=== PATIENT | female | born 1965 | race Caucasian/White ===

== ENCOUNTER 2017-12-10 12:02 | Outpatient (REF) | payer OTHER, SELFPAY ==
[2017-12-10 21:33] LABS: Absolute Basophil Count 0.02 k/cumm (0.0-0.2); Absolute Eosinophil Count 0.15 k/cumm (0.0-0.7); Absolute Neutrophil Count 1.78 k/cumm (1.2-6.7); Basophils % 0.6; Eosinophils % 4.3; HGB 12.7 g/dL (12.0-15.5); Mean Corp. HGB Concentration 33.4 g/dL (32.0-36.0); Mean Corpuscular Hemoglobin 31.4 pg (27.0-33.0); Mean Corpuscular Volume 94.1 fL (80-95); Mean Platelet Volume 12.5 fL (8.0-11.0); Monocytes % 14.5; Neutrophils % 51.6; Platelet Count 197 x1000/uL (130-400); RBC 4.04 m/cumm (4.00-5.20); RBC Distribution Width 13.1 % (11.7-14.6); White Blood Cell Count 3.45 k/cumm (4.4-10.8)
[2017-12-10 21:57] LABS: Anion Gap 8.4 mmol/L (3-11); BUN 16 mg/dL (7-18); CO2 26.6 mmol/L (21.0-32.0); CREATININE 0.75 mg/dL (0.55-1.02); Calcium 8.9 mg/dL (8.5-10.1); Chloride 105 mmol/L (98-107); Glucose 116 mg/dL (70-100); Sodium 140 mmol/L (136-145)
== END 2017-12-10 12:22 ==
LOC: NCHCN 12:02
PROVIDERS: PCP Nurse Practitioner Family; Visit Provider Registered Nurse
DX: R19.7 Diarrhea, unspecified (principal)
CPT/HCPCS: 80048; 85025

== ENCOUNTER 2018-01-02 12:24 | Outpatient (REF) | payer OTHER, SELFPAY ==
[2018-01-02 22:16] LABS: Hemoglobin A1C 5.3 % (4.5-6.2)
[2018-01-02 22:33] LABS: Cholesterol 181 mg/dL (50-200); HDL Cholesterol 87 mg/dL (40-60); LDL CHOLESTEROL 80 mg/dL (<100); Triglyceride 55 mg/dL (30-150); Vitamin B12 431 pg/mL (193-986)
== END 2018-01-02 12:44 ==
LOC: NCHCN 12:24
PROVIDERS: PCP Nurse Practitioner Family; Visit Provider Nurse Practitioner Family
DX: Z00.00 Encounter for general adult medical examination without abnormal findings (principal); G89.4 Chronic pain syndrome; F32.9 Major depressive disorder, single episode, unspecified; K90.9 Intestinal malabsorption, unspecified; Z13.220 Encounter for screening for lipoid disorders; Z13.1 Encounter for screening for diabetes mellitus; Z82.49 Family history of ischemic heart disease and other diseases of the circulatory system
CPT/HCPCS: 80061; 83721; 82607; 83036

== ENCOUNTER 2018-01-05 15:45 | Outpatient (REF) | payer OTHER, SELFPAY | END 2018-01-05 16:05 | LOC: NCHCN 15:45 | PROVIDERS: PCP Nurse Practitioner Family; Visit Provider Nurse Practitioner Family | DX: R50.9 Fever, unspecified (principal); Z87.448 Personal history of other diseases of urinary system | CPT/HCPCS: 87077; 82043; 82570; 87086; 87186 ==

== ENCOUNTER 2018-03-05 12:19 | Outpatient (REF) | payer OTHER, SELFPAY | END 2018-03-05 12:39 | LOC: NCHCN 12:19 | PROVIDERS: PCP Nurse Practitioner Family; Visit Provider Nurse Practitioner Family | DX: R50.9 Fever, unspecified (principal); Z87.448 Personal history of other diseases of urinary system | CPT/HCPCS: 87086 ==

== ENCOUNTER 2018-04-15 13:23 | Emergency (ER) | payer SELFPAY ==
[2018-04-15 13:37] VITALS: BP 125/80; PULSE 61; RESP 12; TEMP 36.4; O2SAT 100
--- NOTE | 2018-04-15 14:08 | NUR.NOTE ---
bleeding controlled without pressure Nursing Note:
--- NOTE | 2018-04-15 16:51 | ED.GENADUL_ITS ---
Discharge Plan Disposition Patient Disposition: HOME Condition: Good Discharge Details Chief Complaint: Laceration Clinical Impression: Abrasion Primary Care Provider: Sienna Pathak ED Provider: Pavan Ferrera Home Meds and New Rx's Prescriptions: No Action citalopram 20 MG tablet 20 mg PO DAILY RF: 0 ibuprofen 800 MG tablet 800 mg PO TID PRNRF: 0 Tylenol Pm 1 tab PO .QHS RF: 0 naproxen 500 MG tablet 500 mg PO BID PRN PRNQty: 30 RF: 0 gabapentin 600 mg Tablet 600 mg PO BID RF: 0 trazodone 50 mg Tablet 50 mg PO DAILY RF: 0 buspirone 10 mg Tablet 10 mg PO BID RF: 0 bupropion HCl [Wellbutrin XL] 150 mg Tablet Extended Release 24 Hr 150 mg PO QAM RF: 0 tramadol 50 mg Tablet 50 mg PO Q6H PRNRF: 0 Discharge Instructions Instructions: Abrasion (ED) Additional Instructions: Please apply triple antibiotic ointment to the abrasion twice daily. Please keep a bandage. If you notice any redness or drainage, please return immediately for reevaluation. if you notice any worsening of your symptoms, or any new symptoms such as vomiting, diarrhea, fever, chills, shortness of breath, chest pain, numbness, weakness, or fainting , please return immediately to the emergency department for reevaluation. Please follow up with your primary care provider as soon as possible for reassessment and reevaluation. As always, it was a pleasure participating in your medical care today. Referrals: Sienna Pathak [Primary Care Provider] - Medical Decision Making This is a pleasant 52-year-old female who presents for evaluation of an abrasion over her left forehead. No signs of laceration, nothing to be sutured. Tetanus is up-to-date the patient. She does not want any prophylactic medication for HIV or hepatitis. She has no other signs of trauma, and no historical concerning red flags of concussion, or other abnormality. Small amount of triple antibiotic ointment were placed on the abrasion after it had been cleaned and washed with copious amounts of soap and water. A Band-Aid was placed. Patient will be discharged home. I have extensively reviewed the treatment plan and discharge instructions with the patient. I have addressed all patient concerns at this time. The patient was made aware of what symptoms to monitor for that would warrant a return to the emergency department. Discussed the plan with the patient, they demonstrate verbal understanding and agreement with our assessment and plan at this time. HPI General Date/Time Provider Initiated Documentation: 04/15/18 14:19 . HPI Narrative: This is a 52-year-old female who presents for evaluation of abrasion. Patient states that she is bending over and scraped her left forehead on a metal bur that was clean on a chair at her work. The patient went and got blood work for otitis and HIV screening. She then came to the ER for further evaluation. Patient's tetanus was updated within the past 10 years per the patient. She denies any complaints of headache, vision changes, loss of consciousness, numbness tingling weakness or bleeding. She denies any other complaints or modifying factors. She does not want prophylaxis medications for HIV or hepatitis. Related Data Home Medications Medication Instructions Recorded Confirmed citalopram 20 mg PO DAILY 08/30/12 04/15/18 ibuprofen 800 mg PO TID PRN 12/03/12 04/15/18 Tylenol Pm 1 tab PO .QHS 04/18/13 04/15/18 naproxen 500 mg PO BID PRN PRN #30 tab 04/18/13 04/15/18 bupropion HCl [Wellbutrin XL] 150 mg PO QAM 04/15/18 04/15/18 buspirone 10 mg PO BID 04/15/18 04/15/18 gabapentin 600 mg PO BID 04/15/18 04/15/18 tramadol 50 mg PO Q6H PRN 04/15/18 04/15/18 trazodone 50 mg PO DAILY 04/15/18 04/15/18 Previous Rx's Medication Instructions Recorded naproxen 500 mg PO BID PRN PRN #30 tab 04/18/13 Allergies Allergy/AdvReac Type Severity Reaction Status Date / Time No Known Allergies Allergy Unverified 04/15/18 13:40 General Stated Complaint: Laceration SUE: 5 Review of Systems Review of Systems All systems reviewed & are unremarkable except as noted in HPI and below PFSH Social History Smoking and Tabacco status: Never Exam Narrative Exam Narrative: 1.Const: Well-nourished, Well-developed, appearing stated age 2.Eyes: PERRL, no conjunctival injection, and symmetrical lids. 3.ENT: Atraumatic external nose and ears. Moist MM. Neck: Symmetric, trachea midline, No thyromegaly. There is no evidence of raccoon eyes, bowie sign, CSF rhinorrhea, mastoid tenderness, cranial crepitus, hemotympanum, exophthalmos, or hyphema. Patient demonstrates intact dentition with no signs of tooth avulsion or fracture, no signs of jaw deformity, no evidence of a LeFort's fracture, with an intact palate, nose and orbital region. There is no evidence of a nasal septal hematoma. No proptosis. Jaw closes symmetrically. Airway is clear. 4.CVS: +S1/S2, No murmurs or gallops. Peripheral pulses 2+ and equal in all extremities. Brisk capillary refill in all extremities. 5.RESP: Unlabored respiratory effort. Clear to auscultation bilaterally. No wheezes rales or rhonchi 6.GI: Soft, Nontender/Nondistended, No hepatosplenomegaly. No guarding or rebound. 7.MSK: Normocephalic/Atraumatic, Extremities w/o deformity or ttp No cyanosis or clubbing, Normal movement of all extremities 8.Skin: Warm, Dry. No rashes. She demonstrates a very small superficial abrasion over the left brow, it is linear and roughly 3 cm. It goes from medial to lateral.. Nothing to be sutured. No signs of through and through cutaneous laceration. 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 Sensation grossly intact, no focal neurologic deficits. 10.Psych: (AAO) x3. Appropriate mood and affect Course Vital Signs Temperature 36.4 C L 04/15/18 13:37 Pulse 61 04/15/18 13:37 Respiratory Rate 12 04/15/18 13:37 Blood Pressure 125/80 04/15/18 13:37 Pulse Oximetry 100 04/15/18 13:37 Temperature 36.4 C L 04/15/18 13:37 Temperature Source Temporal Artery Scan 04/15/18 13:37 Pulse 61 04/15/18 13:37 Respiratory Rate 12 04/15/18 13:37 Respiratory Effort Non-Labored 04/15/18 13:39 Blood Pressure 125/80 04/15/18 13:37 Blood Pressure Position Sitting 04/15/18 13:37 Pulse Oximetry 100 04/15/18 13:37 Oxygen Delivery Method Room Air 04/15/18 13:37 Oxygen Flow Rate 0 04/15/18 13:37 Pain Level 4 04/15/18 13:37
== END 2018-04-15 14:25 | disposition home or self-care (01) ==
LOC: ER 14:23
PROVIDERS: Emergency Provider Student in an Organized Health Care Education/Training Program; PCP Nurse Practitioner Family
DX: S00.81XA Abrasion of other part of head, initial encounter (principal); W22.8XXA Striking against or struck by other objects, initial encounter; Y99.0 Civilian activity done for income or pay
CPT/HCPCS: 99282

== ENCOUNTER 2018-12-14 12:20 | Outpatient (REF) | payer OTHER, SELFPAY ==
[2018-12-14 21:50] LABS: HCT 41.9 % (36.0-46.0); HGB 13.8 g/dL (12.0-15.5); Mean Corp. HGB Concentration 32.9 g/dL (32.0-36.0); Mean Corpuscular Hemoglobin 30.3 pg (27.0-33.0); Mean Corpuscular Volume 92.1 fL (80-95); Mean Platelet Volume 11.5 fL (8.0-11.0); Platelet Count 256 x1000/uL (130-400); RBC 4.55 m/cumm (4.00-5.20); RBC Distribution Width 13.6 % (11.7-14.6); White Blood Cell Count 3.04 k/cumm (4.4-10.8)
[2018-12-14 22:31] LABS: Iron 89 ug/dL (50-175)
[2018-12-14 22:56] LABS: ALT 21 U/L (14-59); AST 19 U/L (15-37); Albumin 3.9 g/dL (3.4-5.0); Alkaline Phosphatase 80 U/L (46-116); Anion Gap 10.7 mmol/L (3-11); BUN 13 mg/dL (7-18); Bilirubin, Total 0.4 mg/dL (0.2-1.0); CO2 28.3 mmol/L (21.0-32.0); CREATININE 0.85 mg/dL (0.55-1.02); Calcium 9.4 mg/dL (8.5-10.1); Chloride 105 mmol/L (98-107); Glucose 93 mg/dL (70-100); Sodium 144 mmol/L (136-145); TSH 2.16 uIU/mL (0.36-3.74); Total Protein 7.3 g/dL (6.4-8.2); Vitamin B12 269 pg/mL (193-986)
[2018-12-16 12:09] LABS: FSH 72.3 mIU/ml
== END 2018-12-14 12:40 ==
LOC: NCHCN 12:20
PROVIDERS: PCP Nurse Practitioner Family; Visit Provider Nurse Practitioner Family
DX: Z00.00 Encounter for general adult medical examination without abnormal findings (principal); N95.1 Menopausal and female climacteric states; K90.9 Intestinal malabsorption, unspecified
CPT/HCPCS: 80053; 82306; 85027; 82607; 83001; 83540; 84443

== ENCOUNTER 2019-02-22 22:32 | Outpatient (REF) | payer OTHER, SELFPAY | END 2019-02-22 22:52 | LOC: NCHCN 22:32 | PROVIDERS: PCP Nurse Practitioner Family; Visit Provider Internal Medicine | DX: R30.0 Dysuria (principal) | CPT/HCPCS: 87077; 87086; 87186 ==

== ENCOUNTER 2019-12-06 16:01 | Outpatient (REF) | payer OTHER, SELFPAY ==
--- NOTE | 2019-12-06 15:00 | PAPFT_PTH ---
PATIENT: Twila Graves LOC: [facility] U#:[id number] AGE/SX: 54/F ROOM: RE12/06/[address]: Hayley Wagner : 1965 BED: DIS: 12/06/2019 SPEC #: [id number] RECD: 12/07/19 12:54 STATUS: SISSY REQ #: [id number] LINETTE: 12/06/19 15:[address]: Hayley Young DEPT: [facility] Cytology RECD BY: Rubina Flannery ENTERED: 12/07/19 12:54 SP TYPE: PAPFT OTHR DR: Sienna Pathak Tissues: 1 - CX/ENDOCX FOR PAP SMEARS Procedures: PAP THIN PREP/UVM Screening HPV DNA PROBE Comments: [id number]
[2019-12-06 22:08] LABS: HCT 39.3 % (36.0-46.0); HGB 13.3 g/dL (11.2-15.7); MCH 31.1 pg (27.0-33.0); MCHC 33.8 % (32.0-36.0); MCV 91.8 fL (80-95); MPV 12.1 fL (8.0-11.0); Platelet Count 231 10^3/uL (130-400); RBC 4.28 10^6/uL (3.93-5.22); RDW 13.1 % (11.7-14.6); WBC 5.02 10^3/uL (4.4-10.8)
[2019-12-06 22:21] LABS: Iron 85 ug/dL (50-170)
[2019-12-06 22:41] LABS: Hemoglobin A1C 5.6 % (<5.7)
[2019-12-06 22:57] LABS: Vitamin D 25 Total 34.9 ng/ml (30-100)
[2019-12-06 22:59] LABS: Anion Gap 11.3 mmol/L (3-11); BUN 17 mg/dL (7-18); CO2 26.7 mmol/L (21.0-32.0); Calcium 9.4 mg/dL (8.5-10.1); Chloride 105 mmol/L (98-107); Glucose 99 mg/dL (74-106); Potassium 4.2 mmol/L (3.5-5.1); Sodium 143 mmol/L (136-145); TSH 3.25 uIU/mL (0.36-3.74); Vitamin B12 294 pg/mL (193-986)
== END 2019-12-06 16:21 ==
LOC: NCHCN 16:01
PROVIDERS: PCP Nurse Practitioner Family; Visit Provider Nurse Practitioner Family
DX: K90.9 Intestinal malabsorption, unspecified (principal); Z13.1 Encounter for screening for diabetes mellitus; Z12.4 Encounter for screening for malignant neoplasm of cervix; R87.810 Cervical high risk human papillomavirus (HPV) DNA test positive
CPT/HCPCS: 80048; 82306; 85027; 88142; 82607; 83036; 83540; 84443; 87624

== ENCOUNTER → 2020-03-23 20:05 | Outpatient (REF) | payer OTHER, SELFPAY | LOC: NCHCN 20:05 | PROVIDERS: PCP Nurse Practitioner Family; Visit Provider Family Medicine | DX: Z87.448 Personal history of other diseases of urinary system (principal); R82.998 Other abnormal findings in urine | CPT/HCPCS: 87077; 87086; 87186 ==

== ENCOUNTER 2020-11-23 10:26 | Outpatient (REF) | payer OTHER, SELFPAY ==
--- NOTE | 2020-11-23 09:30 | PAPFT_PTH ---
PATIENT: Twila Graves LOC: [facility]#:[id number] AGE/SX: 55/F ROOM: RE11/23/[address]: Hayley Wagner : 1965 BED: DIS: 11/23/2020 SPEC #: [id number] RECD: 11/23/20 13:11 STATUS: SISSY REMichelle #: [id number] LINETTE: 11/23/20 09:[address]: Hayley Young DEPT: [facility] Cytology RECD BY: Rubina Flannery ENTERED: 11/23/20 13:11 SP TYPE: PAPFT OTHR DR: Sienna Pathak Tissues: 1 - CX/ENDOCX FOR PAP SMEARS Procedures: PAP THIN PREP/UVM Screening HPV DNA PROBE Comments: [id number] (HPV 16 & 18/45)
[2020-11-23 16:02] LABS: HGB 12.2 g/dL (11.2-15.7); MCH 29.9 pg (27.0-33.0); MCHC 32.1 % (32.0-36.0); MCV 93.1 fL (80-95); MPV 12.2 fL (8.0-11.0); Platelet Count 235 10^3/uL (130-400); RBC 4.08 10^6/uL (3.93-5.22); RDW 13.4 % (11.7-14.6); RDW-SD 45.7 fL; WBC 3.26 10^3/uL (4.4-10.8)
[2020-11-23 16:42] LABS: Hemoglobin A1C 5.8 % (<5.7)
[2020-11-23 16:44] LABS: Iron 76 ug/dL (50-170); Total Iron Binding Capacity 452 ug/dL (250-450); Transferrin Sat 17 % (15-50)
[2020-11-23 16:49] LABS: Vitamin D 25 Total 31.8 ng/mL (30-100)
[2020-11-23 16:50] LABS: ALT 29 U/L (14-59); AST 22 U/L (15-37); Albumin 3.7 g/dL (3.4-5.0); Alkaline Phosphatase 81 U/L (46-116); Anion Gap 6.9 mmol/L (3-11); BUN 15 mg/dL (7-18); Bilirubin, Total 0.3 mg/dL (0.2-1.0); CO2 28.1 mmol/L (21.0-32.0); CREATININE 0.8 mg/dL (0.55-1.02); Calcium 8.8 mg/dL (8.5-10.1); Chloride 105 mmol/L (98-107); Glucose 96 mg/dL (74-106); Potassium 4.6 mmol/L (3.5-5.1); Sodium 140 mmol/L (136-145); TSH 1.13 uIU/mL (0.36-3.74); Total Protein 6.7 g/dL (6.4-8.2); Vitamin B12 243 pg/mL (193-986)
== END 2020-11-23 10:27 | disposition home or self-care (01) ==
LOC: NCHCN 10:26
PROVIDERS: PCP Nurse Practitioner Family; Visit Provider Nurse Practitioner Family
DX: Z00.00 Encounter for general adult medical examination without abnormal findings (principal); E53.8 Deficiency of other specified B group vitamins; D50.9 Iron deficiency anemia, unspecified; E55.9 Vitamin D deficiency, unspecified; Z98.84 Bariatric surgery status; Z12.4 Encounter for screening for malignant neoplasm of cervix; Z13.1 Encounter for screening for diabetes mellitus; Z11.51 Encounter for screening for human papillomavirus (HPV); B97.7 Papillomavirus as the cause of diseases classified elsewhere
CPT/HCPCS: 80053; 82306; 85027; 88142; 82607; 83036; 83540; 83550; 84443; 87624

== ENCOUNTER 2021-03-26 20:28 | Outpatient (REF) | payer OTHER, SELFPAY ==
[2021-03-26 20:53] LABS: Abs Immature Grans 0.01 10^3/uL (0.0-0.06); Absolute Basophil Count 0.05 10^3/uL (0.0-0.2); Absolute Lymphocyte Count 1.59 10^3/uL (1.2-3.4); Absolute Monocyte Count 0.41 10^3/uL (0.1-0.8); Absolute Neutrophil Count 2.93 10^3/uL (1.2-6.7); HCT 44.9 % (36.0-46.0); HGB 14.2 g/dL (11.2-15.7); Immature Grans % 0.2; Lymphocytes % 31.2; MCHC 31.6 % (32.0-36.0); MCV 91.6 fL (80-95); MPV 11.9 fL (8.0-11.0); Monocytes % 8.1; Neutrophils % 57.5; Nucleated RBC 0 %; Platelet Count 273 10^3/uL (130-400); RDW 13.4 % (11.7-14.6); RDW-SD 45.4 fL; WBC 5.09 10^3/uL (4.4-10.8)
[2021-03-26 20:59] LABS: ALT 24 U/L (14-59); AST 19 U/L (15-37); Alkaline Phosphatase 102 U/L (46-116); Anion Gap 8.7 mmol/L (3-11); BUN 13 mg/dL (7-18); Bilirubin, Total 0.5 mg/dL (0.2-1.0); CO2 28.3 mmol/L (21.0-32.0); CREATININE 0.8 mg/dL (0.55-1.02); Calcium 9.2 mg/dL (8.5-10.1); Chloride 101 mmol/L (98-107); Glucose 106 mg/dL (74-106); Lipase 122 U/L (73-393); Potassium 3.7 mmol/L (3.5-5.1); Sodium 138 mmol/L (136-145); Total Protein 7.3 g/dL (6.4-8.2)
[2021-03-27 20:09] LABS: COVID-19 RT-PCR UVMMC Result Negative (Negative)
== END 2021-03-26 20:29 | disposition home or self-care (01) ==
LOC: NCHCN 20:28
PROVIDERS: PCP Nurse Practitioner Family; Visit Provider Nurse Practitioner Family
DX: R10.32 Left lower quadrant pain (principal); R53.1 Weakness; R42 Dizziness and giddiness; Z20.822 Contact with and (suspected) exposure to COVID-19
CPT/HCPCS: 80053; 83690; 87077; U0003; 85025; 87086; 87186

== ENCOUNTER 2021-06-26 18:42 | Outpatient (REF) | payer OTHER, SELFPAY ==
[2021-06-26 21:10] LABS: Bilirubin Negative (Negative); Blood Negative (Negative); Clarity Sl Cloudy (Clear); Glucose Negative (Negative); Ketones Negative (Negative); Leukocyte Esterase Negative (Negative); Nitrite Negative (Negative); Specific Gravity >= 1.030 (1.005-1.025); Urobilinogen 0.2 EU/dL (Up TO 0.2)
== END 2021-06-26 18:43 | disposition home or self-care (01) ==
LOC: NCHCN 18:42
PROVIDERS: PCP Nurse Practitioner Family; Visit Provider Nurse Practitioner Family
DX: R10.9 Unspecified abdominal pain (principal)
CPT/HCPCS: 81003

== ENCOUNTER 2021-11-09 19:37 | Outpatient (REF) | payer SELFPAY | END 2021-11-09 19:38 | disposition home or self-care (01) | LOC: NCHCN 19:37 | PROVIDERS: PCP Nurse Practitioner Family; Visit Provider Family Medicine | DX: R39.9 Unspecified symptoms and signs involving the genitourinary system (principal) | CPT/HCPCS: 87077; 87086; 87186 ==

== ENCOUNTER 2021-12-05 16:07 | Outpatient (REF) | payer SELFPAY | END 2021-12-05 16:08 | disposition home or self-care (01) | LOC: NCHCN 16:07 | PROVIDERS: PCP Nurse Practitioner Family; Visit Provider Family Medicine | DX: R39.89 Other symptoms and signs involving the genitourinary system (principal); R50.9 Fever, unspecified; R82.998 Other abnormal findings in urine | CPT/HCPCS: 87077; 87086; 87186 ==

== ENCOUNTER 2022-07-25 13:17 | Outpatient (REF) | payer OTHER, SELFPAY ==
--- NOTE | 2022-07-25 11:45 | PAPFT_PTH ---
PATIENT: Twila Graves LOC: [facility]#:[id number] AGE/SX: 57/F ROOM: RE07/25/[address]: Hayley Wagner : 1965 BED: DIS: 07/25/2022 SPEC #: [id number] RECD: 07/26/22 12:51 STATUS: SISSY CHUNG #: [id number] LINETTE: 07/25/22 11:[address]: Hayley Young DEPT: [facility] Cytology RECD BY: Rubina Flannery ENTERED: 07/26/22 12:51 SP TYPE: PAPFT OTHR DR: Sienna Pathak Tissues: 1 - CX/ENDOCX FOR PAP SMEARS Procedures: PAP THIN PREP/UVM Screening HPV DNA PROBE Comments: [id number] (HPV 16 & 18/45)
[2022-07-25 21:03] LABS: HCT 36.7 % (36.0-46.0); HGB 11.6 g/dL (11.2-15.7); MCH 27.9 pg (27.0-33.0); MCHC 31.6 % (32.0-36.0); MCV 88 fL (80-95); MPV 11.3 fL (8.0-11.0); Platelet Count 282 10^3/uL (130-400); RBC 4.16 10^6/uL (3.93-5.22); RDW 14.3 % (11.7-14.6); RDW-SD 46.5 fL; WBC 4.52 10^3/uL (4.4-10.8)
[2022-07-25 21:06] LABS: Iron 39 ug/dL (50-170); Total Iron Binding Capacity 510 ug/dL (250-450); Transferrin Sat 8 % (15-50)
[2022-07-25 21:15] LABS: Hemoglobin A1C 5.8 % (<5.7)
[2022-07-25 21:27] LABS: Vitamin D 25 Total 27.4 ng/mL (30-100)
[2022-07-25 21:31] LABS: ALT 23 U/L (14-59); AST 20 U/L (15-37); Albumin 3.6 g/dL (3.4-5.0); Alkaline Phosphatase 78 U/L (46-116); Anion Gap 5.8 mmol/L (3-11); BUN 14 mg/dL (7-18); Bilirubin, Total 0.3 mg/dL (0.2-1.0); CO2 29.2 mmol/L (21.0-32.0); CREATININE 0.9 mg/dL (0.55-1.02); Calcium 8.6 mg/dL (8.5-10.1); Chloride 106 mmol/L (98-107); Estimated GFR 74.57 (mL/min/1.73m2); Glucose 97 mg/dL (74-106); Potassium 4.4 mmol/L (3.5-5.1); Sodium 141 mmol/L (136-145); TSH 1.67 uIU/mL (0.36-3.74); Total Protein 7.2 g/dL (6.4-8.2); Vitamin B12 178 pg/mL (193-986)
[2022-07-29 10:25] LABS: Hepatitis C Ab w Rflx HCV PCR Negative (Negative)
== END 2022-07-25 13:18 | disposition home or self-care (01) ==
LOC: NCHCN 13:17
PROVIDERS: PCP Nurse Practitioner Family; Visit Provider Nurse Practitioner Family
DX: Z12.4 Encounter for screening for malignant neoplasm of cervix (principal); Z11.51 Encounter for screening for human papillomavirus (HPV); R87.810 Cervical high risk human papillomavirus (HPV) DNA test positive
CPT/HCPCS: 80053; 82306; 85027; 86803; 88142; 82607; 83036; 83540; 83550; 84443; 87624

== ENCOUNTER 2023-01-21 14:54 | Outpatient (REF) | payer OTHER, SELFPAY ==
[2023-01-21 14:56] LABS: Hemoglobin A1C 5.6 % (<5.7)
--- OUTSIDE RECORDS SUMMARY | 2023-01-21 15:03 | XMS_ITS | CCD ---
Author Name Unknown Address [address] [place] [address] [phone] Organization Unknown Address [address] [place] [address] [phone] Care Team Providers Care Ground Equipment Mechanic Name Role Phone ELEONORA JUANCARLOS Attending Physician [phone] Vital Signs Unknown or Not Available. Allergies Allergy Code Allergy Type Reaction Status No Known Allergies 0 No known allergies Active Procedures Unknown or Not Available. History of Immunizations Unknown or Not Available. Problems Problem Code Start Date Resolved Date Status Fever 992200000 Active Diabetes 51060857 Active Results Unknown or Not Available. Active Medications Medication Code Dose Units Frequency Route Modificatio n Start Date/Time Mucinex 1200MG Oral Tablet, Extended Release 638982 1 TABLET TWICE A DAY ORAL 05/29/2021 12:15 Prescription Detail TAKE 1 TABLET ORAL TWICE A DAY Cefpodoxime Proxetil 200MG Oral Tablet 128802 1 TABLET TWICE A DAY ORAL 05/29/2021 12:00 Prescription Detail TAKE 1 TABLET ORAL TWICE A DAY Azithromycin 250MG Oral Tablet 807602 1 TABLET DAILY ORAL 05/29/2021 11:59 Prescription Detail TAKE 1 TABLET ORAL DAILY buPROPion HCl 150MG Oral Tablet, Extended Release 519169 150 MILLIGRAMS DAILY ORAL 2 11:58 Prescription Detail TAKE 150 MILLIGRAMS ORAL DAILY busPIRone 10MG Oral Tablet 150411 10 MILLIGRAMS TWICE A DAY ORAL 05/29/2021 11:58 Prescription Detail TAKE 10 MILLIGRAMS ORAL TWICE A DAY Citalopram 40MG Oral Tablet 235692 40 MILLIGRAMS BEDTIME ORAL 022 11:58 Prescription Detail TAKE 40 MILLIGRAMS ORAL BEDTIME Cyclobenzaprine HCl 10MG Oral Tablet 594364 10 MILLIGRAMS NEEDED ORAL 2 11:58 Prescription Detail TAKE 10 MILLIGRAMS ORAL NEEDED Erythromycin 5MG/1GM Ophthalmic Ointment 398341 1 EACH NEEDED FOUR TIMES A DAY OPHTHALMIC 05/29/2021 11:[address] 1 EACH OPHTHALMIC NEEDED FOUR T IMES A DAY Gabapentin 600MG Oral Tablet 576400 600 MILLIGRAMS NEEDED TWICE DAILY ORAL 05/29/2021 11:58 Prescription Detail TAKE 600 MILLIGRAMS ORAL NEEDED TWICE DAILY traZODone hydrochloride 50MG Oral Tablet 413959 50 MILLIGRAMS BEDTIME ORAL 11:58 Prescription Detail TAKE 50 MILLIGRAMS ORAL BEDTIME valACYclovir HCl 1GM Oral Tablet 739181 1 GM NEEDED ORAL 06/2021 11:58 Prescription Detail TAKE 1 GM ORAL NEEDED Vitamin B12 1000 MCG Sublingual Tablet 406987 4205 MCG DAILY SUBLINGUAL 11:58 Prescription Detail DISSOLVE 1000 MCG SUBLINGUAL DAILY Medications Administered During Visit Unknown or Not Available. Encounters Encounter Diagnosis Diagnosis Code Start Date Canceled operative procedure [id number] Social History Smoking Status Code Start Date End Date Never smoker [id number] Patient Decision Aids Unknown or Not Available. Discharge Instructions You were admitted to [facility] on 09/19/2022 14:45 with a principal diagnosis of Procedure and treatment not carried out, unspecified reason You were discharged from [facility] on 09/19/2022 14:45 Should you have any questions prior to discharge, please contact a member of your healthcare team. If you have left the hospital and have any questions, please contact your primary care physician. Chief Complaint and Reason For Visit Unknown or Not Available. Function Status Unknown or Not Available. Plan of Care Unknown or Not Available. Referral/Transition of Care Unknown or Not Available.
--- OUTSIDE RECORDS SUMMARY | 2023-01-21 15:04 | XMS_ITS | CCD ---
Author Name Unknown Address [address] [place] [address] [phone] Organization Unknown Address [address] [place] [address] [phone] Care Team Providers Care Log Yard Derrick Operator Name Role Phone LORENA LAM Attending Physician [phone] Vital Signs Unknown or Not Available. Allergies Allergy Code Allergy Type Reaction Status No Known Allergies 0 No known allergies Active Procedures Unknown or Not Available. History of Immunizations Unknown or Not Available. Problems Problem Code Start Date Resolved Date Status Fever 595994373 Active Diabetes 23583455 Active Type 2 diabetes 25287137 05/28/2021 Resolved Anxiety 83246233 05/28/2021 Resolved Depression 51309250 05/28/2021 Resolved Chronic back pain 726830244 05/28/2021 Resolve d Results SHIRLEY COVID RHEONIX* - Ledy ect Date/Time: 02/20/2021 09:50 Test Name Code Test Result Test Units Test Ref Rang e Tier- PRE-OP N/A SARS COV2 RNA: 87809-9 NEGATIVE N/A REFERENCE RANGE: NEGAT Active Medications Medication Code Dose Units Frequency Route Modificatio n Start Date/Time Mucinex 1200MG Oral Tablet, Extended Release 286452 1 TABLET TWICE A DAY ORAL 05/29/2021 12:15 Prescription Detail TAKE 1 TABLET ORAL TWICE A DAY Cefpodoxime Proxetil 200MG Oral Tablet 963720 1 TABLET TWICE A DAY ORAL 05/29/2021 12:00 Prescription Detail TAKE 1 TABLET ORAL TWICE A DAY Azithromycin 250MG Oral Tablet 924699 1 TABLET DAILY ORAL 05/29/2021 11:59 Prescription Detail TAKE 1 TABLET ORAL DAILY buPROPion HCl 150MG Oral Tablet, Extended Release 775457 150 MILLIGRAMS DAILY ORAL 11:58 Prescription Detail TAKE 150 MILLIGRAMS ORAL DAILY busPIRone 10MG Oral Tablet 603986 10 MILLIGRAMS TWICE A DAY ORAL 05/29/2021 11:58 Prescription Detail TAKE 10 MILLIGRAMS ORAL TWICE A DAY Citalopram 40MG Oral Tablet 651009 40 MILLIGRAMS BEDTIME ORAL 022 11:58 Prescription Detail TAKE 40 MILLIGRAMS ORAL BEDTIME Cyclobenzaprine HCl 10MG Oral Tablet 199104 10 MILLIGRAMS NEEDED ORAL 11:58 Prescription Detail TAKE 10 MILLIGRAMS ORAL NEEDED Erythromycin 5MG/1GM Ophthalmic Ointment 150186 1 EACH NEEDED FOUR TIMES A DAY OPHTHALMIC 05/29/2021 11:[address] 1 EACH OPHTHALMIC NEEDED FOUR T IMES A DAY Gabapentin 600MG Oral Tablet 960960 600 MILLIGRAMS NEEDED TWICE DAILY ORAL 05/29/2021 11:58 Prescription Detail TAKE 600 MILLIGRAMS ORAL NEEDED TWICE DAILY traZODone hydrochloride 50MG Oral Tablet 677001 50 MILLIGRAMS BEDTIME ORAL 11:58 Prescription Detail TAKE 50 MILLIGRAMS ORAL BEDTIME valACYclovir HCl 1GM Oral Tablet 565700 1 GM NEEDED ORAL 06/2021 11:58 Prescription Detail TAKE 1 GM ORAL NEEDED Vitamin B12 1000 MCG Sublingual Tablet 959508 4585 MCG DAILY SUBLINGUAL 11:58 Prescription Detail DISSOLVE 1000 MCG SUBLINGUAL DAILY Medications Administered During Visit Unknown or Not Available. Encounters Encounter Diagnosis Diagnosis Code Start Date Pre-surgery testing 830620201 02/20/2021 Social History Smoking Status Code Start Date End Date Never smoker 259926283 Patient Decision Aids Unknown or Not Available. Discharge Instructions You were admitted to [facility] on 02/20/2021 22:05 with a principal diagnosis of Encounter for preprocedural laboratory examination You had the following tests done:SHIRLEY REEVESX* You were discharged from [facility] on 02/20/2021 22:05 Should you have any questions prior to [...]
--- OUTSIDE RECORDS SUMMARY | 2023-01-21 15:04 | XMS_ITS | CCD ---
Author Name Unknown Address [address] [place] [address] [phone] Organization Unknown Address [address] [place] [address] [phone] Care Team Providers Care Personnel Quality Assurance Auditor Name Role Phone JULIAN ESPINOZA Attending Physician [phone] HANNA BENTLEY Er Physician [phone] RUSTY XIONG (Secondary) Physician 8 [phone] CHUCHO Melara Registered Nurse [phone] Vital Signs Vital Sign Value Unit Date/Time Recent/Initial ? BMI (Body Mass Index) 28.55 kg/m^2 05/28/2021 14: 37 Initial VS Weight Measured 199 lbs 05/28/2021 14:37 Ini tial VS Height 70 in 05/28/2021 14:37 Initial VS BSA (Body Surface Area) 2.11 m^2 05/28/2021 1 4:37 Initial VS BP Systolic 166 mmHg 05/28/2021 14:37 Initial VS BP Diastolic 85 mmHg 05/28/2021 14:37 Initia l VS Respiratory Rate 20 bpm 05/28/2021 14:37 In itial VS Heart Rate 87 bpm 05/28/2021 14:37 Initial VS O2 % BldC Oximetry 95 % 05/28/2021 14:37 Initial VS Body Temperature 39.6 degrees 05/28/2021 14:37 In itial VS BP Systolic 129 mmHg 05/29/2021 07:48 Most Re cent VS BP Diastolic 84 mmHg 05/29/2021 07:48 Most R ecent VS Respiratory Rate 16 bpm 05/29/2021 07:[address] Recent VS Heart Rate 71 bpm 05/29/2021 07:48 Most Rec ent VS Body Temperature 36.6 degrees 05/29/2021 07:[address] Recent VS O2 % BldC Oximetry 92 % 05/29/2021 11:00 Most Recent VS Allergies Allergy Code Allergy Type Reaction Status No Known Allergies 0 No known allergies Active Procedures Unknown or Not Available. History of Immunizations Unknown or Not Available. Problems Problem Code Start Date Resolved Date Status Fever 247842222 Active Diabetes 65065704 Active Type 2 diabetes 65457788 05/28/2021 Resolved Anxiety 38544043 05/28/2021 Resolved Depression 27032525 05/28/2021 Resolved Chronic back pain 863244093 05/28/2021 Resolve d Results BASIC METABOLIC PANEL (BMP) - Collect Date/Time: 05/29/2021 07:30 Test Name Code Test Result Test Units Test Ref Rang e GLUCOSE 2345-7 99 mg/dL L=70 H=116 BUN 3094-0 9 mg/dL L=6 H=25 CREATININE 2160-0 0.74 mg/dL L=0.51 H=0.95 SODIUM SERUM 2951-2 139 mmol/L L=136 H=145 POTASSIUM SERUM 2823-3 3.6 mmol/L L=3.4 H=5 .2 CHLORIDE SERUM 2075-0 105 mmol/L L=96 H=110 CARBON DIOXIDE (CO2) 2028-9 28 mmol/L L=22 H=34 ANION GAP 38083-9 6.4 mmol/L CALCIUM SERUM 71091-8 8.5 mg/dL L=8.2 H=10. 2 AGE 56 years eGFR (non-Afr.Amer.) 12162-2 81 mL/min eGFR (Afr-Singaporean) 73664-2 98 mL/min COMPREHENSIVE METABOLIC PANE L (CMP) - Collect Date/Time: 05/28/2021 14:15 Test Name Code Test Result Test Units Test Ref Rang e GLUCOSE 2345-7 139 mg/dL L=70 H=116 BUN 3094-0 10 mg/dL L=6 H=25 CREATININE 2160-0 0.86 mg/dL L=0.51 H=0.95 SODIUM SERUM 2951-2 136 mmol/L L=136 H=145 POTASSIUM SERUM 2823-3 3.5 mmol/L L=3.4 H=5 .2 CHLORIDE SERUM 2075-0 100 mmol/L L=96 H=110 CARBON DIOXIDE (CO2) 2028-9 26 mmol/L L=22 H=34 ANION GAP 42170-1 9.6 mmol/L CALCIUM SERUM 39428-0 8.5 mg/dL L=8.2 H=10. 2 BILIRUBIN TOTAL 1975-2 0.4 mg/dL L=0.0 H=1 .3 ALK. PHOS. 6768-6 93 U/L L=46 H=116 SGOT (AST) 1920-8 16 U/L L=15 H=37 SGPT (ALT) 1742-6 19 U/L L=12 H=78 TOTAL PROTEIN 2885-2 7.0 gm/dL L=6.0 H=8.0 ALBUMIN 1751-7 3.4 gm/dL L=3.4 H=5.0 AGE 56 years eGFR (non-Afr.Amer.) 44963-0 68 mL/min eGFR (Afr-Singaporean) 93665-5 83 mL/min TROPONIN HIGH SENSITIVITY* - Collect Date/Time: 05/28/2021 14:15 Test Name Code Test Result Test Units Test Ref Rang e TROPONIN HS 48.8 pg/mL L=0.0 H=60.4 Specimen seq. Random N/A CBC W/ DIFFERENTIAL* - Colle ct Date/Time: 05/29/2021 07:30 Test Name Code Test Result Test Units Test Ref Rang e WBC 6690-2 5.63 th/cmm L=5.00 H=10.00 NEUT % 69.7 % L=40.0 H=80.0 LYMPH % 21.0 % L=10.0 H=50.0 MONO % 52612-2 7.8 % L=2.0 H=12.0 EOS % 0.9 % L=0.0 H=8.0 BASO % 0.2 % L=0.0 H=3.0 IG % 2514-8 0.4 % L=0.0 H=1.1 NRBC % 59925-5 0.0 % L=0.0 H=0.0 NEUT abs count 751-8 3.9 th/cmm L=1.6 H=8. 4 LYMPH abs count 731-0 1.2 th/cmm L=1.5 H=4 .0 MONO abs count 742-7 0.4 th/cmm L=0.2 H=1. 0 EOS abs count 711-2 0.1 th/cmm L=0.0 H=0.5 BASO abs count 704-7 0.0 th/cmm L=0.0 H=0. 2 IG abs count 69943-9 0.0 th/cmm L=0.0 H=0.1 NRBC abs count 44052-2 0.0 mil/cmm L=0.0 H=0. 0 RBC 789-8 4.09 mil/cmm L=3.90 H=5.40 HEMOGLOBIN 718-7 12.2 gm/dL L=12.0 H=16.0 HEMATOCRIT 4544-3 38 % L=37 H=47 MCV 787-2 92 fL L=82 H=92 MCH 785-6 29.8 pg L=27.0 H=31.0 MCHC 786-4 32.4 % L=32.0 H=36.0 RDW-SD 788-0 48.2 fL L=39.0 H=49.0 PLATELET COUNT 777-3 188 th/cmm L=150 H=45 0 CBC W/ DIFFERENTIAL* - Colle ct Date/Time: 05/28/2021 14:15 Test Name Code Test Result Test Units Test Ref Rang e WBC 6690-2 5.74 th/cmm L=5.00 H=10.00 NEUT % 82.8 % L=40.0 H=80.0 LYMPH % 10.5 % L=10.0 H=50.0 MONO % 00706-8 5.7 % L=2.0 H=12.0 EOS % 0.5 % L=0.0 H=8.0 BASO % 0.2 % L=0.0 H=3.0 IG % 2514-8 0.3 % L=0.0 H=1.1 NRBC % 83401-9 0.0 % L=0.0 H=0.0 NEUT abs count 751-8 4.8 th/cmm L=1.6 H=8. 4 LYMPH abs count 731-0 0.6 th/cmm L=1.5 H=4 .0 MONO abs count 742-7 0.3 th/cmm L=0.2 H=1. 0 EOS abs count 711-2 0.0 th/cmm L=0.0 H=0.5 BASO abs count 704-7 0.0 th/cmm L=0.0 H=0. 2 IG abs count 57847-1 0.0 th/cmm L=0.0 H=0.1 NRBC abs count 65481-1 0.0 mil/cmm L=0.0 H=0. 0 RBC 789-8 4.35 mil/cmm L=3.90 H=5.40 HEMOGLOBIN 718-7 13.0 gm/dL L=12.0 H=16.0 HEMATOCRIT 4544-3 39 % L=37 H=47 MCV 787-2 89 fL L=82 H=92 MCH 785-6 29.9 pg L=27.0 H=31.0 MCHC 786-4 33.6 % L=32.0 H=36.0 RDW-SD 788-0 45.5 fL L=39.0 H=49.0 PLATELET COUNT 777-3 200 th/cmm L=150 H=45 0 SHIRLEY COVID FLU RSV GENEXPE RT - Collect Date/Time: 05/28/2021 14:15 Test Name Code Test Result Test Units Test Ref Rang e COVID 01360-2 NEGATIVE N/A Normal: Negati ve INFLUENZA A DNA 98933-1 NEGATIVE N/A Normal: N egative INFLUENZA B DNA 01374-9 NEGATIVE N/A Normal: N egative RSV DNA 86190-9 NEGATIVE N/A Normal: Negati ve CULT URINE CULTURE* - [facility] Date/Time: 05/28/2021 16:05 Test Name Code Test Result Test Units Test Ref Rang e COLLECTION MODE: CLEAN CATCH N/A URINALYSIS WITH MICRO AND RE FLEX CULTUR* - Collect Date/Time: 05/28/2021 16:05 Test Name Code Test Result Test Units Test Ref Rang e COLLECTION MODE: CLEAN CATCH N/A Color 5778-6 STRAW N/A yellow Appearance 5767-9 CLEAR N/A clear Glucose urine 76153-5 NEGATIVE N/A negative mg /dl Bilirubin 5770-3 NEGATIVE N/A negative Ketones 2514-8 NEGATIVE N/A negative mg/dl Spec gravity 5811-5 <=1.005 N/A 1.003 - 1.03 0 pH urine 2756-5 6.5 N/A 5.0 - 7.0 Protein 57048-6 NEGATIVE N/A negative mg/dl Urobilinogen 97132-8 0.2 N/A <or= 1 EU/dl Nitrite. 5802-4 POSITIVE N/A negative Blood 5794-3 NEGATIVE N/A negative Leukocytes. NEGATIVE N/A negative WBCs. 55728-8 0-5 N/A 0-5 / hpf RBCs 69794-7 0-5 N/A 0-5 / hpf Epith cells 67286-3 0-5 N/A 0-5 / hpf Cell types squamous N/A Crystals none N/A none Bacteria large N/A none Mucus none N/A none Casts none N/A none /lpf Active Medications Medications Administered During Visit Medication Dose Units Frequency Route Date/Time of Last Dose SODIUM CHLORIDE 0.9% 1000ML 1000 ML X1 05/28/2021 14:37 ACETAMINOPHEN INJ SDV: 1000MG/100ML 1000 MG X1 05/28/2021 14:36 CefTRIAXone IVPB: 1GM/50ML 1 GM X1 05/28/2021 16:32 AZITHROMYCIN IVPB: 500MG/250ML 500 MG X1 05/28/2021 17:33 METOCLOPRAMIDE INJ SDV: 10MG/2ML 10 MG X1 IVP 05/28/2021 17:27 DiphenhydrAMINE INJ SDV: 50MG/ML 25 MG X1 IVP 05/28/2021 17:27 SODIUM CHLORIDE 0.9% FLUSH 1 0ML SYRINGE 2 ML Q8H IVP 05/28/2021 21:4 2 ACETAMINOPHEN TABLET: 325MG 975 MG PRN Q6H PO 05/29/2021 14:19 CYANOCOBALAMIN TABLET: 500MCG 1000 MCG DAILY PO 05/29/2021 08:29 TraZODone TABLET: 50MG 50 MG BEDTIME PO 05/28/2021 20:20 CITALOPRAM TABLET: 20MG 40 MG BEDTIME PO 05/28/2021 20:20 GABAPENTIN CAPSULE: 300MG 600 MG BID PO 05/29/2021 08:29 BuPROPion XL TABLET: 150MG 150 MG DAILY PO 05/29/2021 08:29 BusPIRone TABLET : 15MG 15 MG BID PO 05/29/2021 08:29 CefTRIAXone IVPB: 1GM/50ML 1 GM X1 05/29/2021 11:59 AZITHROMYCIN TABLET: 250MG 250 MG X1 PO 05/29/2021 11:58 GuaiFENesin EXT RELEASE TABL ET: 600MG 600 MG X1 PO 05/29/2021 12:5 0 Encounters Encounter Diagnosis Diagnosis Code Start Date Pneumonia, unspecified organism J189 05/28/2021 Social History Smoking Status Code Start Date End Date Never smoker [id number] Patient Decision Aids Unknown or Not Available. Discharge Instructions You were admitted to [facility] on 05/28/2021 17:01 with a principal diagnosis of Pneumonia, unspecified organism You had the following tests done:BASIC METABOLIC PANEL (BMP)CBC W/ DIFFERENTIAL*CULT URINE CULTURE*URINALYSIS WITH MICRO AND REFLEX CULTUR*CBC W/ DIFFERENTIAL*COMPREHENSIVE METABOLIC PANEL (CMP)[facility] COVID FLU RSV GENEXPERTTROPONIN HIGH SENSITIVITY* You were discharged from [facility] on 05/29/2021 14:25 Should you have any questions prior to discharge, please contact a member of your healthcare team. If you have left the hospital and have any questions, please contact your primary care physician. Chief Complaint and Reason For Visit Chief Complaint Date of Onset FEVER 05/28/2021 Function Status Unknown or Not Available. Plan of Care Unknown or Not Available. Referral/Transition of Care Unknown or Not Available.
--- OUTSIDE RECORDS SUMMARY | 2023-01-21 15:04 | XMS_ITS | CCD ---
Author Name Unknown Address [address] [place] [address] [phone] Organization Unknown Address [address] [place] [address] [phone] Care Team Providers Care Landscaping Specialist Name Role Phone LORENA LAM Attending Physician [phone] LORENA LAM Rounding (Secondary) Physic erich [phone] Vital Signs Unknown or Not Available. Allergies Allergy Code Allergy Type Reaction Status No Known Allergies 0 No known allergies Active Procedures Procedure Code Procedure Type Date REMOVAL IMPLANT DEEP [id number] SNOMED CT History of Immunizations Unknown or Not Available. Problems Problem Code Start Date Resolved Date Status Fever [id number] Active Diabetes 63091847 Active Type 2 diabetes 94157849 05/28/2021 Resolved Anxiety 08994247 05/28/2021 Resolved Depression 64574239 05/28/2021 Resolved Chronic back pain 761462003 05/28/2021 Resolve d Results Unknown or Not Available. Active Medications Medication Code Dose Units Frequency Route Modificatio n Start Date/Time Mucinex 1200MG Oral Tablet, Extended Release 205840 1 TABLET TWICE A DAY ORAL 05/29/2021 12:15 Prescription Detail TAKE 1 TABLET ORAL TWICE A DAY Cefpodoxime Proxetil 200MG Oral Tablet 459554 1 TABLET TWICE A DAY ORAL 05/29/2021 12:00 Prescription Detail TAKE 1 TABLET ORAL TWICE A DAY Azithromycin 250MG Oral Tablet 297051 1 TABLET DAILY ORAL 05/29/2021 11:59 Prescription Detail TAKE 1 TABLET ORAL DAILY buPROPion HCl 150MG Oral Tablet, Extended Release 213363 150 MILLIGRAMS DAILY ORAL 11:58 Prescription Detail TAKE 150 MILLIGRAMS ORAL DAILY busPIRone 10MG Oral Tablet 268410 10 MILLIGRAMS TWICE A DAY ORAL 05/29/2021 11:58 Prescription Detail TAKE 10 MILLIGRAMS ORAL TWICE A DAY Citalopram 40MG Oral Tablet 706972 40 MILLIGRAMS BEDTIME ORAL 022 11:58 Prescription Detail TAKE 40 MILLIGRAMS ORAL BEDTIME Cyclobenzaprine HCl 10MG Oral Tablet 685441 10 MILLIGRAMS NEEDED ORAL 11:58 Prescription Detail TAKE 10 MILLIGRAMS ORAL NEEDED Erythromycin 5MG/1GM Ophthalmic Ointment 043948 1 EACH NEEDED FOUR TIMES A DAY OPHTHALMIC 05/29/2021 11:[address] 1 EACH OPHTHALMIC NEEDED FOUR T IMES A DAY Gabapentin 600MG Oral Tablet 911219 600 MILLIGRAMS NEEDED TWICE DAILY ORAL 05/29/2021 11:58 Prescription Detail TAKE 600 MILLIGRAMS ORAL NEEDED TWICE DAILY traZODone hydrochloride 50MG Oral Tablet 403441 50 MILLIGRAMS BEDTIME ORAL 11:58 Prescription Detail TAKE 50 MILLIGRAMS ORAL BEDTIME valACYclovir HCl 1GM Oral Tablet 240622 1 GM NEEDED ORAL 06/2021 11:58 Prescription Detail TAKE 1 GM ORAL NEEDED Vitamin B12 1000 MCG Sublingual Tablet 445953 0751 MCG DAILY SUBLINGUAL 11:58 Prescription Detail DISSOLVE 1000 MCG SUBLINGUAL DAILY Medications Administered During Visit Unknown or Not Available. Encounters Encounter Diagnosis Diagnosis Code Start Date Pain due to internal prosthetic device [id number] 02/22/2021 Social History Smoking Status Code Start Date End Date Never smoker 135304838 Patient Decision Aids Unknown or Not Available. Discharge Instructions You were admitted to [facility] on 02/22/2021 13:28 with a principal diagnosis of Pain due to internal orthopedic prosthetic devices, implants and grafts, initial encounter You had the following procedures done:REMOVAL IMPLANT DEEP You were discharged from [facility] on 02/22/2021 13:29 Should you have any questions prior to [...]
--- OUTSIDE RECORDS SUMMARY | 2023-01-21 15:04 | XMS_ITS | CCD ---
Author Name Unknown Address [address] [place] [address] [id number] Organization Unknown Address [address] [place] [address] [id number] Care Team Providers Care Outside Industrial Sales Representative Name Role Phone LORENA LAM Attending Physician [phone] Vital Signs Vital Sign Value Unit Date/Time Recent/Initial ? BP Systolic 123 mmHg 02/22/2021 10:53 Initial VS BP Diastolic 83 mmHg 02/22/2021 10:53 Initia l VS Respiratory Rate 18 bpm 02/22/2021 10:53 In itial VS Heart Rate 61 bpm 02/22/2021 10:53 Initial VS O2 % BldC Oximetry 96 % 02/22/2021 10:53 Initial VS Body Temperature 36 degrees 02/22/2021 10:53 In itial VS Allergies Allergy Code Allergy Type Reaction Status No Known Allergies 0 No known allergies Active Procedures Procedure Code Procedure Type Date Removal, Implant; Deep 49541 CPT 02/22 Anesthesia, Open/Surg Arthro scopic/Endoscopic Proc, Distal Radius/Distal Ulna/Wrist/Hand; NOS 13492 CPT 02/22/2021 History of Immunizations Unknown or Not Available. Problems Problem Code Start Date Resolved Date Status Fever 860956606 Active Diabetes 97209948 Active Type 2 diabetes 34056958 05/28/2021 Resolved Anxiety 36521031 05/28/2021 Resolved Depression 87649235 05/28/2021 Resolved Chronic back pain 643743486 05/28/2021 Resolve d Results Unknown or Not Available. Active Medications Medications Administered During Visit Medication Dose Units Frequency Route Date/Time of Last Dose ACETAMINOPHEN TABLET: 325MG 975 MG X1 PO 02/22/2021 08:02 CELECOXIB CAPSULE: 100MG 200 MG X1 PO 02/22/2021 08:02 LACTATED RINGERS 1000ML 1000 ML X1 02/22/2021 08:05 MIDAZOLAM INJ SDV: 2MG/2ML 2 MG X1 IVP 02/22/2021 08:41 KETOROLAC INJ SDV: 30MG/1ML 30 MG PRN IN PACU X1 IVP 02/22/2021 10:05 Encounters Encounter Diagnosis Diagnosis Code Start Date Pain due to internal orthope dic prosthetic devices, implants and grafts, initial encounter [id number] 02/22/2021 Social History Smoking Status Code Start Date End Date Never smoker [id number] Patient Decision Aids Unknown or Not Available. Discharge Instructions You were admitted to [facility] on 02/22/2021 07:21 with a principal diagnosis of Pain due to internal orthopedic prosthetic devices, implants and grafts, initial encounter You had the following procedures done:Removal, Implant; DeepAnesthesia, Open/Surg Arthroscopic/Endoscopic Proc, Distal Radius/Distal Ulna/Wrist/Hand; NOS You were discharged from [facility] on 02/22/2021 10:56 Should you have any questions prior to discharge, please contact a member of your healthcare team. If you have left the hospital and have any questions, please contact your primary care physician. Chief Complaint and Reason For Visit Chief Complaint Date of Onset LEFT ULNA HARDWARE REMOVAL 60MIN OP Function Status Unknown or Not Available. Plan of Care Unknown or Not Available. Referral/Transition of Care Unknown or Not Available.
--- OUTSIDE RECORDS SUMMARY | 2023-01-21 15:04 | XMS_ITS | CCD ---
Author Name Unknown Address [address] [place] [address] [id number] Organization Unknown Address [address] [place] [address] [phone] Care Team Providers Care Foley Artist Name Role Phone CORAZON FOSTRE Attending Physician [phone] CORAZON FOSTER Rounding (Secondary) Physician [phone] Vital Signs Unknown or Not Available. Allergies Allergy Code Allergy Type Reaction Status No Known Allergies 0 No known allergies Active Procedures Unknown or Not Available. History of Immunizations Unknown or Not Available. Problems Problem Code Start Date Resolved Date Status Fever 602091309 Active Diabetes 93128423 Active Type 2 diabetes 90008308 05/28/2021 Resolved Anxiety 78573558 05/28/2021 Resolved Depression 79349679 05/28/2021 Resolved Chronic back pain 208371213 05/28/2021 Resolve d Results Unknown or Not Available. Active Medications Medication Code Dose Units Frequency Route Modificatio n Start Date/Time Mucinex 1200MG Oral Tablet, Extended Release 797316 1 TABLET TWICE A DAY ORAL 05/29/2021 12:15 Prescription Detail TAKE 1 TABLET ORAL TWICE A DAY Cefpodoxime Proxetil 200MG Oral Tablet 856943 1 TABLET TWICE A DAY ORAL 05/29/2021 12:00 Prescription Detail TAKE 1 TABLET ORAL TWICE A DAY Azithromycin 250MG Oral Tablet 829649 1 TABLET DAILY ORAL 05/29/2021 11:59 Prescription Detail TAKE 1 TABLET ORAL DAILY buPROPion HCl 150MG Oral Tablet, Extended Release 799059 150 MILLIGRAMS DAILY ORAL 11:58 Prescription Detail TAKE 150 MILLIGRAMS ORAL DAILY busPIRone 10MG Oral Tablet 952932 10 MILLIGRAMS TWICE A DAY ORAL 05/29/2021 11:58 Prescription Detail TAKE 10 MILLIGRAMS ORAL TWICE A DAY Citalopram 40MG Oral Tablet 508777 40 MILLIGRAMS BEDTIME ORAL 022 11:58 Prescription Detail TAKE 40 MILLIGRAMS ORAL BEDTIME Cyclobenzaprine HCl 10MG Oral Tablet 051180 10 MILLIGRAMS NEEDED ORAL 11:58 Prescription Detail TAKE 10 MILLIGRAMS ORAL NEEDED Erythromycin 5MG/1GM Ophthalmic Ointment 753780 1 EACH NEEDED FOUR TIMES A DAY OPHTHALMIC 05/29/2021 11:[address] 1 EACH OPHTHALMIC NEEDED FOUR T IMES A DAY Gabapentin 600MG Oral Tablet 176593 600 MILLIGRAMS NEEDED TWICE DAILY ORAL 05/29/2021 11:58 Prescription Detail TAKE 600 MILLIGRAMS ORAL NEEDED TWICE DAILY traZODone hydrochloride 50MG Oral Tablet 351172 50 MILLIGRAMS BEDTIME ORAL 11:58 Prescription Detail TAKE 50 MILLIGRAMS ORAL BEDTIME valACYclovir HCl 1GM Oral Tablet 000995 1 GM NEEDED ORAL 06/2021 11:58 Prescription Detail TAKE 1 GM ORAL NEEDED Vitamin B12 1000 MCG Sublingual Tablet 933176 8409 MCG DAILY SUBLINGUAL 11:58 Prescription Detail DISSOLVE 1000 MCG SUBLINGUAL DAILY Medications Administered During Visit Unknown or Not Available. Encounters Encounter Diagnosis Diagnosis Code Start Date Removal of suture 17647913 03/01/2021 Social History Smoking Status Code Start Date End Date Never smoker 201603560 Patient Decision Aids Unknown or Not Available. Discharge Instructions You were admitted to [facility] on 03/01/2021 11:38 with a principal diagnosis of Encounter for removal of sutures You were discharged from [facility] on 03/01/2021 00:00 Should you have any questions prior to [...]
--- OUTSIDE RECORDS SUMMARY | 2023-01-21 15:05 | XMS_ITS | CCD ---
Author Name Unknown Address [address] [place] [address] [phone] Organization Unknown Address [address] [place] [address] [phone] Care Team Providers Care Tactical Deception Plans Officer Name Role Phone LORENA LAM Attending Physician [phone] LORENA LAM Rounding (Secondary) Physic erich [phone] Vital Signs Unknown or Not Available. Allergies Allergy Code Allergy Type Reaction Status No Known Allergies 0 No known allergies Active Procedures Unknown or Not Available. History of Immunizations Unknown or Not Available. Problems Problem Code Start Date Resolved Date Status Fever 600703473 Active Diabetes 62422200 Active Type 2 diabetes 75615020 05/28/2021 Resolved Anxiety 56215049 05/28/2021 Resolved Depression 67856205 05/28/2021 Resolved Chronic back pain 763256761 05/28/2021 Resolve d Results Unknown or Not Available. Active Medications Medication Code Dose Units Frequency Route Modificatio n Start Date/Time Mucinex 1200MG Oral Tablet, Extended Release 131057 1 TABLET TWICE A DAY ORAL 05/29/2021 12:15 Prescription Detail TAKE 1 TABLET ORAL TWICE A DAY Cefpodoxime Proxetil 200MG Oral Tablet 328334 1 TABLET TWICE A DAY ORAL 05/29/2021 12:00 Prescription Detail TAKE 1 TABLET ORAL TWICE A DAY Azithromycin 250MG Oral Tablet 515965 1 TABLET DAILY ORAL 05/29/2021 11:59 Prescription Detail TAKE 1 TABLET ORAL DAILY buPROPion HCl 150MG Oral Tablet, Extended Release 669769 150 MILLIGRAMS DAILY ORAL 11:58 Prescription Detail TAKE 150 MILLIGRAMS ORAL DAILY busPIRone 10MG Oral Tablet 886230 10 MILLIGRAMS TWICE A DAY ORAL 05/29/2021 11:58 Prescription Detail TAKE 10 MILLIGRAMS ORAL TWICE A DAY Citalopram 40MG Oral Tablet 300937 40 MILLIGRAMS BEDTIME ORAL 022 11:58 Prescription Detail TAKE 40 MILLIGRAMS ORAL BEDTIME Cyclobenzaprine HCl 10MG Oral Tablet 385552 10 MILLIGRAMS NEEDED ORAL 11:58 Prescription Detail TAKE 10 MILLIGRAMS ORAL NEEDED Erythromycin 5MG/1GM Ophthalmic Ointment 437974 1 EACH NEEDED FOUR TIMES A DAY OPHTHALMIC 05/29/2021 11:[address] 1 EACH OPHTHALMIC NEEDED FOUR T IMES A DAY Gabapentin 600MG Oral Tablet 731660 600 MILLIGRAMS NEEDED TWICE DAILY ORAL 05/29/2021 11:58 Prescription Detail TAKE 600 MILLIGRAMS ORAL NEEDED TWICE DAILY traZODone hydrochloride 50MG Oral Tablet 360275 50 MILLIGRAMS BEDTIME ORAL 11:58 Prescription Detail TAKE 50 MILLIGRAMS ORAL BEDTIME valACYclovir HCl 1GM Oral Tablet 534781 1 GM NEEDED ORAL 06/2021 11:58 Prescription Detail TAKE 1 GM ORAL NEEDED Vitamin B12 1000 MCG Sublingual Tablet 866434 4283 MCG DAILY SUBLINGUAL 11:58 Prescription Detail DISSOLVE 1000 MCG SUBLINGUAL DAILY Medications Administered During Visit Unknown or Not Available. Encounters Encounter Diagnosis Diagnosis Code Start Date Pain due to internal prosthetic device 711787505 02/08/2021 Social History Smoking Status Code Start Date End Date Never smoker 722379299 Patient Decision Aids Unknown or Not Available. Discharge Instructions You were admitted to [facility] on 02/08/2021 11:45 with a principal diagnosis of Pain due to internal orthopedic prosthetic devices, implants and grafts, initial encounter You were discharged from [facility] on 02/08/2021 14:20 Should you have any questions prior to [...]
--- OUTSIDE RECORDS SUMMARY | 2023-01-21 15:05 | XMS_ITS | CCD ---
Author Name Unknown Address [address] [place] [address] [phone] Organization Unknown Address [address] [place] [address] [phone] Care Team Providers Care Child Abuse Worker Name Role Phone OSEAS LEE Attending Physician [phone] Vital Signs Unknown or Not Available. Allergies Allergy Code Allergy Type Reaction Status No Known Allergies 0 No known allergies Active Procedures Unknown or Not Available. History of Immunizations Unknown or Not Available. Problems Problem Code Start Date Resolved Date Status Fever 663755644 Active Diabetes 41756157 Active Type 2 diabetes 79864429 05/28/2021 Resolved Anxiety 26058995 05/28/2021 Resolved Depression 60259632 05/28/2021 Resolved Chronic back pain 671969102 05/28/2021 Resolve d Results Unknown or Not Available. Active Medications Medication Code Dose Units Frequency Route Modificatio n Start Date/Time Mucinex 1200MG Oral Tablet, Extended Release 695483 1 TABLET TWICE A DAY ORAL 05/29/2021 12:15 Prescription Detail TAKE 1 TABLET ORAL TWICE A DAY Cefpodoxime Proxetil 200MG Oral Tablet 619497 1 TABLET TWICE A DAY ORAL 05/29/2021 12:00 Prescription Detail TAKE 1 TABLET ORAL TWICE A DAY Azithromycin 250MG Oral Tablet 748807 1 TABLET DAILY ORAL 05/29/2021 11:59 Prescription Detail TAKE 1 TABLET ORAL DAILY buPROPion HCl 150MG Oral Tablet, Extended Release 898638 150 MILLIGRAMS DAILY ORAL 11:58 Prescription Detail TAKE 150 MILLIGRAMS ORAL DAILY busPIRone 10MG Oral Tablet 341232 10 MILLIGRAMS TWICE A DAY ORAL 05/29/2021 11:58 Prescription Detail TAKE 10 MILLIGRAMS ORAL TWICE A DAY Citalopram 40MG Oral Tablet 107255 40 MILLIGRAMS BEDTIME ORAL 022 11:58 Prescription Detail TAKE 40 MILLIGRAMS ORAL BEDTIME Cyclobenzaprine HCl 10MG Oral Tablet 759844 10 MILLIGRAMS NEEDED ORAL 11:58 Prescription Detail TAKE 10 MILLIGRAMS ORAL NEEDED Erythromycin 5MG/1GM Ophthalmic Ointment 063906 1 EACH NEEDED FOUR TIMES A DAY OPHTHALMIC 05/29/2021 11:[address] 1 EACH OPHTHALMIC NEEDED FOUR T IMES A DAY Gabapentin 600MG Oral Tablet 827267 600 MILLIGRAMS NEEDED TWICE DAILY ORAL 05/29/2021 11:58 Prescription Detail TAKE 600 MILLIGRAMS ORAL NEEDED TWICE DAILY traZODone hydrochloride 50MG Oral Tablet 006874 50 MILLIGRAMS BEDTIME ORAL 11:58 Prescription Detail TAKE 50 MILLIGRAMS ORAL BEDTIME valACYclovir HCl 1GM Oral Tablet 746058 1 GM NEEDED ORAL 06/2021 11:58 Prescription Detail TAKE 1 GM ORAL NEEDED Vitamin B12 1000 MCG Sublingual Tablet 639561 2324 MCG DAILY SUBLINGUAL 11:58 Prescription Detail DISSOLVE 1000 MCG SUBLINGUAL DAILY Medications Administered During Visit Unknown or Not Available. Encounters Encounter Diagnosis Diagnosis Code Start Date Screening for osteoporosis [id number] 02/08 Social History Smoking Status Code Start Date End Date Never smoker 503056891 Patient Decision Aids Unknown or Not Available. Discharge Instructions You were admitted to [facility] on 02/08/2021 21:50 with a principal diagnosis of Encounter for screening for osteoporosis You were discharged from [facility] on 02/08/2021 11:58 Should you have any questions prior to discharge, please contact a member of your healthcare team. If you have left the hospital and have any questions, please contact your primary care physician. Chief Complaint and Reason For Visit Chief Complaint Date of Onset POSTMENOPAUAL Function Status Unknown or Not Available. Plan of Care Unknown or Not Available. Referral/Transition of Care Unknown or Not Available.
--- OUTSIDE RECORDS SUMMARY | 2023-01-21 15:05 | XMS_ITS | CCD ---
Author Name Unknown Address [address] [place] [address] [phone] Organization Unknown Address [address] [place] [address] [phone] Care Team Providers Care Process Development Engineer Name Role Phone KJ URRUTIA Attending Physician [phone] Vital Signs Unknown or Not Available. Allergies Allergy Code Allergy Type Reaction Status No Known Allergies 0 No known allergies Active Procedures Unknown or Not Available. History of Immunizations Unknown or Not Available. Problems Problem Code Start Date Resolved Date Status Fever 528951550 Active Diabetes 07164000 Active Type 2 diabetes 41633896 05/28/2021 Resolved Anxiety 19124872 05/28/2021 Resolved Depression 77859746 05/28/2021 Resolved Chronic back pain 288920182 05/28/2021 Resolve d Results Unknown or Not Available. Active Medications Medication Code Dose Units Frequency Route Modificatio n Start Date/Time Mucinex 1200MG Oral Tablet, Extended Release 241735 1 TABLET TWICE A DAY ORAL 05/29/2021 12:15 Prescription Detail TAKE 1 TABLET ORAL TWICE A DAY Cefpodoxime Proxetil 200MG Oral Tablet 132749 1 TABLET TWICE A DAY ORAL 05/29/2021 12:00 Prescription Detail TAKE 1 TABLET ORAL TWICE A DAY Azithromycin 250MG Oral Tablet 918400 1 TABLET DAILY ORAL 05/29/2021 11:59 Prescription Detail TAKE 1 TABLET ORAL DAILY buPROPion HCl 150MG Oral Tablet, Extended Release 783220 150 MILLIGRAMS DAILY ORAL 11:58 Prescription Detail TAKE 150 MILLIGRAMS ORAL DAILY busPIRone 10MG Oral Tablet 414707 10 MILLIGRAMS TWICE A DAY ORAL 05/29/2021 11:58 Prescription Detail TAKE 10 MILLIGRAMS ORAL TWICE A DAY Citalopram 40MG Oral Tablet 721362 40 MILLIGRAMS BEDTIME ORAL 022 11:58 Prescription Detail TAKE 40 MILLIGRAMS ORAL BEDTIME Cyclobenzaprine HCl 10MG Oral Tablet 360336 10 MILLIGRAMS NEEDED ORAL 11:58 Prescription Detail TAKE 10 MILLIGRAMS ORAL NEEDED Erythromycin 5MG/1GM Ophthalmic Ointment 481790 1 EACH NEEDED FOUR TIMES A DAY OPHTHALMIC 05/29/2021 11:[address] 1 EACH OPHTHALMIC NEEDED FOUR T IMES A DAY Gabapentin 600MG Oral Tablet 685122 600 MILLIGRAMS NEEDED TWICE DAILY ORAL 05/29/2021 11:58 Prescription Detail TAKE 600 MILLIGRAMS ORAL NEEDED TWICE DAILY traZODone hydrochloride 50MG Oral Tablet 780716 50 MILLIGRAMS BEDTIME ORAL 11:58 Prescription Detail TAKE 50 MILLIGRAMS ORAL BEDTIME valACYclovir HCl 1GM Oral Tablet 659390 1 GM NEEDED ORAL 06/2021 11:58 Prescription Detail TAKE 1 GM ORAL NEEDED Vitamin B12 1000 MCG Sublingual Tablet 436070 2758 MCG DAILY SUBLINGUAL 11:58 Prescription Detail DISSOLVE 1000 MCG SUBLINGUAL DAILY Medications Administered During Visit Unknown or Not Available. Encounters Encounter Diagnosis Diagnosis Code Start Date Presence of other bone and tendon implants Z967 11/02/2020 Social History Smoking Status Code Start Date End Date Never smoker 347189628 Patient Decision Aids Unknown or Not Available. Discharge Instructions You were admitted to [facility] on 11/02/2020 13:28 with a principal diagnosis of Presence of other bone and tendon implants You were discharged from [facility] on 11/02/2020 13:28 Should you have any questions prior to [...]
[2023-01-21 15:06] LABS: Iron 88 ug/dL (50-170); Total Iron Binding Capacity 482 ug/dL (250-450); Transferrin Sat 18 % (15-50)
--- OUTSIDE RECORDS SUMMARY | 2023-01-21 15:06 | XMS_ITS | CCD ---
Author Name Unknown Address [address] [place] [address] [phone] Organization Unknown Address [address] [place] [address] [id number] Care Team Providers Care Centerless Grinder Name Role Phone RUMA CANO MD Attending Physician [phone] RUMA CANO MD Er Physician [phone] Vital Signs Unknown or Not Available. Allergies Allergy Code Allergy Type Reaction Status No Known Allergies 0 No known allergies Active Procedures Unknown or Not Available. History of Immunizations Unknown or Not Available. Problems Problem Code Start Date Resolved Date Status Fever 632904234 Active Diabetes 93219520 Active Type 2 diabetes 70619903 05/28/2021 Resolved Anxiety 44943987 05/28/2021 Resolved Depression 61043507 05/28/2021 Resolved Chronic back pain 134077503 05/28/2021 Resolve d Results Unknown or Not Available. Active Medications Medication Code Dose Units Frequency Route Modificatio n Start Date/Time Mucinex 1200MG Oral Tablet, Extended Release 629512 1 TABLET TWICE A DAY ORAL 05/29/2021 12:15 Prescription Detail TAKE 1 TABLET ORAL TWICE A DAY Cefpodoxime Proxetil 200MG Oral Tablet 899924 1 TABLET TWICE A DAY ORAL 05/29/2021 12:00 Prescription Detail TAKE 1 TABLET ORAL TWICE A DAY Azithromycin 250MG Oral Tablet 012868 1 TABLET DAILY ORAL 05/29/2021 11:59 Prescription Detail TAKE 1 TABLET ORAL DAILY buPROPion HCl 150MG Oral Tablet, Extended Release 244767 150 MILLIGRAMS DAILY ORAL 11:58 Prescription Detail TAKE 150 MILLIGRAMS ORAL DAILY busPIRone 10MG Oral Tablet 378198 10 MILLIGRAMS TWICE A DAY ORAL 05/29/2021 11:58 Prescription Detail TAKE 10 MILLIGRAMS ORAL TWICE A DAY Citalopram 40MG Oral Tablet 379963 40 MILLIGRAMS BEDTIME ORAL 022 11:58 Prescription Detail TAKE 40 MILLIGRAMS ORAL BEDTIME Cyclobenzaprine HCl 10MG Oral Tablet 639454 10 MILLIGRAMS NEEDED ORAL 11:58 Prescription Detail TAKE 10 MILLIGRAMS ORAL NEEDED Erythromycin 5MG/1GM Ophthalmic Ointment 956287 1 EACH NEEDED FOUR TIMES A DAY OPHTHALMIC 05/29/2021 11:[address] 1 EACH OPHTHALMIC NEEDED FOUR T IMES A DAY Gabapentin 600MG Oral Tablet 350827 600 MILLIGRAMS NEEDED TWICE DAILY ORAL 05/29/2021 11:58 Prescription Detail TAKE 600 MILLIGRAMS ORAL NEEDED TWICE DAILY traZODone hydrochloride 50MG Oral Tablet 674368 50 MILLIGRAMS BEDTIME ORAL 11:58 Prescription Detail TAKE 50 MILLIGRAMS ORAL BEDTIME valACYclovir HCl 1GM Oral Tablet 563508 1 GM NEEDED ORAL 06/2021 11:58 Prescription Detail TAKE 1 GM ORAL NEEDED Vitamin B12 1000 MCG Sublingual Tablet 270336 3519 MCG DAILY SUBLINGUAL 11:58 Prescription Detail DISSOLVE 1000 MCG SUBLINGUAL DAILY Medications Administered During Visit Unknown or Not Available. Encounters Encounter Diagnosis Diagnosis Code Start Date Unspecified fracture of shaf t of left ulna, initial encounter for closed fracture [id number] 08/13/2020 Social History Smoking Status Code Start Date End Date Never smoker 540652162 Patient Decision Aids Unknown or Not Available. Discharge Instructions You were admitted to [facility] on 08/13/2020 15:19 with a principal diagnosis of Unspecified fracture of shaft of left ulna, initial encounter for closed fracture You were discharged from [facility] on 08/13/2020 17:42 Should you have any questions prior to discharge, please contact a member of your healthcare team. If you have left the hospital and have any questions, please contact your primary care physician. Chief Complaint and Reason For Visit Chief Complaint Date of Onset RIGHT ARM PROBLEM Function Status Unknown or Not Available. Plan of Care Unknown or Not Available. Referral/Transition of Care Unknown or Not Available.
--- OUTSIDE RECORDS SUMMARY | 2023-01-21 15:06 | XMS_ITS | CCD ---
Author Name Unknown Address [address] [place] [address] [phone] Organization Unknown Address [address] [place] [address] [phone] Care Team Providers Care Hander In Name Role Phone KJ URRUTIA Attending Physician [phone] Vital Signs Unknown or Not Available. Allergies Allergy Code Allergy Type Reaction Status No Known Allergies 0 No known allergies Active Procedures Unknown or Not Available. History of Immunizations Unknown or Not Available. Problems Problem Code Start Date Resolved Date Status Fever [id number] Active Diabetes 47511574 Active Type 2 diabetes 39978332 05/28/2021 Resolved Anxiety 92080195 05/28/2021 Resolved Depression 38373747 05/28/2021 Resolved Chronic back pain 600325785 05/28/2021 Resolve d Results Unknown or Not Available. Active Medications Medication Code Dose Units Frequency Route Modificatio n Start Date/Time Mucinex 1200MG Oral Tablet, Extended Release 538045 1 TABLET TWICE A DAY ORAL 05/29/2021 12:15 Prescription Detail TAKE 1 TABLET ORAL TWICE A DAY Cefpodoxime Proxetil 200MG Oral Tablet 369165 1 TABLET TWICE A DAY ORAL 05/29/2021 12:00 Prescription Detail TAKE 1 TABLET ORAL TWICE A DAY Azithromycin 250MG Oral Tablet 715463 1 TABLET DAILY ORAL 05/29/2021 11:59 Prescription Detail TAKE 1 TABLET ORAL DAILY buPROPion HCl 150MG Oral Tablet, Extended Release 669088 150 MILLIGRAMS DAILY ORAL 11:58 Prescription Detail TAKE 150 MILLIGRAMS ORAL DAILY busPIRone 10MG Oral Tablet 624474 10 MILLIGRAMS TWICE A DAY ORAL 05/29/2021 11:58 Prescription Detail TAKE 10 MILLIGRAMS ORAL TWICE A DAY Citalopram 40MG Oral Tablet 312150 40 MILLIGRAMS BEDTIME ORAL 022 11:58 Prescription Detail TAKE 40 MILLIGRAMS ORAL BEDTIME Cyclobenzaprine HCl 10MG Oral Tablet 922489 10 MILLIGRAMS NEEDED ORAL 11:58 Prescription Detail TAKE 10 MILLIGRAMS ORAL NEEDED Erythromycin 5MG/1GM Ophthalmic Ointment 055461 1 EACH NEEDED FOUR TIMES A DAY OPHTHALMIC 05/29/2021 11:[address] 1 EACH OPHTHALMIC NEEDED FOUR T IMES A DAY Gabapentin 600MG Oral Tablet 852218 600 MILLIGRAMS NEEDED TWICE DAILY ORAL 05/29/2021 11:58 Prescription Detail TAKE 600 MILLIGRAMS ORAL NEEDED TWICE DAILY traZODone hydrochloride 50MG Oral Tablet 050852 50 MILLIGRAMS BEDTIME ORAL 11:58 Prescription Detail TAKE 50 MILLIGRAMS ORAL BEDTIME valACYclovir HCl 1GM Oral Tablet 880963 1 GM NEEDED ORAL 06/2021 11:58 Prescription Detail TAKE 1 GM ORAL NEEDED Vitamin B12 1000 MCG Sublingual Tablet 793471 7202 MCG DAILY SUBLINGUAL 11:58 Prescription Detail DISSOLVE 1000 MCG SUBLINGUAL DAILY Medications Administered During Visit Unknown or Not Available. Encounters Encounter Diagnosis Diagnosis Code Start Date Displaced transverse fractur e of shaft of left ulna, subsequent encounter for closed fracture with routine healing [id number] 10/05/2020 Social History Smoking Status Code Start Date End Date Never smoker [id number] Patient Decision Aids Unknown or Not Available. Discharge Instructions You were admitted to [facility] on 10/05/2020 08:06 with a principal diagnosis of Displaced transverse fracture of shaft of left ulna, subsequent encounter for closed fracture with routine healing You were discharged from [facility] on 10/05/2020 08:06 Should you have any questions prior to [...]
--- OUTSIDE RECORDS SUMMARY | 2023-01-21 15:06 | XMS_ITS | CCD ---
Author Name Unknown Address [address] [place] [address] [phone] Organization Unknown Address [address] [place] [address] [phone] Care Team Providers Care Technical Communication Teacher Name Role Phone LORENA LAM MD Attending Physician [phone] Vital Signs Unknown or Not Available. Allergies Allergy Code Allergy Type Reaction Status No Known Allergies 0 No known allergies Active Procedures Unknown or Not Available. History of Immunizations Unknown or Not Available. Problems Problem Code Start Date Resolved Date Status Fever [id number] Active Diabetes 89421819 Active Type 2 diabetes 04020979 05/28/2021 Resolved Anxiety 67641221 05/28/2021 Resolved Depression 24724077 05/28/2021 Resolved Chronic back pain 915667747 05/28/2021 Resolve d Results Unknown or Not Available. Active Medications Medication Code Dose Units Frequency Route Modificatio n Start Date/Time Mucinex 1200MG Oral Tablet, Extended Release 557032 1 TABLET TWICE A DAY ORAL 05/29/2021 12:15 Prescription Detail TAKE 1 TABLET ORAL TWICE A DAY Cefpodoxime Proxetil 200MG Oral Tablet 031918 1 TABLET TWICE A DAY ORAL 05/29/2021 12:00 Prescription Detail TAKE 1 TABLET ORAL TWICE A DAY Azithromycin 250MG Oral Tablet 566637 1 TABLET DAILY ORAL 05/29/2021 11:59 Prescription Detail TAKE 1 TABLET ORAL DAILY buPROPion HCl 150MG Oral Tablet, Extended Release 370311 150 MILLIGRAMS DAILY ORAL 11:58 Prescription Detail TAKE 150 MILLIGRAMS ORAL DAILY busPIRone 10MG Oral Tablet 864905 10 MILLIGRAMS TWICE A DAY ORAL 05/29/2021 11:58 Prescription Detail TAKE 10 MILLIGRAMS ORAL TWICE A DAY Citalopram 40MG Oral Tablet 222548 40 MILLIGRAMS BEDTIME ORAL 022 11:58 Prescription Detail TAKE 40 MILLIGRAMS ORAL BEDTIME Cyclobenzaprine HCl 10MG Oral Tablet 084791 10 MILLIGRAMS NEEDED ORAL 11:58 Prescription Detail TAKE 10 MILLIGRAMS ORAL NEEDED Erythromycin 5MG/1GM Ophthalmic Ointment 079680 1 EACH NEEDED FOUR TIMES A DAY OPHTHALMIC 05/29/2021 11:[address] 1 EACH OPHTHALMIC NEEDED FOUR T IMES A DAY Gabapentin 600MG Oral Tablet 602102 600 MILLIGRAMS NEEDED TWICE DAILY ORAL 05/29/2021 11:58 Prescription Detail TAKE 600 MILLIGRAMS ORAL NEEDED TWICE DAILY traZODone hydrochloride 50MG Oral Tablet 568976 50 MILLIGRAMS BEDTIME ORAL 11:58 Prescription Detail TAKE 50 MILLIGRAMS ORAL BEDTIME valACYclovir HCl 1GM Oral Tablet 399487 1 GM NEEDED ORAL 06/2021 11:58 Prescription Detail TAKE 1 GM ORAL NEEDED Vitamin B12 1000 MCG Sublingual Tablet 633608 8413 MCG DAILY SUBLINGUAL 11:58 Prescription Detail DISSOLVE 1000 MCG SUBLINGUAL DAILY Medications Administered During Visit Unknown or Not Available. Encounters Encounter Diagnosis Diagnosis Code Start Date Unspecified fracture of shaf t of left ulna, subsequent encounter for closed fracture with routine healing [id number] Social History Smoking Status Code Start Date End Date Never smoker [id number] Patient Decision Aids Unknown or Not Available. Discharge Instructions You were admitted to [facility] on 09/05/2020 12:55 with a principal diagnosis of Unsp fx shaft of left ulna, subs for clos fx w routn heal You were discharged from [facility] on 11/02/2020 11:31 Should you have any questions prior to [...]
--- OUTSIDE RECORDS SUMMARY | 2023-01-21 15:06 | XMS_ITS | CCD ---
Author Name Unknown Address [address] [place] [address] [phone] Organization Unknown Address [address] [place] [address] [phone] Care Team Providers Care Quality Assurance Supervisor Final Name Role Phone LORENA LAM MD Attending Physician [phone] Vital Signs Unknown or Not Available. Allergies Allergy Code Allergy Type Reaction Status No Known Allergies 0 No known allergies Active Procedures Unknown or Not Available. History of Immunizations Unknown or Not Available. Problems Problem Code Start Date Resolved Date Status Fever 929867257 Active Diabetes 89198058 Active Type 2 diabetes 07625707 05/28/2021 Resolved Anxiety 93054963 05/28/2021 Resolved Depression 05584662 05/28/2021 Resolved Chronic back pain 526154949 05/28/2021 Resolve d Results Unknown or Not Available. Active Medications Medication Code Dose Units Frequency Route Modificatio n Start Date/Time Mucinex 1200MG Oral Tablet, Extended Release 208695 1 TABLET TWICE A DAY ORAL 05/29/2021 12:15 Prescription Detail TAKE 1 TABLET ORAL TWICE A DAY Cefpodoxime Proxetil 200MG Oral Tablet 122960 1 TABLET TWICE A DAY ORAL 05/29/2021 12:00 Prescription Detail TAKE 1 TABLET ORAL TWICE A DAY Azithromycin 250MG Oral Tablet 835567 1 TABLET DAILY ORAL 05/29/2021 11:59 Prescription Detail TAKE 1 TABLET ORAL DAILY buPROPion HCl 150MG Oral Tablet, Extended Release 135665 150 MILLIGRAMS DAILY ORAL 11:58 Prescription Detail TAKE 150 MILLIGRAMS ORAL DAILY busPIRone 10MG Oral Tablet 212574 10 MILLIGRAMS TWICE A DAY ORAL 05/29/2021 11:58 Prescription Detail TAKE 10 MILLIGRAMS ORAL TWICE A DAY Citalopram 40MG Oral Tablet 687187 40 MILLIGRAMS BEDTIME ORAL 022 11:58 Prescription Detail TAKE 40 MILLIGRAMS ORAL BEDTIME Cyclobenzaprine HCl 10MG Oral Tablet 957942 10 MILLIGRAMS NEEDED ORAL 11:58 Prescription Detail TAKE 10 MILLIGRAMS ORAL NEEDED Erythromycin 5MG/1GM Ophthalmic Ointment 697004 1 EACH NEEDED FOUR TIMES A DAY OPHTHALMIC 05/29/2021 11:[address] 1 EACH OPHTHALMIC NEEDED FOUR T IMES A DAY Gabapentin 600MG Oral Tablet 368169 600 MILLIGRAMS NEEDED TWICE DAILY ORAL 05/29/2021 11:58 Prescription Detail TAKE 600 MILLIGRAMS ORAL NEEDED TWICE DAILY traZODone hydrochloride 50MG Oral Tablet 110300 50 MILLIGRAMS BEDTIME ORAL 11:58 Prescription Detail TAKE 50 MILLIGRAMS ORAL BEDTIME valACYclovir HCl 1GM Oral Tablet 500911 1 GM NEEDED ORAL 06/2021 11:58 Prescription Detail TAKE 1 GM ORAL NEEDED Vitamin B12 1000 MCG Sublingual Tablet 332724 5110 MCG DAILY SUBLINGUAL 11:58 Prescription Detail DISSOLVE 1000 MCG SUBLINGUAL DAILY Medications Administered During Visit Unknown or Not Available. Encounters Encounter Diagnosis Diagnosis Code Start Date Displaced transverse fractur e of shaft of left ulna, subsequent encounter for closed fracture with routine healing [id number] 09/07/2020 Social History Smoking Status Code Start Date End Date Never smoker [id number] Patient Decision Aids Unknown or Not Available. Discharge Instructions You were admitted to [facility] on 09/07/2020 14:19 with a principal diagnosis of Displaced transverse fracture of shaft of left ulna, subsequent encounter for closed fracture with routine healing You were discharged from [facility] on 09/07/2020 09:11 Should you have any questions prior to [...]
--- OUTSIDE RECORDS SUMMARY | 2023-01-21 15:06 | XMS_ITS | CCD ---
Author Name Unknown Address [address] [place] [address] [phone] Organization Unknown Address [address] [place] [address] [phone] Care Team Providers Care Meteorology Instructor Name Role Phone LORENA LAM MD Attending Physician [phone] Vital Signs Vital Sign Value Unit Date/Time Recent/Initial ? BP Systolic 100 mmHg 08/29/2020 19:00 Initial VS BP Diastolic 77 mmHg 08/29/2020 19:00 Initia l VS Respiratory Rate 15 bpm 08/29/2020 19:00 In itial VS Heart Rate 67 bpm 08/29/2020 19:00 Initial VS O2 % BldC Oximetry 94 % 08/29/2020 19:00 Initial VS Body Temperature 36.1 degrees 08/29/2020 19:00 In itial VS Allergies Allergy Code Allergy Type Reaction Status No Known Allergies 0 No known allergies Active Procedures Procedure Code Procedure Type Date Open Treatment, Ulnar Shaft FX, w/wo Int Fixation 2554 5 CPT 08/29/2020 Anesthesia, Open/Surg Arthro scopic/Endoscopic Proc, Distal Radius/Distal Ulna/Wrist/Hand; NOS 03155 CPT 08/29/2020 History of Immunizations Unknown or Not Available. Problems Problem Code Start Date Resolved Date Status Fever 174397891 Active Diabetes 90437616 Active Type 2 diabetes 29861834 05/28/2021 Resolved Anxiety 23452856 05/28/2021 Resolved Depression 96388730 05/28/2021 Resolved Chronic back pain 802508171 05/28/2021 Resolve d Results Unknown or Not Available. Active Medications Medications Administered During Visit Medication Dose Units Frequency Route Date/Time of Last Dose ACETAMINOPHEN TABLET: 325MG 975 MG X1 PO 08/29/2020 12:55 CELECOXIB CAPSULE: 100MG 200 MG X1 PO 08/29/2020 12:55 LACTATED RINGERS 1000ML IV X1 08/29/2020 12:56 MIDAZOLAM INJ SDV: 2MG/2ML 2 MG X1 IVP 08/29/2020 13:58 HYDROmorphone INJ SYRINGE: 0.5MG/0.5ML 0.25 MG PRN IN PACU Q5MIN IVP 08/29/2020 17:32 Encounters Encounter Diagnosis Diagnosis Code Start Date Displaced transverse fractur e of shaft of left ulna, initial encounter for closed fracture [id number] 08/29/2020 Social History Smoking Status Code Start Date End Date Never smoker [id number] Patient Decision Aids Unknown or Not Available. Discharge Instructions You were admitted to [facility] on 08/29/2020 12:31 with a principal diagnosis of Displaced transverse fracture of shaft of left ulna, initial encounter for closed fracture You had the following procedures done:Open Treatment, Ulnar Shaft FX, w/wo Int FixationAnesthesia, Open/Surg Arthroscopic/Endoscopic Proc, Distal Radius/Distal Ulna/Wrist/Hand; NOS You were discharged from [facility] on 08/29/2020 18:45 Should you have any questions prior to discharge, please contact a member of your healthcare team. If you have left the hospital and have any questions, please contact your primary care physician. Chief Complaint and Reason For Visit Chief Complaint Date of Onset LEFT ULNA ORIF Function Status Unknown or Not Available. Plan of Care Unknown or Not Available. Referral/Transition of Care Unknown or Not Available.
--- OUTSIDE RECORDS SUMMARY | 2023-01-21 15:06 | XMS_ITS | CCD ---
Author Name Unknown Address [address] [place] [address] [phone] Organization Unknown Address [address] [place] [address] [phone] Care Team Providers Care Telesales Professional Name Role Phone ROSA OSEAS Attending Physician [phone] Vital Signs Unknown or Not Available. Allergies Allergy Code Allergy Type Reaction Status No Known Allergies 0 No known allergies Active Procedures Unknown or Not Available. History of Immunizations Unknown or Not Available. Problems Problem Code Start Date Resolved Date Status Fever 999166208 Active Diabetes 99792533 Active Type 2 diabetes 14791951 05/28/2021 Resolved Anxiety 21794514 05/28/2021 Resolved Depression 42474882 05/28/2021 Resolved Chronic back pain 811142543 05/28/2021 Resolve d Results Unknown or Not Available. Active Medications Medication Code Dose Units Frequency Route Modificatio n Start Date/Time Mucinex 1200MG Oral Tablet, Extended Release 115147 1 TABLET TWICE A DAY ORAL 05/29/2021 12:15 Prescription Detail TAKE 1 TABLET ORAL TWICE A DAY Cefpodoxime Proxetil 200MG Oral Tablet 649977 1 TABLET TWICE A DAY ORAL 05/29/2021 12:00 Prescription Detail TAKE 1 TABLET ORAL TWICE A DAY Azithromycin 250MG Oral Tablet 153485 1 TABLET DAILY ORAL 05/29/2021 11:59 Prescription Detail TAKE 1 TABLET ORAL DAILY buPROPion HCl 150MG Oral Tablet, Extended Release 982067 150 MILLIGRAMS DAILY ORAL 11:58 Prescription Detail TAKE 150 MILLIGRAMS ORAL DAILY busPIRone 10MG Oral Tablet 322985 10 MILLIGRAMS TWICE A DAY ORAL 05/29/2021 11:58 Prescription Detail TAKE 10 MILLIGRAMS ORAL TWICE A DAY Citalopram 40MG Oral Tablet 609211 40 MILLIGRAMS BEDTIME ORAL 022 11:58 Prescription Detail TAKE 40 MILLIGRAMS ORAL BEDTIME Cyclobenzaprine HCl 10MG Oral Tablet 243322 10 MILLIGRAMS NEEDED ORAL 11:58 Prescription Detail TAKE 10 MILLIGRAMS ORAL NEEDED Erythromycin 5MG/1GM Ophthalmic Ointment 944459 1 EACH NEEDED FOUR TIMES A DAY OPHTHALMIC 05/29/2021 11:[address] 1 EACH OPHTHALMIC NEEDED FOUR T IMES A DAY Gabapentin 600MG Oral Tablet 121805 600 MILLIGRAMS NEEDED TWICE DAILY ORAL 05/29/2021 11:58 Prescription Detail TAKE 600 MILLIGRAMS ORAL NEEDED TWICE DAILY traZODone hydrochloride 50MG Oral Tablet 176976 50 MILLIGRAMS BEDTIME ORAL 11:58 Prescription Detail TAKE 50 MILLIGRAMS ORAL BEDTIME valACYclovir HCl 1GM Oral Tablet 827520 1 GM NEEDED ORAL 06/2021 11:58 Prescription Detail TAKE 1 GM ORAL NEEDED Vitamin B12 1000 MCG Sublingual Tablet 960045 0802 MCG DAILY SUBLINGUAL 11:58 Prescription Detail DISSOLVE 1000 MCG SUBLINGUAL DAILY Medications Administered During Visit Unknown or Not Available. Encounters Encounter Diagnosis Diagnosis Code Start Date Encounter for screening mamm ogram for malignant neoplasm of breast [id number] 11/03/2020 Social History Smoking Status Code Start Date End Date Never smoker [id number] Patient Decision Aids Unknown or Not Available. Discharge Instructions You were admitted to [facility] on 11/03/2020 07:47 with a principal diagnosis of Encounter for screening mammogram for malignant neoplasm of breast You were discharged from [facility] on 11/03/2020 07:47 Should you have any questions prior to [...]
--- OUTSIDE RECORDS SUMMARY | 2023-01-21 15:06 | XMS_ITS | CCD ---
Author Name Unknown Address [address] [place] [address] [phone] Organization Unknown Address [address] [place] [address] [phone] Care Team Providers Care Cafe Worker Name Role Phone LORENA LAM MD Attending Physician [phone] Vital Signs Unknown or Not Available. Allergies Allergy Code Allergy Type Reaction Status No Known Allergies 0 No known allergies Active Procedures Unknown or Not Available. History of Immunizations Unknown or Not Available. Problems Problem Code Start Date Resolved Date Status Fever 923339652 Active Diabetes 30263892 Active Type 2 diabetes 17767069 05/28/2021 Resolved Anxiety 46163154 05/28/2021 Resolved Depression 46593439 05/28/2021 Resolved Chronic back pain 829630021 05/28/2021 Resolve d Results Unknown or Not Available. Active Medications Medication Code Dose Units Frequency Route Modificatio n Start Date/Time Mucinex 1200MG Oral Tablet, Extended Release 755128 1 TABLET TWICE A DAY ORAL 05/29/2021 12:15 Prescription Detail TAKE 1 TABLET ORAL TWICE A DAY Cefpodoxime Proxetil 200MG Oral Tablet 499270 1 TABLET TWICE A DAY ORAL 05/29/2021 12:00 Prescription Detail TAKE 1 TABLET ORAL TWICE A DAY Azithromycin 250MG Oral Tablet 585890 1 TABLET DAILY ORAL 05/29/2021 11:59 Prescription Detail TAKE 1 TABLET ORAL DAILY buPROPion HCl 150MG Oral Tablet, Extended Release 575394 150 MILLIGRAMS DAILY ORAL 11:58 Prescription Detail TAKE 150 MILLIGRAMS ORAL DAILY busPIRone 10MG Oral Tablet 937910 10 MILLIGRAMS TWICE A DAY ORAL 05/29/2021 11:58 Prescription Detail TAKE 10 MILLIGRAMS ORAL TWICE A DAY Citalopram 40MG Oral Tablet 880144 40 MILLIGRAMS BEDTIME ORAL 022 11:58 Prescription Detail TAKE 40 MILLIGRAMS ORAL BEDTIME Cyclobenzaprine HCl 10MG Oral Tablet 029725 10 MILLIGRAMS NEEDED ORAL 11:58 Prescription Detail TAKE 10 MILLIGRAMS ORAL NEEDED Erythromycin 5MG/1GM Ophthalmic Ointment 096777 1 EACH NEEDED FOUR TIMES A DAY OPHTHALMIC 05/29/2021 11:[address] 1 EACH OPHTHALMIC NEEDED FOUR T IMES A DAY Gabapentin 600MG Oral Tablet 106521 600 MILLIGRAMS NEEDED TWICE DAILY ORAL 05/29/2021 11:58 Prescription Detail TAKE 600 MILLIGRAMS ORAL NEEDED TWICE DAILY traZODone hydrochloride 50MG Oral Tablet 680693 50 MILLIGRAMS BEDTIME ORAL 11:58 Prescription Detail TAKE 50 MILLIGRAMS ORAL BEDTIME valACYclovir HCl 1GM Oral Tablet 902292 1 GM NEEDED ORAL 06/2021 11:58 Prescription Detail TAKE 1 GM ORAL NEEDED Vitamin B12 1000 MCG Sublingual Tablet 431712 3806 MCG DAILY SUBLINGUAL 11:58 Prescription Detail DISSOLVE 1000 MCG SUBLINGUAL DAILY Medications Administered During Visit Unknown or Not Available. Encounters Encounter Diagnosis Diagnosis Code Start Date Displaced transverse fractur e of shaft of left ulna, initial encounter for closed fracture [id number] 08/24/2020 Social History Smoking Status Code Start Date End Date Never smoker [id number] Patient Decision Aids Unknown or Not Available. Discharge Instructions You were admitted to [facility] on 08/24/2020 10:39 with a principal diagnosis of Displaced transverse fracture of shaft of left ulna, initial encounter for closed fracture You were discharged from [facility] on 08/24/2020 10:39 Should you have any questions prior to [...]
[2023-01-21 15:22] LABS: Vitamin D 25 Total 22.6 ng/mL (30-100)
[2023-01-21 15:30] LABS: ALT 18 U/L (14-59); AST 20 U/L (15-37); Albumin 3.4 g/dL (3.4-5.0); Alkaline Phosphatase 94 U/L (46-116); BUN 9 mg/dL (7-18); Bilirubin, Total 0.5 mg/dL (0.2-1.0); CREATININE 0.9 mg/dL (0.55-1.02); Calcium 9.1 mg/dL (8.5-10.1); Chloride 104 mmol/L (98-107); Estimated GFR 74.57 (mL/min/1.73m2); Ferritin 10 ng/mL (8-252); Glucose 113 mg/dL (74-106); Potassium 4.1 mmol/L (3.5-5.1); Sodium 140 mmol/L (136-145); TSH 2.38 uIU/mL (0.36-3.74); Total Protein 6.9 g/dL (6.4-8.2); Vitamin B12 177 pg/mL (193-986)
== END 2023-01-21 14:55 | disposition home or self-care (01) ==
LOC: NCHCN 14:54
PROVIDERS: PCP Nurse Practitioner Family; Visit Provider Nurse Practitioner Family
DX: R73.03 Prediabetes (principal); E66.9 Obesity, unspecified; E03.0 Congenital hypothyroidism with diffuse goiter; K90.9 Intestinal malabsorption, unspecified
CPT/HCPCS: 80053; 82306; 82607; 82728; 83036; 83540; 83550; 84443

== ENCOUNTER 2024-03-22 17:48 | Outpatient (REF) | payer SELFPAY ==
--- OUTSIDE RECORDS SUMMARY | 2024-03-22 17:59 | XMS_ITS ---
Author Organization Unknown Address [address] [place] [address] [phone] Phone Care Team Providers Care Sex Offender Treatment Professional Name Role Phone ROSA Puga Attending Unavailable Results BD DXA BONE DENSITY AXIAL - Completed: 02/08/2021 11:00 LOINC: DEXA SCAN: The bone mineral density measurements of the lumbar spine correspond to a total T-score of negative 1.1, in the mildly osteopenic range. The bone mineral density measurements of the left hip correspond to a total T-score of negative 0.3 and a femoral neck T-score of negative 0.8, in the normal range. The WHO fracture risk assessment of major osteoporotic fracture is 5.7%. Ten year risk of hip fracture is calculated at 0.2%. IMPRESSION:Normal bone mineral density of the left hip. Mild osteopenia of the lumbar spine. Dictated by: CEO FIDE MCMAHAN MD Transcribed by: SHANIKA 05/22/21/14:22 D Saturday, May 22, 2021 1:32:50 PM [id number] Electronically Reviewed and Signed By: FIDE MCMAHAN MD 05/22/21 14:36 Copy for: ROSA Puga via fax Copy for: [facility] HEALTH INFORMATION MGMT Social History Type Status Start Date End Date Code Code Syst em Smoking History Never smoker (Never Smoked) [id number] SNOMED CT Sex Female Medications Medication Start Date End Date Route Frequency Dose Code Code System Medication Instructions Home Meds Mapap 325MG Oral Tablet 11/30/2015 05/28/2021 BY MOUTH NEEDED EVERY 4 HOURS 650 MILLIGRAMS 465696 RxNorm TAKE 650 MILLIGRAMS BY MOUTH NEEDED EVERY 4 HOURS Ibuprofen 200MG Oral Tablet 11/30/2015 05/28/2021 ORAL NEEDED THREE TIMES A DAY 4 TABLET 722720 RxNorm TAKE 4 TABLET ORAL NEEDED THREE TIMES A DAY Citalopram 40MG Oral Tablet 05/29/2021 Unknown ORAL BEDTIME 40 MILLIGRAMS 589132 RxNorm TAKE 40 MILLIGRAMS ORAL BEDTIME Cyclobenza cristóbal HCl 10MG Oral Tablet 05/29/2021 Unknown ORAL NEEDED 10 MILLIGRAMS 855415 RxNorm TAKE 10 MILLIGRAMS ORAL NEEDED Erythromyc in 5MG/1GM Ophthalmic Ointment 05/29/2021 Unknown OPHTHALMI C NEEDED FOUR TIMES A DAY 1 unit(s) 364729 RxNorm PLACE 1 EACH OPHTHALMIC NEEDED FOUR TIMES A DAY Gabapentin 600MG Oral Tablet 05/29/2021 Unknown ORAL NEEDED TWICE DAILY 600 MILLIGRAMS 341059 RxNorm TAKE 600 MILLIGRAMS ORAL NEEDED TWICE DAILY Vitamin B12 1000 MCG Sublingual Tablet 05/29/2021 Unknown SUBLINGUA L DAILY 1000 MCG 056149 RxNorm DISSOLVE 1000 MCG SUBLINGUAL DAILY buPROPion HCl 150MG Oral Tablet, Extended Release 05/29/2021 Unknown ORAL DAILY 150 MILLIGRAMS 438976 RxNorm TAKE 150 MILLIGRAMS ORAL DAILY busPIRone 10MG Oral Tablet 05/29/2021 Unknown ORAL TWICE A DAY 10 MILLIGRAMS 811110 RxNorm TAKE 10 MILLIGRAMS ORAL TWICE A DAY traZODone hydrochlor shailesh 50MG Oral Tablet 05/29/2021 Unknown ORAL BEDTIME 50 MILLIGRAMS 714500 RxNorm TAKE 50 MILLIGRAMS ORAL BEDTIME valACYclov ir HCl 1GM Oral Tablet 05/29/2021 Unknown ORAL NEEDED 1 GM 697179 RxNorm TAKE 1 GM ORAL NEEDED Azithromyc in 250MG Oral Tablet 05/29/2021 Unknown ORAL DAILY 1 TABLET 577055 RxNorm TAKE 1 TABLET ORAL DAILY Cefpodoxim e Proxetil 200MG Oral Tablet 05/29/2021 Unknown ORAL TWICE A DAY 1 TABLET 728381 RxNorm TAKE 1 TABLET ORAL TWICE A DAY Mucinex 1200MG Oral Tablet, Extended Release 05/29/2021 Unknown ORAL TWICE A DAY 1 TABLET 547329 RxNorm TAKE 1 TABLET ORAL TWICE A DAY Assessment You had the following problems:FEVERDIABETES Hospital Discharge Instructions Should you have any questions prior to discharge, please contact a member of your healthcare team. If you have left the hospital and have any questions, please contact your primary care physician. Reason For Referral No Data Found Problems Problem Start Date Resolved Date Status Code Code System FEVER active 749597135 SNOMED-CT DIABETES active 07481362 SNOMED-CT TYPE 2 DIABETES 05/28/2021 resolved 77798533 SNO MED-CT ANXIETY 05/28/2021 resolved 41662452 SNOMED-CT DEPRESSION 05/28/2021 resolved 29859659 SNOMED-C T CHRONIC BACK PAIN 05/28/2021 resolved 618096244 S NOMED-CT Allergies and Adverse Reactions Allergy Substance Reaction Severity Start Date Concern Status Co de Code System No Known Allergies Moderate Active 701316639 SN OMED-CT Plan of Treatment PRE-OP COVID-19 TESTING 02/20/2021 BONE DENSITY DEXA SPINE & HIP Encounters Encounter Diagnosis Start Date Code Code Sys tem Screening for osteoporosis 02/08/2021 854511434 S NOMED-CT Personal Care Team Section Performer Name Performer Role Active Date Inactive Da te
--- OUTSIDE RECORDS SUMMARY | 2024-03-22 18:00 | XMS_ITS ---
Author Organization Unknown Address [address] [place] [address] [phone] Phone Care Team Providers Care Aerial Installer Name Role Phone GENARO Solis Attending Unavailable ROSA Puga Primary Unavailable Results [facility] JAMESABBYX* - Ledy ect Date/Time: 02/20/2021 09:50 [facility] ID: [id number] [address] [place], [place], [id number] LOINC: 20252-1 Test Value Unit Reference Range Code Code System Flag Tier- PRE-OP SARS COV2 RNA: NEGATIVE REFERENCE RANGE: NEGAT 87642-6 L OINC Social History Type Status Start Date End Date Code Code Syst em Smoking History Never smoker (Never Smoked) 580030701 SNOMED CT Sex Female Medications Medication Start Date End Date Route Frequency Dose Code Code System Medication Instructions Home Meds Mapap 325MG Oral Tablet 11/30/2015 05/28/2021 BY MOUTH NEEDED EVERY 4 HOURS 650 MILLIGRAMS 428012 RxNorm TAKE 650 MILLIGRAMS BY MOUTH NEEDED EVERY 4 HOURS Ibuprofen 200MG Oral Tablet 11/30/2015 05/28/2021 ORAL NEEDED THREE TIMES A DAY 4 TABLET 371641 RxNorm TAKE 4 TABLET ORAL NEEDED THREE TIMES A DAY Citalopram 40MG Oral Tablet 05/29/2021 Unknown ORAL BEDTIME 40 MILLIGRAMS 496572 RxNorm TAKE 40 MILLIGRAMS ORAL BEDTIME Cyclobenza cristóbal HCl 10MG Oral Tablet 05/29/2021 Unknown ORAL NEEDED 10 MILLIGRAMS 421234 RxNorm TAKE 10 MILLIGRAMS ORAL NEEDED Erythromyc in 5MG/1GM Ophthalmic Ointment 05/29/2021 Unknown OPHTHALMI C NEEDED FOUR TIMES A DAY 1 unit(s) 686868 RxNorm PLACE 1 EACH OPHTHALMIC NEEDED FOUR TIMES A DAY Gabapentin 600MG Oral Tablet 05/29/2021 Unknown ORAL NEEDED TWICE DAILY 600 MILLIGRAMS 253991 RxNorm TAKE 600 MILLIGRAMS ORAL NEEDED TWICE DAILY Vitamin B12 1000 MCG Sublingual Tablet 05/29/2021 Unknown SUBLINGUA L DAILY 1000 MCG 318066 RxNorm DISSOLVE 1000 MCG SUBLINGUAL DAILY buPROPion HCl 150MG Oral Tablet, Extended Release 05/29/2021 Unknown ORAL DAILY 150 MILLIGRAMS 744722 RxNorm TAKE 150 MILLIGRAMS ORAL DAILY busPIRone 10MG Oral Tablet 05/29/2021 Unknown ORAL TWICE A DAY 10 MILLIGRAMS 098338 RxNorm TAKE 10 MILLIGRAMS ORAL TWICE A DAY traZODone hydrochlor shailesh 50MG Oral Tablet 05/29/2021 Unknown ORAL BEDTIME 50 MILLIGRAMS 392161 RxNorm TAKE 50 MILLIGRAMS ORAL BEDTIME valACYclov ir HCl 1GM Oral Tablet 05/29/2021 Unknown ORAL NEEDED 1 GM 248481 RxNorm TAKE 1 GM ORAL NEEDED Azithromyc in 250MG Oral Tablet 05/29/2021 Unknown ORAL DAILY 1 TABLET 541776 RxNorm TAKE 1 TABLET ORAL DAILY Cefpodoxim e Proxetil 200MG Oral Tablet 05/29/2021 Unknown ORAL TWICE A DAY 1 TABLET 899321 RxNorm TAKE 1 TABLET ORAL TWICE A DAY Mucinex 1200MG Oral Tablet, Extended Release 05/29/2021 Unknown ORAL TWICE A DAY 1 TABLET 686357 RxNorm TAKE 1 TABLET ORAL TWICE A [...] Date Status Code Code System FEVER active 959669128 SNOMED-CT DIABETES active 53619637 SNOMED-CT TYPE 2 DIABETES 05/28/2021 resolved 00313514 SNO MED-CT ANXIETY 05/28/2021 resolved 70467327 SNOMED-CT DEPRESSION 05/28/2021 resolved 22072049 SNOMED-C T CHRONIC BACK PAIN 05/28/2021 resolved 687112562 S NOMED-CT Allergies and Adverse Reactions Allergy Substance Reaction Severity Start Date Concern Status Co de Code System No Known Allergies Moderate Active 544974754 SN OMED-CT Plan of Treatment PRE-OP COVID-19 TESTING 02/20/2021 BONE DENSITY DEXA SPINE & HIP 1 Encounters Encounter Diagnosis Start Date Code Code Sys tem Pre-surgery testing 02/20/2021 821863105 SNOMED-C T Personal Care Team Section Performer Name Performer Role Active Date Inactive Da te
--- OUTSIDE RECORDS SUMMARY | 2024-03-22 18:00 | XMS_ITS ---
Author Organization Unknown Address [address] [place] [address] [phone] Phone Care Team Providers Care Sed Special Education Teacher Name Role Phone KRISTIN Alvarado Attending Unavailable ROSA Puga Primary Unavailable Social History Type Status Start Date End Date Code Code Syst em Smoking History Never smoker (Never Smoked) 305947565 SNOMED CT Sex Female Medications Medication Start Date End Date Route Frequency Dose Code Code System Medication Instructions Home Meds Mapap 325MG Oral Tablet 11/30/2015 05/28/2021 BY MOUTH NEEDED EVERY 4 HOURS 650 MILLIGRAMS 711417 RxNorm TAKE 650 MILLIGRAMS BY MOUTH NEEDED EVERY 4 HOURS Ibuprofen 200MG Oral Tablet 11/30/2015 05/28/2021 ORAL NEEDED THREE TIMES A DAY 4 TABLET 415186 RxNorm TAKE 4 TABLET ORAL NEEDED THREE TIMES A DAY Citalopram 40MG Oral Tablet 05/29/2021 Unknown ORAL BEDTIME 40 MILLIGRAMS 259692 RxNorm TAKE 40 MILLIGRAMS ORAL BEDTIME Cyclobenza cristóbal HCl 10MG Oral Tablet 05/29/2021 Unknown ORAL NEEDED 10 MILLIGRAMS 520862 RxNorm TAKE 10 MILLIGRAMS ORAL NEEDED Erythromyc in 5MG/1GM Ophthalmic Ointment 05/29/2021 Unknown OPHTHALMI C NEEDED FOUR TIMES A DAY 1 unit(s) 129141 RxNorm PLACE 1 EACH OPHTHALMIC NEEDED FOUR TIMES A DAY Gabapentin 600MG Oral Tablet 05/29/2021 Unknown ORAL NEEDED TWICE DAILY 600 MILLIGRAMS 496301 RxNorm TAKE 600 MILLIGRAMS ORAL NEEDED TWICE DAILY Vitamin B12 1000 MCG Sublingual Tablet 05/29/2021 Unknown SUBLINGUA L DAILY 1000 MCG 011087 RxNorm DISSOLVE 1000 MCG SUBLINGUAL DAILY buPROPion HCl 150MG Oral Tablet, Extended Release 05/29/2021 Unknown ORAL DAILY 150 MILLIGRAMS 245997 RxNorm TAKE 150 MILLIGRAMS ORAL DAILY busPIRone 10MG Oral Tablet 05/29/2021 Unknown ORAL TWICE A DAY 10 MILLIGRAMS 171703 RxNorm TAKE 10 MILLIGRAMS ORAL TWICE A DAY traZODone hydrochlor shailesh 50MG Oral Tablet 05/29/2021 Unknown ORAL BEDTIME 50 MILLIGRAMS 397583 RxNorm TAKE 50 MILLIGRAMS ORAL BEDTIME valACYclov ir HCl 1GM Oral Tablet 05/29/2021 Unknown ORAL NEEDED 1 GM 522610 RxNorm TAKE 1 GM ORAL NEEDED Azithromyc in 250MG Oral Tablet 05/29/2021 Unknown ORAL DAILY 1 TABLET 568691 RxNorm TAKE 1 TABLET ORAL DAILY Cefpodoxim e Proxetil 200MG Oral Tablet 05/29/2021 Unknown ORAL TWICE A DAY 1 TABLET 638086 RxNorm TAKE 1 TABLET ORAL TWICE A DAY Mucinex 1200MG Oral Tablet, Extended Release 05/29/2021 Unknown ORAL TWICE A DAY 1 TABLET 941654 RxNorm TAKE 1 TABLET ORAL TWICE A [...] Date Status Code Code System FEVER active 024072124 SNOMED-CT DIABETES active 02916330 SNOMED-CT TYPE 2 DIABETES 05/28/2021 resolved 35121168 SNO MED-CT ANXIETY 05/28/2021 resolved 59251382 SNOMED-CT DEPRESSION 05/28/2021 resolved 92245131 SNOMED-C T CHRONIC BACK PAIN 05/28/2021 resolved 503802481 S NOMED-CT Allergies and Adverse Reactions Allergy Substance Reaction Severity Start Date Concern Status Co de Code System No Known Allergies Moderate Active 779014560 SN OMED-CT Plan of Treatment PRE-OP COVID-19 TESTING 02/20/2021 BONE DENSITY DEXA SPINE & HIP Encounters Encounter Diagnosis Start Date Code Code Sys tem Removal of suture 03/01/2021 96144455 SNOMED-CT Personal Care Team Section Performer Name Performer Role Active Date Inactive Da te
--- OUTSIDE RECORDS SUMMARY | 2024-03-22 18:00 | XMS_ITS ---
Author Organization Unknown Address [address] [place] [address] [phone] Phone Care Team Providers Care Copywriter Name Role Phone GENARO Solis Attending Unavailable ROSA Puga Primary Unavailable Results XR FOREARM 2V LT* - Complete d: 02/08/2021 11:23 LOINC: LEFT FOREARM Two views. Comparison 02 November 2020. A fixation plate is again noted along the distal ulna. There is near complete healing of the distal ulnar fracture. No new abnormalities are seen. Dictated by: CEO FIDE MCMAHAN MD Transcribed by: [facility] [place] 06/28/21/09:29 D Saturday, June 26, 2021 3:56:10 PM [id number] Electronically Reviewed and Signed By: FIDE MCMAHAN MD 07/03/21 08:15 Copy for: [facility] [employer] [facility] Social History Type Status Start Date End Date Code Code Syst em Smoking History Never smoker (Never Smoked) 223221801 SNOMED CT Sex Female Medications Medication Start Date End Date Route Frequency Dose Code Code System Medication Instructions Home Meds Mapap 325MG Oral Tablet 11/30/2015 05/28/2021 BY MOUTH NEEDED EVERY 4 HOURS 650 MILLIGRAMS 497006 RxNorm TAKE 650 MILLIGRAMS BY MOUTH NEEDED EVERY 4 HOURS Ibuprofen 200MG Oral Tablet 11/30/2015 05/28/2021 ORAL NEEDED THREE TIMES A DAY 4 TABLET 462150 RxNorm TAKE 4 TABLET ORAL NEEDED THREE TIMES A DAY Citalopram 40MG Oral Tablet 05/29/2021 Unknown ORAL BEDTIME 40 MILLIGRAMS 674511 RxNorm TAKE 40 MILLIGRAMS ORAL BEDTIME Cyclobenza cristóbal HCl 10MG Oral Tablet 05/29/2021 Unknown ORAL NEEDED 10 MILLIGRAMS 132189 RxNorm TAKE 10 MILLIGRAMS ORAL NEEDED Erythromyc in 5MG/1GM Ophthalmic Ointment 05/29/2021 Unknown OPHTHALMI C NEEDED FOUR TIMES A DAY 1 unit(s) 736047 RxNorm PLACE 1 EACH OPHTHALMIC NEEDED FOUR TIMES A DAY Gabapentin 600MG Oral Tablet 05/29/2021 Unknown ORAL NEEDED TWICE DAILY 600 MILLIGRAMS 836033 RxNorm TAKE 600 MILLIGRAMS ORAL NEEDED TWICE DAILY Vitamin B12 1000 MCG Sublingual Tablet 05/29/2021 Unknown SUBLINGUA L DAILY 1000 MCG 469693 RxNorm DISSOLVE 1000 MCG SUBLINGUAL DAILY buPROPion HCl 150MG Oral Tablet, Extended Release 05/29/2021 Unknown ORAL DAILY 150 MILLIGRAMS 012950 RxNorm TAKE 150 MILLIGRAMS ORAL DAILY busPIRone 10MG Oral Tablet 05/29/2021 Unknown ORAL TWICE A DAY 10 MILLIGRAMS 824878 RxNorm TAKE 10 MILLIGRAMS ORAL TWICE A DAY traZODone hydrochlor shailesh 50MG Oral Tablet 05/29/2021 Unknown ORAL BEDTIME 50 MILLIGRAMS 604866 RxNorm TAKE 50 MILLIGRAMS ORAL BEDTIME valACYclov ir HCl 1GM Oral Tablet 05/29/2021 Unknown ORAL NEEDED 1 GM 688201 RxNorm TAKE 1 GM ORAL NEEDED Azithromyc in 250MG Oral Tablet 05/29/2021 Unknown ORAL DAILY 1 TABLET 980465 RxNorm TAKE 1 TABLET ORAL DAILY Cefpodoxim e Proxetil 200MG Oral Tablet 05/29/2021 Unknown ORAL TWICE A DAY 1 TABLET 948591 RxNorm TAKE 1 TABLET ORAL TWICE A DAY Mucinex 1200MG Oral Tablet, Extended Release 05/29/2021 Unknown ORAL TWICE A DAY 1 TABLET 748169 RxNorm TAKE 1 TABLET ORAL TWICE A [...] Date Status Code Code System FEVER active 469609561 SNOMED-CT DIABETES active 30131609 SNOMED-CT TYPE 2 DIABETES 05/28/2021 resolved 67508326 SNO MED-CT ANXIETY 05/28/2021 resolved 09279949 SNOMED-CT DEPRESSION 05/28/2021 resolved 80585751 SNOMED-C T CHRONIC BACK PAIN 05/28/2021 resolved 178153442 S NOMED-CT Allergies and Adverse Reactions Allergy Substance Reaction Severity Start Date Concern Status Co de Code System No Known Allergies Moderate Active 924437664 SN OMED-CT Plan of Treatment PRE-OP COVID-19 TESTING 02/20/2021 BONE DENSITY DEXA SPINE & HIP Encounters Encounter Diagnosis Start Date Code Code Sys tem Pain due to internal prosthetic device 02/08/2021 21 5536456 SNOMED-CT Personal Care Team Section Performer Name Performer Role Active Date Inactive Da te
--- OUTSIDE RECORDS SUMMARY | 2024-03-22 18:00 | XMS_ITS ---
Author Organization Unknown Address [address] [place] [address] [phone] Phone Care Team Providers Care Vasc Tech Name Role Phone GENARO Solis Attending Unavailable DEMARIO Baugh SEAMING MACHINE OPERATOR Unavailable ROSA Puga Primary Unavailable Social History Type Status Start Date End Date Code Code Syst em Smoking History Never smoker (Never Smoked) 432397808 SNOMED CT Sex Female Vital Signs Vital Sign Value Unit [place] Value [place] Unit Date/Time Recent/Initial? Code Code System Systolic Blood Pressure 123 mm[Hg] 02/22/2021 10:53 Initial 8480-6 [facility] Diastolic Blood Pressure 83 mm[Hg] 02/22/2021 10:53 Initial 8462-4 [facility] O2 Saturation 96 % 2020 10:53 Initial 64859- 5 [facility] Pulse 61.0 /min 02/22/2021 10:53 Initial 8867-4 [facility] Respiration 18 /min 02/23/20 10:53 Initial 9279-1 [facility] Temperature 36.0 Reina 96.8 F 02/23/20 10:53 Initial 8310-5 [facility] Medications Medication Start Date End Date Route Frequency Dose Code Code System Medication Instructions Home Meds Mapap 325MG Oral Tablet 11/30/2015 05/28/2021 BY MOUTH NEEDED EVERY 4 HOURS 650 MILLIGRAMS 343749 RxNorm TAKE 650 MILLIGRAMS BY MOUTH NEEDED EVERY 4 HOURS Ibuprofen 200MG Oral Tablet 11/30/2015 05/28/2021 ORAL NEEDED THREE TIMES A DAY 4 TABLET 503988 RxNorm TAKE 4 TABLET ORAL NEEDED THREE TIMES A DAY Citalopram 40MG Oral Tablet 05/29/2021 Unknown ORAL BEDTIME 40 MILLIGRAMS 399861 RxNorm TAKE 40 MILLIGRAMS ORAL BEDTIME Cyclobenza cristóbal HCl 10MG Oral Tablet 05/29/2021 Unknown ORAL NEEDED 10 MILLIGRAMS 196121 RxNorm TAKE 10 MILLIGRAMS ORAL NEEDED Erythromyc in 5MG/1GM Ophthalmic Ointment 05/29/2021 Unknown OPHTHALMI C NEEDED FOUR TIMES A DAY 1 unit(s) 367926 RxNorm PLACE 1 EACH OPHTHALMIC NEEDED FOUR TIMES A DAY Gabapentin 600MG Oral Tablet 05/29/2021 Unknown ORAL NEEDED TWICE DAILY 600 MILLIGRAMS 823426 RxNorm TAKE 600 MILLIGRAMS ORAL NEEDED TWICE DAILY Vitamin B12 1000 MCG Sublingual Tablet 05/29/2021 Unknown SUBLINGUA L DAILY 1000 MCG 740149 RxNorm DISSOLVE 1000 MCG SUBLINGUAL DAILY buPROPion HCl 150MG Oral Tablet, Extended Release 05/29/2021 Unknown ORAL DAILY 150 MILLIGRAMS 770178 RxNorm TAKE 150 MILLIGRAMS ORAL DAILY busPIRone 10MG Oral Tablet 05/29/2021 Unknown ORAL TWICE A DAY 10 MILLIGRAMS 751551 RxNorm TAKE 10 MILLIGRAMS ORAL TWICE A DAY traZODone hydrochlor shailesh 50MG Oral Tablet 05/29/2021 Unknown ORAL BEDTIME 50 MILLIGRAMS 620911 RxNorm TAKE 50 MILLIGRAMS ORAL BEDTIME valACYclov ir HCl 1GM Oral Tablet 05/29/2021 Unknown ORAL NEEDED 1 GM 821571 RxNorm TAKE 1 GM ORAL NEEDED Azithromyc in 250MG Oral Tablet 05/29/2021 Unknown ORAL DAILY 1 TABLET 121542 RxNorm TAKE 1 TABLET ORAL DAILY Cefpodoxim e Proxetil 200MG Oral Tablet 05/29/2021 Unknown ORAL TWICE A DAY 1 TABLET 710278 RxNorm TAKE 1 TABLET ORAL TWICE A DAY Mucinex 1200MG Oral Tablet, Extended Release 05/29/2021 Unknown ORAL TWICE A DAY 1 TABLET 484950 RxNorm TAKE 1 TABLET ORAL TWICE A DAY Assessment You had the following problems:FEVERDIABETES Hospital Discharge Instructions Should you have any questions prior to discharge, please contact a member of your healthcare team. If you have left the hospital and have any questions, please contact your primary care physician. Reason For Referral No Data Found Procedures Procedure Name Date Status Code Code Syste m Removal, Implant; Deep 02/22/2021 completed CP T Anesthesia, Open/Surg Arthro scopic/Endoscopic Proc, Distal Radius/Distal Ulna/Wrist/Hand; NOS 02/22/2021 completed 26097 CPT Problems Problem Start Date Resolved Date Status Code Code System FEVER active 869711628 SNOMED-CT DIABETES active 55415671 SNOMED-CT TYPE 2 DIABETES 05/28/2021 resolved 26208762 SNO MED-CT ANXIETY 05/28/2021 resolved 69066906 SNOMED-CT DEPRESSION 05/28/2021 resolved 93486276 SNOMED-C T CHRONIC BACK PAIN 05/28/2021 resolved 516763511 S NOMED-CT Allergies and Adverse Reactions Allergy Substance Reaction Severity Start Date Concern Status Co de Code System No Known Allergies Moderate Active 280981697 SN OMED-CT Plan of Treatment PRE-OP COVID-19 TESTING 02/20/2021 BONE DENSITY DEXA SPINE & HIP Encounters Encounter Diagnosis Start Date Code Code Sys tem Pain due to internal orthope dic prosthetic devices, implants and grafts, initial encounter 02/22/2021 S NOMED-CT Personal Care Team Section Performer Name Performer Role Active Date Inactive Da te
--- OUTSIDE RECORDS SUMMARY | 2024-03-22 18:01 | XMS_ITS ---
Author Organization Unknown Address [address] [place] [address] [phone] Phone Care Team Providers Care Beverage Manager Name Role Phone GENARO Solis Attending Unavailable ROSA Puga Primary Unavailable Social History Type Status Start Date End Date Code Code Syst em Smoking History Never smoker (Never Smoked) 150273645 SNOMED CT Sex Female Medications Medication Start Date End Date Route Frequency Dose Code Code System Medication Instructions Home Meds Mapap 325MG Oral Tablet 11/30/2015 05/28/2021 BY MOUTH NEEDED EVERY 4 HOURS 650 MILLIGRAMS 591379 RxNorm TAKE 650 MILLIGRAMS BY MOUTH NEEDED EVERY 4 HOURS Ibuprofen 200MG Oral Tablet 11/30/2015 05/28/2021 ORAL NEEDED THREE TIMES A DAY 4 TABLET 019178 RxNorm TAKE 4 TABLET ORAL NEEDED THREE TIMES A DAY Citalopram 40MG Oral Tablet 05/29/2021 Unknown ORAL BEDTIME 40 MILLIGRAMS 516052 RxNorm TAKE 40 MILLIGRAMS ORAL BEDTIME Cyclobenza cristóbal HCl 10MG Oral Tablet 05/29/2021 Unknown ORAL NEEDED 10 MILLIGRAMS 000963 RxNorm TAKE 10 MILLIGRAMS ORAL NEEDED Erythromyc in 5MG/1GM Ophthalmic Ointment 05/29/2021 Unknown OPHTHALMI C NEEDED FOUR TIMES A DAY 1 unit(s) 407769 RxNorm PLACE 1 EACH OPHTHALMIC NEEDED FOUR TIMES A DAY Gabapentin 600MG Oral Tablet 05/29/2021 Unknown ORAL NEEDED TWICE DAILY 600 MILLIGRAMS 699359 RxNorm TAKE 600 MILLIGRAMS ORAL NEEDED TWICE DAILY Vitamin B12 1000 MCG Sublingual Tablet 05/29/2021 Unknown SUBLINGUA L DAILY 1000 MCG 405971 RxNorm DISSOLVE 1000 MCG SUBLINGUAL DAILY buPROPion HCl 150MG Oral Tablet, Extended Release 05/29/2021 Unknown ORAL DAILY 150 MILLIGRAMS 668566 RxNorm TAKE 150 MILLIGRAMS ORAL DAILY busPIRone 10MG Oral Tablet 05/29/2021 Unknown ORAL TWICE A DAY 10 MILLIGRAMS 398810 RxNorm TAKE 10 MILLIGRAMS ORAL TWICE A DAY traZODone hydrochlor shailesh 50MG Oral Tablet 05/29/2021 Unknown ORAL BEDTIME 50 MILLIGRAMS 281330 RxNorm TAKE 50 MILLIGRAMS ORAL BEDTIME valACYclov ir HCl 1GM Oral Tablet 05/29/2021 Unknown ORAL NEEDED 1 GM 768456 RxNorm TAKE 1 GM ORAL NEEDED Azithromyc in 250MG Oral Tablet 05/29/2021 Unknown ORAL DAILY 1 TABLET 971297 RxNorm TAKE 1 TABLET ORAL DAILY Cefpodoxim e Proxetil 200MG Oral Tablet 05/29/2021 Unknown ORAL TWICE A DAY 1 TABLET 541854 RxNorm TAKE 1 TABLET ORAL TWICE A DAY Mucinex 1200MG Oral Tablet, Extended Release 05/29/2021 Unknown ORAL TWICE A DAY 1 TABLET 630839 RxNorm TAKE 1 TABLET ORAL TWICE A [...] Name Date Status Code Code Syste m REMOVAL IMPLANT DEEP completed 47740307 SNOM EDCT Problems Problem Start Date Resolved Date Status Code Code System FEVER active 373244127 SNOMED-CT DIABETES active 44514120 SNOMED-CT TYPE 2 DIABETES 05/28/2021 resolved 60650082 SNO MED-CT ANXIETY 05/28/2021 resolved 43279124 SNOMED-CT DEPRESSION 05/28/2021 resolved 07459262 SNOMED-C T CHRONIC BACK PAIN 05/28/2021 resolved 133793052 S NOMED-CT Allergies and Adverse Reactions Allergy Substance Reaction Severity Start Date Concern Status Co de Code System No Known Allergies Moderate Active 264054952 SN OMED-CT Plan of Treatment PRE-OP COVID-19 TESTING 02/20/2021 BONE DENSITY DEXA SPINE & HIP Encounters Encounter Diagnosis Start Date Code Code Sys tem Pain due to internal prosthetic device 02/22/2021 21 8365769 SNOMED-CT Personal Care Team Section Performer Name Performer Role Active Date Inactive Da te
--- OUTSIDE RECORDS SUMMARY | 2024-03-22 18:01 | XMS_ITS ---
Author Organization Unknown Address [address] [place] [phone] Phone Care Team Providers Care Cider Maker Name Role Phone CHUCHO RENJUNE Registered Nurse Unavailable Unavailable Xwatchlist Unavailable ALEXIS Puga Attending Unavailable [facility] Unavailable ROSA Puga Primary Unavailable INGA Palafox Secondary Unavailable UNLISTED PROVIDER - REQUESTED Xhandoff Un available Results BASIC METABOLIC PANEL (BMP) - Collect Date/Time: 05/29/2021 07:30 [facility] ID: [id number] [address] [place] [address], [address] LOINC: 24076-7 Test Value Unit Reference Range Code Code System Flag GLUCOSE 99 mg/dL L=70 H=116 2345-7 LOINC BUN 9 mg/dL L=6 H=25 3094-0 LOINC CREATININE 0.74 mg/dL L=0.51 H=0.95 2160-0 LOINC SODIUM SERUM 139 mmol/L L=136 H=145 2951-2 LOINC POTASSIUM SERUM 3.6 mmol/L L=3.4 H=5.2 2823-3 LOINC CHLORIDE SERUM 105 mmol/L L=96 H=110 2075-0 LOINC CARBON DIOXIDE (CO2) 28 mmol/L L=22 H=34 2028-9 LOINC ANION GAP 6.4 mmol/L 71674-5 LOINC CALCIUM SERUM 8.5 mg/dL L=8.2 H=10.2 64187-4 LOINC AGE 56 years eGFR (non-Afr.Amer.) 81 mL/min 32536-2 LOINC eGFR (Afr-Polish) 98 mL/min 54079-6 LOINC CBC W/ DIFFERENTIAL* - Colle ct Date/Time: 05/29/2021 07:30 [facility] ID: [id number] [address] [place] [address], [address] LOINC: 99135-6 Test Value Unit Reference Range Code Code System Flag WBC 5.63 th/cmm L=5.00 H=10.00 6690-2 LOINC NEUT % 69.7 % L=40.0 H=80.0 LYMPH % 21.0 % L=10.0 H=50.0 MONO % 7.8 % L=2.0 H=12.0 25098-0 LOINC EOS % 0.9 % L=0.0 H=8.0 BASO % 0.2 % L=0.0 H=3.0 IG % 0.4 % L=0.0 H=1.1 2514-8 LOINC NRBC % 0.0 % L=0.0 H=0.0 43814-3 LOINC NEUT abs count 3.9 th/cmm L=1.6 H=8.4 751-8 LOINC LYMPH abs count 1.2 th/cmm L=1.5 H=4.0 731-0 LOINC L MONO abs count 0.4 th/cmm L=0.2 H=1.0 742-7 LOINC EOS abs count 0.1 th/cmm L=0.0 H=0.5 711-2 LOINC BASO abs count 0.0 th/cmm L=0.0 H=0.2 704-7 LOINC IG abs count 0.0 th/cmm L=0.0 H=0.1 42617-3 LOINC NRBC abs count 0.0 mil/cmm L=0.0 H=0.0 68249-3 LOINC RBC 4.09 mil/cmm L=3.90 H=5.40 789-8 LOINC HEMOGLOBIN 12.2 gm/dL L=12.0 H=16.0 718-7 LOINC HEMATOCRIT 38 % L=37 H=47 4544-3 LOINC MCV 92 fL L=82 H=92 787-2 LOINC MCH 29.8 pg L=27.0 H=31.0 785-6 LOINC MCHC 32.4 % L=32.0 H=36.0 786-4 LOINC RDW-SD 48.2 fL L=39.0 H=49.0 788-0 LOINC PLATELET COUNT 188 th/cmm L=150 H=450 777-3 LOINC CULT URINE CULTURE* - Collec t Date/Time: 05/28/2021 16:05 [facility] ID: [id number] [address] [place] [address], [id number] LOINC: 630-4 Test Value Unit Reference Range Code Code System Flag COLLECTION MODE: CLEAN CATCH URINALYSIS WITH MICRO AND RE FLEX CULTUR* - Collect Date/Time: 05/28/2021 16:05 [facility] ID: [id number] [address] [place] [address], [address] LOINC: 82266-7 Test Value Unit Reference Range Code Code System Flag COLLECTION MODE: CLEAN CATCH Color STRAW yellow 5778-6 LOINC Appearance CLEAR clear 5767-9 LOINC Glucose urine NEGATIVE negative mg/dl 22731-2 LOINC Bilirubin NEGATIVE negative 5770-3 LOINC Ketones NEGATIVE negative mg/dl 2514-8 LOINC Spec gravity <=1.005 1.003 - 1.030 5811-5 LOINC pH urine 6.5 5.0 - 7.0 2756-5 LOINC Protein NEGATIVE negative mg/dl 57322-3 LOINC Urobilinogen 0.2 <or= 1 EU/dl 02098-1 LOINC Nitrite. POSITIVE negative 5802-4 LOINC A Blood NEGATIVE negative 5794-3 LOINC Leukocytes. NEGATIVE negative WBCs. 0-5 0-5 / hpf 49413-4 LOINC RBCs 0-5 0-5 / hpf 67582-0 LOINC Epith cells 0-5 0-5 / hpf 25034-8 LOINC Cell types squamous Crystals none none Bacteria large none Mucus none none Casts none none /lpf Other [facility] COVID FLU RSV GENEXPE RT - Collect Date/Time: 05/28/2021 14:15 [facility] ID: [id number] [address] [place] [address], [id number] LOINC: 60901-3 Test Value Unit Reference Range Code Code System Flag COVID NEGATIVE Normal: Negative 11331-0 LOINC INFLUENZA A DNA NEGATIVE Normal: Negative 12781-0 LOINC INFLUENZA B DNA NEGATIVE Normal: Negative 15626-7 LOINC RSV DNA NEGATIVE Normal: Negative 40371-6 LOINC TROPONIN HIGH SENSITIVITY* - Collect Date/Time: 05/28/2021 14:15 [facility] ID: [id number] [address] [place] [address], [address] LOINC: 70547-7 Test Value Unit Reference Range Code Code System Flag TROPONIN HS 48.8 pg/mL L=0.0 H=60.4 Specimen seq. Random COMPREHENSIVE METABOLIC PANE L (CMP) - Collect Date/Time: 05/28/2021 14:15 [facility] ID: [id number] [address] [place] [address], [address] LOINC: 33129-1 Test Value Unit Reference Range Code Code System Flag GLUCOSE 139 mg/dL L=70 H=116 2345-7 LOINC H BUN 10 mg/dL L=6 H=25 3094-0 LOINC CREATININE 0.86 mg/dL L=0.51 H=0.95 2160-0 LOINC SODIUM SERUM 136 mmol/L L=136 H=145 2951-2 LOINC POTASSIUM SERUM 3.5 mmol/L L=3.4 H=5.2 2823-3 LOINC CHLORIDE SERUM 100 mmol/L L=96 H=110 2075-0 LOINC CARBON DIOXIDE (CO2) 26 mmol/L L=22 H=34 2028-9 LOINC ANION GAP 9.6 mmol/L 61546-0 LOINC CALCIUM SERUM 8.5 mg/dL L=8.2 H=10.2 98342-4 LOINC BILIRUBIN TOTAL 0.4 mg/dL L=0.0 H=1.3 1975-2 LOINC ALK. PHOS. 93 U/L L=46 H=116 6768-6 LOINC SGOT (AST) 16 U/L L=15 H=37 1920-8 LOINC SGPT (ALT) 19 U/L L=12 H=78 1742-6 LOINC TOTAL PROTEIN 7.0 gm/dL L=6.0 H=8.0 2885-2 LOINC ALBUMIN 3.4 gm/dL L=3.4 H=5.0 1751-7 LOINC AGE 56 years eGFR (non-Afr.Amer.) 68 mL/min 39164-7 LOINC eGFR (Afr-Polish) 83 mL/min 25347-4 LOINC CBC W/ DIFFERENTIAL* - Colle ct Date/Time: 05/28/2021 14:15 [facility] ID: [id number] [address] [place], [place], [facility] LOINC: 16580-6 Test Value Unit Reference Range Code Code System Flag WBC 5.74 th/cmm L=5.00 H=10.00 6690-2 LOINC NEUT % 82.8 % L=40.0 H=80.0 H LYMPH % 10.5 % L=10.0 H=50.0 MONO % 5.7 % L=2.0 H=12.0 80260-2 LOINC EOS % 0.5 % L=0.0 H=8.0 BASO % 0.2 % L=0.0 H=3.0 IG % 0.3 % L=0.0 H=1.1 2514-8 LOINC NRBC % 0.0 % L=0.0 H=0.0 71714-9 LOINC NEUT abs count 4.8 th/cmm L=1.6 H=8.4 751-8 LOINC LYMPH abs count 0.6 th/cmm L=1.5 H=4.0 731-0 LOINC L MONO abs count 0.3 th/cmm L=0.2 H=1.0 742-7 LOINC EOS abs count 0.0 th/cmm L=0.0 H=0.5 711-2 LOINC BASO abs count 0.0 th/cmm L=0.0 H=0.2 704-7 LOINC IG abs count 0.0 th/cmm L=0.0 H=0.1 35617-9 LOINC NRBC abs count 0.0 mil/cmm L=0.0 H=0.0 20972-0 LOINC RBC 4.35 mil/cmm L=3.90 H=5.40 789-8 LOINC HEMOGLOBIN 13.0 gm/dL L=12.0 H=16.0 718-7 LOINC HEMATOCRIT 39 % L=37 H=47 4544-3 LOINC MCV 89 fL L=82 H=92 787-2 LOINC MCH 29.9 pg L=27.0 H=31.0 785-6 LOINC MCHC 33.6 % L=32.0 H=36.0 786-4 LOINC RDW-SD 45.5 fL L=39.0 H=49.0 788-0 LOINC PLATELET COUNT 200 th/cmm L=150 H=450 777-[address] ABD + PELV W CONTRAST - C ompleted: 05/28/2021 22:01 LOINC: Radiation optimization: All CT scans at this facility use at least one of these dose optimization techniques: automated exposure control; mA and/or kV adjustment per patient size (includes targeted exams where dose is matched to clinical indication); or iterative reconstruction. CT ABDOMEN AND PELVIS WITH IV CONTRAST Compared to prior CT scan of November 2015. Uppermost images reveal infiltrate in the posterior basal segment of the left lower lobe and milder infiltrate in the posterior basal segment of the right lower lobe. There are no pleural effusions. There is no ascites. There is a small focal enhancing benign appearing lesion in the peripheral aspect of the right hepatic lobe which is most probably a small benign hemangioma measuring approximately 5 mm. Other possibility is that this may represent a calcification as there is also a calcification in the caudate lobe again noted. No other focal hepatic lesions. The gallbladder appears to be surgically absent. The CBD diameter is upper normal. Minimal prominence of intrahepatic ducts noted. Pancreas unremarkable. Spleen size normal. Splenic and portal veins are patent. No adrenal masses. No significant focal findings in the kidneys. No hydronephrosis. Abdominal aorta is not enlarged. There is no retroperitoneal-paraaortic adenopathy. Again noted is evidence of prior bariatric surgery. There is no evidence of bowel obstruction, free air, nor abscess. Roxana limb is retrocolic. No evidence of significant anterior abdominal wall hernia. There is a fat-only containing small umbilical hernia. There is no evidence of significant inguinal hernia. In the pelvis the uterus and adnexal regions appear unremarkable. No free fluid. Urinary bladder is not distended. No evidence of appendicitis. No diverticulitis. There is an area of narrowing in the rectosigmoid over a distance of 2.5 cm. This may just represent contraction or muscular hyperplasia but cannot exclude neoplasm at this level. There is no intrapelvic nor inguinal adenopathy. Osseous: No significant osseous lesions. No fractures. Sacroiliac joints unremarkable. IMPRESSION: 1. There is infiltrate in both lung bases, specifically in the posterior basal segment of both lower lobes, this being more prominent on the left side. There are no associated pleural effusions at this time. 2. Evidence of previous bariatric surgery. No bowel obstruction. No free air. No abscess. 3. No other significant findings in the abdomen and pelvis. There is some narrowing of the rectosigmoid which is possibly just muscular hyperplasia or contraction. Follow-up colonoscopy recommended. Dictated by: LAURENCE ALTMAN MD Transcribed by: CCG 05/29/2113:29 D Saturday, May 29, 2021 11:08:17 AM [id number] Electronically Reviewed and Signed By: IVANNA ALTMAN MD 05/29/21 20:15 Copy for: 185 HEALTH INFORMATION MGMT DISCHARGED XR CHEST 2V PA AND LATERAL - Completed: 05/28/2021 15:13 LOINC: CHEST X-RAY, 2 VIEWS: Comparison is 12/25/2015. The heart is normal in size. The lungs are clear. The mediastinal structures and pleura appear intact. IMPRESSION:Normal chest. Dictated by: NAYE SHYAM MONTEZ MD Transcribed by: ML 05/28/2115:33 [id number] Electronically Reviewed and Signed By: SHYAM MONTEZ MD 05/30/21 08:32 Copy for: 185 HEALTH INFORMATION MGMT DISCHARGED Social History Type Status Start Date End Date Code Code Syst em Smoking History Never smoker (Never Smoked) 458234393 SNOMED CT Sex Female Vital Signs Vital Sign Value Unit Philpot Value Philpot Unit Date/Time Recent/Initial? Code Code System Body Mass Index 28.55 kg/m2 05/28/2021 14:37 Initial 79616 -5 LOINC Systolic Blood Pressure 129 mm[Hg] 05/29/2021 07:48 Most Recent 8480- 6 LOINC Diastolic Blood Pressure 84 mm[Hg] 05/29/2021 07:48 Most Recent 8462- 4 LOINC Systolic Blood Pressure 166 mm[Hg] 05/28/2021 14:37 Initial 8480- 6 LOINC Diastolic Blood Pressure 85 mm[Hg] 05/28/2021 14:37 Initial 8462- 4 LOINC Body Surface Area 2.11 m2 05/28/2021 14:37 Initial 3140- 1 LOINC Height 177.800 0 cm 70.00 in 05/28/2021 14:37 Initial 8302- 2 INC O2 Saturation 92 % 2021 11:00 Most Recent 45842 -5 INC O2 Saturation 95 % 2021 14:37 Initial 45666 -5 LOINC Inhaled Oxygen Flow Rate 2.00 L/min 05/29/2021 07:48 Most Recent 3151- 8 INC Inhaled Oxygen Flow Rate 1.00 L/min 05/28/2021 17:55 Initial 3151- 8 LOINC Pulse 71.0 /min 05/29/2021 07:48 Most Recent 8867- 4 LOINC Pulse 87.0 /min 05/28/2021 14:37 Initial 8867- 4 LOINC Respiration 16 /min 05/30/19 22 07:48 Most Recent 9279- 1 INC Respiration 20 /min 05/29/19 22 14:37 Initial 9279- 1 INC Temperature 36.6 Reina 97.9 F 05/30/19 22 07:48 Most Recent 8310- 5 INC Temperature 39.6 Reina 103.3 F 05/29/19 22 14:37 Initial 8310- 5 INC Weight 90.26 kg 199.00 lbs 05/28/2021 14:37 Initial 76926 -7 [facility] Medications Medication Start Date End Date Route Frequency Dose Code Code System Medication Instructions Home Meds Mapap 325MG Oral Tablet 11/30/2015 05/28/2021 BY MOUTH NEEDED EVERY 4 HOURS 650 MILLIGRAMS 806431 RxNorm TAKE 650 MILLIGRAMS BY MOUTH NEEDED EVERY 4 HOURS Ibuprofen 200MG Oral Tablet 11/30/2015 05/28/2021 ORAL NEEDED THREE TIMES A DAY 4 TABLET 860667 RxNorm TAKE 4 TABLET ORAL NEEDED THREE TIMES A DAY Citalopram 40MG Oral Tablet 05/29/2021 Unknown ORAL BEDTIME 40 MILLIGRAMS 216005 RxNorm TAKE 40 MILLIGRAMS ORAL BEDTIME Cyclobenza cristóbal HCl 10MG Oral Tablet 05/29/2021 Unknown ORAL NEEDED 10 MILLIGRAMS 585322 RxNorm TAKE 10 MILLIGRAMS ORAL NEEDED Erythromyc in 5MG/1GM Ophthalmic Ointment 05/29/2021 Unknown OPHTHALMI C NEEDED FOUR TIMES A DAY 1 unit(s) 979744 RxNorm PLACE 1 EACH OPHTHALMIC NEEDED FOUR TIMES A DAY Gabapentin 600MG Oral Tablet 05/29/2021 Unknown ORAL NEEDED TWICE DAILY 600 MILLIGRAMS 700659 RxNorm TAKE 600 MILLIGRAMS ORAL NEEDED TWICE DAILY Vitamin B12 1000 MCG Sublingual Tablet 05/29/2021 Unknown SUBLINGUA L DAILY 1000 MCG 791141 RxNorm DISSOLVE 1000 MCG SUBLINGUAL DAILY buPROPion HCl 150MG Oral Tablet, Extended Release 05/29/2021 Unknown ORAL DAILY 150 MILLIGRAMS 843052 RxNorm TAKE 150 MILLIGRAMS ORAL DAILY busPIRone 10MG Oral Tablet 05/29/2021 Unknown ORAL TWICE A DAY 10 MILLIGRAMS 570606 RxNorm TAKE 10 MILLIGRAMS ORAL TWICE A DAY traZODone hydrochlor shailesh 50MG Oral Tablet 05/29/2021 Unknown ORAL BEDTIME 50 MILLIGRAMS 060585 RxNorm TAKE 50 MILLIGRAMS ORAL BEDTIME valACYclov ir HCl 1GM Oral Tablet 05/29/2021 Unknown ORAL NEEDED 1 GM 132658 RxNorm TAKE 1 GM ORAL NEEDED Azithromyc in 250MG Oral Tablet 05/29/2021 Unknown ORAL DAILY 1 TABLET 447856 RxNorm TAKE 1 TABLET ORAL DAILY Cefpodoxim e Proxetil 200MG Oral Tablet 05/29/2021 Unknown ORAL TWICE A DAY 1 TABLET 298505 RxNorm TAKE 1 TABLET ORAL TWICE A DAY Mucinex 1200MG Oral Tablet, Extended Release 05/29/2021 Unknown ORAL TWICE A DAY 1 TABLET 799505 RxNorm TAKE 1 TABLET ORAL TWICE A [...] Name Date Status Code Code Syste m Gastric bypass completed 584870398 SNOMEDCT FOOT/TOES SURGERY PROCEDURE completed 51270912 3 SNOMEDCT Herniated disc completed 98354087 SNOMEDCT Tubal ligation completed 38141305 SNOMEDCT Procedure on eyelid completed 502497775 SNOME DCT Problems Problem Start Date Resolved Date Status Code Code System FEVER active 946469620 SNOMED-CT DIABETES active 34163309 SNOMED-CT TYPE 2 DIABETES 05/28/2021 resolved 68044389 SNO MED-CT ANXIETY 05/28/2021 resolved 55938491 SNOMED-CT DEPRESSION 05/28/2021 resolved 51881468 SNOMED-C T CHRONIC BACK PAIN 05/28/2021 resolved 877382015 S NOMED-CT Allergies and Adverse Reactions Allergy Substance Reaction Severity Start Date Concern Status Co de Code System No Known Allergies Moderate Active 403841951 SN OMED-CT Plan of Treatment PRE-OP COVID-19 TESTING 02/20/2021 BONE DENSITY DEXA SPINE & HIP 1 Encounters Encounter Diagnosis Start Date Code Code Sys tem Pneumonia, unspecified organism 05/28/2021 SNOMED-CT Personal Care Team Section Performer Name Performer Role Active Date Inactive Da te History and Physical Notes
--- OUTSIDE RECORDS SUMMARY | 2024-03-22 18:02 | XMS_ITS | Encounter Summary ---
Author Organization [facility] Address [address] [place] [address] Care Team Providers Care Body Corporate Manager Name Role Phone Hayley Young BAILER TENDERS SUPERVISOR Primary Care Provider [phone] Reason for Visit * Reason Onset Date Comments Confirmation 03/25/2023 Encounter Details Date Type Department Care Team (Late st Contact Info) Description 03/25/2023 Telephone [facility] - [address] [phone] Judy Nguyen MD [address] [place] [address] Medical Office Building, [address] [place] [address] Confirmation Social History Tobacco Use Types Packs/Day Years Used Date Smoking Tobacco: Never Smokeless Tobacco: Never Alcohol Use Standard Drinks/Week Comments No 0 (1 standard drink = 0.6 oz pur e alcohol) PHQ-2 Answer Date Recorded PHQ-2 SUBTOTAL 0 05/24/2021 Interpersonal Safety Answer Date Record ed Physically Hurt Never 09/26/2019 Verbally Threaten Not on file 09/26/2019 Comments No Sex and Gender Information Value Date Recorded Sex Assigned at Not on file Legal Sex Female 18:04 EST Gender Identity Female 03/19/2023 15:58 EST Sexual Orientation Not on file documented as of this encounter Functional Status * Are you deaf or do you have serious difficulty hearing? Answer Date of Assessment Author No 01/14/2023 8:09 EST Sherry Bhatti, RN documented as of this encounter Miscellaneous Notes * Telephone Encounter - Magdaleno Shepard - 03/25/2023 1308 EST Called pt to confirm their surgery details for 03/26. Check in at 845 at registration. No food aftermidnight and clear nonfat liquids ok until 645am. Confirmed pt has a ride home. No further questions and pt in agreement with plan. documented in this encounter Plan of Treatment Not on file documented as of this encounter Visit Diagnoses Not on filedocumented in this encounter Care Teams Body Corporate Manager Relationship Specialty Start Date End Date Hayley Young NP [address] [place] [address] PCP - General 04/24/21 documented as of this encounter
--- OUTSIDE RECORDS SUMMARY | 2024-03-22 18:02 | XMS_ITS | Encounter Summary ---
[place] [address] Care Team Providers Care Meter Supervisor Name Role Phone Brittany Carrington MD Primary Care Provide r Encounter Details Date Type Department Care Team (Latest Contact Info) Description 04/29/2013 12:05 PM EST - 04/29/2013 11:59 PM EST Hospital [place] [phone] Lumbago with sciatica of left side Social History Tobacco Use Types Packs/Day Years Used Date Smoking Tobacco: Never Smokeless Tobacco: Never Alcohol Use Standard Drinks/Week Comments No 0 (1 standard drink = 0.6 oz pur e alcohol) Sex and Gender Information Value Date Recorded Sex Assigned at Not on file Gender Identity Not on file Sexual Orientation Not on file documented as of this encounter Last Filed Vital Signs Vital Sign Reading Time Taken Comments Blood Pressure - - Pulse - - Temperature - - Respiratory Rate - - Oxygen Saturation - - Inhaled Oxygen Concentration - - Weight 86.2 kg (190 lb) 04/29/2013 1:56 PM EST Height - - Body Mass Index 27.26 04/27/2013 1:59 PM EST documented in this encounter Medications at Time of Discharge Medication Sig Dispensed Refills Start Date End Date gabapentin (NEURONTIN) 300 mg capsule Take 300 mg by mouth nightly. 12/20/2016 citalopram (CELEXA) 20 mg tablet Take 20 mg by mouth daily. 12/20/2016 documented as of this encounter Miscellaneous Notes * Miscellaneous - Provider, Scanning - 05/11/2013 8:56 AM EDT documented in this encounter Plan of Treatment Not on file documented as of this encounter Procedures Procedure Name Priority Date/Time Associated Diagnosis Comments MRI LUMBAR SPINE WITH/WO CONTRAST Routine 04/29/2013 2:12 PM EST Lumbago with sciatica of left side documented in this encounter Results * MRI lumbar spine with/WO contrast (04/29/2013 2:12 PM EST) Anatomical Region Laterality Modality L-spine Magnetic Resonan ce 04/29/2013 2:12 PM EST Narrative 04/29/2013 4:32 PM EST Examination MR Lumbar Spine W/WO Ozzy Clinical History recurrent left leg pain remote disc excision left L5-S1 assess for recurent HNP Technique MR lumbar spine performed prior to and following intravenous administration of 17 mL Magnevist. Comparison Plain films 08/16/2010. Findings There has been prior left -sided L5 laminotomy. ??The alignment of the lumbar spine remains normal. ??There is no aggressive marrow lesion. ??The normal-appearing conus terminates at the lower L1 level. ??The visualized retroperitoneum is unremarkable. Findings at specific levels: L1-L2: ??No central canal, or neural foraminal narrowing. ?? L2-L3: ??No central canal, or neural foraminal narrowing. L3-L4: ??There are mild facet degenerative changes, and minimal disc bulging without central canal, or neural foraminal stenosis. L4-L5: ??There are facet degenerative changes and disc bulge contributing to very mild foraminal narrowing bilaterally. ??No central canal stenosis. ?? L5-S1: ??There are left-sided postsurgical changes. ??There is enhancement in the epidural space on the left, with enhancing material adjacent to the traversing S1 root sleeve. ??There is no recurrent disc herniation identified. Mild foraminal narrowing is due to disc bulge and facet arthropathy. ?? Impression Left-sided L5-S1 surgical changes. ??There is enhancing material adjacent to the root sleeve of the traversing left S1 root. ??No recurrent disc herniation identified. Comment: The following findings are so common in people without low back pain that while we report their presence, they must be interpreted with caution and in the context of the clinical situation. (Reference-[place] et al, Spine 2001) Findings: (prevalence in patients without low back pain), Disk degeneration (decreased T2 signal, height loss, bulge) (91%), Disk T2-signal loss (83%), Disk height loss (56%), Disk bulge (64%), Disk protrusion (32%), Annular fissure (38%). Procedure Note Ernst Hernández MD - 04/29/2013 Examination MR Lumbar Spine W/WO Ozzy Clinical History recurrent left leg pain remote disc excision left L5-S1 assess for recurent HNP Technique MR lumbar spine performed prior to and following intravenousadministration of 17 mL Magnevist. Comparison Plain films 08/16/2010. Findings There has been prior left -sided L5 laminotomy. The alignment of thelumbar spine remains normal. There is no aggressive marrow lesion. The normal-appearing conus terminates at the lower L1 level. The visualized retroperitoneum is unremarkable. Findings at specific levels: L1-L2: No central canal, or neural foraminal narrowing. L2-L3: No central canal, or neural foraminal narrowing. L3-L4: There are mild facet degenerative changes, and minimal discbulging without central canal, or neural foraminal stenosis. L4-L5: There are facet degenerative changes and disc bulge contributingto very mild foraminal narrowing bilaterally. No central canal stenosis. L5-S1: There are left-sided postsurgical changes. There is enhancementin the epidural space on the left, with enhancing material adjacent to thetraversing S1 root sleeve. There is no recurrent disc herniation identified. Mild foraminal narrowing is due to disc bulge and facet arthropathy. Impression Left-sided L5-S1 surgical changes. There is enhancing material adjacentto the root sleeve of the traversing left S1 root. No recurrent disc herniation identified. Comment: The following findings are so common in people without low backpain that while we report their presence, they must be interpreted with cautionand in the context of the clinical situation. (Reference-Jarvik et al, [id number]) Findings: (prevalence in patients without low back pain), Diskdegeneration (decreased T2 signal, height loss, bulge) (91%), Disk T2-signal loss(83%), Disk height loss (56%), Disk bulge (64%), Disk protrusion (32%), Annular fissure (38%). Authorizing Provider Result Konstantin Latham MD IMG MRI ORDERABLES documented in this encounter Visit Diagnoses Diagnosis Lumbago with sciatica of left side Sciatica documented in this encounter Care Teams Meter Supervisor Relationship Specialty Start Date End Date Brittany Carrington MD [facility] [address] [place] [address] PCP - General 07/10/10 01/05/14 documented as of this encounter
--- OUTSIDE RECORDS SUMMARY | 2024-03-22 18:02 | XMS_ITS | Encounter Summary ---
[place] [address] Care Team Providers Care Narcotics And Vice Detective Name Role Phone Brittany Carrington MD Primary Care Provide r Encounter Details Date Type Department Care Team (Late st Contact Info) Description 08/16/2010 1:01 PM EDT Anesthesia [place] [phone] John Lynn MD Anesthesia Record Procedure Summary Procedure Name Responsible Anesthesiologist Anesthesia Start Time Anesthesia Stop Time LAMINOTOMY, DECOMPRESSION, FORAMINOTOMY, LUMBAR (WRVU 12) (Left: Spine Lumbar) John Lynn MD 08/16/10 1301 08/16/10 1511 Events Date Time Event Comment 08/16/2010 1113 1301 Start 1511 Stop Meds * Agents No agents on file. * Blood No blood administrations on file. Lines, Drains, and Airways Type Details Placement Removal (RETIRED) Peripheral IV Line - Single Lumen 08/16/10; 1102; 08/16/10; 2223 08/16/10 1102 by Pita Guardado RN 08/16/10 2223 by brenna Li Rn, Sapphire Sewell RN Incision 08/16/10; 1340; 10/22/21 (LDA cleanup utility RA#[id number]); 1715 (LDA cleanup utility RA#[id number]) 08/16/10 1340 by Brad Swenson RN 10/22/21 1715 by José Valenzuela documented in this encounter Social History Tobacco Use Types Packs/Day Years Used Date Smoking Tobacco: Never Smokeless Tobacco: Never Alcohol Use Standard Drinks/Week Comments No 0 (1 standard drink = 0.6 oz pur e alcohol) Sex and Gender Information Value Date Recorded Sex Assigned at Not on file Gender Identity Not on file Sexual Orientation Not on file documented as of this encounter OR Notes * Anesthesia Postprocedure Evaluation - John Lynn MD - 08/16/2010 6:37 PM EDT Patient: Twila Graves Procedure(s) Performed: LAMINOTOMY, DECOMPRESSION, FORAMINOTOMY, LUMBAR - Additional CPT Codes: 16458. Disc excision L5-S1 left Equipment Needs:moe table Implants:0 Estimated case duration: 90 minutes Return visit for consent: {no Does patient need to go to [facility] for testing?: no H&P w/PCP: {YES Add'l Preop Consults (Add Order in eDH): Add'l Preop Imaging (Add Order in eDH): Position: prone Return to NE in 4 weeks, no films. Needs Q-Quest survey Needs to stop anti-inflammatory meds; MODIFIER L5; MODIFIER S1 Patient location: PACU Post-op pain: Adequate analgesia Post-op nausea: no nausea or vomiting Last Vitals: Filed Vitals: 08/16/10 1620 BP: 110/55 Pulse: Temp: Resp: 18 Post-op cardiovascular and respiratory status: is stable Level of consciousness: awake, alert and oriented Complications: no apparent complications and tolerated the procedure well Fluid Status: normal * Anesthesia Preprocedure Evaluation - John Lynn MD - 08/15/2010 4:51 PM EDT Anesthesia Evaluation Patient summary reviewed and Nursing notes reviewed No hx of anesthetic complications Airway Mallampati: I TM distance: >3 FB Neck ROM: full Dental - normal exam Pulmonary - negative ROS Cardiovascular - negative ROS Exercise tolerance: good Rhythm: regular Rate: normal Neuro/Psych (+) psychiatric history (depression) GI/Hepatic/Renal (-) GERD Comments: Hx gastric bypass Endo/Other - negative ROS Abdominal Anesthesia Plan ASA 1 General with intravenous induction Anesthetic plan and risks discussed with patient and spouse. Plan discussed with resident. documented in this encounter Miscellaneous Notes * Addendum Note - Trish Pal - 08/17/2010 10:17 AM EDT Addendum created 08/17/10 1017 by Trish Pal Modules edited:Anesthesia Events, Anesthesia Responsible Staff documented in this encounter Plan of Treatment Not on file documented as of this encounter Visit Diagnoses Not on filedocumented in this encounter Care Teams Narcotics And Vice Detective Relationship Specialty Start Date End Date Brittany Carrington MD [facility] [address] [place] [address] PCP - General 07/10/10 01/05/14 documented as of this encounter
--- OUTSIDE RECORDS SUMMARY | 2024-03-22 18:02 | XMS_ITS | Encounter Summary ---
[place] [address] Care Team Providers Care Hosting Engineer Name Role Phone Anoop Youngi Edd SIERRA Primary Care Provider Reason for Visit * Reason Comments Back Pain follow up MRI Encounter Details Date Type Department Care Team (Late st Contact Info) Description 12/31/2016 8:00 AM EST Office [place] [phone] Byron Corado PA Chronic left-sided low back pain with left-sided sciatica Social History Tobacco Use Types Packs/Day Years Used Date Smoking Tobacco: Never Smokeless Tobacco: Never Alcohol Use Standard Drinks/Week Comments No 0 (1 standard drink = 0.6 oz pur e alcohol) Sex and Gender Information Value Date Recorded Sex Assigned at Not on file Gender Identity Not on file Sexual Orientation Not on file documented as of this encounter Progress Notes * Byron Corado PA - 12/31/2016 8:00 AM EST Subjective: Twila Graves is a 51-year-old female seen today in follow-up to discuss results of herlumbar spine MRI. She still remains with persistent symptoms of recurrent back and left leg pain, in the context of prior L5-S1 disc excision surgery in 2010 with recurrent episodes every so often. She still reports continued burden of chronic pain limiting her activities, but she continues to workfull-time however. Details of her history otherwise unchanged from the prior visit. Objective: MRI of the lumbar spine performed earlier today was reviewed and compared to her prior MRI from 2013. Both of these studies are performed with and without contrast. Overall, there is no evidence of recurrent herniated disc. Alignment is normal anatomic. There remains to be contrast enhancing granulation tissue within the left paracentral zone L5-S1. Assessment/plan: Twila Graves is a 51-year-old female seen today for continued symptoms of back pain and left leg pain in the context of prior lumbar herniated disc surgery performed over 6 years ago on the left L5-S1. Her symptoms continue to be bothersome every so often but similar to her prior imaging from 3 years ago, there is no evidence of recurrent herniated disc, and is no indications for surgical intervention. Once again discussed the various treatment options available to her, such as considering further physical therapy and rehabilitation, epidural injection, and pain management with consideration of spinal cord stimulator placement. I also did discuss the functional confucianism program, but she feels she cannot do the whole through the program, so instead discuss the alternative of developing an independent home exercise program with a physical therapist. At present, she'll think further about these options and contact our office at a later date. documented in this encounter Plan of Treatment Not on file documented as of this encounter Visit Diagnoses Diagnosis Chronic left-sided low back pain with left-sided sciatica documented in this encounter Care Teams Hosting Engineer Relationship Specialty Start Date End Date Hayley Young APRN [address] [place] [address] PCP - General 01/06/14 documented as of this encounter
--- OUTSIDE RECORDS SUMMARY | 2024-03-22 18:02 | XMS_ITS | Encounter Summary ---
Author Organization [facility] [place] [address] Care Team Providers Care Soliciting Freight Agent Name Role Phone Brittany Carrington MD Primary Care Provide r Encounter Details Date Type Department Care Team (Late st Contact Info) Description 07/05/2010 Orders [place] [address] Brandon Latham MD Social History Tobacco Use Types Packs/Day Years Used Date Smoking Tobacco: Never Assessed Sex and Gender Information Value Date Recorded Sex Assigned at Not on file Gender Identity Not on file Sexual Orientation Not on file documented as of this encounter Plan of Treatment Not on file documented as of this encounter Procedures Procedure Name Priority Date/Time Associated Diagnosis Comments FILM LIBRARY STORAGE ONLY MR SPINE Routine 07/05/2010 2:05 PM EDT documented in this encounter Results * FILM LIBRARY- STORAGE ONLY MR SPINE (07/05/2010 2:05 PM EDT) 07/05/2010 2:05 PM EDT Narrative RAD - 06/29/2013 7:46 PM EDT This is a non-reportable exam. Procedure Note Pedro Sanderson - 06/29/2013 This is a non-reportable exam. Brandon Latham MD IMG FILM LIBRARY ORD ERABLES RAD [address] [facility] [place] [address] documented in this encounter Visit Diagnoses Not on filedocumented in this encounter Care Teams Soliciting Freight Agent Relationship Specialty Start Date End Date Brittany Carrington MD [address] [address] PCP - General 07/10/10 01/05/14 documented as of this encounter
--- OUTSIDE RECORDS SUMMARY | 2024-03-22 18:02 | XMS_ITS | Encounter Summary ---
[place] [address] Care Team Providers Care Cell Inspector Name Role Phone HectorHayley Edd SIERRA Primary Care Provider [phone] Reason for Visit * Reason Onset Date Comments Referral 01/06/2014 Encounter Details Date Type Department Care Team (Late st Contact Info) Description 01/06/2014 Telephone [place] [phone] Marycarmen Reyna, PLATER APPRENTICE Referral Social History Tobacco Use Types Packs/Day Years Used Date Smoking Tobacco: Never Smokeless Tobacco: Never Alcohol Use Standard Drinks/Week Comments No 0 (1 standard drink = 0.6 oz pur e alcohol) Sex and Gender Information Value Date Recorded Sex Assigned at Not on file Gender Identity Not on file Sexual Orientation Not on file documented as of this encounter Miscellaneous Notes * Telephone Encounter - Leta Arnold - 02/01/2014 3:18 PM EST PATIENT NOT NEEDING APPOINTMENT * Telephone Encounter - Christine Orr - 01/07/2014 3:13 PM EST . * Telephone Encounter - Marycarmen Reyna - 01/06/2014 4:30 PM EST Ask the patient to verify the following: Full Name: Twila J Star : 1965 Phone number: [phone] (home) Mailing address: [address] [facility] [address] Age: 48 y.o. Appointment date: TBD Appointment is with: TBD Reason #1 Injury/Complaint: RIGHT FOOT HAMMERTOE, ANKLE NERVE PAIN Date of injury/complaint: OVER 1 YEAR Is this a new injury? No Is this a 2nd opinion? Yes Appointment type: 18-100 Adult - Not sports related Is this Workers Comp? No How long have you had these symptoms? 1 years Records Retrieval Most recent physical exam: No X-rays: Yes - When? Where? Notes: 2013 [place], [place] PH: [phone] (Option 5) FAX: [phone] CD ONLY MRI: Yes - When? Where? Notes: 2013 [place], [place] PH: [phone] (Option 5) FAX: [phone] Scan: No Physical therapy: No Injection: No Other diagnostic studies: No Other therapies: No Other specialist(s): No If 2nd (+) opinion get info on previous: Yes - What? When? Where? Who? Notes: ORTHOPEDIC SURGERY 2013 [place], [place] PH: [phone] (Option 5) FAX: [phone] ROMERO Have you had any surgeries for this issue? Yes - What? When? Where? Who? Notes: REMOVED BONE SPUR, REMOVED NERVE DAMAGE 2013 [place], [place] PH: [phone] (Option 5) FAX: [phone] ROMERO Did surgery include placement of implant/hardware or fixation of any kind? No Do you use any type of orthotics? Yes Advanced Directive Do you have an Advanced Directive on file: No - Please bring a copy to your next appointment. Advance Directive elevator pilot: N/A MyDH Do you have a MyDH account? No - Patient Declined documented in this encounter Plan of Treatment Not on file documented as of this encounter Visit Diagnoses Not on filedocumented in this encounter Care Teams Cell Inspector Relationship Specialty Start Date End Date Hayley Young, BONDERIZER OPERATOR [address] [place] [address] PCP - General 01/06/14 documented as of this encounter
--- OUTSIDE RECORDS SUMMARY | 2024-03-22 18:02 | XMS_ITS | Clinical Summary ---
Author Organization Formerly [facility] Address [facility] [place] [address] Care Team Providers Care Reporting Consultant Name Role Phone Hayley Young APRN Primary Care Provider [phone] Allergies No known active allergies Medications Medication Sig Dispensed Refills Start Date End Date Status gabapentin (NEURONTIN) 600 mg Tablet Take 600 mg by mouth 3 times daily. Active citalopram (CELEXA) 40 mg Tablet Take 40 mg by mouth daily. Active sulfamethoxazole-trime thoprim (BACTRIM;SEPTRA) 400-80 mg Tablet Take 1 tablet by mouth daily. 0 12/10/2016 Active busPIRone (BUSPAR) 15 mg Tablet Take 15 mg by mouth 2 times daily. 0 09/18/2016 Active traMADol (ULTRAM) 50 mg Tablet Take 100 mg by mouth 3 times daily. 0 12/17/2016 Active buPROPion (WELLBUTRIN XL) 150 mg Tablet Extended Release 24 hr Take 150 mg by mouth daily. 0 12/11/2016 Active cyclobenzaprine (FLEXERIL) 10 mg Tablet Take 10 mg by mouth as needed. 0 12/03/2016 Active traZODone (DESYREL) 50 mg Tablet Take 50 mg by mouth nightly. 0 10/13/2016 Active Active Problems Problem Noted Date Diagnosed Date Chronic left-sided low back pain with left-sided sciatica 04/27/2013 Status post gastric bypass for obesity 1 Overview (11/22/2011): Deactivated Dx replaced via utility Lumbar disc herniation 07/31/2010 Overview (11/24/2011): 08/16/2010 Lumbar lami L5-S1 Social History Tobacco Use Types Packs/Day Years Used Date Smoking Tobacco: Never Smokeless Tobacco: Never Alcohol Use Standard Drinks/Week Comments No 0 (1 standard drink = 0.6 oz pur e alcohol) Sex and Gender Information Value Date Recorded Sex Assigned at Not on file Gender Identity Not on file Sexual Orientation Not on file Last Filed Vital Signs Vital Sign Reading Time Taken Comments Blood Pressure 123/81 12/20/2016 9:26 AM EDT Pulse 60 08/17/2010 10:40 AM EDT Temperature 37.1 ??C (98.8 ??F) 08/17/2010 10:40 AM E DT Respiratory Rate 16 08/17/2010 10:40 AM EDT Oxygen Saturation 97% 08/17/2010 10:40 AM EDT Inhaled Oxygen Concentration - - Weight 90.7 kg (200 lb) 12/20/2016 9:26 AM EDT Height 177.8 cm (5' 10) 12/20/2016 9:26 AM EDT Body Mass Index 28.7 12/20/2016 9:26 AM EDT Plan of Treatment Health Maintenance Due Date Last Done Comments CT Colonography 1965 Colonoscopy 1965 Colorectal Cancer Screening 1965 FIT DNA 1965 FIT 1965 Sigmoidoscopy (10 year) with FIT yearly 1965 Sigmoidoscopy 1965 HIV screen 1983 Hepatitis C Screening 1983 Hepatitis B vaccine (0-59 yrs) (1) 1984 Tetanus/Diphtheria/Pertussis Vaccines (1 - Tdap) 04/16 HPV test 1995 PAP Smear 1995 Breast Cancer Share Decision Needed 2005 Breast Cancer screening 2005 Pneumoccocal Vaccine: 50+ (1 of 1 - PCV) 2015 Zoster vaccine (1 of 2) 2015 Advance Directive 2020 Covid-19 Vaccine (1 - 2023- season) 2023 Influenza (Flu) vaccine (1 o f 1 - Influenza standard series) 10/26/2023 Advance Directives * Full Code (Latest Code Status on File) Date Activated Date Inactivated Comments 08/16/2010 9:39 PM 08/17/2010 2:03 PM * Full Code Date Activated Date Inactivated Comments 08/16/2010 2:54 PM 08/16/2010 9:39 PM Question Answer Comments Does patient have decision m aking capacity? Yes, Order is based on Patients wishes. Care Teams Reporting Consultant Relationship Specialty Start Date End Date Hayley Young APRN [address] [place] [address] PCP - General 01/06/14
--- OUTSIDE RECORDS SUMMARY | 2024-03-22 18:02 | XMS_ITS | Encounter Summary ---
[place] [address] Care Team Providers Care Salesperson Art Objects Name Role Phone Brittany Carrington MD Primary Care Provide r Reason for Visit * Reason Comments Follow Up Surgery Encounter Details Date Type Department Care Team (Late st Contact Info) Description 04/29/2013 3:40 PM EST Office [place] [phone] Brandon Latham MD Lumbago with sciatica of left side (Primary Dx) Discharge Disposition: Home Social History Tobacco Use Types Packs/Day Years [...] - Weight 86.2 kg (190 lb) 04/29/2013 3:11 PM EST Height 177.8 cm (5' 10) 04/29/2013 3:11 PM EST Body Mass Index 27.26 04/29/2013 3:11 PM EST documented in this encounter Progress Notes * Brandon Latham MD - 04/29/2013 3:21 PM EST Ms. Graves is seen today in followup to her appointment of 04/27/2013 for recurrent left leg pain. She underwent an MRI today because of those symptoms. This demonstrates no evidence of any recurrent disk herniation. This was reviewed with her . She notes some improvement over the past two days. She appears much more comfortable today. Full exam was not repeated. I have advised continued diminished activities with gradual increase as tolerated, [id number] use of medication. She clearly has no indication for any surgical intervention, I suspect this will be self-limiting in the near term. Both she and I were reassured by her MRI findings. We will recheck as needed. documented in this encounter Plan of Treatment Not on file documented as of this encounter Visit Diagnoses Diagnosis Lumbago with sciatica of left side- Primary Sciatica documented in this encounter Care Teams Salesperson Art Objects Relationship Specialty Start Date End Date Brittany Carrington MD [facility] [address] [place] [address] PCP - General 07/10/10 01/05/14 documented as of this encounter
--- OUTSIDE RECORDS SUMMARY | 2024-03-22 18:02 | XMS_ITS | Encounter Summary ---
Author Organization [facility] Address [address] [place] [address] Care Team Providers Care Retail Chain Store Area Supervisor Name Role Phone Hayley Young NP Primary Care Provider [phone] Reason for Visit * Reason Comments Follow-up PAP Encounter Details Date Type Department Care Team (Latest Contact Info) Description 09/26/2023 13:00 EDT Procedure visit [facility] [address] [place], [place] [id number] Judy Sharma MD [address] [facility] [address], [address] [place] [address] Dysplasia of cervix, high grade ALAN 2 (Primary Dx) Social History Tobacco Use Types Packs/Day Years Used Date Smoking Tobacco: Never Smokeless Tobacco: Never Tobacco Cessation:Counseling Given: Not Answered Alcohol Use Standard Drinks/Week Comments No 0 [...] Sign Reading Time Taken Comments Blood Pressure 142/84 09/26/2023 1301 EDT Pulse - - Temperature - - Respiratory Rate - - Oxygen Saturation - - Inhaled Oxygen Concentration - - Weight 94.1 kg (207 lb 8 oz) 09/26/2023 1301 EDT Height - - Body Mass Index 29.77 03/26/2023 0857 EST documented in this encounter Functional Status * Are you deaf or do you have serious difficulty hearing? Answer Date of Assessment Author No 01/14/2023 8:09 EST Sherry Bhatti RN documented as of this encounter Progress Notes * Judy Sharma MD - 09/26/2023 1300 EDT Pt presents for her first 6 month f/u pap after a leep with no ALAN 2 in the specimen. She has no concerns. PE: well appearing female BP (!) 142/84 Wt 94.1 kg (207 lb 8 oz) BMI 29.77 kg/m?? Vulva- nl Spec- nl, stenotic cx os. Pap done A: 6 month f/u pap after leep for ALAN 2. P: will check pap/hpv and notify via my chart. If nl/neg, then paps q yr x 3. Addendum 10/02: pap nl, HPV neg. BV present. Offered treatment. documented in this encounter Miscellaneous Notes * Addendum Note - Judy Sharma MD - 09/26/2023 1300 EDTAddended by: JUDY SHARMA on: 09/26/2023 13:45 Modules accepted: Orders documented in this encounter Plan of Treatment Not on file documented as of this encounter Procedures Procedure Name Priority Date/Time Associated Diagnosis Comments PAP TEST Routine 09/26/2023 13:49 EDT Dysplasia of cervix, high grade ALAN 2 HPV DNA DETECTION WITH GENOTYPING, PCR Today 09/26/2023 13:49 EDT Dysplasia of cervix, high grade ALAN 2 documented in this encounter Results * HPV DNA DETECTION WITH GENOTYPING, PCR (09/26/2023 13:49 EDT) HPV High Risk type 16, PCR Negative Negative 10/03/2023 14:40 EDT [facility] HPV High Risk type 18, PCR Negative Negative 10/03/2023 14:40 EDT [facility] HPV other High Risk types, PCR Negative Negative 10/03/2023 14:40 EDT [facility] Comment: The following Other High Risk HPV types were not detected: ??31,33, 35, 39, 45, 51, 52, 56, 58, 59, 66 and 68. Pap Test CERVIX UTERI STRUCTURE / Unknown 09/26/2023 13:49 EDT 10/02/2023 14:20 EDT us Judy Sharma MD MICROBIOLOGY - GENERAL CURTIS CUMMINS Final Result [facility] [address] [place] [address] * PAP TEST (09/26/2023 13:49 EDT) Specimens A. Cervix and/or Endocervix , ThinPrep Imaging System with Manual Evaluation 10/03/2023 14:40 EDT [facility] Specimen Adequacy Satisfactory for Evaluation - transformation zone component present Scant squamous epithelial component due to excess blood. 10/03/2023 14:40 EDT [facility] General Categorization Negative for intraepithelial lesion or malignancy 10/03/2023 14:40 T [facility] Descriptive Diagnosis Reactive cellular changes associated with inflammation present (includes repair). Shift in watson present suggestive of bacterial vaginosis. 10/03/2023 14:40 [facility] Attestation By the signature below, the attending physician certifies that they have personally conducted a gross and/or microscopic examination of the described specimens and rendered or confirmed the above diagnosis. 10/03/2023 14:40 [facility] at [address] Clinical History s/p leep 6 months ago for ALAN 2 though no ALAN 2 in specimen 10/03/2023 14:40 EDT [facility] Performing Lab [facility] 10/03/2023 14:40 EDT [facility] Scanned Images 10/03/2023 14:40 EDT [facility] HPV High Risk type 16, PCR Negative 10/03/2023 14:40 EDT [facility] HPV High Risk type 18, PCR Negative 10/03/2023 14:40 EDT [facility] HPV Other High Risk Types, PCR Negative The following Other High Risk HPV types were not detected: 31,33, 35, 39, 45, 51, 52, 56, 58, 59, 66 and 68. 10/03/2023 14:40 EDT [facility] Pap Test CERVIX UTERI STRUCTURE / Unknown 09/26/2023 13:49 EDT 09/26/2023 14:56 EDT us Judy Sharma MD PATHOLOGY ORDERABLES Final Result [facility] [address] [place] [address] documented in this encounter Visit Diagnoses Diagnosis Dysplasia of cervix, high grade ALAN 2- Primary documented in this encounter Care Teams Retail Chain Store Area Supervisor Relationship Specialty Start Date End Date Hayley Young NP [address] [place] [address] PCP - General 04/24/21 documented as of this encounter
--- OUTSIDE RECORDS SUMMARY | 2024-03-22 18:02 | XMS_ITS | Encounter Summary ---
[place] [address] Care Team Providers Care Epic Prelude Analyst Name Role Phone Brittany Carrington MD Primary Care Provide r Encounter Details Date Type Department Care Team (Late st Contact Info) Description 04/20/2009 Orders [place] [address] Brandon Latham MD Social History Tobacco Use [...] Associated Diagnosis Comments FILM LIBRARY STORAGE ONLY DX SPINE Routine 04/20/2009 2:16 PM EST documented in this encounter Results * FILM LIBRARY- STORAGE ONLY DX SPINE (04/20/2009 2:16 PM EST) 04/20/2009 2:16 PM EST Narrative RAD - 06/29/2013 7:46 PM EDT This is a non-reportable exam. Procedure Note Pedro Sanderson - 06/29/2013 This is a non-reportable exam. Brandon Latham MD IMG FILM LIBRARY ORD ERABLES [facility] [address] [facility] [place] [address] documented in this encounter Visit Diagnoses Not on filedocumented in this encounter Care Teams Epic Prelude Analyst Relationship Specialty Start Date End Date Brittany Carrington MD [facility] [[email or web address] [address] [place] [address] PCP - General 07/10/10 01/05/14 documented as of this encounter
--- OUTSIDE RECORDS SUMMARY | 2024-03-22 18:02 | XMS_ITS | Encounter Summary ---
Author Organization [facility] Address [address] [place] [address] Care Team Providers Care Liquor Maker Name Role Phone Hayley Young BLOOD BANK ATTENDANT Primary Care Provider [phone] Reason for Visit * Reason Onset Date Comments Vaginal Discharge 01/14/2023 Encounter Details Date Type Department Care Team (Late st Contact Info) Description 01/14/2023 Telephone [facility] OBGYN Services - [facility] [address], [place] [id number] Judy Nguyen MD [address] [facility] Medical Office Building, [address] [place] [address] Vaginal Discharge Social History Tobacco Use Types Packs/Day Years [...] Bhatti RN documented as of this encounter Miscellaneous Notes * Telephone Encounter - Judy Nguyen MD - 01/14/2023 1858 EST Yes, sounds normal. she can just monitor for now. thx * Telephone Encounter - Koki Lind RN - 01/14/2023 1108 EST TC to patient who reports she is having light brown discharge and that she can smell herself. Patient does not report that the odor is malodorous just stronger smelling than normal. Discussed with patient that have some light brown discharge would be normal at this time due to healing and that ifthe odor was not foul likely just a sign of healing. Patient denies fever, chills, or pain at this time. Patient informed a message would be sent to Dr Nguyen for an update and we would be in touch. Patient currently at the ED due to uncontrolled HTN. * Telephone Encounter - Miranda Bro - 01/14/2023 1038 EST Are you calling for gynecological, obstetric, or reproductive care? Gynecological Have you been seen here before? Yes If yes, who do you see? Dr. Nguyen Reason for Call as described by patient: Reports of oozing and odor after recent LEEP on 01/08. Denies pain. Currently in ED for a different issue. Onset, duration, location? Began several days ago What is the best phone number for us to reach you back at? [phone] Does this number have a voicemail, is it ok to leave a detailed message? Yes Miranda Bro 01/14/2023 10:38 documented in this encounter Plan of Treatment Not on file documented as of this encounter Visit Diagnoses Not on filedocumented in this encounter Care Teams Liquor Maker Relationship Specialty Start Date End Date Hayley Young NP [address] [place] [address] PCP - General 04/24/21 documented as of this encounter
--- OUTSIDE RECORDS SUMMARY | 2024-03-22 18:02 | XMS_ITS | Encounter Summary ---
Author Organization [facility] Address [address] [place] [address] Care Team Providers Care Steel Post Installer Supervisor Name Role Phone Hayley Young NP Primary Care Provider [phone] Encounter Details Date Type Department Care Team (Late st Contact Info) Description 03/22/2023 Prep for Procedure [facility] OBGYN Services - [facility] [address] [place] [address] Judy Nguyen MD 2 [facility] Medical Office Building, [address] [place] [address] Social History Tobacco Use Types Packs/Day Years [...] Bhatti RN documented as of this encounter Plan of Treatment Not on file documented as of this encounter Visit Diagnoses Not on filedocumented in this encounter Care Teams Steel Post Installer Supervisor Relationship Specialty Start Date End Date Hayley Young, NURSING HOME ASSISTANT ADMINISTRATOR [address] [place] [address] PCP - General 04/24/21 documented as of this encounter
--- OUTSIDE RECORDS SUMMARY | 2024-03-22 18:02 | XMS_ITS ---
Author Organization Unknown Address [address] [place] [phone] Phone Care Team Providers Care Restaurant Expeditor Name Role Phone ELEONORA JUANCARLOS Attending Unavailable ROSA Puga Primary Unavailable Social History Type Status Start Date End Date Code Code Syst em Smoking History Never smoker (Never Smoked) 298540963 SNOMED CT Sex Female Medications Medication Start Date End Date Route Frequency Dose Code Code System Medication Instructions Home Meds Citalopram 40MG Oral Tablet 05/29/2021 Unknown ORAL BEDTIME 40 MILLIGRAMS 851457 RxNorm TAKE 40 MILLIGRAMS ORAL BEDTIME Cyclobenzaprin e HCl 10MG Oral Tablet 05/29/2021 Unknown ORAL NEEDED 10 MILLIGRAMS 707962 RxNorm TAKE 10 MILLIGRAMS ORAL NEEDED Erythromycin 5MG/1GM Ophthalmic Ointment 05/29/2021 Unknown OPHTHALM IC NEEDED FOUR TIMES A DAY 1 unit(s) 023388 RxNorm PLACE 1 EACH OPHTHALMIC NEEDED FOUR TIMES A DAY Gabapentin 600MG Oral Tablet 05/29/2021 Unknown ORAL NEEDED TWICE DAILY 600 MILLIGRAMS 057858 RxNorm TAKE 600 MILLIGRAMS ORAL NEEDED TWICE DAILY Vitamin B12 1000 MCG Sublingual Tablet 05/29/2021 Unknown SUBLINGU AL DAILY 1000 MCG 455819 RxNorm DISSOLVE 1000 MCG SUBLINGUAL DAILY buPROPion HCl 150MG Oral Tablet, Extended Release 05/29/2021 Unknown ORAL DAILY 150 MILLIGRAMS 319711 RxNorm TAKE 150 MILLIGRAMS ORAL DAILY busPIRone 10MG Oral Tablet 05/29/2021 Unknown ORAL TWICE A DAY 10 MILLIGRAMS 816835 RxNorm TAKE 10 MILLIGRAMS ORAL TWICE A DAY traZODone hydrochloride 50MG Oral Tablet 05/29/2021 Unknown ORAL BEDTIME 50 MILLIGRAMS 875364 RxNorm TAKE 50 MILLIGRAMS ORAL BEDTIME valACYclovir HCl 1GM Oral Tablet 05/29/2021 Unknown ORAL NEEDED 1 GM 073549 RxNorm TAKE 1 GM ORAL NEEDED Azithromycin 250MG Oral Tablet 05/29/2021 Unknown ORAL DAILY 1 TABLET 490959 RxNorm TAKE 1 TABLET ORAL DAILY Cefpodoxime Proxetil 200MG Oral Tablet 05/29/2021 Unknown ORAL TWICE A DAY 1 TABLET 962886 RxNorm TAKE 1 TABLET ORAL TWICE A DAY Mucinex 1200MG Oral Tablet, Extended Release 05/29/2021 Unknown ORAL TWICE A DAY 1 TABLET 933966 RxNorm TAKE 1 TABLET ORAL TWICE A [...] Date Status Code Code System FEVER active 907766233 SNOMED-CT DIABETES active 32623404 SNOMED-CT TYPE 2 DIABETES 05/28/2021 resolved 03482191 SNO MED-CT ANXIETY 05/28/2021 resolved 21144694 SNOMED-CT DEPRESSION 05/28/2021 resolved 48486121 SNOMED-C T CHRONIC BACK PAIN 05/28/2021 resolved 756656727 S NOMED-CT Allergies and Adverse Reactions Allergy Substance Reaction Severity Start Date Concern Status Co de Code System No Known Allergies Moderate Active 338677039 SN OMED-CT Plan of Treatment PRE-OP COVID-19 TESTING 02/20/2021 BONE DENSITY DEXA SPINE & HIP Encounters Encounter Diagnosis Start Date Code Code Sys tem Canceled operative procedure 09/19/2022 97424010 SNOMED-CT Personal Care Team Section Performer Name Performer Role Active Date Inactive Da te
--- OUTSIDE RECORDS SUMMARY | 2024-03-22 18:02 | XMS_ITS | Encounter Summary ---
[place] [address] Care Team Providers Care Strategic Advisor Name Role Phone Brittany Carrington MD Primary Care Provide r Encounter Details Date Type Department Care Team (Late st Contact Info) Description 07/30/2010 [facility] [place] [id number] Brandon Latham MD Social History Tobacco Use [...] on filedocumented in this encounter Care Teams Strategic Advisor Relationship Specialty Start Date End Date Brittany Carrington MD [facility] [address] [place] [address] PCP - General 07/10/10 01/05/14 documented as of this encounter
--- OUTSIDE RECORDS SUMMARY | 2024-03-22 18:02 | XMS_ITS | Encounter Summary ---
Author Organization [facility] Address [address] [place] [address] Care Team Providers Care Medical Technologist Prn Name Role Phone Hayley Young NP Primary Care Provider [phone] Reason for Referral * Specialty Diagnoses / Procedures Referred By Francisca t Referred To Contact Ree Santiago MD [address] [place] [id number] Phone: tel: fax: Referral ID Status Reason Start Date Expiration Date Visits Re quested Visits Authorized * Specialty Diagnoses / Procedures Referred By Francisca t Referred To Contact Ree Santiago MD [address] [place] [id number] Phone: tel: fax: Referral ID Status Reason Start Date Expiration Date Visits Re quested Visits Authorized Comments Call 911 anytime you think you may need emergency care. For example, call if: - You passed out (lost consciousness). - You have severe trouble breathing. - You have sudden chest pain and shortness of breath, or you cough up blood. Call your doctor now or seek immediate medical care if: - You have bright red vaginal bleeding that soaks one or more pads in an hour for two consecutive hours, or you have large clots. - You have foul-smelling discharge from your vagina. - You are sick to your stomach or cannot keep fluids down. - You have pain that does not get better after you take pain medicine. - You have loose stitches, or your incision comes open. - You have signs of infection, such as: - Increased pain, swelling, warmth, or redness. - Red streaks leading from the incision. - Pus draining from the incision. - A fever greater than 100.4 degrees F (38 degrees C). - You have signs of a blood clot, such as: - Pain in your calf, back of the knee, thigh, or groin. - Redness and swelling in your leg or groin. - You have trouble passing urine or stool, especially if you have pain or swelling in your lower belly. Watch closely for changes in your health, and be sure to contact your doctor if: - You do not have a bowel movement after taking a laxative. - You have hot flashes, sweating, flushing, or a fast heartbeat, but no fever. Reason for Visit * Auth/Cert (Routine) Specialty Diagnoses / Procedures Referred By Contac t Referred To Contact Diagnoses Dysplasia of cervix, high grade ALAN 2 Procedures RI CONIZATION CERVIX W/WO D&C RPR ELTRD EXC Leep Referral ID Status Reason Start Date Expiration Date Visits Re quested Visits Authorized [id number] 1 1 Encounter Details Date Type Department Care Team (Latest Contact Info) Description 03/26/2023 8:31 EST - 03/26/2023 13:53 EST Hospital Encounter [facility] Main [place] [facility] [address] [place] [address] Judy Nguyen MD [address] [place] [address] Medical Office Building, [address] [place] [address] Discharge Disposition: Home or Self Care Social History Tobacco Use Types Packs/Day Years [...] Sign Reading Time Taken Comments Blood Pressure 116/82 03/26/2023 1345 EST Pulse - - Temperature 36.6 ??C (97.9 ??F) 03/26/2023 1345 EST Respiratory Rate 21 03/26/2023 1345 EST Oxygen Saturation 96% 03/26/2023 1345 EST Inhaled Oxygen Concentration - - Weight 96 kg (211 lb 10.3 oz) 03/26/2023 0857 ES T Height 177.8 cm (5' 10) 03/26/2023 0857 EST Body Mass Index 30.37 03/26/2023 0857 EST documented in this encounter Functional Status * Are you deaf or do you have serious difficulty hearing? Answer Date of Assessment Author No 01/14/2023 8:09 EST Sherry Bhatti RN documented as of this encounter Medications at Time of Discharge acetaminophen (TYLENOL) 500 mg tablet Take 2 Tablets by mouth every 6 hours as needed for Pain. 03/26/2023 buPROPion (WELLBUTRIN XL) 300 mg XL tablet Take 1 Tablet by mouth daily. 11/24/2022 busPIRone (BUSPAR) 5 mg tablet Take 2 Tablets by mouth 2 times daily. 01/04/2023 citalopram (CELEXA) 20 mg tablet Take 1 Tablet by mouth daily. CYANOCOBALAMIN/FO LIC ACID (VITAMIN Z52-CYAQL ACID ORAL) Take 1 Each by mouth daily. 11/29/2009 DICLOFENAC SODIUM/MISOPROSTO L (ARTHROTEC 75 ORAL) Take by mouth daily. 11/01/2009 gabapentin (NEURONTIN) 600 mg tablet Take 1 Tablet by mouth 3 times daily. 10/21/2022 ibuprofen (MOTRIN) 800 mg tablet Take 1 Tablet by mouth every 8 hours as needed for Pain. 03/26/2023 MULTIVITAMINS (MULTIVITAMIN ORAL) Take by mouth daily. 02/08/2006 TRAZODONE HCL (TRAZODONE ORAL) Take by mouth at bedtime as needed. Take 1/2 documented as of this encounter Ordered Prescriptions Prescription Sig Dispense Quantity Refills Last Filled Start Date End Date ibuprofen (MOTRIN) 800 mg tablet Take 1 Tablet by mouth every 8 hours as needed for Pain. 03/26/2023 acetaminophen (TYLENOL) 500 mg tablet Take 2 Tablets by mouth every 6 hours as needed for Pain. 03/26/2023 documented in this encounter Discharge Disposition Disposition Code Departure Means Destination Comment s Home or Self Assisted documented in this encounter H&P Notes * Rodolfo Santiago MD - 03/26/2023 1108 EST See scanned document from 03/24/2023 for pre-op visit with PCP. No changes since. Surgical consent signed today. RODOLFO SANTIAGO MD Cosigned by Judy Nguyen MD at 03/26/2023 11:34 EST documented in this encounter OR Notes * OR Surgeon - Judy Nguyen MD - 03/26/2023 0831 EST OPERATIVE REPORT SERVICE DATE: 03/26/2023 SURGEON: Judy Nguyen MD METALIZING SUPERVISOR: Rodolfo Santiago MD ANESTHESIA: General via LMA. PREOPERATIVE DIAGNOSIS: Cervical intraepithelial neoplasia 2 with inadequate loop electrosurgical excision procedure in the office. POSTOPERATIVE DIAGNOSIS: Cervical intraepithelial neoplasia 2 with inadequate loop electrosurgical excision procedure in the office. PROCEDURES: LEEP cone with a top hat and an ECC. FINDINGS: Colposcopy revealed acetowhite changes around the os and some Lugol negative changes around the os. No other abnormalities were seen. NARRATIVE: The patient was taken to the operating room. She was placed into the supine position andgeneral anesthesia was administered. She was then placed into the dorsal lithotomy position in the [facility]. A coated speculum was placed with a suction tube connected. The cervix was brought into view and with the colposcope, the cervix was viewed with the acetic acid and the Lugol solution.Once the area of concern was noted, 10 mL of 0.5% bupivacaine with epinephrine was injected equallyinto the 4 quadrants of the cervix. The 20 x 10 loop was used to come across the surface of the cervix encompassing the os. A second pass was needed posteriorly to get that tissue and then a 15 x 6 loop was used to do a top hat further into the canal. ECC was then done. Ball cautery was done of thebase. There was no bleeding. Monsel's was applied. Speculum was removed from the vagina. The patient was placed back into the supine position and extubated and taken to the recovery room in good condition. There were no complications. The patient tolerated the procedure well. ESTIMATED BLOOD LOSS: None. I was present for the entire procedure. Unless otherwise noted, there were no complications, no blood loss, no cultures obtained, no specimens removed, and no drains retained. Judy Nguyen MD / AM Confirmation: [id number] Dictation ID: [id number] cc: documented in this encounter Miscellaneous Notes * Brief Op Note - Rodolfo Santiago MD - 03/26/2023 1353 EST Date: 03/26/2023 Location: [facility] OR Name: Twila Graves, : 1965, Diagnosis Pre-Op Diagnosis Codes: * Dysplasia of cervix, high grade ALAN 2 [N87.1] Post-op Diagnosis * Dysplasia of cervix, high grade ALAN 2 [N87.1] Procedures * [facility] * Judy Nguyen MD - Primary * Rodolfo Santiago MD - Resident - Assisting Procedure Summary Anesthesia: General ASA: I Estimated Blood Loss: 3 mL Total IV Fluids: 700 mL LDAs: Wound 03/26/23 Incision Vagina Not applicable (Active) [REMOVED] Non-Surgical Airway (Removed) Staff: Bareback Rider: Massiel Rodriguez RN Relief Bareback Rider: Josie Monsalve RN Relief Scrub: Josie Monsalve RN Scrub Person: Luke Fierro Jr., RN 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 female who is having LEEP for CIN2. Findings: Normal external genitalia No significant acetowhite changes Poor staining with Lugol's noted peripherally around SCJ LEEP site hemostatic at end of procedure Complications: None; patient tolerated the procedure well. Disposition: PACU - hemodynamically stable. Condition: stable Specimens Collected: cervix, cervix top hat Dr. Nguyen was present for the entire procedure. RODOLFO SANTIAGO MD Lock Expert PGY-2 Cosigned by Judy Nguyen MD at 03/26/2023 14:37 EST documented in this encounter Plan of Treatment Scheduled Referrals Name Type Priority Associated Diagnoses Order Schedule PROVIDER FOLLOW-UP INSTRUCTIONS Outpatient Referral Routine Ordered: 03/26/2023 PROVIDER FOLLOW-UP INSTRUCTIONS Outpatient Referral Routine Ordered: 03/26/2023 documented as of this encounter Procedures Procedure Name Priority Date/Time Associated Diagnosis Comments SURGICAL PATHOLOGY Routine 03/26/2023 12 :12 EST CONE BIOPSY, CERVIX, USING LEEP IF INDICATED 03/26/2023 11:28 EST Dysplasia of cervix, high grade ALAN 2 documented in this encounter Results * SURGICAL PATHOLOGY (03/26/2023 12:12 EST) Note to Patient The following pathology results have been interpreted by your pathologist and may be available to you before your health provider has had the opportunity to review them. Please allow time for your provider to receive these results and explore management options, if applicable. 03/31/2023 11:37 EST [facility] Final Diagnosis A. CERVIX, LOOP ELECTROSURGICAL EXCISIONAL PROCEDURE: - Benign cervical tissue with prior biopsy site. - No residual intraepithelial or malignancy identified. B. CERVIX, TOP HAT, LOOP ELECTROSURGICAL EXCISIONAL PROCEDURE: - Benign cervical tissue with prior biopsy site. - No residual intraepithelial or malignancy identified. C. ENDOCERVIX, CURETTAGE: - Minute fragments of benign endocervix. 03/31/2023 11:37 EST [facility] Attestation By the signature below, the attending physician certifies that they have 1) personally conducted a gross and/or microscopic examination of the described specimen(s), and/or personally interpreted the results of laboratory testing of the described specimen(s), and 2) personally rendered or confirmed the above diagnosis. 03/31/2023 11:37 [facility] at 1137 Clinical History Dysplasia of cervix, high grade ALAN II 03/31/2023 11:37 [facility] Gross Description A. Received fresh labelled with proper patient identification (initials S, P) and cervix for surgical pathology are two irregular, of cervical tissue, 1.0 x 0.8 x 0.3 cm and 1.4 x 0.8 x 0.4 cm. Both tissue show areas of overlying ectocervix. A cervical os is not identified. The squamocolumnar junction is not obvious. The margins are inked. The larger tissue is serially sectioned and entirely submitted in A1-A3. The smaller tissue is serially sectioned and entirely submitted in A4-A6. B. Received fresh labelled with proper patient identification (initials S, P) and cervix top hat for surgical pathology is an irregular nonoriented tissue, 1.2 x 0.5 x 0.4 cm. One surface is slightly more convex. The convex surface is inked blue. The specimen is sectioned and entirely submitted in B1-B3. C. Received fresh labelled with proper patient identification (initials S, P) and ? ECC for surgical pathology are scant flecks of mildly cloudy mucus with admixed brown specks aggregating 0.2 x 0.2 x 0.1 cm. The specimen is filtered and the contents entirely submitted in C1 however may not survive processing. SALBADOR BERNARD(ASCP) 03/27/2023 10:36 03/31/2023 11:37 [facility] Performing Lab [facility] 11:37 [facility] Scanned Images 03/31/2023 11:37 [facility] Tissue CERVIX UTERI STRUCTURE / Unknown 03/26/2023 12:12 EST 03/26/2023 14:13 EST Tissue specimen (specimen) CERVIX UTERI STRUCTURE / Unknown 03/26/2023 12:15 EST 03/26/2023 14:13 EST Tissue specimen (specimen) ENDOCERVICAL STRUCTURE / Unknown 03/26/2023 12:24 EST 03/26/2023 14:13 EST Judy Nguyen MD PATHOLOGY ORDERABLES Final Result [facility] [address] [place] [address] documented in this encounter Visit Diagnoses Diagnosis Dysplasia of cervix, high grade ALAN 2- Primary documented in this encounter Admitting Diagnoses Diagnosis Dysplasia of cervix, high grade ALAN 2 documented in this encounter Administered Medications Inactive Administered Medications - up to 3 most recent administrations Medication Order MAR Action Action Date Dose Rate Site atropine 0.1 mg/mL syringe 0.5 mg 0.5 mg, intravenous, PRN, Starting on Fri03/26/23 at 1121, Until Fri03/26/23 at 1553, Symptomatic HR < 50, Routine, Recovery (only) diphenhydrAMINE (BENADRYL) injection 12.5 mg 12.5 mg, intravenous, PRN, 1 dose, Starting on Fri03/26/23 at 1121, Until Fri03/26/23 at 1553, nausea, Routine, Recovery (only) fentaNYL citrate (PF) injection 25-50 mcg 25-50 mcg, intravenous, EVERY 5 MIN PRN, Starting on Fri03/26/23 at 1121, Until Fri03/26/23 at 1553, Pain, Routine, Recovery (only) Given 03/26/2023 13:16 EST 50 mcg HYDROmorphone (DILAUDID) tablet 2-4 mg 2-4 mg, oral, EVERY 30 MINUTES PRN, 2 doses, Starting on Fri03/26/23 at 1121, Until Fri03/26/23 at 1553, Pain, Routine, Recovery (only) Given 03/26/2023 13:16 EST 2 mg HYDROmorphone (PF) (DILAUDID) 0.5 mg/0.5 mL syringe 0.3-0.5 mg 0.3-0.5 mg, intravenous, EVERY 10 MINUTES PRN, Starting on Fri03/26/23 at 1121, Until Fri03/26/23 at 1553, Pain, Routine, Recovery (only) Given 03/26/2023 13:16 EST 0.3 mg lactated ringers (LR) infusion at 25 mL/hr, intravenous, CONTINUOUS, Starting on Fri03/26/23 at 0915, Until Fri03/26/23 at 1553, Routine, Preprocedure Restarted 03/26/2023 11:38 EST Continued by Anesthesia 03/26/2023 11:37 EST 25 mL/hr New Bag 03/26/2023 9:08 EST 25 mL/hr lactated ringers (LR) infusion at 75 mL/hr, intravenous, PACU CONTINUOUS, Starting on Fri03/26/23 at 1145, Until Fri03/26/23 at 1553, Routine, Recovery (only) Rate Documented 03/26/2023 12:37 EST 75 mL /hr naloxone (NARCAN) injection 0.2 mg 0.2 mg, intravenous, PRN, Starting on Fri03/26/23 at 1121, Until Fri03/26/23 at 1553, Opioid Reversal, Routine, Recovery (only) ondansetron (PF) (ZOFRAN) injection 4 mg 4 mg, intravenous, PRN, 1 dose, Starting on Fri03/26/23 at 1121, Until Fri03/26/23 at 1553, Nausea, Vomiting, Routine, Recovery (only) documented in this encounter Discontinued Medications Medication Sig Discontinue Reason Start Date End Da te FERROUS FUMARATE (IRON ORAL) Take 65 mg by mouth daily. 03/26/2023 Ergocalciferol, Vitamin D2, (VITAMIN D) 400 unit Cap Take 400 Units by mouth daily. 03/26/2023 CA CARBONATE/VITAMIN D3/VIT K (CALCIUM CHEW ORAL) Take 750 mg by mouth daily. 03/26/2023 OMEGA-3 ACID ETHYL ESTERS (LOVAZA ORAL) Take by mouth daily. 11/01/20092023 Calcium 100 mg Cap Take by mouth daily. 11/01/2009 03/26/19 meloxicam (MOBIC) 7.5 mg tablet Take 1 Tab by mouth daily. 12/27/2009 03/26/2023 estradioL (ESTRACE) 0.01 % (0.1 mg/gram) vaginal cream Insert 1 gram vaginally 3 times weekly for 3 weeks. Stop using 3 days prior to colposcopy. 10/30/2022 03/26/2023 documented as of this encounter Active and Recently Administered Medications Times are shown in EST. Continuous Medication Order 03/24/2023 03/25/2023 03/26/2023 lactated ringers (LR) infusion at 25 mL/hr, intravenous, CONTINUOUS, Starting on Fri03/26/23 at 0915, Until Fri03/26/23 at 1553, Routine, Preprocedure 0908 (New Bag - Prov ider: Marce Radford RN)1137 (Continued by Anesthesia - Provider: TERESA Bergeron)1137 (Paused - Provider: TERESA Bergeron - Comment: Switch to gravity)1138 (Restarted - Provider: TERESA Bergeron)1200 (Anesthesia Volume Adjustment - Provider: TERESA Bergeron)1234 (Completed - Provider: TERESA Bergeron) lactated ringers (LR) infusion at 75 mL/hr, intravenous, PACU CONTINUOUS, Starting on Fri03/26/23 at 1145, Until Fri03/26/23 at 1553, Routine, Recovery (only) 1237 (Rate Documente d - Provider: Ashley Esparza RN) PRN Medication Order 03/24/2023 03/25/2023 03/26/2023 acetic acid 5 % solution (CANCELED) PRN, Starting on Fri03/26/23 at 1205, Until Fri03/26/23 at 1235, Intraprocedure 1205 (Given - Provid er: Judy Nguyen MD - Comment: vagina; to soak cotton balls in) atropine 0.1 mg/mL syringe 0.5 mg 0.5 mg, intravenous, PRN, Starting on Fri03/26/23 at 1121, Until Fri03/26/23 at 1553, Symptomatic HR < 50, Routine, Recovery (only) bupivacaine-EPINEPHrine (PF) 0.5 %-1:200,000 injection (CANCELED) PRN, Starting on Fri03/26/23 at 1231, Until Fri03/26/23 at 1235, Routine, Intraprocedure 1231 (Given - Provid er: Judy Nguyen MD - Comment: cervix) diphenhydrAMINE (BENADRYL) injection 12.5 mg 12.5 mg, intravenous, PRN, 1 dose, Starting on Fri03/26/23 at 1121, Until Fri03/26/23 at 1553, nausea, Routine, Recovery (only) fentaNYL citrate (PF) injection 25-50 mcg 25-50 mcg, intravenous, EVERY 5 MIN PRN, Starting on Fri03/26/23 at 1121, Until Fri03/26/23 at 1553, Pain, Routine, Recovery (only) 1316 (Given - Provid er: Ashley Esparza RN) ferric subsulfate solution with applicator (CANCELED) PRN, Starting on Fri03/26/23 at 1232, Until Fri03/26/23 at 1235, Routine, Intraprocedure 1232 (Given - Provid er: Judy Nguyen MD) HYDROmorphone (DILAUDID) tablet 2-4 mg 2-4 mg, oral, EVERY 30 MINUTES PRN, 2 doses, Starting on Fri03/26/23 at 1121, Until Fri03/26/23 at 1553, Pain, Routine, Recovery (only) 1316 (Given - Provid er: Ashley Esparza RN) HYDROmorphone (PF) (DILAUDID) 0.5 mg/0.5 mL syringe 0.3-0.5 mg 0.3-0.5 mg, intravenous, EVERY 10 MINUTES PRN, Starting on Fri03/26/23 at 1121, Until Fri03/26/23 at 1553, Pain, Routine, Recovery (only) 1316 (Given - Provid er: Ashley Esparza RN) iodine strong (LUGOLS) 5 % solution (CANCELED) PRN, Starting on Fri03/26/23 at 1214, Until Fri03/26/23 at 1235, Routine, Intraprocedure 1214 (Given - Provid er: Judy Nguyen MD - Comment: vagina; for dipping q tips in) naloxone (NARCAN) injection 0.2 mg 0.2 mg, intravenous, PRN, Starting on Fri03/26/23 at 1121, Until Fri03/26/23 at 1553, Opioid Reversal, Routine, Recovery (only) ondansetron (PF) (ZOFRAN) injection 4 mg 4 mg, intravenous, PRN, 1 dose, Starting on Fri03/26/23 at 1121, Until Fri03/26/23 at 1553, Nausea, Vomiting, Routine, Recovery (only) sodium chloride 0.9 % irrigation (CANCELED) PRN, Starting on Fri03/26/23 at 1205, Until Fri03/26/23 at 1235, Routine, Intraprocedure 1205 (Given - Provid er: Judy Nguyen MD - Comment: vagina; to back table) documented in this encounter Orders Medications Ordered That Kali ht Not Have Been Administered Count Last Ordered Date First Ordered Date acetic acid 5 % solution 1 03/26/2023 atropine 0.1 mg/mL syringe 0.5 mg 1 024 bupivacaine-EPINEPHrine (PF) 0.5 %-1:200,000 injection 1 03/26/2023 diphenhydrAMINE (BENADRYL) i njection 12.5 mg 1 03/26/2023 ferric subsulfate solution with applicator 1 03/26/2023 iodine strong (LUGOLS) 5 % solution 1 03/26 lidocaine (PF) 10 mg/mL (1 % ) injection 2 mg 1 03/26/2023 naloxone (NARCAN) injection 0.2 mg 1 2023 ondansetron (PF) (ZOFRAN) injection 4 mg 1 03/26/2023 sodium chloride 0.9 % irrigation 1 03/26/19 24 Diet Count Last Ordered Date First Orde red Date DISCHARGE DIET 1 03/26/2023 Nursing Count Last Ordered Date First Orde red Date ACTIVITY INSTRUCTIONS 03/26/2023 BATHING INSTRUCTIONS 1 03/26/2023 WOUND CARE INSTRUCTIONS 1 03/26/2023 Discharge Count Last Ordered Date First Orde red Date DISCHARGE PATIENT 1 03/26/2023 documented in this encounter Care Teams Medical Technologist Prn Relationship Specialty Start Date End Date Hayley Young NP [address] [place] [address] PCP - General 04/24/21 documented as of this encounter
--- OUTSIDE RECORDS SUMMARY | 2024-03-22 18:02 | XMS_ITS | Encounter Summary ---
[place] [address] Care Team Providers Care Plywood Layup Line Core Layer Name Role Phone Brittany Carrington MD Primary Care Provide r Reason for Visit * Reason Comments Low Back Pain Buttock Pain left side Encounter Details Date Type Department Care Team (Late st Contact Info) Description 04/27/2013 2:20 PM EST Office Visit [facility] [place] [phone] Brandon Latham MD Lumbago with sciatica of [...] Sign Reading Time Taken Comments Blood Pressure 118/72 04/27/2013 1:59 PM EST Pulse - - Temperature - - Respiratory Rate - - Oxygen Saturation - - Inhaled Oxygen Concentration - - Weight 86.2 kg (190 lb) 04/27/2013 1:59 PM EST Height 177.8 cm (5' 10) 04/27/2013 1:59 PM EST Body Mass Index 27.26 04/27/2013 1:59 PM EST documented in this encounter Progress Notes * Brandon Latham MD - 04/27/2013 2:20 PM EST Ms. Graves is seen at her request. She is known to me from having performed lumbar disk excision surgery on 08/16/2010, L5-S1 left side. Intraoperative findings at that time demonstrated extruded disk herniation deep to the left S1 nerve root. The nerve was fully decompressed at that time and Ms. Graves had done quite well up until about three weeks ago. On or about 04/09/2013 when she was shoveling snow and had the recurrence of left buttock pain to the posterior thigh half way down her leg with some numbness and tingling in her heel. Left leg is more bothersome than the back, right leg is asymptomatic. She does have the numbness and tingling, but no focal weakness. She has had no problems with bowel or bladder control. She does have some pain at night. 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 She has been on Naprosyn, she has had Medrol Dosepak, she has had body massage, she has had childcare attendant, none of which have really helped her pain. PHYSICAL EXAMINATION: Ms. Graves is quite uncomfortable. In the short distance, her gait is slow, but is otherwise normal. She is able to toe and heel walk without weakness. She has a well-healed nontender lumbar incision which is otherwise completely benign in appearance. There is no spasm or scoliosis. Sciatic notches are nontender bilaterally. Reflexes are 1 at the knees, absent at the ankles. Her distal motor exam and sensory function are normal. Her straight leg raise test produces back pain only. Her calf musculature are soft and nontender bilaterally. Signs and symptoms suggest recurrent disk herniation or at least re-aggravation of the left S1 nerve root, refractory thus far to medical management. I have reviewed my thoughts on this and reviewed options. We will proceed with a gadolinium-enhanced lumbar MRI to rule out recurrent disk herniation. I do not think she is able to return to work, I will keep her out of work for at least two weeks to see if things improve over that timeframe, at which point we will have the MRI and can consider steroid injections once we know where the problem is. She is in agreement with this plan. documented in this encounter Plan of Treatment Not on file documented as of this encounter Results * MRI lumbar spine [...] in the context of the clinical situation. (Reference-Benik et al, Spine 2001) Findings: (prevalence in [...] in the context of the clinical situation. (Reference-Benik et al, [id number]) Findings: (prevalence in patients without low back pain), Diskdegeneration (decreased T2 signal, height loss, bulge) (91%), Disk T2-signal loss(83%), Disk height loss (56%), Disk bulge (64%), Disk protrusion (32%), Annular fissure (38%). Brandon Latham MD IMG MRI ORDERABLES documented in this encounter Visit Diagnoses Diagnosis Lumbago with sciatica of left side- Primary Sciatica Lumbago with sciatica of left side Sciatica documented in this encounter Care Teams Plywood Layup Line Core Layer Relationship Specialty Start Date End Date Brittany Carrington MD [address] [address] PCP - General 07/10/10 01/05/14 documented as of this encounter
--- OUTSIDE RECORDS SUMMARY | 2024-03-22 18:02 | XMS_ITS | Encounter Summary ---
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 Procedures MRI Lumbar Spine wwo Contrast Byron Corado PA [facility] [place] [address] [place] [address] Referral ID Status Reason Start Date Expiration Date V isits Requested Visits Authorized [id number] Closed Specialty Service Requested 12/23/2016 02/06/2017 1 1 Reason for Visit * Reason Comments Low Back Pain Bilateral Hip Pain Left Leg Pain * Consultation (Routine) - Closed Specialty Diagnoses / Procedures Referred By Contac t Referred To Contact Orthopaedics Diagnoses Chronic lo Hayley Young, MARIELA [address] [place] [address] Brandon Ltaham MD [facility] [place] [address] Referral ID Status Reason Start Date Expiration Date Visits Re quested Visits Authorized [id number] Closed 12/05/2016 12/05/2017 1 1 Encounter Details Date Type Department Care Team (Latest Contact Info) Description 12/20/2016 9:40 AM EDT Office [place] [address] Byron Corado PA Chronic left-sided low back pain with left-sided sciatica; Intervertebral disc disorder with radiculopathy of lumbar region Social History Tobacco Use Types Packs/Day Years [...] Pressure 123/81 12/20/2016 9:26 AM EDT Pulse - - Temperature - - Respiratory Rate - - Oxygen Saturation - - Inhaled Oxygen Concentration - - Weight 90.7 kg (200 lb) 12/20/2016 9:26 AM EDT Height 177.8 cm (5' 10) 12/20/2016 9:26 AM EDT Body Mass Index 28.7 12/20/2016 9:26 AM EDT documented in this encounter Progress Notes * Byron Corado PA - 12/20/2016 9:40 AM EDT Subjective: Twila Graves is a 51-year-old female seen today for chief complaint of recurrent back and left lower extremity pain present over several years. She is note was originally for having undergone the left L5-S1 discectomy [address] Parker for which he did quite well for several years. Ever since then she has had several episodes of recurrent back and left leg pain having last being seen by us for similar complaints 3 years ago in 2013. Currently she reports pain that is 60% on the back, and 40% on the left lower extremity. She localizes pain over the midline low back, left buttock, going into the left posterior thigh and the lateral lower leg along with some numbness over the lateral foot. Her symptoms improve somewhat with standing and walking there is otherwise worsening with sitting and bending. Regarding current treatments, she takes Neurontin 600 mg 3 times per day, cyclobenzaprine 10 mg at bedtime, and Ultram 50 mg up to 3 times daily. She has had over 6 weeks of physical therapy without much response. She denies tobacco or alcohol use. 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 Objective: This is a pleasant overweight 51-year-old female appears her stated age and is in no acute distress. Her gait is normal. She is able to toe walk and heel walk without weakness. She has a well-healed midline incision which is entirely benign appearing. She is somewhat tender to palpation over the midline low back and left sciatic notch. She is able to flex 30?? extend only to neutral. Motor examination is significant for trace weakness within the left ankle dorsiflexor, and somewhat over plantarflexion which appears effort- related. Sensory examination is intact to light touch. Reflexes are +2 at both knees, +2 at the right ankle, absent at the left ankle. Positive straight leg raise on the left side. Negative on the right. No clonus or Babinski noted. Palpable peripheral pulses. Most recent imaging available for review today is MRI of the lumbar spine from 2013. This shows normal alignment without significant scoliosis or spondylolisthesis. There is appearance of prior left L5-S1 decompression, and on the postcontrast sequences, there is appearance of contrast enhancing gra nulation tissue within the left L5-S1. No appearance of recurrent herniated disc. Assessment/plan: Twila Graves is a 51-year-old female seen today for chief complaint of recurrent back pain and left leg pain in the context of prior left L5-S1 discectomy performed over 6 years ago. She has had recurrent episodes of her symptoms varying degrees, and so far has not really been responsive to medical management, with prior physical therapy, oral medications. We discussed further evaluation and treatment at present. Following discussion she'll be proceeding to a lumbar spine MRI with and without contrast, to evaluate for recurrent lumbar herniated disc versus scar tissue as would be consistent with her prior spine surgery. Following this we discussed treatment options such as lumbar epidural steroidal injections, physical therapy, multidisciplinary intensive rehabilitation,spine surgical consultation should there be recurrent herniated disc, and lastly consideration of spinal cord stimulator placement. documented in this encounter Plan of Treatment Not on file documented as of this encounter Results * MRI Lumbar Spine wwo Contrast (12/31/2016 6:58 AM EST) Anatomical Region Laterality Modality L-spine Magnetic Resonan ce Impressions 12/31/2016 9:12 AM EST L5-S1 surgical changes without recurrent disc herniation. Comment: The following findings are so common in people without low back pain that while we report their presence, they must be interpreted with caution and in context of the clinical situation (Reference- [place] et al, Spine 2001). Findings: (Prevalence in patients without low back pain), disc degeneration (decreased T2 signal, height loss, bulge) (91%), disc T2-signal loss (83%), disc height loss (56%), disc bulge (64%), disc protrusion (32%), annular fissure (38%). Narrative 12/31/2016 9:12 AM EST EXAMINATION: MRI LUMBAR SPINE WWO CONTRAST CLINICAL HISTORY: Back and left leg pain, prior left L5-S1 discectomy in 2010, assess for recurrent disk herniation vs scar TECHNIQUE: MR of the lumbar spine performed prior to and following intravenous administration of 9 mL Gadavist COMPARISON: 04/29/2013 FINDINGS: Overall lumbar alignment remains normal. There is no focal, aggressive appearing marrow lesion. The normal appearing conus terminates at the L1 level. Visualized retroperitoneal structures are unremarkable. Findings at specific levels: L1-L2: Normal L2-L3: No central canal or foraminal narrowing. L3-L4: There is unchanged mild facet degenerative changes. No central canal or foraminal stenosis. L4-L5: Disc bulge and facet arthropathy produces mild caudal neural foraminal narrowing without change compared to the prior study. There is a small right lateral annular fissure. L5-S1: There are left laminotomy changes. There is minimal enhancing material along the posterior left disc annulus. No recurrent disc herniation identified. Compared to the prior exam, there is interval loss of disc height with increased marrow degenerative signal change. Endplate osteophyte is adjacent to the exiting nerve root bilaterally, without mass effect on the nerve root. Procedure Note Ernst Hernández MD - 12/31/2016 EXAMINATION: MRI LUMBAR SPINE WWO CONTRAST CLINICAL HISTORY: Back and left leg pain, prior left L5-S1 discectomy [id number], assess for recurrent disk herniation vs scar TECHNIQUE: MR of the lumbar spine performed prior to and followingintravenous administration of 9 mL Gadavist COMPARISON: 04/29/2013 FINDINGS: Overall lumbar alignment remains normal. There is no focal,aggressive appearing marrow lesion. The normal appearing conus terminates at the [id number]. Visualized retroperitoneal structures are unremarkable. Findings at specific levels: L1-L2: Normal L2-L3: No central canal or foraminal narrowing. L3-L4: There is unchanged mild facet degenerative changes. No centralcanal or foraminal stenosis. L4-L5: Disc bulge and facet arthropathy produces mild caudal neuralforaminal narrowing without change compared to the prior study. There is a smallright lateral annular fissure. L5-S1: There are left laminotomy changes. There is minimal enhancingmaterial along the posterior left disc annulus. No recurrent disc herniationidentified. Compared to the prior exam, there is interval loss of disc height withincreased marrow degenerative signal change. Endplate osteophyte is adjacent tothe exiting nerve root bilaterally, without mass effect on the nerve root. IMPRESSION L5-S1 surgical changes without recurrent disc herniation. Comment: The following findings are so common in people without low backpain that while we report their presence, they must be interpreted with cautionand in context of the clinical situation (Reference- Benik et al, [id number]). Findings: (Prevalence in patients without low back pain), discdegeneration (decreased T2 signal, height loss, bulge) (91%), disc T2-signal loss(83%), disc height loss (56%), disc bulge (64%), disc protrusion (32%), annularfissure (38%). 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
--- OUTSIDE RECORDS SUMMARY | 2024-03-22 18:02 | XMS_ITS | Encounter Summary ---
Author Organization [facility] [place] [address] Care Team Providers Care Draw Frame Operator Name Role Phone Brittany Carrington MD Primary Care Provide r Encounter Details Date Type Department Care Team (Late st Contact Info) Description 06/15/2009 Orders [place] [address] Brandon Latham MD Social History Tobacco Use [...] FILM LIBRARY STORAGE ONLY MR SPINE Routine 06/15/2009 2:12 PM EDT documented in this encounter Results * FILM LIBRARY- STORAGE ONLY MR SPINE (06/15/2009 2:12 PM EDT) 06/15/2009 2:12 PM EDT Narrative RAD - 06/29/2013 7:46 PM EDT This is a non-reportable exam. Procedure Note Pedro Sanderson - 06/29/2013 This is a non-reportable exam. Brandon Latham MD IMG FILM LIBRARY ORD ERABLES RAD [address] [facility] [place] [address] documented in this encounter Visit Diagnoses Not on filedocumented in this encounter Care Teams Draw Frame Operator Relationship Specialty Start Date End Date Brittany Carrington MD [address] [address] PCP - General 07/10/10 01/05/14 documented as of this encounter
--- OUTSIDE RECORDS SUMMARY | 2024-03-22 18:02 | XMS_ITS | Clinical Summary ---
Author Organization [facility] Address [address] [place] [address] Care Team Providers Care Law Tutor Name Role Phone Hayley Young NP Primary Care Provider [phone] Allergies No known active allergies Medications MULTIVITAMINS (MULTIVITAMIN ORAL) Take by mouth daily. 02/08/2006 Active TRAZODONE HCL (TRAZODONE ORAL) Take by mouth at bedtime as needed. Take 1/2 Active DICLOFENAC SODIUM/MISOPROS BRAULIO (ARTHROTEC 75 ORAL) Take by mouth daily. 11/01/2009 Active citalopram (CELEXA) 20 mg tablet Take 1 Tablet by mouth daily. Active CYANOCOBALAMIN/ FOLIC ACID (VITAMIN R85-TGEXD ACID ORAL) Take 1 Each by mouth daily. 11/29/2009 Active buPROPion (WELLBUTRIN XL) 300 mg XL tablet Take 1 Tablet by mouth daily. 11/24/2022 Active busPIRone (BUSPAR) 5 mg tablet Take 2 Tablets by mouth 2 times daily. 01/04/2023 Active gabapentin (NEURONTIN) 600 mg tablet Take 1 Tablet by mouth 3 times daily. 10/21/2022 Active acetaminophen (TYLENOL) 500 mg tablet Take 2 Tablets by mouth every 6 hours as needed for Pain. 03/26/2023 Active ibuprofen (MOTRIN) 800 mg tablet Take 1 Tablet by mouth every 8 hours as needed for Pain. 03/26/2023 Active Active Problems Problem Noted Date Diagnosed Date Dysplasia of cervix, high grade ALAN 2 01/08/2023 Cervical high risk human pap illomavirus (HPV) DNA test positive 11/21/2022 Overview (01/08/2023): '11 and '14 NIL neg HR HPV 2019 NIL + HR HPV 2020 NIL + HR HPV/neg genotype 10/2022 NIL + HR HPV/neg genotype 11/21/22 colpo ALAN 2 on ECC Cobalamin deficiency 08/21/2010 Secondary hyperparathyroidism ([facility]) 08/22/19 11 Vitamin D deficiency 08/21/2010 Gastroesophageal reflux disease 05/26/2009 Osteoarthrosis 05/26/2009 Overview (05/26/2009): Ankle, LBP Iron deficiency 05/26/2009 Hyperparathyroidism ([facility]) 05/26/2009 Surgical History Surgery Date Site/Laterality Comments GASTRIC BYPASS SURGERY 05/18/2003 CHOLECYSTECTOMY, OPEN 05/18/2003 AR EGD BALLOON DILATION ESOPHAGUS <30 MM DIAM 06/15/2003 UPPER GASTROINTESTINAL ENDOSCOPY 11/04/2005 BACK SURGERY 03/17/23-noted 2013 FRACTURE SURGERY 02/24/2021 - 02/23/2022 Left 03/17/23-noted ENDOMETRIAL ABLATION 02/24/2013 - 02/23/2014 03/17/23-noted Medical History Medical History Date Comments Depression 03/17/23 noted-f eeling well on medications GERD (gastroesophageal reflux disease) 03/17/23 noted-resolved per pt Osteoarthritis of ankle 03/17/23 -noted LBP (low back pain) 03/17/23-not ed Cervical high risk human pap illomavirus (HPV) DNA test positive 11/21/2022 '11 and '14 NIL neg HR HPV 2 020 NIL + HR HPV 2020 NIL + HR HPV/neg genotype 10/2022 NIL + HR HPV/neg genotype 11/21/22 colposcopy History of general anesthesia noted-w/o issues Exercise involving walking 03/17 noted-walks daily Family History Medical History Relation Comments Diabetes Father Heart Disease Father Cancer Mother Thyroid Disease Mother Relation Status Comments Father Alive Mother Social History Tobacco Use Types Packs/Day Years [...] 15:58 EST Sexual Orientation Not on file Obstetrics History Last Filed Vital Signs Vital Sign Reading Time Taken Comments Blood Pressure 142/84 09/26/2023 1301 EDT Pulse 62 01/14/2023 0834 EST Temperature 36.6 ??C (97.9 ??F) 03/26/2023 1345 EST Respiratory Rate 21 03/26/2023 1345 EST Oxygen Saturation 96% 03/26/2023 1345 EST Inhaled Oxygen Concentration - - Weight 94.1 kg (207 lb 8 oz) 09/26/2023 1301 EDT Height 177.8 cm (5' 10) 03/26/2023 0857 EST Body Mass Index 29.77 03/26/2023 0857 EST Plan of Treatment Health Maintenance Due Date Last Done Comments Hepatitis B Vaccine (1 of 3 - 19+ 3-dose series) 1984 COVID-19 Vaccine ( season) 2023 Hepatitis C Screen Completed 07/25/2022, 02/28/2016 Procedures Procedure Name Priority Date/Time Associated Diagnosis Comments HEPATITIS C AB W REFLEX TO HCV RNA BY PCR Routine 07/25/2022 12:30 EDT from Last 3 Months or Most Recently Relevant to Health Maintenance Results * HEPATITIS C AB W REFLEX TO HCV RNA BY PCR (07/25/2022 12:30 EDT) Hep C Antibody Negative Negative 07/29/2022 10:21 EDT [facility] Blood VENOUS BLOOD / Unknown 07/25/2022 12:30 EDT 07/26/2022 17:21 EDT us Provider Outr Resulting Lab CHEMISTRY & BLOOD GA S ORDERABLES Final Result [facility] [address] [place] [address] from Last 3 Months or Most Recently Relevant to Health Maintenance Insurance [facility] Advance Directives For more information, please contact: [phone] * Full Code (Latest Code Status on File) Date Activated Date Inactivated Comments 03/26/2023 8:52 03/26/2023 15:58 Question Answer Comments When the patient has NO PULSE: Full Code / CPR Who Made the Decision? Default/Not Discussed Care Teams Law Tutor Relationship Specialty Start Date End Date Hayley Young, [employer] DEVELOPER [address] [id number] PCP - General 04/24/21
--- OUTSIDE RECORDS SUMMARY | 2024-03-22 18:02 | XMS_ITS | Encounter Summary ---
Author Organization [facility] Address [address] [place] [address] Care Team Providers Care Wallet Assembler Name Role Phone Hayley Young NP Primary Care Provider [phone] Reason for Visit * Auth/Cert (Routine) Specialty Diagnoses / Procedures Referred By Contac t Referred To Contact Diagnoses Dysplasia of cervix, high grade ALAN 2 Procedures [place] CONIZATION CERVIX W/WO D&C RPR ELTRD EXC Leep Referral ID Status Reason Start Date Expiration Date Visits Re quested Visits Authorized [id number] 1 1 Encounter Details Date Type Department Care Team (Late st Contact Info) Description 03/26/2023 10:45 EST - 03/26/2023 12:15 EST Surgery [facility] OR [address] [place] [phone] Judy Nguyen MD [address] [place] [address] Medical Office Building, [address] [place] [address] Leep [[id number] (CPT??)] Surgery Details Date/Time Status Location OR Service Patient Class Case Cl ass Case Type Trauma Case? 03/26/2023 1045 Posted [facility] OR [address] Outpatient Surgery H - Elective Panel 1 Procedure LRB Anes Op Region Wound Class Comments Leep N/A General Cervix Class II/ Clean Cont aminated Surgeon Surgeon Role Service Panel Ree Santiago MD Resident - Assisting Gynecology 1 Judy Nguyen MD Primary Gynecology 1 documented in this encounter Social History Tobacco [...] Sign Reading Time Taken Comments Blood Pressure 135/94 03/26/2023 0857 EST Pulse - - Temperature 36 ??C (96.8 ??F) 03/26/2023 0857 EST Respiratory Rate 16 03/26/2023 0857 EST Oxygen Saturation 98% 03/26/2023 0857 EST Inhaled Oxygen Concentration - - Weight [...] by mouth daily. CYANOCOBALAMIN/FO LIC ACID (VITAMIN [id number] ACID ORAL) Take 1 Each by mouth [...] Means Destination Comment s Home or Self Detention documented in this encounter H&P Notes * [...] SERVICE DATE: 03/26/2023 SURGEON: Judy Nguyen MD HEALTHCARE MANAGEMENT: Rodolfo Santiago MD ANESTHESIA: General via LMA. [...] into the dorsal lithotomy position in the Mitchel stirrups. A coated speculum was placed with a [...] retained. Judy Nguyen MD / AM Confirmation: [id number] Dictation ID: [id number] cc: documented in this encounter Miscellaneous Notes * Brief Op Note - Rodolfo Santiago MD - 03/26/2023 1353 EST Date: 03/26/2023 Location: [facility] OR Name: Twila Graves, : 1965, Diagnosis Pre-Op Diagnosis Codes: * Dysplasia of cervix, high grade ALAN 2 [N87.1] Post-op Diagnosis * Dysplasia of cervix, high grade ALAN 2 [N87.1] Procedures * [facility] * Judy Nguyen MD - Primary * Rodolfo Santiago MD - Resident - Assisting Procedure Summary Anesthesia: General ASA: I Estimated Blood Loss: 3 mL Total IV Fluids: 700 mL LDAs: Wound 03/26/23 Incision Vagina Not applicable (Active) [REMOVED] Non-Surgical Airway (Removed) Staff: Cover Creaser: Massiel Rodriguez RN Relief Cover Creaser: Josie Monsalve RN Relief Scrub: Josie Monsalve RN Scrub Person: Luke Fierro Jr. RN Patient Process Architect: Candie Cunningham Indications: Twila Graves is an [...] for the entire procedure. RODOLFO SANTIAGO MD Inorganic Chemistry Teacher PGY-2 Cosigned by Judy Nguyen MD at [...] management options, if applicable. 03/31/2023 11:37 EST [facility] Final Diagnosis A. CERVIX, LOOP ELECTROSURGICAL EXCISIONAL PROCEDURE: - Benign cervical tissue with prior biopsy site. - No residual intraepithelial or malignancy identified. B. CERVIX, TOP HAT, LOOP ELECTROSURGICAL EXCISIONAL PROCEDURE: - Benign cervical tissue with prior biopsy site. - No residual intraepithelial or malignancy identified. C. ENDOCERVIX, CURETTAGE: - Minute fragments of benign endocervix. 03/31/2023 11:37 [facility] Attestation By the signature below, the attending physician certifies that they have 1) personally conducted a gross and/or microscopic examination of the described specimen(s), and/or personally interpreted the results of laboratory testing of the described specimen(s), and 2) personally rendered or confirmed the above diagnosis. 03/31/2023 11:37 [facility] at 1137 Clinical History Dysplasia of cervix, high grade ALAN II 03/31/2023 11:37 [facility] Gross Description A. [...] processing. SALBADOR BERNARD(ASCP) 03/27/2023 10:36 03/31/2023 11:37 [facility] Performing Lab [facility] 11:37 [facility] Scanned Images 03/31/2023 11:37 EST [facility] Tissue CERVIX UTERI STRUCTURE / Unknown 03/26/2023 12:12 EST 03/26/2023 14:13 EST Tissue specimen (specimen) CERVIX UTERI STRUCTURE / Unknown 03/26/2023 12:15 EST 03/26/2023 14:13 EST Tissue specimen (specimen) ENDOCERVICAL STRUCTURE / Unknown 03/26/2023 12:24 EST 03/26/2023 14:13 EST us Judy Nguyen MD PATHOLOGY ORDERABLES Final Result [facility] [address] [place] [address] documented in this encounter Visit Diagnoses Diagnosis Dysplasia of cervix, high grade ALAN 2- Primary Dysplasia of cervix, high grade ALAN 2 documented in this encounter Admitting Diagnoses Diagnosis Dysplasia of cervix, high grade ALAN 2 documented in this encounter Administered Medications Inactive Administered Medications - up to 3 most recent administrations Medication Order MAR Action Action Date Dose Rate Site acetic acid 5 % solution PRN, Starting on Fri03/26/23 at 1205, Until Fri03/26/23 at 1235, Intraprocedure Given 03/26/2023 12:05 EST 50 mL Other atropine 0.1 mg/mL syringe 0.5 mg 0.5 mg, intravenous, PRN, Starting on Fri03/26/23 at 1121, Until Fri03/26/23 at 1553, Symptomatic HR < 50, Routine, Recovery (only) bupivacaine-EPINEPHrine (PF) 0.5 %-1:200,000 injection PRN, Starting on Fri03/26/23 at 1231, Until Fri03/26/23 at 1235, Routine, Intraprocedure Given 03/26/2023 12:31 EST 10 mL Other diphenhydrAMINE (BENADRYL) injection 12.5 mg 12.5 mg, intravenous, PRN, 1 dose, Starting on Fri03/26/23 at 1121, Until Fri03/26/23 at 1553, nausea, Routine, Recovery (only) fentaNYL citrate (PF) injection 25-50 mcg 25-50 mcg, intravenous, EVERY 5 MIN PRN, Starting on Fri03/26/23 at 1121, Until Fri03/26/23 at 1553, Pain, Routine, Recovery (only) Given 03/26/2023 13:16 EST 50 mcg ferric subsulfate solution with applicator PRN, Starting on Fri03/26/23 at 1232, Until Fri03/26/23 at 1235, Routine, Intraprocedure Given 03/26/2023 12:32 EST 2 mL HYDROmorphone (DILAUDID) tablet 2-4 mg 2-4 mg, [...] (only) Given 03/26/2023 13:16 EST 0.3 mg iodine strong (LUGOLS) 5 % solution PRN, Starting on Fri03/26/23 at 1214, Until Fri03/26/23 at 1235, Routine, Intraprocedure Given 03/26/2023 12:14 EST 5 mL Other lactated ringers (LR) infusion at 25 mL/hr, [...] (only) Rate Documented 03/26/2023 12:37 EST 75 mL/hr naloxone (NARCAN) injection 0.2 mg 0.2 mg, intravenous, PRN, Starting on Fri03/26/23 at 1121, Until Fri03/26/23 at 1553, Opioid Reversal, Routine, Recovery (only) ondansetron (PF) (ZOFRAN) injection 4 mg 4 mg, intravenous, PRN, 1 dose, Starting on Fri03/26/23 at 1121, Until Fri03/26/23 at 1553, Nausea, Vomiting, Routine, Recovery (only) sodium chloride 0.9 % irrigation PRN, Starting on Fri03/26/23 at 1205, Until Fri03/26/23 at 1235, Routine, Intraprocedure Given 03/26/2023 12:05 EST 1,000 mL Other documented in this encounter Discontinued Medications Medication [...] Count Last Ordered Date First Ordered Date atropine 0.1 mg/mL syringe 0.5 mg 1 024 diphenhydrAMINE (BENADRYL) i njection 12.5 mg 1 03/26/2023 lidocaine (PF) 10 mg/mL (1 % ) injection 2 mg 1 03/26/2023 naloxone (NARCAN) injection 0.2 mg 1 2023 ondansetron (PF) (ZOFRAN) injection 4 mg 1 03/26/2023 Diet Count Last Ordered Date First Orde red Date DISCHARGE DIET 1 03/26/2023 Nursing Count Last Ordered Date First Orde red Date ACTIVITY INSTRUCTIONS 1 03/26/2023 BATHING INSTRUCTIONS 1 03/26/2023 WOUND CARE INSTRUCTIONS 1 03/26/2023 Discharge Count Last Ordered Date First Orde red Date DISCHARGE PATIENT 1 03/26/2023 documented in this encounter Care Teams Wallet Assembler Relationship Specialty Start Date End Date Hayley Young, [address] [place] [address] PCP - General 04/24/21 documented as of this encounter
--- OUTSIDE RECORDS SUMMARY | 2024-03-22 18:02 | XMS_ITS | Encounter Summary ---
[place] [address] Care Team Providers Care Dredge Runner Name Role Phone Brittany Carrington MD Primary Care Provide r Encounter Details Date Type Department Care Team (Late st Contact Info) Description 08/16/2010 11:58 AM EDT - 08/16/2010 1:56 PM EDT Surgery [place] [id number] Thu Hollins MD LAMINOTOMY, DECOMPRESSION, FORAMINOTOMY, LUMBAR (WRVU 12) Social History Tobacco Use Types Packs/Day Years [...] Sign Reading Time Taken Comments Blood Pressure 125/81 08/16/2010 10:32 AM EDT Pulse 53 08/16/2010 10:32 AM EDT Temperature 36.6 ??C (97.9 ??F) 08/16/2010 10:32 AM E DT Respiratory Rate 16 08/16/2010 10:32 AM EDT Oxygen Saturation 98% 08/16/2010 10:32 AM EDT Inhaled Oxygen Concentration - - Weight 88.5 kg (195 lb) 08/16/2010 10:32 AM EDT Height 177.8 cm (5' 10) 08/16/2010 10:32 AM EDT Body Mass Index 27.98 08/16/2010 10:32 AM EDT documented in this encounter Discharge Instructions * Discharge Instructions* Sweta Hairston RN - 08/16/2010 4:53 PM EDT POST ANESTHESIA INSTRUCTIONS Go home, rest, use caution on stairs. Change positions slowly. Do not smoke if you are alone. Diet light to regular as tolerated today. If nausea occurs start with clear liquids and progress slowly. No driving, operating machinery, alcoholic beverages and no important decisions for 24 hours. Monitor IV site for signs and symptoms of infection: increasing redness, swelling, foul drainage, if occurs contact M.D. Patients who have had endotrachial tubes (this tube, used by anesthesia department, is passed down your throat after you are asleep, to ensure safe air passage during your operation). A sore throat is normal due to the tube. Cold liquids or soothing lozenges will help ease the discomfort. The generalized muscle aches are due to the medication given to you just before the tube is inserted. As the medication wears off, you may develop muscle soreness, which usually goes away in 12-24 hours. * Patient Instructions* Maximus Saha APRN - 08/16/2010 8:53 AM EDT Activity: No extreme bending or twisting. Please refrain from lifting greater than 10 pounds until follow up. Diet: Resume normal diet but increase your intake of fluids and fiber while you are on narcotic pain meds to prevent constipation Driving: No, not until you are cleared to do so by your Orthopedic clinic. Ideally you should not drive while you are on narcotic pain meds as these can affect judgement and reaction time. Call your Surgeon with any questions. Medications: 1. The pain medication you are on can cause constipation so increase your intake of fluids and fiber while you are on them. You can also take an lbsg-fid-larqmcm stool softener, colace or senna, to facilitate a bowel movement. 2. If you need a renewal on your narcotic pain medication, you need to give the Orthopedic clinic enough time to process your request. This can take up to three days, so plan accordingly. 3. Continue to take tylenol around the clock for the next 10 days - it can be effective in controlling pain along with your other meds. Shower: May shower in 72 hours with wound covered with occlusive dressing as described by MD consisting of Tegaderm and sterile gauze. Wound: Change dressing in 72 hours and replace with clean sterile dressing consisting of Tegaderm and sterile gauze. After initial dressing change, please leave dressing in place for 10 days. You should change dressing after initial dressing change only if it becomes wet or soiled in anyway. Call your doctor (#[phone]) if: You have a fever > 101.5 or experience chills Increased discharge from the incision Any redness or swelling around the incision Increased pain or change in the pain that is not controlled by your pain meds Bowel or bladder issues Numbness or weakness in lower extermities documented in this encounter Medications at Time of Discharge Medication Sig Dispensed Refills Start Date End Date acetaminophen (TYLENOL) 500 mg tablet Take 2 tablets by mouth every 8 hours for 10 days. Then take if needed for mild pain 30 tablet 08/17/2010 08/27/2010 HYDROmorphone (DILAUDID) 2 mg tablet Take 1-3 tablets by mouth every 4 hours as needed for Pain (See scale below.) for 10 days. 80 tablet 0 08/17/2010 08/27/2010 senna-docusate (PERICOLACE) 8.6-50 mg per tablet Take 1-4 tablets by mouth 2 times daily. Take to prevent constipation while on narcotic pain meds 60 tablet 0 08/17/2010 08/17/2011 Ferrous Sulfate (IRON) 27 mg (Iron) Tab Take 1 tablet by mouth daily. 07/31/2010 04/27/2013 pregabalin (LYRICA) 150 mg capsule Take by mouth 2 times daily. 1 tab in the am two at 04/27/2013 documented as of this encounter Progress Notes * Marycarmen Engel RN - 08/17/2010 11:48 AM EDT Patient discharged to home in stable condition with all belongings. Discharge instructions reviewed. Prescriptions and dressing supplies given to patient. Pt and verbalize understanding and agree with plan. * Rebecca Wang, PT - 08/17/2010 10:17 AM EDT Physical Therapy Evaluation/Discharge Patient profile: Pt. is a 45 y.o. y.o. female admitted on 08/16/2010 by Thu Thornton MD for surgery as stated below. PMH: Past Medical History Diagnosis Date ??? S/P gastric bypass 07/31/2010 ??? Lumbar disc herniation 07/31/2010 Past Surgical History Procedure Date ??? Laminotomy, lumbar disk, 1 intrsp 08/16/2010 LAMINOTOMY, DECOMPRESSION, FORAMINOTOMY, LUMBAR performed by THU HOLLINS at [facility] MA[facility] OR Social History: Patient lives with their spouse in 2 story home, but all living area is on the first floor. Craft room is upstairs. Stairs: 1 without a rail to enter. Baseline Mobility: Walked without a device but reports balance was not great. NO history of falling. Equipment at home: Has canes and a rolling walker that was her father in law's. Precautions/Special Considerations: Fall risk. [place]. No excessive twisting or bending. NO lifting >10#. Subjective: ???I feel much better today, but still feel unsteady. I really feel like I need to use the walker. I will use the one I have at home.?? Objective: Pt seen for evaluation today. Pain: c/o headache. Lumbar pain across LB rated a 5/10. Radicular left LE pain resolved with surgery. Vital Signs: Sp02: >96% on RA HR: 70s BP 107/71, after walking Mental Status: alert, oriented to person, place, and time Musculoskeletal: ROM/Strength: BUE AROM wfls and at least 3/5 and symmetric. Back and LE AROm grossly wfls for transfers and Lower body dressing, sitting EOB. Unable to fully ext Left knee, sitting EOB, ~-20. Left hip flexion at least 3+/5, left knee at least 4/5, left ankle df 4+/5 and Left EHL 3+/5. RLE strength grossly intact. Sensation: Chronic decreased sensation plantar aspect lateral 3 toes on the left side. Bed Mobility: Supine to Sit: Supervision, log rolling Sit to Supine: supervision log rolling Transfers: Sit to Stand: Supervision Stand to Sit: supervsion Bed <>Chair: Supervision Gait: Distance: 175' without a device and cg to min assist due to LOB laterally when she attempts to turnher head to speak with PT on her side, LEs shakey at times and wide BRITTANY. 175' with a rolling walkerand supervision, no LOB or LE shakiness. Up and down 5 steps with 2 railings and cga. Up and down 2landing steps with a rolling walker, stepping up backwards and cga. Device used: See above Level of assist: See above. Gait pattern: Reciprocal, but wide BRITTANY and unsteady without the rolling walker. Pt. to utilize rolling walker and supervision for ambulation with nursing. Balance: Sitting: good Standing: Rhomberg positive with EYEs open as pt leans then falls and steps to the right. Unable tostand on LLE unilaterally without support and 2-3 seconds on RLE. Requiring a rolling walker to prevent LOB with gait. Education: Pt educated to use the rolling walker at home until stronger and steadier. Pt also told she could trial a cane on either side or one side, as she progresses. Reviewed proper body mechanicsand back precautions with pt during static and dynamic activity. Pt initially in bed. She was left sitting in a recliner. Patient status, treatment, and mobility recommendations discussed with nursing. Assessment: Pt tolerated today???s evaluation well. She is unsteady on her feet without use of the walker. Pt feels it could be the narcotics and that she was a little unsteady before the surgery. Ptdenied need for follow up PT, right away. She was told PT will be necessary if imbalance not improved by follow MD visit. Should be safe for dc to home with 's assistance, as needed. Recommendus of rolling walker with progression to cane/canes, as appropriate. She demonstrates a good understanding of back precautions and proper body mechanics. Goals: To be achieved by 08/17/10. 1. Pt. to perform bed mobility with supervision assist. 2. Pt. to perform sit to and from stand transfers with supervision assist utilizing a rolling walker. 3. Pt. to ambulate >150' feet; with a rolling walker, and supervision. 4. Pt. to ambulate up/down one step/stairs with contact guard, using rolling walker. Plan: Pt to be seen one time for therapy including Bed mobility, Transfers, Assistive device/technique, Stairs, Positioning, Safety , Gait , Balance and Discharge planning. Patient agrees with plan as stated above. Equipment needs: No equipment necessary Discharge Recommendations: Recommend ongoing PT if balance deficits unimproved by follow up MD visit No other consults recommended at this time Total time spent with patient: 37 minutes Total timed interventions: 0 minutes REBECCA WANG PT 08/17/2010 Pager: [phone] Physical Therapy Rehabilitation Department * Andre Priest MD - 08/17/2010 5:40 AM EDT ORTHOPAEDIC PROGRESS NOTE SURGERY/ISSUE: Left L5-S1 disc excision Patient Active Problem List Diagnoses Code ??? S/P gastric bypass V45.86N ??? Lumbar disc herniation 722.10AT Past Medical History Diagnosis Date ??? S/P gastric bypass 07/31/2010 ??? Lumbar disc herniation 07/31/2010 Interval History: Admitted due to pain issue and lack of mobilization after surgery yesterday. Painmuch better controlled, pre-op left leg symptoms improved. Temp: [36.6 ??C (97.9 ??F)-36.9 ??C (98.4 ??F)] Heart Rate: [53-76] Resp: [16-18] BP: (103-125)/(51-81) SpO2: [94 %-98 %] I/O this shift: In: 1010 [P.O.:360; I.V.:650] Out: 275 [Urine:275] PE: NAD Dressing C/D/I Motor:Motor: Segment Muscle Action R L L2 Iliopsoas Hip flexion 5 5 L3 Quadriceps Knee extension 5 5 L4 Tibialis anterior Dorsiflexion 5 5 L5 Extensor hallucis Great toe extension 5 5 S1 Gastrocnemius, FHL Plantar flexion 5 5 Sensory: Sensation (light touch) (0=absent, 1-impaired, 2=normal: Segment location Right Left L1 upper inner thigh 2 2 L2 mid-ant thigh 2 2 L3 med femoral condyle 2 2 L4 medial mal 2 2 L5 dorsum foot, 3rd MT 2 2 S1 lat heel 2 2 No results found for this basename: wbc, rbc, hgb, hct, platelet, na, k, chloride, co2, BUN, CREATININE, inr XRAYS: None Stable Active Issues: No active issues Activity: WBAT with no heavy lifting of extreme twisting or bending Antibiotics: 24 hours Antiicoagulation: None Drains: None Dressing/Spints: Change POD#2 Landry: None Dispo: Home this AM Follow up: [address] Hollins . * María Irizarry RN - 08/17/2010 2:15 AM EDT Post op via SDP , pt unable to void and very sleepy and sl. Nausea in same day so pt. Staying overnight In RM 324, lumber dsg. Clean, dry and intact. Positive sensation and movement to lower extremities,OOB With 1 assist to try and void in bathroom. Unable to first 2 attempts, bladder scan < 400cc so enc. Po Intake and kept IVF running. 3rd attempt successful void. Bladder scan for 145cc. Pt states pain 5/10, Medicated for discomfort to back 4 mg po of Dilaudid with good relief. supportive in room w/pt. María Irizarry RN * Cara Rader MD - 08/16/2010 8:25 PM EDT Ortho Spine Progress Note ID: S/p L L5-S1 partial diskectomy with fat graft 08/16/10 Events/S: Patient now 5 hours post-op and continues to have difficulty with nausea; has been unableto void on her own, with bladder scan demonstrating almost 300cc urine; unsteady on her feet when attempting to ambulate. Denies significant back pain, denies leg pain or numbness/tingling. Objective: Patient Vitals in the past 24 hrs: BP Temp Temp src Pulse Resp SpO2 Height Weight 08/16/10 1800 - - - - - 98 % - - 08/16/10 1620 110/55 mmHg - - - 18 94 % - - 08/16/10 1600 123/63 mmHg - - 58 18 94 % - - 08/16/10 1546 109/51 mmHg - - 60 18 94 % - - 08/16/10 1531 121/57 mmHg - - 67 18 94 % - - 08/16/10 1516 114/69 mmHg 36.6 ??C (97.9 ??F) Temporal 76 18 98 % - - 08/16/10 1032 125/81 mmHg 36.6 ??C (97.9 ??F) Oral 53 16 98 % 1.778 m (5' 10) 88.451 kg (195 lb) I/O: Per patient's nurse, patient has had 4L in, has not yet voided, bladder scan within the last hour with volume of almost 300cc EXAM: Gen: resting comfortably, appears sleepy but wakes easily to voice Abd: soft, NT/ND Motor: Segment Muscle Action Right Left L2 Iliopsoas Hip flexion 5 4+ L3 Quadriceps Knee extension 5 5 L4 Tibialis anterior Dorsiflexion 5 5 L5 Extensor hallucis Great toe extension 5 4+ S1 Gastrocnemius Plantar flexion 5 5 Sensation: intact to light touch L2-S1 distributions bilaterally LABS: none IMAGING: none Impression: 45yoF s/p left L5-S1 partial discectomy earlier today. Neuro intact and pain controlledbut having difficulty with voiding, ambulating and eating. Will admit overnight for observation andPT in AM. Plan: Issues: Anti-emetics ordered Will continue to BS and SC for > 400cc, place landry if requires SC > 2x Activity: out of bed with assistance, PT in AM, no bending/twisting/lifting > 10lbs Dressings: changed daily starting pod#2 Antibiotics: none Anticoagulation: SCDs only, no chemoprophylaxis Pain control: Oral analgesia, low-dose dilaudid MERCURY CRACKING TESTER overnight, transition to POs in AM Discharge planning: home in AM when clears PT documented in this encounter H&P Notes * Thu Hollins MD - 08/16/2010 11:00 AM EDT Continued left leg pain, weakness and numbness to lateral left foot. Right leg asymptomatic. No other changes in health. Left EHL , ADF, APF all 4/5, ? Due to pain vs weakness. LT decreased left lateral foot. Consented procedure reviewed. questions answered, post op instructions reviewed. Will Proceed as planned. present. * Andre Priest MD - 08/16/2010 10:44 AM EDT I have reviewed the history and physical and there has been no change in medical history or medications since the time of the pre-operative history and physical. * Provider, Manjit - 08/14/2010 2:48 PM EDT documented in this encounter Miscellaneous Notes * Miscellaneous - Provider, Scanning - 08/20/2010 2:31 PM EDT * Discharge Summary - Maximus Saha APRN - 08/17/2010 11:19 AM EDT Department of Orthopaedic Medicine - Discharge Summary Patient Name: Twila Graves Patient Age: 45 y.o. Birthdate: 1965 Admit date: 08/16/2010 Discharge date and time: No discharge date for patient encounter. Attending Physician: Thu Hollins MD Discharge Diagnoses (Hospital Problems) and Secondary Diagnoses (Chronic Problems): Active Hospital Problems Diagnoses ??? S/P gastric bypass ??? Lumbar disc herniation 08/16/2010 Lumbar lami L5-S1 Operations: 08/16/2010 LAMINOTOMY, DECOMPRESSION, FORAMINOTOMY, LUMBAR, Disc excision L5-S1 left Surgeon(s) and Role: * THU HOLLINS MD - Primary * ANDRE PRIEST MD - Surgeon Bal History of Presentation: Twila Graves is a 45 y.o. old female who was admitted electively through the same day surgery program for the above procedure. Hospital Course: The patient was admitted through the same day surgery program for the above procedure. The operative course was uneventful. Twila Graves was admitted overnight for pain control and observation. On the morning of POD#1, She was comfortable on oral pain medications, taking a diet without difficulty, voiding in good amounts and deemed stable for discharge home. Discharge Conditions: Stable, awake, and alert. Mobilizing without difficulty, pain controlled on oral medications. Patient Vitals in the past 8 hrs: BP Temp Temp src Pulse Resp SpO2 08/17/10 1040 94/52 mmHg 37.1 ??C (98.8 ??F) Oral 60 16 97 % 08/17/10 0540 102/59 mmHg 37 ??C (98.6 ??F) Oral 55 16 96 % Discharge to: home Current Discharge Medication List as of 08/17/2010 New Meds Details acetaminophen (TYLENOL) 1,000 mg Take 1,000 mg by mouth every 8 hours. Then take if needed for mildpain HYDROmorphone (DILAUDID) 2-6 mg Take 2-6 mg by mouth every 4 hours as needed for Pain (See scale below.). Qty: 80 tablet Refills: 0 senna-docusate (PERICOLACE) 1-4 tablets Take 1-4 tablets by mouth 2 times daily. Take to prevent constipation while on narcotic pain meds Qty: 60 tablet Refills: 0 Continued medications, unchanged Details Ferrous Sulfate 1 tablet Take 1 tablet by mouth daily. pregabalin (LYRICA) 150 mg capsule Take by mouth 2 times daily. 1 tab in the am two at HS Medications STOPPED OXYcodone (ROXICODONE) 5 mg Updated Allergies/ADRs: No Known Allergies Provider Instructions Given to patient at [place] [facility]: Activity: No extreme bending or twisting. Please refrain from lifting greater than 10 pounds until follow up. Diet: Resume normal diet but increase your intake of fluids and fiber while you are on narcotic pain meds to prevent constipation Driving: No, not until you are cleared to do so by your Orthopedic clinic. Ideally you should not drive while you are on narcotic pain meds as these can affect judgement and reaction time. Call your Surgeon with any questions. Medications: 1. The pain medication you are on can cause constipation so increase your intake of fluids and fiber while you are on them. You can also take an iaiw-ppf-vrpresu stool softener, colace or senna, to facilitate a bowel movement. 2. If you need a renewal on your narcotic pain medication, you need to give the Orthopedic clinic enough time to process your request. This can take up to three days, so plan accordingly. 3. Continue to take tylenol around the clock for the next 10 days - it can be effective in controlling pain along with your other meds. Shower: May shower in 72 hours with wound covered with occlusive dressing as described by consisting of Tegaderm and sterile gauze. Wound: Change dressing in 72 hours and replace with clean sterile dressing consisting of Tegaderm and sterile gauze. After initial dressing change, please leave dressing in place for 10 days. You should change dressing after initial dressing change only if it becomes wet or soiled in anyway. Followup appointment: You will have a followup appointment in approx 4-5 weeks. This should be mailed to your home. If you do not hear from Dr Hollins's office by the end of next week, call [phone] assistance. You will not need an xray prior to this appointment. Call your doctor (#[phone]) if: You have a fever > 101.5 or experience chills Increased discharge from the incision Any redness or swelling around the incision Increased pain or change in the pain that is not controlled by your pain meds Bowel or bladder issues [facility] or [facility]: Thu Hollins MD Department of Orthopaedic Surgery Spine: [phone] Signed: MAXIMUS SAHA 08/17/2010 * Op Note - Andre Priest MD - 08/16/2010 3:19 PM EDT [facility] [place] Patient Name: Twila Graves : [id number] MR#: [id number] Case Date: 08/16/2010 Surgeon: Surgeon(s) and Role: * THU HOLLINS MD - Primary * ANDRE PRIEST MD - Surgeon Bal Preoperative diagnosis: Left L5-S1 herniated disc Postoperative diagnosis: Left L5-S1 herniated disc Procedure(s): 1. LEFT SIDED L5-S1 LAMINOTOMY, DECOMPRESSION, FORAMINOTOMY WITH DISC EXCISION AND FAT GRAFT ([id number], [id number]) General anesthesia Estimated Blood Loss: 25 Drains: 0 Disposition: awakened from anesthesia, extubated and taken to the recovery room in a stable condition, Condition: doing well without problems Complications: None Findings: extruded HNP deep to left S1 root at shoulder with compression on the root. This was fully decompressed leaving the root fully mobile. No CSF. INDICATIONS: Mrs. Graves is a 45-year-old female who presented to the spine clinic with a [id number] disk herniation for which he elected to proceed with surgical excision. DESCRIPTION OF THE EVENTS: The patient was seen in the same day surgery area where informed consentwas confirmed and the procedure was reviewed. The patient was brought back to the operating room and intubated on the stretcher. The patient was then flipped to the prone position on the Nikko table with all bony prominences well padded. Prior to any incision, a time-out was preformed per [facility] [place], and preoperative antibiotics were administered. The back was prepped using a chlorhexidine scrub, alcohol, and DuraPrep. 15 cc of local was injected prior to incision. Next, a small incision was made in the midline over the expected level. ElectroBovie cautery was used to dissect down to the level of the dorsolumbar fascia, which was divided inline with the spinous process. Next, a left-sided dissection over the L5 and S1 spinous process wasbrought down through the spinous process and lamina removing all soft tissue. Next, a [place] elevator was placed under the L5 lamina and x-ray confirmed the correct positioning. Next, a laminotomy was performed using a combination of curette and [place] rongeur starting medially and heading cranially extending our laminotomy laterally. This provided adequate exposure to theligamentum, which was removed in the area of the L5 laminotomy. This provided visualization of the dura and the S1 nerve root, which was obviously compressed. Next, the nerve root and dural sac was protected using the nerve root retractor and the disk herniation was encountered. Long-bladed knife was used to incise the disk fragment and was removed using a pituitary and a [place]. After the nerveroot was found to be completely decompressed and mobile, a Gelfoam was placed over the laminotomy si te. The would was copiously irrigated with normal saline. Fat graft was placed over laminotomy site. Our attention was brought to closing the wound. The dorsal lumbar fascia was closed using 0 Vicryl sutures in the interrupted fashion. The soft subcutaneous tissues were well approximated using 2-0 Vicryl sutures in a buried fashion. The skin was closed using a running Vicryl suture. 15 cc of local was injected prior to placement of dressing. The wound was washed and dried, Steri-Strips, 4 x 4's, and Tegaderm dressing was applied. The patient was then transferred to the supine position on the stretcher where he was extubated without complication by the anesthesia staff. Dr. Hollins was scrubbed and present. There were no immediate complications known. A time-out was performed for exiting the operating room per [facility] protocol. * OR Attestation - Thu Hollins MD - 08/16/2010 2:53 PM EDT I was the attending surgeon operating with Dr Priest int his surgery. I fully participated in this case in its' entirety. * Brief Op Note - Thu Hollins MD - 08/16/2010 2:51 PM EDT Brief Operative Note Patient Name: Twila Graves : [id number] MR#: [id number] Case Date: 08/16/2010 Surgeon: Surgeon(s) and Role: * THU HOLLINS MD - Primary * ANDRE PRIEST MD - Surgeon Bal Preoperative diagnosis: disc herniation left L5-S1 Postoperative diagnosis: Left L5-S1 herniated disc Procedure(s): LAMINOTOMY, DECOMPRESSION, FORAMINOTOMY, LUMBAR. [id number] [address]. [address] General anesthesia Estimated Blood Loss: 25 Drains: 0 Disposition: awakened from anesthesia, extubated and taken to the recovery room in a stable condition, Condition: doing well without problems Complications: None Findings: extruded HNP deep to left S1 root at shoulder with compression on the root. This was fully decompressed leaving the root fully mobile. No CSF. * Miscellaneous - Provider, Scanning - 08/16/2010 11:15 AM EDT documented in this encounter Plan of Treatment Not on file documented as of this encounter Procedures Procedure Name Priority Date/Time Associated Diagnosis Comments SURGICAL PATHOLOGY REPORT Routine 08/16/2010 3:07 PM EDT SURGICAL PATHOLOGY REPORT Routine 08/16/2010 3:07 PM EDT XR CERVICAL THORACIC OR LUMBAR SPINE 1 VIEW ANY LEVEL Routine 08/16/2010 2:04 PM EDT MODIFIER S1 08/16/2010 1:18 PM EDT Left L5-S1 herniated disc MODIFIER L5 08/16/2010 1:18 PM EDT Left L5-S1 herniated disc LAMINOTOMY, DECOMPRESSION, FORAMINOTOMY, LUMBAR (WRVU 12) 08/16/2010 1:18 PM EDT Left L5-S1 herniated disc documented in this encounter Results * Surgical Pathology Report (08/16/2010 3:07 PM EDT) Surgical Pathology Report - S- ? Location: [facility]; 0324; A The signing pathologist has (i) examined the relevant preparation(s) for the specimen(s) and (ii) rendered or confirmed the diagnosis(es). . ?Pathology Surgical Pathology Final Report Clinical Information Specimen Submitted: A - Left L5-S1 disc Clinical History/Diagnos is: L5-S1 herniated disc Gross Description Labeled/Fixativ e: ? L5-S1 disc, fragments. Quantity/Size: ?Multiple, aggregating 1.8 x 0.7 x 0.3 cm. Tissue Description: ?? Mendez-pink soft tissue. Sections/Proces sing: ??No sections are submitted. ??aje/PPS Diagnosis Intervertebral disc, L5-S1. ?? Gross surgical pathology examination. CR-0 08/17/10 AJE 08/20/10 Verified by: ? Javier Pinedo MD ?Pathologist ?(Electronic Signature) The attending pathologist whose signature appears on this report has reviewed all diagnostic slides and has edited the gross and/or microscopic portion of the report in rendering the final pathologic diagnosis. [facility] 08/16/2010 3:07 PM EDT Thu Hollins MD PATHOLOGY/CYTOLOGY O RDERABLES [facility] * SURGICAL PATHOLOGY REPORT (08/16/2010 3:07 PM EDT) Surgical Pathology Report ? [facility] ? Provider: ?? THU HOLLINS ? Pt. Name: ?? TWILA GRAVES ? Acc #: ?Pt. ? Col Date: ?? 08/16/2010 ? /Sex: ?1965,(45 years),Female ? Rec Date: ?? 08/16/2010 ? LOC: ?[facility] ? SURGICAL PATHOLOGY ? ---Pathologic Diagnosis--- ? Intervertebral disc, L5-S1. ?Gross surgical pathology examination. ? CR-0 ? 08/17/10 ? AJE ? 08/20/10 Verified by: ? Javier Pinedo MD ? Pathologist ? (Electronic Signature) ? The attending pathologist whose signature appears on this report has ? reviewed all diagnostic slides and has edited the gross and/or ? microscopic portion of the report in rendering the final pathologic ? diagnosis. ? ---Gross Description--- ? Labeled/Fixative: ? L5-S1 disc, fragments. ? Quantity/Size: ?Multiple, aggregating 1.8 x 0.7 x 0.3 cm. ? Tissue Description: ?? Mendez-pink soft tissue. ? Sections/Processi ng: ??No sections are submitted. ??aje/PPS ? ---Clinical Information--- ? Specimen Submitted: ? A - Left L5-S1 disc ? Clinical History/Diagnosis : ? L5-S1 herniated disc FLO [facility]ON 08/16/2010 3:07 PM EDT Thu Hollins MD PATHOLOGY/CYTOLOGY O RDERABLES FLO [facility] * XR SPINE 1 VIEW ANY LEVEL (08/16/2010 2:04 PM EDT) Anatomical Region Laterality Modality N/A Radiographic Kelsey ging 08/16/2010 2:04 PM EDT Narrative 08/17/2010 11:59 AM EDT SINGLE LATERAL VIEW OF THE SPINE: ?? CLINICAL HISTORY: ??Status post discectomy. ?? FINDINGS: ??Surgical device is at the L5-S1 interspace posterior approach. Procedure Note Leopoldo Meyers MD - 08/17/2010 SINGLE LATERAL VIEW OF THE SPINE: CLINICAL HISTORY: Status post discectomy. FINDINGS: Surgical device is at the L5-S1 interspace posteriorapproach. Thu Hollins MD IMG DX ORDERABLES documented in this encounter Visit Diagnoses Not on filedocumented in this encounter Administered Medications Inactive Administered Medications - up to 3 most recent administrations Medication Order MAR Action Action Date Dose Rate Site acetaminophen (TYLENOL) tablet 1,000 mg 1,000 mg, Oral, EVERY 8 HOURS SCHEDULED, First dose on Catarina 08/16/10 at 2200, Until Discontinued, Maximum dose of acetaminophen is 4000 mg from all sources in 24 hours., Routine Given 08/17/2010 5:39 AM EDT 1,000 mg Given 08/16/2010 10:43 PM EDT 1,000 mg bacitracin injection ONCE PRN, 1 dose, Starting on Catarina 08/16/10 at 1345, Until Fri08/16/10 at 1345, Intra-Operative (Intra-Procedure), Routine Given 08/16/2010 1:45 PM EDT 50,000 Units BUpivacaine-epiNEPHrine 0.25 %-1:200,000 injection ONCE PRN, 1 dose, Starting on Catarina 08/16/10 at 1340, Until Catarina 08/16/10 at 1340, Intra-Operative (Intra-Procedure), Routine Given 08/16/2010 1:40 PM EDT 30 mg ceFAZolin (ANCEF) 1g in dextrose 5% 50mL 1,000 mg (1 g), Intravenous, EVERY 8 HOURS, 3 doses, First dose on Fri08/16/10 at 2300, Last dose on Fri08/17/10 at 1500, Administer over 30 Minutes, For 3 doses postoperatively. Adjust to 8 hours from intraoperative dose. New Bag 08/17/2010 7:00 AM EDT 1,000 mg 100 mL/hr New Bag 08/16/2010 11:00 PM EDT 1,000 mg 100 mL/hr ceFAZolin (ANCEF) 2g in dextrose 5% 100mL 2 g, Intravenous, ONCE, 1 dose, On Catarina 08/16/10 at 1045, Administer over 30 Minutes, To be administered upon arrival to the OR within one hour prior to incision., Day of Surgery (Day of Procedure) Given 08/16/2010 1:10 PM EDT 2 g dextrose 5% and sodium chloride 0.45% with potassium chloride 20 mEq infusion 100 mL/hr, Intravenous, CONTINUOUS, Starting on Catarina 08/16/10 at 2200, Until Fri08/17/10 at 1403 Rate/Dose Verify 08/17/2010 4:00 AM EDT 100 mL/hr 100 mL/hr New Bag 08/16/2010 9:45 PM EDT 100 mL/hr 100 mL/hr esomeprazole (NEXIUM) capsule 40 mg 40 mg, Oral, DAILY, First dose on Fri08/17/10 at 0900, Until Discontinued, Routine Given 08/17/2010 8:27 AM EDT 40 mg fentaNYL 50mcg/mL injection 25-50 mcg, Intravenous, EVERY 5 MIN PRN, Starting on Catarina 08/16/10 at 1513, Until Catarina 08/16/10 at 2139, Pain, for breakthrough pain, Hold for respiratory rate less than 10 per minute. Maximum dose: 250 mcg over one hour., PACU Recovery, Routine Given 08/16/2010 4:50 PM EDT 25 mcg gelatin adsorbable 100 (GELFOAM) sponge ONCE PRN, 1 dose, Starting on Catarina 08/16/10 at 1342, Until Catarina 08/16/10 at 1342, Intra-Operative (Intra-Procedure), Routine Given 08/16/2010 1:42 PM EDT 1 each 19- Surgical Site HYDROmorphone (DILAUDID) 2 mg tablet 1 dose, Starting on Catarina 08/16/10 at 2144, Until Fri08/16/10 at 2145, MARÍA IRIZARRY: Cabinet Override HYDROmorphone (DILAUDID) tablet 2-6 mg 2-6 mg, Oral, EVERY 4 HOURS PRN, Starting on Catarina 08/16/10 at 2138, Until Fri08/17/10 at 1403, Pain, See scale below., Do not exceed 6 mg in 4 hours. If pain not relieved, call customs house broker. Mild pain- give 2 mg Moderate pain- give 4 mg Severe pain- give 6 mg, Routine Given 08/17/2010 11:59 AM EDT 4 mg Given 08/17/2010 8:28 AM EDT 4 mg Given 08/17/2010 1:47 AM EDT 4 mg ketorolac (TORADOL) injection 15 mg 15 mg, Intravenous, ONCE, 1 dose, On Catarina 08/16/10 at 1530, Avoid if CrCl less than 50 ml/min. Do not administer with other NSAIDS, PACU Recovery, Routine Given 08/16/2010 3:15 PM EDT 15 mg lactated ringers infusion 1,000 mL 1,000 mL, at 100 mL/hr, Intravenous, CONTINUOUS, Starting on Catarina 08/16/10 at 1045, Until Catarina 08/16/10 at 2139, Day of Surgery (Day of Procedure) New Bag 08/16/2010 7:33 PM EDT 1,000 mLs 100 mL/hr New Bag 08/16/2010 6:00 PM EDT 1,000 mLs 100 mL/hr New Bag 08/16/2010 4:55 PM EDT 1,000 mLs 100 mL/hr multivitamin with minerals (THERA-M) tablet 1 tablet 1 tablet, Oral, DAILY, First dose on Fri08/17/10 at 0900, Until Discontinued, Routine Given 08/17/2010 8:27 AM EDT 1 tablet ondansetron (ZOFRAN) injection 4 mg 4 mg, Intravenous, EVERY 30 MIN PRN, 2 doses, Starting on Catarina 08/16/10 at 1513, Until Catarina 08/16/10 at 2139, Nausea, May repeat 4 mg once in 30 minutes. Consider prochlorperazine if ineffective., PACU Recovery, Routine Given 08/16/2010 7:29 PM EDT 4 mg OXYcodone (ROXICODONE) immediate release tablet 5 mg 5 mg, Oral, EVERY 4 HOURS PRN, Starting on Catarina 08/16/10 at 1453, Until Catarina 08/16/10 at 2139, Pain, for MILD pain, May repeat once in 60 minutes if pain not relieved., Routine Given 08/16/2010 5:25 PM EDT 5 mg pregabalin (LYRICA) capsule 100 mg 100 mg, Oral, 2 TIMES DAILY, First dose on Catarina 08/16/10 at 2230, Until Discontinued, Routine Given 08/17/2010 8:27 AM EDT 100 mg Given 08/16/2010 10:44 PM EDT 100 mg promethazine (PHENERGAN) 25 mg/mL injection Starting on Catarina 08/16/10 at 1507, 1 dose, Until Catarina 08/16/10 at 1515, SWETA HAIRSTON: Cabinet Override Given 08/16/2010 3:15 PM EDT 5 mg senna-docusate (PERICOLACE) 8.6-50 mg per tablet 1-4 tablet 1-4 tablet, Oral, 2 TIMES DAILY, First dose on Catarina 08/16/10 at 2200, Until Discontinued, Start with 1 tablet or liquid equivalent orally twice daily and titrate up to achieve: 1. One bowel movement at least every 48 hours, AND 2. Without straining, Routine Given 08/17/2010 8:27 AM EDT 2 tablets thrombin (bovine) (THROMBINAR) kit ONCE PRN, Starting on Catarina 08/16/10 at 1343, 1 dose, Until Catarina 08/16/10 at 1343, Intra-Operative (Intra-Procedure) Given 08/16/2010 1:43 PM EDT 20,000 Units 19- Surgical Site documented in this encounter Active and Recently Administered Medications Times are shown in EDT. Scheduled Medication Order 08/15/2010 08/16/2010 08/17/2010 acetaminophen (TYLENOL) tablet 1,000 mg 1,000 mg, Oral, EVERY 8 HOURS SCHEDULED, First dose on Catarina 08/16/10 at 2200, Until Discontinued, Maximum dose of acetaminophen is 4000 mg from all sources in 24 hours., Routine 2243 (Given - Provider: María Irizarry RN) 0539 (Given - Provider: María Irizarry RN) ceFAZolin (ANCEF) 1g in dextrose 5% 50mL (CANCELED) 1,000 mg (1 g), Intravenous, EVERY 8 HOURS, 3 doses, First dose on Fri08/16/10 at 2300, Last dose on Fri08/17/10 at 1500, Administer over 30 Minutes, For 3 doses postoperatively. Adjust to 8 hours from intraoperative dose. 2300 (New Bag - Provider: María Irizarry RN) 0700 (New Bag - Provider: María Irizarry RN) ceFAZolin (ANCEF) 2g in dextrose 5% 100mL (COMPLETED) 2 g, Intravenous, ONCE, 1 dose, On Catarina 08/16/10 at 1045, Administer over 30 Minutes, To be administered upon arrival to the OR within one hour prior to incision., Day of Surgery (Day of Procedure) 1045 (Due)1310 (Given - Provider: John Lynn MD) esomeprazole (NEXIUM) capsule 40 mg (CANCELED) 40 mg, Oral, DAILY, First dose on Fri08/17/10 at 0900, Until Discontinued, Routine 08 (Given - Provid er: Marycarmen Engel RN) ketorolac (TORADOL) injection 15 mg (COMPLETED)(Linked Group 1) 15 mg, Intravenous, ONCE, 1 dose, On Catarina 08/16/10 at 1530, Avoid if CrCl less than 50 ml/min. Do not administer with other NSAIDS, PACU Recovery, Routine 1515 (Given - Provider: Sweta Hairston RN) multivitamin with minerals (THERA-M) tablet 1 tablet (CANCELED) 1 tablet, Oral, DAILY, First dose on Fri08/17/10 at 0900, Until Discontinued, Routine 08 (Given - Provid er: Marycarmen Engel RN) pregabalin (LYRICA) capsule 100 mg (CANCELED) 100 mg, Oral, 2 TIMES DAILY, First dose on Fri08/16/10 at 2230, Until Discontinued, Routine 2244 (Given - Provider: María Irizarry RN) 08 (Given - Provider: Marycarmen Engel RN) senna-docusate (PERICOLACE) 8.6-50 mg per tablet 1-4 tablet 1-4 tablet, Oral, 2 TIMES DAILY, First dose on Fri08/16/10 at 2200, Until Discontinued, Start with 1 tablet or liquid equivalent orally twice daily and titrate up to achieve: 1. One bowel movement at least every 48 hours, AND 2. Without straining, Routine 2200 (Not Given - Provider: María Irizarry RN - Reason: Patient/family refused) 08 (Given - Provider: Marycarmen Engel RN) Continuous Medication Order 08/15/2010 08/16/2010 08/17/2010 dextrose 5% and sodium chloride 0.45% with potassium chloride 20 mEq infusion (CANCELED) 100 mL/hr, Intravenous, CONTINUOUS, Starting on Catarina 08/16/10 at 2200, Until Fri08/17/10 at 1403 2145 (New Bag - Provider: María Irizarry, RN) 0400 (Rate/Dose Verify - Provider: María Irizarry RN) lactated ringers infusion 1,000 mL (CANCELED) 1,000 mL, at 100 mL/hr, Intravenous, CONTINUOUS, Starting on Catarina 08/16/10 at 1045, Until Catarina 08/16/10 at 2139, Day of Surgery (Day of Procedure) 1045 (Due)1655 (New Bag - Provider: Sweta Hairston, RN)1800 (New Bag - Provider: Sweta Hairston, RN)1933 (New Bag - Provider: Sweta Hairston, RN) PRN Medication Order 08/15/2010 08/16/2010 08/17/2010 bacitracin injection (COMPLETED) ONCE PRN, 1 dose, Starting on Catarina 08/16/10 at 1345, Until Catarina 08/16/10 at 1345, Intra-Operative (Intra-Procedure), Routine 1345 (Given - Provider: Thu Hollins MD - Comment: 1 L Na cl) BUpivacaine-epiNEPHrine 0.25 %-1:200,000 injection (COMPLETED) ONCE PRN, 1 dose, Starting on Catarina 08/16/10 at 1340, Until Catarina 08/16/10 at 1340, Intra-Operative (Intra-Procedure), Routine 1340 (Given - Provider: Thu Hollins MD - Comment: 15 ml given at start and 15 ml at end) fentaNYL 50mcg/mL injection (CANCELED) 25-50 mcg, Intravenous, EVERY 5 MIN PRN, Starting on Catarina 08/16/10 at 1513, Until Catarina 08/16/10 at 2139, Pain, for breakthrough pain, Hold for respiratory rate less than 10 per minute. Maximum dose: 250 mcg over one hour., PACU Recovery, Routine 1650 (Given - Provider: Sweta Hairston, SHAD) gelatin adsorbable 100 (GELFOAM) sponge (COMPLETED) ONCE PRN, 1 dose, Starting on Catarina 08/16/10 at 1342, Until Catarina 08/16/10 at 1342, Intra-Operative (Intra-Procedure), Routine 1342 (Given - Provider: Thu Hollins MD - Comment: combined with thrombin) HYDROmorphone (DILAUDID) tablet 2-6 mg 2-6 mg, Oral, EVERY 4 HOURS PRN, Starting on Catarina 08/16/10 at 2138, Until 08/17/10 at 1403, Pain, See scale below., Do not exceed 6 mg in 4 hours. If pain not relieved, call customs house broker. Mild pain- give 2 mg Moderate pain- give 4 mg Severe pain- give 6 mg, Routine 2145 (Given - Provider: María Irizarry, SHAD) 0147 (Given - Provider: María Irizarry, RN)0828 (Given - Provider: Marycarmen Engel, SHAD)1159 (Given - Provider: Marycarmen Engel, SHAD) ondansetron (ZOFRAN) injection 4 mg (CANCELED)(Linked Group 2) 4 mg, Intravenous, EVERY 30 MIN PRN, 2 doses, Starting on Catarina 08/16/10 at 1513, Until Catarina 08/16/10 at 2139, Nausea, May repeat 4 mg once in 30 minutes. Consider prochlorperazine if ineffective., PACU Recovery, Routine 1929 (Given - Provider: Sweta Hairston RN) OXYcodone (ROXICODONE) immediate release tablet 5 mg (CANCELED) 5 mg, Oral, EVERY 4 HOURS PRN, Starting on Catarina 08/16/10 at 1453, Until Catarina 08/16/10 at 2139, Pain, for MILD pain, May repeat once in 60 minutes if pain not relieved., Routine 1725 (Given - Provider: Sweta Hairston RN) thrombin (bovine) (THROMBINAR) kit (COMPLETED) ONCE PRN, Starting on Catarina 08/16/10 at 1343, 1 dose, Until Catarina 08/16/10 at 1343, Intra-Operative (Intra-Procedure) 1343 (Given - Provider: Thu Hollins MD - Comment: combined with gelfoam) No Frequency Medication Order 08/15/2010 08/16/2010 08/17/2010 promethazine (PHENERGAN) 25 mg/mL injection (COMPLETED) Starting on Catarina 08/16/10 at 1507, 1 dose, Until Catarina 08/16/10 at 1515, SWETA HAIRSTON: Kamilah Override 1515 (Given - Provider: Sweta Hairston RN) Linked Groups Order Group 1: ketorolac (TORADOL) injection 15 mg (COMPLETED)Jump to med 15 mg, Intravenous, ONCE, 1 dose, On Catarina 08/16/10 at 1530, Avoid if CrCl less than 50 ml/min. Do not administer with other NSAIDS, PACU Recovery, Routine Or ketorolac (TORADOL) injection 15 mg (COMPLETED) 15 mg, Intramuscular, ONCE, 1 dose, On Catarina 08/16/10 at 1530, Avoid if CrCl less than 50 ml/min. Do not administer with other NSAIDS., PACU Recovery, Routine Group 2: ondansetron (ZOFRAN) injection 4 mg (CANCELED)Jump to med 4 mg, Intravenous, EVERY 30 MIN PRN, 2 doses, Starting on Catarina 08/16/10 at 1513, Until [place] 08/16/10 at 2139, Nausea, May repeat 4 mg once in 30 minutes. Consider prochlorperazine if ineffective., PACU Recovery, Routine Or prochlorperazine (COMPAZINE) injection 5 mg (CANCELED) 5 mg, Intravenous, EVERY 30 MIN PRN, 2 doses, Starting on Catarina 08/16/10 at 1513, Until Catarina 08/16/10 at 2139, Nausea, May repeat 5 mg once in 30 minutes. Consider metoclopramide if ineffective., PACU Recovery, Routine Or metoclopramide (REGLAN) injection 10 mg (CANCELED) 10 mg, Intravenous, EVERY 30 MIN PRN, 2 doses, Starting on Catarina 08/16/10 at 1513, Until Catarina 08/16/10 at 2139, Nausea, Avoid in patients greater than 60 years old., PACU Recovery, Routine documented in this encounter Care Teams Dredge Runner Relationship Specialty Start Date End Date Brittany Carrington MD [facility] [address] [place] [id number] PCP - General 07/10/10 01/05/14 documented as of this encounter
--- OUTSIDE RECORDS SUMMARY | 2024-03-22 18:02 | XMS_ITS | Encounter Summary ---
Author Organization [facility] Address [address] [place] [address] Care Team Providers Care Meal Temperer Name Role Phone Hayley Young NP Primary Care Provider [phone] Encounter Details Date Type Department Care Team (Latest Contact Info) Description 03/17/2023 11:10 EST - 03/17/2023 23:59 EST Hospital Encounter [facility] Pre-Surgical Testing [address] [place] [address] Discharge Disposition: Home or Self Care Social [...] - Inhaled Oxygen Concentration - - Weight 96.2 kg (212 lb) 03/17/2023 1106 EST Height 177.8 cm (5' 10) 03/17/2023 1106 EST Body Mass Index 30.42 03/17/2023 1106 EST documented in this encounter Functional Status * Are you deaf or do you have serious difficulty hearing? Answer Date of Assessment Author No 01/14/2023 8:09 Sherry Williamson RN documented as of this encounter Medications [...] tablet Take 1 Tablet by mouth daily. CYANOCOBALAMIN/F OLIC ACID (VITAMIN L42-CFYDY ACID ORAL) Take 1 Each by mouth daily. 11/29/2009 DICLOFENAC SODIUM/MISOPROST OL (ARTHROTEC 75 ORAL) Take by mouth daily. 11/01/2009 gabapentin (NEURONTIN) 600 mg tablet Take 1 Tablet by mouth 3 times daily. 10/21/2022 ibuprofen (MOTRIN) 800 mg tablet Take 1 Tablet by mouth every 8 hours as needed for Pain. 03/26/2023 MULTIVITAMINS (MULTIVITAMIN ORAL) Take by mouth daily. 02/08/2006 TRAZODONE HCL (TRAZODONE ORAL) Take by mouth at bedtime as needed. Take 1/2 CA CARBONATE/VITAMI N D3/VIT K (CALCIUM CHEW ORAL) Take 750 mg by mouth daily. 4 Calcium 100 mg Cap Take by mouth daily. 11/01/2009 4 Ergocalciferol, Vitamin D2, (VITAMIN D) 400 unit Cap Take 400 Units by mouth daily. 4 estradioL (ESTRACE) 0.01 % (0.1 mg/gram) vaginal cream Insert 1 gram vaginally 3 times weekly for 3 weeks. Stop using 3 days prior to colposcopy. 42.5 g 10/30/2022 4 FERROUS FUMARATE (IRON ORAL) Take 65 mg by mouth daily. 4 meloxicam (MOBIC) 7.5 mg tablet Take 1 Tab by mouth daily. 30 Tab 2 12/27/2009 4 OMEGA-3 ACID ETHYL ESTERS (LOVAZA ORAL) Take by mouth daily. 11/01/2009 4 documented as of this encounter Discharge Disposition Disposition Code Departure Means Destination Home or Self Care documented in this encounter Plan of Treatment Not on file documented as of this encounter Visit Diagnoses Not on filedocumented in this encounter Care Teams Meal Temperer Relationship Specialty Start Date End Date Hayley Young, [address] [place] [address] PCP - General 04/24/21 documented as of this encounter
--- OUTSIDE RECORDS SUMMARY | 2024-03-22 18:02 | XMS_ITS | Encounter Summary ---
Author Organization [facility] [place] [address] Care Team Providers Care Thread Spooler Name Role Phone Brittany Carrington MD Primary Care Provide r Encounter Details Date Type Department Care Team (Late st Contact Info) Description 08/09/2009 Orders [place] [id number] Brandon Latham MD Social History Tobacco Use [...] FILM LIBRARY STORAGE ONLY DX SPINE Routine 08/09/2009 2:08 PM EDT documented in this encounter Results * FILM LIBRARY- STORAGE ONLY DX SPINE (08/09/2009 2:08 PM EDT) 08/09/2009 2:08 PM EDT Narrative RAD - 06/29/2013 7:46 PM EDT This is a non-reportable exam. Procedure Note Pedro Sanderson - 06/29/2013 This is a non-reportable exam. Brandon Latham MD IMG FILM LIBRARY ORD ERABLES RAD [address] [facility] [place] [address] documented in this encounter Visit Diagnoses Not on filedocumented in this encounter Care Teams Thread Spooler Relationship Specialty Start Date End Date Brittany Carrington MD [address] [id number] PCP - General 07/10/10 01/05/14 documented as of this encounter
--- OUTSIDE RECORDS SUMMARY | 2024-03-22 18:02 | XMS_ITS | Encounter Summary ---
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 Procedures MRI Lumbar Spine wwo Contrast Byron Corado PA [facility] [place] [address] [place] [address] Referral ID Status Reason Start Date Expiration Date V isits Requested Visits Authorized [id number] Closed Specialty Service Requested 12/23/2016 02/06/2017 1 1 Reason for Visit * Diagnostic Test (Routine) - Closed Specialty Diagnoses / Procedures Referred By Contac t Referred To Contact Radiology Diagnoses Chronic left-sided low back pain with left-sided sciatica Intervertebral disc disorder with radiculopathy of lumbar region Procedures MRI Lumbar Spine wwo Contrast Byron Corado PA [facility] [place] [address] [place] [address] Referral ID Status Reason Start Date Expiration Date V isits Requested Visits Authorized [id number] Closed Specialty Service Requested 12/23/2016 02/06/2017 1 1 Encounter Details Date Type Department Care Team (Latest Contact Info) Description 12/31/2016 5:54 AM EST - 12/31/2016 11:59 PM EST Hospital [place] [address] Brandon Latham MD Chronic left-sided low back pain with left-sided sciatica; Intervertebral disc disorder with radiculopathy of lumbar region Discharge Disposition: Home Social History Tobacco Use Types Packs/Day Years Used Date Smoking Tobacco: Never Smokeless Tobacco: Never Alcohol Use Standard Drinks/Week Comments No 0 (1 standard drink = 0.6 oz pur e alcohol) Sex and Gender Information Value Date Recorded Sex Assigned at Not on file Gender Identity Not on file Sexual Orientation Not on file documented as of this encounter Medications at Time of Discharge Medication Sig Dispensed Refills Start Date End Date gabapentin (NEURONTIN) 600 mg Tablet Take 600 mg by mouth 3 times daily. citalopram (CELEXA) 40 mg Tablet Take 40 mg by mouth daily. sulfamethoxazole-trimethop rim (BACTRIM;SEPTRA) 400-80 mg Tablet Take 1 tablet by mouth daily. 0 12/10/2016 busPIRone (BUSPAR) 15 mg Tablet Take 15 mg by mouth 2 times daily. 0 09/18/2016 traMADol (ULTRAM) 50 mg Tablet Take 100 mg by mouth 3 times daily. 0 12/17/2016 buPROPion (WELLBUTRIN XL) 150 mg Tablet Extended Release 24 hr Take 150 mg by mouth daily. 0 12/11/2016 cyclobenzaprine (FLEXERIL) 10 mg Tablet Take 10 mg by mouth as needed. 0 12/03/2016 traZODone (DESYREL) 50 mg Tablet Take 50 mg by mouth nightly. 0 10/13/2016 documented as of this encounter Plan of Treatment Not on file documented as of this encounter Procedures Procedure Name Priority Date/Time Associated Diagnosis Comments MRI LUMBAR SPINE WITH/WO CONTRAST Routine 12/31/2016 6:58 AM EST Chronic left-sided low back pain with left-sided sciatica Intervertebral disc disorder with radiculopathy of lumbar region documented in this encounter Results * MRI Lumbar Spine [...] the clinical situation (Reference- Benik et al, Spine 2001). Findings: (Prevalence in [...] left leg pain, prior left L5-S1 discectomy [id number], assess for recurrent disk herniation vs scar TECHNIQUE: MR of the lumbar spine performed prior to and followingintravenous administration of 9 mL Gadavist COMPARISON: 04/29/2013 FINDINGS: Overall lumbar alignment remains normal. There is no focal,aggressive appearing marrow lesion. The normal appearing conus terminates at the [id number]. Visualized retroperitoneal structures are unremarkable. Findings at [...] the clinical situation (Reference- Chayovik et al, [id number]). Findings: (Prevalence in patients without low back [...] or radiculitis, unspecified documented in this encounter Administered Medications Inactive Administered Medications - up to 3 most recent administrations Medication Order MAR Action Action Date Dose Rate Site gadobutrol (GADAVIST) 1 mMol/mL injection 0-20 mL 0-20 mL, Intravenous, ONCE PRN, 1 dose, Starting on 12/31/16 at 0604, Until 12/31/16 at 0636, Per Protocol, Radiology Contrast, Routine Given 12/31/2016 6:36 AM EST 9 mLs documented in this encounter Care Teams Pattern Chain Builder Relationship Specialty Start Date End Date Hayley Young, FIELD MARKETING COORDINATOR [address] [place] [address] PCP - General 01/06/14 documented as of this encounter
--- OUTSIDE RECORDS SUMMARY | 2024-03-22 18:02 | XMS_ITS | Encounter Summary ---
[place] [address] Care Team Providers Care Premix Operator Concentrate Name Role Phone Brittany Carrington MD Primary Care Provide r Reason for Visit * Reason Onset Date Comments Other 08/03/2010 pre op call to h old Nsaids Encounter Details Date Type Department Care Team (Late st Contact Info) Description 08/03/2010 Telephone [place] [id number] Tejal Javier RN Other (pre op call to hold Nsaids ) Social History Tobacco Use Types Packs/Day Years [...] encounter Miscellaneous Notes * Telephone Encounter - Tejal Javier RN - 08/03/2010 9:41 AM EDT Patient returned call, reviewed recommendation to avoid Nsaids, aspirin and fish oil for 10 days before her 08/16/10 surgery. Patient is not currently taking any of these medications and is aware to avoid them. documented in this encounter Plan of Treatment Not on file documented as of this encounter Visit Diagnoses Not on filedocumented in this encounter Care Teams Premix Operator Concentrate Relationship Specialty Start Date End Date Brittany Carrington MD [facility] [address] [place] [address] PCP - General 07/10/10 01/05/14 documented as of this encounter
--- OUTSIDE RECORDS SUMMARY | 2024-03-22 18:02 | XMS_ITS | Encounter Summary ---
[place] [address] Care Team Providers Care Large Engine Assembler Name Role Phone Brittany Carrington MD Primary Care Provide r Reason for Visit * Reason Onset Date Comments Other 08/20/2010 dificult to urin ate post op Encounter Details Date Type Department Care Team (Late st Contact Info) Description 08/20/2010 Telephone [place] [phone] Tejal Javier RN Other (dificult to urinate post op) Social History Tobacco Use Types Packs/Day Years [...] Telephone Encounter - Tejal Javier RN - 08/20/2010 3:16 PM EDT Received call from stating that she has been having difficulty voiding since discharge. She is onlyable to get a trickle of urine and feels that she is not emptying fully. No burning with urination.She is also having problems with nausea and constipation. She is taking a stool softener, eating lightly and drinking fluids. She reports minimal use of pain medication, took only 2 tabs yesterday. She denies fever and states that her wound is fine. Above discussed with Dr. Latham, he recommended evaluation in her local ED. Patient was contacted and informed , she palns to go to [facility] ED today. A call was placed to [facility] ED to inform of patient's plan arrival, copy of discharge summary was faxed to them at [phone]. 08/21/10 Follow up call placed to patient, she was seen in [facility] ED yesterday, she had her bladder scanned after emptying and it was felt that she is emptying satisfactorily. Today she feels that urination has improved, she is still having some nausea but less than previous, she is eating lightly, drinking well. She reports that her bowels are improving slowly. She will f/u with SPC nurse as needed. documented in this encounter Plan of Treatment Not on file documented as of this encounter Visit Diagnoses Not on filedocumented in this encounter Care Teams Large Engine Assembler Relationship Specialty Start Date End Date Brittany Carrington MD [facility] [address] [place] [address] PCP - General 07/10/10 01/05/14 documented as of this encounter
--- OUTSIDE RECORDS SUMMARY | 2024-03-22 18:02 | XMS_ITS | Referral Summary ---
Author Organization [facility] Address [address] [place] [address] Care Team Providers Care Plater Printed Circuit Board Panels Name Role Phone Hayley Young NP Primary Care Provider [phone] Allergies No known active allergies Medications MULTIVITAMINS (MULTIVITAMIN ORAL) Take by mouth daily. 02/08/2006 Active TRAZODONE HCL (TRAZODONE ORAL) Take by mouth at bedtime as needed. Take 1/2 Active DICLOFENAC SODIUM/MISOPROS BRAULIO (ARTHROTEC 75 ORAL) Take by mouth daily. 11/01/2009 Active citalopram (CELEXA) 20 mg tablet Take 1 Tablet by mouth daily. Active CYANOCOBALAMIN/ FOLIC ACID (VITAMIN C80-ZLLYI ACID ORAL) Take 1 Each by mouth [...] on ECC Cobalamin deficiency 08/21/2010 Secondary hyperparathyroidism ([facility]) 08/22/19 11 Vitamin D deficiency 08/21/2010 Gastroesophageal reflux disease 05/26/2009 Osteoarthrosis 05/26/2009 Overview (05/26/2009): Ankle, LBP Iron deficiency 05/26/2009 Hyperparathyroidism ([facility]) 05/26/2009 Social History Tobacco Use Types Packs/Day Years [...] 15:58 EST Sexual Orientation Not on file Last Filed [...] Body Mass Index 29.77 03/26/2023 0857 EST Functional Status * Are you deaf or do you have serious difficulty hearing? Answer Date of Assessment Author No 01/14/2023 8:09 EST Sherry Bhatti, RN Plan of Treatment Not on file Procedures Procedure Name Priority Date/Time Associated Diagnosis Comments HEPATITIS C AB W REFLEX TO HCV RNA BY PCR Routine 07/25/2022 12:30 EDT from Last 3 Months or Most Recently Relevant to Health Maintenance Results * HEPATITIS C AB W REFLEX TO HCV RNA BY PCR (07/25/2022 12:30 EDT) Hep C Antibody Negative Negative 07/29/2022 10:21 EDT [facility] Blood VENOUS BLOOD / Unknown 07/25/2022 12:30 EDT 07/26/2022 17:21 EDT us Provider Outr Resulting Lab CHEMISTRY & BLOOD GA S ORDERABLES Final Result [facility] [address] [place] [phone] from Last 3 Months or Most Recently Relevant to Health Maintenance Insurance [facility] Advance Directives For more information, please contact: [phone] * Full Code (Latest Code Status on File) Date Activated Date Inactivated Comments 03/26/2023 8:52 03/26/2023 15:58 Question Answer Comments When the patient has NO PULSE: Full Code / CPR Who Made the Decision? Default/Not Discussed Care Teams Plater Printed Circuit Board Panels Relationship Specialty Start Date End Date Hayley Young, [address] [place] [address] PCP - General 04/24/21
--- OUTSIDE RECORDS SUMMARY | 2024-03-22 18:02 | XMS_ITS | Encounter Summary ---
[place] [address] Care Team Providers Care Gear Keeper Name Role Phone Brittany Carrington MD Primary Care Provide r Encounter Details Date Type Department Care Team (Latest Contact Info) Description 08/16/2010 10:04 AM EDT - 08/17/2010 12:01 PM EDT Hospital Encounter [address] [place] [phone] Thu Hollins MD Discharge Disposition: Home Social History Tobacco Use [...] Sign Reading Time Taken Comments Blood Pressure 102/59 08/17/2010 5:40 AM EDT Pulse 55 08/17/2010 5:40 AM EDT Temperature 37 ??C (98.6 ??F) 08/17/2010 5:40 AM EDT Respiratory Rate 16 08/17/2010 5:40 AM EDT Oxygen Saturation 96% 08/17/2010 5:40 AM EDT Inhaled Oxygen Concentration - - [...] on them. You can also take an svzd-rgz-kuojjwh stool softener, colace or senna, to facilitate [...] or soiled in anyway. Call your doctor (#[phone]) if: You have a fever > 101.5 [...] FORAMINOTOMY, LUMBAR performed by THU HOLLINS at [facility] OR Social History: Patient lives [...] father in law's. Precautions/Special Considerations: Fall risk. [place]. No excessive twisting or bending. NO lifting [...] side, LEs shakey at times and wide BRITTAYN. 175' with a rolling walkerand supervision, no [...] minutes Total timed interventions: 0 minutes REBECCA WANG, PT 08/17/2010 Pager: [phone] Physical Therapy Rehabilitation Department * Andre Priest [...] weeks with Dr. Hollins . * María Rodgers RN - 08/17/2010 2:15 AM EDT Post [...] good relief. supportive in room w/pt. María Rodgers RN * Cara Rader MD - 08/16/2010 [...] chemoprophylaxis Pain control: Oral analgesia, low-dose dilaudid HELICOPTER REPAIRER overnight, transition to POs in AM Discharge [...] Given to patient at discharge from [facility]: Activity: No extreme bending or twisting. Please [...] on them. You can also take an cvqv-xfc-spwryxb stool softener, colace or senna, to facilitate [...] by the end of next week, call [phone] assistance. You will not need an xray prior to this appointment. Call your doctor (#[phone]) if: You have a fever > 101.5 or experience chills Increased discharge from the incision Any redness or swelling around the incision Increased pain or change in the pain that is not controlled by your pain meds Bowel or bladder issues Numbness or weakness in lower extermities [facility] Attending: Thu Hollins MD Department of Orthopaedic Surgery Spine: [phone] Signed: MAXIMUS SAHA 08/17/2010 * Op Note - Andre Priest MD - 08/16/2010 3:19 PM EDT [facility] Operative Note Patient Name: Twila Graves : [id number] MR#: [id number] Case Date: 08/16/2010 Surgeon: Surgeon(s) and Role: * THU HOLLINS MD - Primary * ANDRE PRIEST MD - Surgeon Bal Preoperative diagnosis: Left L5-S1 herniated disc Postoperative diagnosis: Left L5-S1 herniated disc Procedure(s): 1. LEFT SIDED L5-S1 LAMINOTOMY, DECOMPRESSION, FORAMINOTOMY WITH DISC EXCISION AND FAT GRAFT (18549, [id number]) General anesthesia Estimated Blood Loss: 25 Drains: [...] presented to the spine clinic with a [id number] disk herniation for which he elected to [...] incision, a time-out was preformed per [facility] protocol, and preoperative antibiotics were administered. The [...] lamina removing all soft tissue. Next, a Jamie elevator was placed under the L5 lamina [...] was removed using a pituitary and a Jamie. After the nerveroot was found to be [...] for exiting the operating room per [facility] protocol. * OR Attestation - Thu Hollins MD - 08/16/2010 2:53 PM EDT I was the attending surgeon operating with Dr Priest int his surgery. I fully participated in this case in its' entirety. * Brief Op Note - Thu Hollins MD - 08/16/2010 2:51 PM EDT Brief Operative Note Patient Name: Twila Graves : [id number] MR#: [id number] Case Date: 08/16/2010 Surgeon: Surgeon(s) and Role: * THU HOLLINS MD - Primary * ANDRE PRIEST MD - Surgeon Bal Preoperative diagnosis: disc herniation left L5-S1 Postoperative diagnosis: Left L5-S1 herniated disc Procedure(s): LAMINOTOMY, DECOMPRESSION, FORAMINOTOMY, LUMBAR. [address] Fat graft. [address] General anesthesia Estimated Blood Loss: 25 Drains: [...] (08/16/2010 3:07 PM EDT) Surgical Pathology Report 00- S-11 ? Location: [facility]; [facility]; A The signing pathologist has (i) examined the relevant preparation(s) for the specimen(s) and (ii) rendered or confirmed the diagnosis(es). . ?Pathology Surgical Pathology Final Report Clinical Information Specimen Submitted: A - Left L5-S1 disc Clinical History/Diagnos is: L5-S1 herniated disc Gross Description Labeled/Fixativ e: ? L5-S1 disc, fragments. Quantity/Size: ?Multiple, aggregating 1.8 x 0.7 x 0.3 cm. Tissue Description: ?? Mnedez-pink soft tissue. Sections/Proces sing: ??No sections are submitted. ??aje/PPS Diagnosis Intervertebral disc, L5-S1. ?? Gross surgical pathology examination. CR-0 08/17/10 AJE 08/20/10 Verified by: ? Javier Pinedo MD ?Pathologist ?(Electronic Signature) The attending pathologist whose signature appears on this report has reviewed all diagnostic slides and has edited the gross and/or microscopic portion of the report in rendering the final pathologic diagnosis. [facility] 08/16/2010 3:07 PM EDT Thu Hollins MD PATHOLOGY/CYTOLOGY [facility] * SURGICAL PATHOLOGY REPORT (08/16/2010 3:07 PM EDT) Surgical Pathology Report ? [facility] ? Provider: ?? THU HOLLINS ? Pt. [...] PM EDT Thu Hollins MD PATHOLOGY/CYTOLOGY O ROSITAERABUCKY FLO DAMON * XR SPINE 1 VIEW ANY LEVEL [...] Given 08/16/2010 10:43 PM EDT 1,000 mg ceFAZolin (ANCEF) 1g in dextrose 5% 50mL 1,000 mg (1 g), Intravenous, EVERY 8 HOURS, 3 doses, First dose on Fri08/16/10 at 2300, Last dose on Fri08/17/10 at 1500, Administer over 30 Minutes, For 3 doses postoperatively. Adjust to 8 hours from intraoperative dose. New Bag 08/17/2010 7:00 AM EDT 1,000 mg 100 m L/hr New Bag 08/16/2010 11:00 PM EDT 1,000 mg 100 mL/hr dextrose 5% and sodium chloride 0.45% with [...] Intravenous, EVERY 5 MIN PRN, Starting on Fri08/16/10 at 1513, Until Fri08/16/10 at 2139, Pain, for breakthrough pain, Hold for respiratory rate less than 10 per minute. Maximum dose: 250 mcg over one hour., PACU Recovery, Routine Given 08/16/2010 4:50 PM EDT 25 mcg HYDROmorphone (DILAUDID) 2 mg tablet 1 dose, Starting on Catarina 08/16/10 at 2144, Until Fri08/16/10 at 2145, MARÍA EDIE: Cabinet Override HYDROmorphone (DILAUDID) tablet 2-6 mg 2-6 mg, Oral, EVERY 4 HOURS PRN, Starting on Fri08/16/10 at 2138, Until Fri08/17/10 at 1403, Pain, See scale below., Do not exceed 6 mg in 4 hours. If pain not relieved, call senior data warehouse architect. Mild pain- give 2 mg Moderate pain- [...] dose, Until Catarina 08/16/10 at 1515, SWETA SHERIDAN: Cabinet Override Given 08/16/2010 3:15 PM EDT [...] Given 08/17/2010 8:27 AM EDT 2 tablets documented in this encounter Active and Recently Administered Medications Times are shown in EDT. Scheduled Medication Order 08/15/2010 08/16/2010 08/17/2010 acetaminophen (TYLENOL) tablet 1,000 mg 1,000 mg, Oral, EVERY 8 HOURS SCHEDULED, First dose on Catarina 08/16/10 at 2200, Until Discontinued, Maximum dose of acetaminophen is 4000 mg from all sources in 24 hours., Routine 6956 (Given - Provider: María Rodgers RN) 0539 (Given - Provider: María Rodgers RN) ceFAZolin (ANCEF) 1g in dextrose 5% 50mL (CANCELED) 1,000 mg (1 g), Intravenous, EVERY 8 HOURS, 3 doses, First dose on Fri08/16/10 at 2300, Last dose on Fri08/17/10 at 1500, Administer over 30 Minutes, For 3 doses postoperatively. Adjust to 8 hours from intraoperative dose. 2300 (New Bag - Provider: María Rodgers RN) 0700 (New Bag - Provider: María Rodgers RN) ceFAZolin (ANCEF) 2g in dextrose 5% [...] 15 mg, Intravenous, ONCE, 1 dose, On Fri08/16/10 at 1530, Avoid if CrCl less than [...] on Fri08/16/10 at 2230, Until Discontinued, Routine 224 (Given - Provider: María Rodgers RN) 08 (Given - Provider: Marycarmen Engel [...] Routine 2200 (Not Given - Provider: María Rodgers, SHAD - Reason: Patient/family refused) 0827 (Given - Provider: Marycarmen Engel, RN) Continuous Medication Order 08/15/2010 08/16/2010 08/17/2010 dextrose 5% and sodium chloride 0.45% with potassium chloride 20 mEq infusion (CANCELED) 100 mL/hr, Intravenous, CONTINUOUS, Starting on Catarina 08/16/10 at 2200, Until Fri08/17/10 at 1403 2145 (New Bag - Provider: María Rodgers RN) 0400 (Rate/Dose Verify - Provider: María Rodgers RN) lactated ringers infusion 1,000 mL (CANCELED) 1,000 mL, at 100 mL/hr, Intravenous, CONTINUOUS, Starting on Catarina 08/16/10 at 1045, Until Fri08/16/10 at 2139, Day of Surgery (Day of Procedure) 1045 (Due)1655 (New Bag - Provider: Sweta Hairston, SHAD)1800 (New Bag - Provider: Sweta Hairston, RN)1933 [...] 4 hours. If pain not relieved, call senior data warehouse architect. Mild pain- give 2 mg Moderate pain- give 4 mg Severe pain- give 6 mg, Routine 214 (Given - Provider: María Rodgers RN) 0147 (Given - Provider: María Rodgers RN)0828 (Given - Provider: Marycarmen Engel RN)1159 (Given - Provider: Marycarmen Engel RN) ondansetron (ZOFRAN) injection 4 mg (CANCELED)(Linked Group 2) 4 mg, Intravenous, EVERY 30 MIN PRN, 2 doses, Starting on Catarina 08/16/10 at 1513, Until Catarina 08/16/10 at 2139, Nausea, May repeat 4 mg once in 30 minutes. Consider prochlorperazine if ineffective., PACU Recovery, Routine 1929 (Given - Provider: Sweta Hairston, SHAD) OXYcodone (ROXICODONE) immediate release tablet 5 mg [...] 08/16/10 at 1515, SWETA HAIRSTON: Cabinet Override 1515 (Given - Provider: Sweta Hairston [...] Routine documented in this encounter Care Teams Gear Keeper Relationship Specialty Start Date End Date Brittany Carrington MD [facility] [address] [place] [address] PCP - General 07/10/10 01/05/14 documented as of this encounter
--- OUTSIDE RECORDS SUMMARY | 2024-03-22 18:02 | XMS_ITS | Encounter Summary ---
Author Organization [facility] Address [address] [place] [address] Care Team Providers Care R D Engineer Name Role Phone Hayley Young R D INTERN Primary Care Provider Reason for Visit * Auth/Cert (Routine) Specialty Diagnoses / Procedures Referred By Contac t Referred To Contact Diagnoses Dysplasia of cervix, high grade ALAN 2 Procedures TN CONIZATION CERVIX W/WO D&C RPR ELTRD EXC Leep Referral ID Status Reason Start Date Expiration Date Visits Re quested Visits Authorized [id number] 1 1 Encounter Details Date Type Department Care Team (Late st Contact Info) Description 03/26/2023 11:37 EST Anesthesia Event [facility] OR [address], [place] [id number] Jayesh Kim MD [address] [facility], [facility] [address] [place] [id number] Anesthesia Record Procedure Summary Procedure Name Responsible Anesthesiologist Anesthesia Start Time Anesthesia Stop Time Leep (Cervix) Jayesh Kim MD 03/26/23 1137 03/26/23 1239 Events Date Time Event Comment 03/26/2023 1137 An Start The patient was re-evaluated immediately before moderate or deep sedation use, before anesthesia induction, or before the anesthesia procedure. 1137 An Start Data 1142 An Induction The patient was reevaluated immediately before moderate or deep sedation use and before anesthesia induction. 1144 An Intubation 1144 Anesthesia Ready 1203 González SURGEON injecti ng local 1230 An Extubation 1234 an stop data 1239 Handoff to RN I completed my handoff to the receiving nurse during which we: 1. Identified the patient 2. Identified the responsible provider 3. Reviewed the pertinent medical history 4. Discussed the surgical course 5. Reviewed intra-op anesthesia management and issues during anesthesia 6. Set expectations for post-procedure period 7. Allowed opportunity for questions and acknowledgement of understanding. 1239 An Stop Meds Name Total dexaMETHasone (DECADRON) injection 4 mg/ mL (for IV doses up to 10mg) 8 mg ePHEDrine pre-filled syringe 5 mg fentanyl citrate (PF) injection 25 mcg ketAMINE 5 mL prefilled syringe 10 mg midazolam (versed) 1 mg/mL 2 mL vial 2 m g ondansetron (PF) (ZOFRAN) injection 4 mg lidocaine 2% (PF) injection glass vial 6 0 mg propOFol (DIPRIVAN) injection 200 mg diphenhydrAMINE injection 12.5 mg dexmedetomidine injection - vial 20 mcg acetaminophen 10 mg/ml 100 mL infusion 1 ,000 mg ketOROLAC injection 15 mg lactated ringers (LR) infusion 700 mL * Agents Name Insp Sevoflurane Exp Sevoflurane O2 N2O Air * Blood No blood administrations on file. Lines, Drains, and Airways Type Details Placement Removal Wound 03/26/23; 1213; Inci adalid; Vagina; incision s/p leep; N; Not applicable 03/26/23 1213 by Massiel Rodriguez, SHAD Peripheral IV 03/26/23; 0907; 20; 1.25; Left; Antecubital; Inserted by RN (Virgie Wolf RN); 2; None; 2% Chlorhexidine with IPA; 03/26/23; 1348; Per protocol, Therapy completed; No complications, Catheter intact, Dressing applied 03/26/23 0907 by Marce Radford RN 03/26/23 1348 by Ashley Esparza RN Non-Surgical Airway 03/26/23; 1151 (christina stafford via procedure documentation); 03/26/23; 1230 03/26/23 1151 by Nataliia Silveira AA 03/26/23 1230 by Nataliia Silveira AA documented in this encounter Social History Tobacco [...] Bhatti RN documented as of this encounter OR Notes * Anesthesia Postprocedure Evaluation - Nataliia Silveira AA - 03/26/2023 1239 EST Patient: Twila Graves Vital signs were reviewed with the recovery nurse. [facility] Vitals Value Taken Time BP 123/69 03/26/23 1237 Temp 36.5 03/26/23 1239 Resp 14 03/26/23 1238 Pulse From Oximetry 76 BPM 03/26/23 1238 SpO2 100 % 03/26/23 1238 Heart Rate 73 BPM 03/26/23 1238 Vitals shown include unvalidated device data. Last Pain Score - Numeric Pain Level (Scale 1-10): 0 Type of Anesthesia - general Anesthesia Post Evaluation Post-procedure vitals reviewed and are stable. Level of consciousness: awake Temperature status: normothermia Respiratory status: airway patent, face mask and stable Cardiovascular status: acceptable and stable Hydration status: adequate Nausea/Vomiting: none Pain management: adequate Post-Op Assessment: patient tolerated procedure well with no complications Patient participation: able to participate Disposition: outpatient/home Anesthesia Complications: No apparent anesthesia complications * Anesthesia Procedure Notes - Nataliia Silveira AA - 03/26/2023 1150 EST Associated Order(s): Airway Airway Date/Time: 03/26/2023 11:44 Urgency: elective Airway not difficult General Information and Staff Patient location during procedure: OR Resident/MEDICAL SOCIAL WORKER: Nataliia Silveira AA Performed: resident/MEDICAL SOCIAL WORKER/AA Performed by: Nataliia Silveira AA Authorized by: Jayesh Kim MD Indications and Patient Condition Indications for airway management: anesthesia Sedation level: GA Preoxygenated: yes Ventilation assessment: 1 - Easy Final Airway Details Final airway type: supraglottic airway Successful airway: LMA (i gel) Size 3 Number of attempts at approach: 1 Additional Comments Atraumatic insertion of Igel 3. Dentition intact from preop. VSS * Anesthesia Preprocedure Evaluation - Jayesh Kim MD - 03/25/20232023 EST Anesthesia Preprocedure Evaluation Patient Medical History, including Anesthesia History reviewed. Chart and Nursing Notes reviewed, including NPO status and Medication History. Additional ROS/History Findings: No Known Allergies Review of Systems All other systems reviewed and are negative. 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 Informed consent obtained from patient. Use of blood products discussed with patient who. Specific risks discussed were bleeding, blindness, , dental injury, headache, ICU placement, incomplete block, infection, myocardial infarction, nausea, nerve damage, post-op intubation, stroke and vomiting. The preoperative history and physical which was performed within 30 days of this procedure, has been reviewed and the clinically appropriate elements of the physical examination have been repeated. There are no changes to the documented history and physical or, if so, such changes are documented inthis note PAT Note Notes from 02/23/23 through 03/25/23 No notes of this type exist for this encounter. documented in this encounter Plan of Treatment Not on file documented as of this encounter Procedures Procedure Name Priority Date/Time Associated Diagnosis Comments ANESTHESIA INTUBATION Routine 03/26/2023 11:44 EST documented in this encounter Results * TN AN ELECTIVE SUPRAGLOTTIC AIRWAY (03/26/2023 11:44 EST) Narrative Nataliia Silveira AA - 03/26/2023 11:44 EST Nataliia Silveira AA ? 03/26/2023 11:51 Airway Date/Time: 03/26/2023 11:44 Urgency: elective Airway not difficult General Information and Staff Patient location during procedure: OR Resident/MEDICAL SOCIAL WORKER: Nataliia Silveira AA Performed: resident/MEDICAL SOCIAL WORKER/AA Performed by: Nataliia Silveira AA Authorized by: Jayesh Kim MD ?? Indications and Patient Condition Indications for airway management: anesthesia Sedation level: GA Preoxygenated: yes Ventilation assessment: 1 - Easy Final Airway Details Final airway type: supraglottic airway Successful airway: LMA (i gel) Size 3 Number of attempts at approach: 1 Additional Comments Atraumatic insertion of Igel 3. Dentition intact from preop. VSS us Jayesh Kim MD ANESTHESIA ORDERABLES Final Resu lt documented in this encounter Visit Diagnoses Not on filedocumented in this encounter Administered Medications Inactive Administered Medications - up to 3 most recent administrations Medication Order MAR Action Action Date Dose Rate Site acetaminophen (OFIRMEV) IV solution intravenous, PRN, Starting on Fri03/26/23 at 1149, Until Fri03/26/23 at 1239, Routine, Anesthesia Intraprocedure Given 03/26/2023 11:49 EST 1,000 mg dexAMETHasone (DECADRON) injection intravenous, PRN, Starting on Fri03/26/23 at 1146, Until Fri03/26/23 at 1239, Routine, Anesthesia Intraprocedure Given 03/26/2023 11:46 EST 8 mg dexmedeTOMIDine (PRECEDEX) injection intravenous, PRN, Starting on Fri03/26/23 at 1142, Until Fri03/26/23 at 1239, Routine, Anesthesia Intraprocedure Given 03/26/2023 11:42 EST 20 mcg diphenhydrAMINE (BENADRYL) injection intravenous, PRN, Starting on Fri03/26/23 at 1146, Until Fri03/26/23 at 1239, Routine, Anesthesia Intraprocedure Given 03/26/2023 11:46 EST 12.5 mg ePHEDrine injection 25 mg/5 mL syringe intravenous, PRN, Starting on Fri03/26/23 at 1212, Until Fri03/26/23 at 1239, Routine, Anesthesia Intraprocedure Given 03/26/2023 12:12 EST 5 mg fentaNYL citrate (PF) injection intravenous, PRN, Starting on Fri03/26/23 at 1148, Until Fri03/26/23 at 1239, Routine, Anesthesia Intraprocedure Given 03/26/2023 11:48 EST 25 mcg ketAMINE in NaCl, iso-osmotic (KETALAR) 50 mg/5 mL (10 mg/mL) IV injection intravenous, PRN, Starting on Fri03/26/23 at 1148, Until Fri03/26/23 at 1239, Routine, Anesthesia Intraprocedure Given 03/26/2023 11:48 EST 10 mg ketOROLAC (TORADOL) injection intravenous, PRN, Starting on Fri03/26/23 at 1216, Until Fri03/26/23 at 1239, Routine, Anesthesia Intraprocedure Given 03/26/2023 12:16 EST 15 mg lactated ringers (LR) infusion at 25 mL/hr, intravenous, CONTINUOUS, Starting on Fri03/26/23 at 0915, Until Fri03/26/23 at 1553, Routine, Preprocedure Restarted 03/26/2023 11:38 EST Continued by Anesthesia 03/26/2023 11:37 EST 25 mL/hr New Bag 03/26/2023 9:08 EST 25 mL/hr lidocaine (PF) 20 mg/mL (2 %) injection intravenous, PRN, Starting on Fri03/26/23 at 1142, Until Fri03/26/23 at 1239, Routine, Anesthesia Intraprocedure Given 03/26/2023 11:42 EST 60 mg midazolam (PF) (VERSED) injection intravenous, PRN, Starting on Fri03/26/23 at 1135, Until Fri03/26/23 at 1239, Routine, Anesthesia Intraprocedure Given 03/26/2023 11:35 EST 2 mg ondansetron (PF) (ZOFRAN) injection intravenous, PRN, Starting on Fri03/26/23 at 1149, Until Fri03/26/23 at 1239, Routine, Anesthesia Intraprocedure Given 03/26/2023 11:49 EST 4 mg propOFol (DIPRIVAN) injection intravenous, PRN, Starting on Fri03/26/23 at 1142, Until Fri03/26/23 at 1239, Routine, Anesthesia Intraprocedure Given 03/26/2023 11:42 EST 200 mg documented in this encounter Care Teams R D Engineer Relationship Specialty Start Date End Date Hayley Young NP [address] [place] [address] PCP - General 04/24/21 documented as of this encounter
--- OUTSIDE RECORDS SUMMARY | 2024-03-22 18:02 | XMS_ITS | Encounter Summary ---
[place] [address] Care Team Providers Care Asphalt Heater Tender Name Role Phone Brittany Carrington MD Primary Care Provide r Reason for Visit * Reason Comments Back Pain Encounter Details Date Type Department Care Team (Late st Contact Info) Description 07/31/2010 1:45 PM EDT Office [place] [phone] Brandon Latham MD Lumbar disc herniation (Primary Dx) Discharge Disposition: Home Social History [...] - Inhaled Oxygen Concentration - - Weight 88.5 kg (195 lb) 07/31/2010 1:31 PM EDT Height 177.8 cm (5' 10) 07/31/2010 1:31 PM EDT Body Mass Index 27.98 07/31/2010 1:31 PM EDT documented in this encounter Progress Notes * Brandon Latham MD - 07/31/2010 3:36 PM EDT Ms. Graves is seen today in the spine center in consultation from Dr. Carrington,. The patient's primary care physician is Sienna Pathak. The patient is seen and evaluated for left leg pain radiating in the low back, left buttock, posterior thigh, lateral leg to the lateral foot, where she also has numbness and tingling, as she does in the left heel as well. Symptoms began in May. They have not responded to two epidural steroid injections or physical therapy or medications such as ibuprofen, oxycodone, or Lyrica. She is better sitting, but she is only able to sit leaning to her right. She does have some pain at night. Review of systems is negative for GI, , constitutional symptoms. She notes no weakness. She has numbness on the left lateral foot. She notes that her symptoms have not improved, they plateaued. 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 Height is 5 feet 10 inches, weight is 195 pounds. She has a history of depression and gastric bypass surgery. She does not smoke. Family history includes diabetes, cancer, cardiac problems, arthritis, hypertension, obesity, and asthma. SHE REPORTS NO ALLERGIES. Pertinent findings today demonstrated a pleasant, obviously uncomfortable woman. Her gait is normal. She could toe walk and heel walk without weakness. She does have pain to palpation in the left sciatic notch region. Her lower extremity motor exam is normal. Her sensory function is diminished to light touch in the left heel and lateral foot. Reflexes are 2 at the knees and absent at the ankles. Straight leg raise test is positive on the left. MRI uploaded on [facility] demonstrates large extruded herniated disk L5-S1, left side. IMPRESSION: Symptomatic left S1 radiculitis. RECOMMENDATIONS: Reviewed these findings with the patient and her . We discussed the medical and surgical options. The patient feels that she has failed medical management, and given the persistence of her symptoms and loss of function, she would like to proceed with surgical intervention. As noted, I have reviewed the MRI with the patient and her . I reviewed the technical aspect of surgery on the spine model. [facility] review the decision aid on herniated disk. I also reviewed the goals, recovery, rehabilitation issues, and potential risks and complications associated with her surgery. Our discussion included, but was not limited to issues of bleeding, infection, spinal fluid leak, pain paralysis, weakness, numbness, failure to improve, recurrent symptoms, additional surgery, mortality, blindness, blood clods, and others. She has reviewed and signed and her has witnessed her informed surgical consent. She is instructed to discontinue her antiinflammatory medications. All imaging is on [facility]. documented in this encounter Miscellaneous Notes * Miscellaneous - Todd, Dental Appliance Repairer - 08/20/2010 8:33 PM EDT * Miscellaneous - Todd, Dental Appliance Repairer - 08/09/2010 2:41 PM EDT documented in this encounter Plan of Treatment Not on file documented as of this encounter Procedures Procedure Name Priority Date/Time Associated Diagnosis Comments LAMINOTOMY, DECOMPRESSION, FORAMINOTOMY, LUMBAR Routine 07/31/2010 3:26 PM EDT documented in this encounter Visit Diagnoses Diagnosis Lumbar disc herniation- Primary Displacement of lumbar intervertebral disc without myelopathy documented in this encounter Care Teams Asphalt Heater Tender Relationship Specialty Start Date End Date Brittany Carrington MD [facility] [address] [place] [address] PCP - General 07/10/10 01/05/14 documented as of this encounter
--- OUTSIDE RECORDS SUMMARY | 2024-03-22 18:02 | XMS_ITS | Encounter Summary ---
[place] [address] Care Team Providers Care New Autos Delivery Driver Name Role Phone Brittany Carrington MD Primary Care Provide r Reason for Visit * Reason Comments Left Leg Pain f/u appt. Encounter Details Date Type Department Care Team (Late st Contact Info) Description 09/11/2010 3:40 PM EDT Office Visit [place] [phone] Brandon Latham MD Lumbar disc herniation (Primary [...] Sign Reading Time Taken Comments Blood Pressure 102/80 09/11/2010 3:52 PM EDT Pulse - - Temperature - - Respiratory Rate - - Oxygen Saturation - - Inhaled Oxygen Concentration - - Weight 86.2 kg (190 lb) 09/11/2010 3:52 PM EDT Height 177.8 cm (5' 10) 09/11/2010 3:52 PM EDT Body Mass Index 27.26 09/11/2010 3:52 PM EDT documented in this encounter Progress Notes * Brandon Latham MD - 09/11/2010 4:09 PM EDT Ms. Graves is seen back today in the spine center follow up to her surgery of 08/16/2010, where she underwent a disk excision L5-S1 left side, with findings of multiple extruded fragments. She report significant resolution of her symptoms of numbness and tingling. She has no weakness. She has also had significant, though incomplete improvement in her pain, which is worse in the morning, and resolved during the day. Her pain is mainly in the buttock and proximal thigh, but occasionally in the leg. Today she appears well. She moves comfortably about the office. Her gait is normal. She could toe walk and heel walk without weakness. Her incision is completely benign. His distal motor and sensory exam are normal. Her reflexes are trace at the knees, absent at the ankles. Her straight leg raise test is negative. Ms. Graves is about a month out from surgery. She is doing quite well, and is pleased with her outcome. We discussed the gradual increasing level of activity including kayaking to be put on hold for about another four to six weeks, but she is able to move forward on walking and swimming, and cycling as she wishes. In the absence of any clinical changes, questions, or concerns I will recheck as needed. documented in this encounter Plan of Treatment Not on file documented as of this encounter Visit Diagnoses Diagnosis Lumbar disc herniation- Primary Displacement of lumbar intervertebral disc without myelopathy documented in this encounter Care Teams New Autos Delivery Driver Relationship Specialty Start Date End Date Brittany Carrington MD [facility] [address] [place] [address] PCP - General 07/10/10 01/05/14 documented as of this encounter
--- OUTSIDE RECORDS SUMMARY | 2024-03-22 18:03 | XMS_ITS | Encounter Summary ---
Author Organization [facility] Address [address] [place] [address] Care Team Providers Care Occupational Therapy Manager Name Role Phone Unavailable Primary Care Provider Unavailabl e Encounter Details Date Type Department Care Team (Late st Contact Info) Description 06/01/2008 12:28 EDT Hospital Encounter [facility] [address] [place] [address] Angelina Van, ASSISTANT CHIEF NURSING OFFICER [address] [address] Social History Tobacco Use Types Packs/Day Years [...]
--- OUTSIDE RECORDS SUMMARY | 2024-03-22 18:03 | XMS_ITS | Encounter Summary ---
Author Organization [facility] Address [address] [place] [address] Care Team Providers Care Cds Sales Advisor Name Role Phone Unknown, Provider Primary Care Provider Hayley Garvey EXPERIMENTAL BOX TESTER Primary Care Provider [phone] Encounter Details Date Type Department Care Team (Late st Contact Info) Description 11/27/2020 Lab Requisition [facility] Pathology & Laboratory Medicine - [facility] [address] [place] [address] Hayley Young, EXPERIMENTAL BOX TESTER [address] [place], [place] [id number] Encounter for other general examination; Encounter for screening for malignant neoplasm of cervix Social History Tobacco Use Types Packs/Day Years Used Date Smoking Tobacco: Never Alcohol Use Standard Drinks/Week Comments No 0 (1 standard drink = 0.6 oz pur e alcohol) Interpersonal Safety Answer Date Record ed Physically [...] Priority Date/Time Associated Diagnosis Comments PAP TEST Today 11/23/2020 9:30 EDT Encounter for other general examination Encounter for screening for malignant neoplasm of cervix HPV GENOTYPES 16 AND 18/45 Today 11/23/2020 9:30 EDT Encounter for other general examination Encounter for screening for malignant neoplasm of cervix HPV DNA DETECTION WITH GENOTYPING, PCR Today 11/23/2020 9:30 EDT Encounter for other general examination Encounter for screening for malignant neoplasm of cervix documented in this encounter Results * HPV GENOTYPES 16 AND 18/45 (11/23/2020 9:30 EDT) HPV High Risk type 16, PCR Negative Negative 12/14/2020 15:00 EDT [facility] HPV18/45 RNA (HPV18/45) Negative Negative 12/14/2020 15:00 EDT [facility] Papanicolaou smear specimen (specimen) CERVIX UTERI STRUCTURE / Unknown 11/23/2020 9:30 EDT 12/07/2020 14:18 EDT Hayley Young NP MICROBIOLOGY - GENERAL ORDERA BLES Final Result Performing Organization Address [facility] de Phone Number [facility] [address] [place] [id number] * (ABNORMAL) HUMAN PAPILLOMAVIRUS (HPV) DETECTION-HIGH RISK TYPES (11/23/2020 9:30 EDT) HPV other High Risk types, PCR Positive( A) Negative 12/14/2020 15:00 EDT [facility] Comment:E6 OR E7 mRNA from o ne or more types of HPV types 16,18,31,33,35,39,45,51,52,56,58,59,66, and 68 is detected by visual inspector mediated amplification. High and intermediate risk HPV types are associated with most squamous intraepithelial lesions and cervical cancers. Papanicolaou smear specimen (specimen) CERVIX UTERI STRUCTURE / Unknown 11/23/2020 9:30 EDT 12/07/2020 14:18 EDT Hayley Young NP MICROBIOLOGY - GENERAL ORDERA BLES Final Result Performing Organization Address [facility]/ZIP Co de Phone Number [facility] [address] [place] [address] * PAP TEST (11/23/2020 9:30 EDT) Specimens A. Cervix and/or Endocervix , ThinPrep Imaging System with Manual Evaluation 12/14/2020 15:00 EDT [facility] Specimen Adequacy Satisfactory for Evaluation - transformation zone component present 12/14/2020 15:00 EDT [facility] General Categorization Negative for intraepithelial lesion or malignancy 12/14/2020 15:00 T [facility] Attestation . 12/14/2020 15:00 T [facility] at 1500 Clinical History See below 12/15/19 15:00 T [facility] HPV The result for the Human Papillomavirus (HPV) Detection-High Risk Types is Positive . E6 OR E7 mRNA from one or more types of HPV types 16,18,31,33,35,39 ,45,51,52,56,58,5 9,66, and 68 is detected by visual inspector mediated amplification. High and intermediate risk HPV types are associated with most squamous intraepithelial lesions and cervical cancers. Testing was performed on specimen [id number] and was resulted on 12/09/2020 1413 EDT by [facility], LAB INSTRUMENT RESULTS IN 12/14/2020 15:00 EDT [facility] Genotyping 16 & 18/45 The results for the HPV Genotypes 16 and 18/45 are Negative for the HPV16 RNA and Negative for the HPV18/45 RNA (HPV18/45). Testing was performed on specimen [id number] and was resulted on 12/14/2020 1455 EDT by [facility], LAB INSTRUMENT RESULTS IN 12/14/2020 15:00 EDT [facility] Performing Lab [facility] 12/14/2020 15:00 EDT [facility] Scanned Images 12/14/2020 15:00 EDT [facility] Papanicolaou smear specimen (specimen) CERVIX UTERI STRUCTURE / Unknown 11/23/2020 9:30 EDT 11/27/2020 12:36 EDT Hayley Young NP PATHOLOGY ORDERABLES Final Re sult [facility] [address] [place] [address] documented in this encounter Visit Diagnoses Diagnosis Encounter for other general examination Encounter for screening for malignant neoplasm of cervix Screening for malignant neoplasm of the cervix documented in this encounter Care Teams Cds Sales Advisor Relationship Specialty Start Date End Date Unknown, Provider, PCP - General 07/03/16 04/23/21 Hayley Young, EXPERIMENTAL BOX TESTER [address] [place] [address] PCP - General 04/24/21 documented as of this encounter
--- OUTSIDE RECORDS SUMMARY | 2024-03-22 18:03 | XMS_ITS | Encounter Summary ---
Author Organization [facility] Address [address] [place] [address] Care Team Providers Care Home Health Care Respiratory Therapist Name Role Phone Sienna Pathak Primary Care Provider [phone] Unknown, Provider Primary Care Provider Hayley Garvey INDUSTRIAL MAINTENANCE ELECTRICIAN Primary Care Provider [phone] Encounter Details Date Type Department Care Team (Late st Contact Info) Description 05/09/2009 Documentation Visit [facility] Bariatric Surgery [facility] [address] [place] [address] Angelina Van, CAR EXAMINER 61 [facility] [address] [address] Social History Tobacco Use Types Packs/Day Years Used Date Smoking Tobacco: Never Assessed Comments Unknown Sex and Gender Information Value Date Recorded [...] - Inhaled Oxygen Concentration - - Weight - - Height 174 cm (5' 8.5) 05/09/2009 1400 EDT Body Mass Index - - documented in this encounter Plan of Treatment Not on file documented as of this encounter Visit Diagnoses Not on filedocumented in this encounter Care Teams Home Health Care Respiratory Therapist Relationship Specialty Start Date End Date Sienna Pathak FNP [address] [place] [address] PCP - General 08/08/09 07/02/16 Unknown, Provider, [address] [place] [address] PCP - General 07/03/16 04/23/21 Hayley Young NP [address] [place], [place] [id number] PCP - General 04/24/21 documented as of this encounter
--- OUTSIDE RECORDS SUMMARY | 2024-03-22 18:03 | XMS_ITS | Encounter Summary ---
Author Organization [facility] Address [address] [place] [address] Care Team Providers Care Welder Experimental Name Role Phone Unavailable Primary Care Provider Unavailabl e Encounter Details Date Type Department Care Team (Late st Contact Info) Description 11/26/2007 10:10 EDT Hospital Encounter [facility] [address] [place] [address] Angelina Van, ATHLETIC TRAINER [address] [address] Social History Tobacco Use Types Packs/Day Years [...]
--- OUTSIDE RECORDS SUMMARY | 2024-03-22 18:03 | XMS_ITS | Encounter Summary ---
Author Organization [facility] Address [address] [place] [address] Care Team Providers Care Professor Of Visual Arts Name Role Phone Hayley Young SHAPING MACHINE OPERATOR Primary Care Provider [phone] Reason for Visit * Reason Comments Procedure Colposcopy * Referral (Routine) - Receiving Office to Obtain Authorization Specialty Diagnoses / Procedures [facility] Referred To Contact Obstetrics & Gynecology Diagnoses History of HPV infection Hayley Young, SHAPING MACHINE OPERATOR [address] [place] [address] Phone: tel: fax: [facility] [address] [address] Phone: tel: fax: Referral ID Status Reason Start Date Expiration Date Visits Requested Visits Authorized [id number] Receiving Office to Obtain Authorization 1 1 Encounter Details Date Type Department Care Team (Late st Contact Info) Description 11/21/2022 14:30 EDT Procedure visit [facility] [address] [id number] Gardenia Ordonez NP [address] [facility], Level [address] [place] [id number] Cervical high risk human papillomavirus (HPV) DNA test positive (Primary Dx) Social History Tobacco Use Types [...] Sign Reading Time Taken Comments Blood Pressure 128/84 11/21/2022 1450 EDT Pulse - - Temperature - - Respiratory Rate - - Oxygen Saturation - - Inhaled Oxygen Concentration - - Weight - - Height - - Body Mass Index - - documented in this encounter Progress Notes * Gardenia Ordonez NP - 11/21/2022 1430 EDT Images from the original note were not included. COLPOSCOPY PROCEDURE NOTE Twila Graves is a 57 y.o. female No obstetric history on file. who is referred for colposcopy by Hayley Young NP '11 and 14 NIL neg HR HPV 2019 NIL + HR HPV 2020 NIL + HR HPV/neg genotype 10/2022 NIL + HR HPV/neg genotype History Age: 57 y.o. LMP: No LMP recorded. Indication: Normal, High-risk HPV Positive and HPV 16/18 Negative Previous abnormal screening results : Yes Previous abnormal colpo: No Previous treatment: none Received HPV vaccine?: No Current contraception: postmenopausal History of other MARKET RESEARCH SENIOR PROJECT MANAGER infections: none known Chronic use of immunosuppressive medications: No Current anticoagulation therapy: No Tobacco use: reports that she has never smoked. She has never used smokeless tobacco. Allergic to latex: No Allergic to Iodine or Betadine: No Lab A test is not indicated as the patient is postmenopausal Pre-Procedure The nature and meaning of screening results (pap tests, HPV) or referred diagnosis were discussed. HPV infection discussed. Cervical dysplasia and its significance and natural history discussed. Colposcopy procedure explained. Side effects, risks and complications discussed (including risk of bleeding, infection, non-diagnostic colposcopy result). Written informed consent obtained. Procedure Note There were no vitals taken for this visit. The exam was chaperoned by Jacqueline Whiting MA The vulva, vagina, and perianal area were examined with the following findings: no gross abnormalities . Vaginal inspection: Lugols negative changes mid left and right vaginal lujan Vulvar inspection: no visible lesions Speculum placed in the vagina and visualization of cervix achieved. Vagina and cervix soaked with acetic acid solution. Cervix and vagina painted with Lugol's solution. The following findings were noted: Cervix: fully visualized Squamocolumnar junction: not fully visualized Acetowhite changes: No Lesion(s) present (acetowhite or other): No Lesion description: None Hemostasis:Monsel's solution Procedure performed by: Gardenia Ordonez NP Impression: VAIN Specimens: ECC: Curettage and [place] Right and left Vaginal wall Final Diagnosis A. ENDOCERVIX, CURETTAGE: - High-grade squamous intraepithelial lesion (ALAN 2). ?? B. VAGINA, RIGHT WALL, BIOPSY: - Benign squamous mucosa. ?? C. VAGINA, LEFT WALL, BIOPSY: - Benign squamous mucosa. Attestation There was significant resident/fellow involvement in the diagnostic evaluation of this case. By thesignature below, the attending physician certifies that they have personally conducted a gross and/or microscopic examination of the described specimens and rendered or confirmed the above diagnosis. at 0940 Plan Results will be communicated with the patient by phone Discussed the importance of appropriate follow-up, post-procedural written instructions provided Diagnosis added to problem list, medical history, surgical history as indicated Gardenia Ordonez NP 11/27/22 Telephone call to patient notifying her of recent surgical pathology from colposcopy showed ALAN-2 on her ECC. Vaginal biopsies were negative. It is recommended she have a LEEP/cone procedure. She was told to use her topical estrogen cream twice weekly prior to the procedure and will need to also use after the procedure after the 2 weeks isup of nothing in the vagina. Patient would like to call back to schedule the LEEP and was given the phone number. ACOSTA Walker NP documented in this encounter Plan of Treatment Not on file documented as of this encounter Procedures Procedure Name Priority Date/Time Associated Diagnosis Comments SURGICAL PATHOLOGY Routine 11/21/2022 15 :31 EDT Cervical high risk human papillomavirus (HPV) DNA test positive documented in this encounter Results * SURGICAL PATHOLOGY (11/21/2022 15:31 EDT) Note to Patient The following pathology results have been interpreted by your pathologist and may be available to you before your health provider has had the opportunity to review them. Please allow time for your provider to receive these results and explore management options, if applicable. 11/27/2022 9:40 T [facility] Final Diagnosis A. ENDOCERVIX, CURETTAGE: - High-grade squamous intraepithelial lesion (ALAN 2). B. VAGINA, RIGHT WALL, BIOPSY: - Benign squamous mucosa. C. VAGINA, LEFT WALL, BIOPSY: - Benign squamous mucosa. 11/27/2022 9:40 T [facility] Attestation There was significant resident/fellow involvement in the diagnostic evaluation of this case. By the signature below, the attending physician certifies that they have personally conducted a gross and/or microscopic examination of the described specimens and rendered or confirmed the above diagnosis. 11/27/2022 9:40 [facility] at 0940 Clinical History NIL + HR HPV 2020, 2022; clinical diagnosis code: R87.810 11/27/2022 9:40 [facility] Gross Description A. Received in formalin labelled with proper patient identification (initials S, P) and ECC is an aggregate of blood-tinged mucinous material (0.7 x 0.6 x 0.1 cm). Entirely submitted in A1. B. Received in formalin labelled with proper patient identification (initials S, P) and right vaginal wall is an aggregate of [place]-white wispy tissue fragments (0.5 x 0.4 x 0.1 cm). Entirely submitted in B1. C. Received in formalin labelled with proper patient identification (initials S, P) and left vaginal wall are 3 transparent [place]-white wispy tissues (0.6 x 0.2 by less than 0.1 cm to 0.2 x 0.1 by less than 0.1 cm). Entirely submitted in C1. Please note the smallest tissue may not survive processing. Chelo Bai 11/22/2022 14:16 11/27/2022 9:40 EDT [facility] Resident/Trevor w: Linda Verma MD 11/27/2022 9:40 EDT [facility] Performing Lab [facility] 9:40 EDT [facility] Scanned Images 11/27/2022 9:40 EDT [facility] Tissue VAGINAL STRUCTURE / Unknown Collection, Other / Unknown 11/21/2022 15:31 EDT 11/22/2022 10:59 EDT Tissue specimen (specimen) VAGINAL STRUCTURE / Unknown 11/21/2022 15:31 EDT 11/22/2022 10:59 EDT Tissue specimen (specimen) VAGINAL STRUCTURE / Unknown 11/21/2022 15:31 EDT 11/22/2022 10:59 EDT Gardenia Ordonez NP PATHOLOGY ORDERABLES Final Res ult [facility] [address] [place] [address] documented in this encounter Visit Diagnoses Diagnosis Cervical high risk human papillomavirus (HPV) DNA test positive- Primary documented in this encounter Care Teams Professor Of Visual Arts Relationship Specialty Start Date End Date Hayley Young NP [address] [place] [address] PCP - General 04/24/21 documented as of this encounter
--- OUTSIDE RECORDS SUMMARY | 2024-03-22 18:03 | XMS_ITS | Encounter Summary ---
Author Organization [facility] Address [address] [place] [address] Care Team Providers Care Veneer Layer Name Role Phone Hayley Young NP Primary Care Provider [phone] Reason for Visit * Reason Comments Procedure Encounter Details Date Type Department Care Team (Latest Contact Info) Description 01/08/2023 9:00 EST Procedure visit [facility] - [facility] [address] [place] [address] Judy Sharma MD [address] [facility] Medical [facility] Building, [address] [place] [address] Dysplasia of cervix, high grade [...] Sign Reading Time Taken Comments Blood Pressure 140/90 01/08/2023 0924 EST Pulse - - Temperature - - Respiratory Rate - - Oxygen Saturation - - Inhaled Oxygen Concentration - - Weight - - Height - - Body Mass Index - - documented in this encounter Progress Notes * Judy Sharma MD - 01/08/2023 0900 EST Images from the original note were not included. leep Procedure: pt with ALAN 2 on ECC. Here for leep. Cytology and pathology history: and NIL neg HR HPV 2019 NIL + HR HPV 2020 NIL + HR HPV/neg genotype 10/2022 NIL + HR HPV/neg genotype 11/21/22 colpo ALAN 2 on ECC OB history: Significant medical history: NA Current contraception: NA Menopausal status: PM, used the estrogen per protocol Prior hysterectomy: NA Smoking history: nonsmoker HIV: NA Received Gardisil: no Before sexual activity: NA Procedure: consent obtained. colposcopy of the cervix with acetic acid and lugol's solution. 1.7 ccof 2% lidocaine injected into the 4 quadrants of the cervix. The 15x 8 loop was used. Anterior lip then posterior lip. cx was near flush with the vaginal vault. Pt felt the loop so additional 1.7 cc lidocaine injected 1/2 anteriorly and 1/2 posteriorly. No bleeding so did not cauterize the base. monsels applied. ECC done after the anterior lip and before the posterior lip so may be positive. Findings/biopsies noted below. Cervix: Entire cervix seen? yes Entire SCJ seen? no AW lesions? no Lugol's negative lesions? No A: ALAN 2 on ECC, difficult leep and pt felt the leep. P: will check results and call with f/u recs. If needs repeat procedure, should go to OR. Addendum 01/20: PC to pt. Portions of ectocervix only- neg and ECC with minute fragment was neg. Because I don't feel I was able to get an adequate leep, I am rec a leep in the OR. Also given the option to monitor with q 6 month paps but rec leep. She is agreeable to this. Will submit request for leep, 1 hr, pre op with PCP, post op by phone with results. documented in this encounter Miscellaneous Notes * Addendum Note - Judy Sharma MD - 01/08/2023 0900 ESTAddended by: JUDY SHARMA on: 01/20/2023 09:28 Modules accepted: Orders documented in this encounter Plan of Treatment Not on file documented as of this encounter Procedures Procedure Name Priority Date/Time Associated Diagnosis Comments SURGICAL PATHOLOGY Routine 01/08/2023 10 :54 EST Dysplasia of cervix, high grade ALAN 2 documented in this encounter Results * SURGICAL PATHOLOGY (01/08/2023 10:54 EST) Note to Patient The following pathology results have been interpreted by your pathologist and may be available to you before your health provider has had the opportunity to review them. Please allow time for your provider to receive these results and explore management options, if applicable. 01/14/2023 13:17 [facility] Final Diagnosis A. CERVIX, LOOP ELECTROSURGICAL EXCISIONAL PROCEDURE: - Portion of benign ectocervix. B. ENDOCERVIX, CURETTAGE: - Minute fragment of benign endocervical cells only. 01/14/2023 13:17 [facility] Attestation By the signature below, the attending physician certifies that they have 1) personally conducted a gross and/or microscopic examination of the described specimen(s), and/or personally interpreted the results of laboratory testing of the described specimen(s), and 2) personally rendered or confirmed the above diagnosis. 01/14/2023 13:17 [facility] at 1317 Clinical History ALAN II; clinical diagnosis code: N87.1 01/14/2023 13:17 [facility] Gross Description A. Received in formalin labelled with proper patient identification (initials S, P) and cervix (en* is an aggregate of multiple irregular pink rubbery cauterized tissue fragments (0.7 x 0.2 x 0.3 cm). The tissues are partially covered by smooth pink cervical mucosa. The margins are inked blue, the specimens are sectioned and submitted entirely in A1-A6. B. Received in formalin labelled with proper patient identification (initials S, P) and endocervix is a scant amount of pink translucent mucus (0.3 x 0.2 x 0.1 cm). Submitted entirely in B1. Note, due to its size the specimen may not survive processing. SALBADOR BOWENS(ASCP) 01/08/2023 14:21 01/14/2023 13:17 EST [facility] Performing Lab [facility] 13:17 EST [facility] Scanned Images 01/14/2023 13:17 EST [facility] Tissue ENDOCERVICAL STRUCTURE / Unknown Collection, Other / Unknown 01/08/2023 10:54 EST 01/08/2023 13:28 EST Tissue specimen (specimen) ENDOCERVICAL STRUCTURE / Unknown 01/08/2023 10:54 EST 01/08/2023 13:28 EST us Judy Sharma MD PATHOLOGY ORDERABLES Final Result [facility] [address] [place] [address] documented in this encounter Visit Diagnoses Diagnosis Dysplasia of cervix, high grade ALAN 2- Primary documented in this encounter Orders Case Request Count Last Ordered Date First Orde red Date CASE REQUEST OPERATING ROOM 1 01/20/2023 documented in this encounter Care Teams Veneer Layer Relationship Specialty Start Date End Date Hayley Young NP [address] [place] [address] PCP - General 04/24/21 documented as of this encounter
--- OUTSIDE RECORDS SUMMARY | 2024-03-22 18:03 | XMS_ITS | Encounter Summary ---
Author Organization [facility] Address [address] [place] [address] Care Team Providers Care Naprapath Name Role Phone Unknown, Provider Primary Care Provider Hayley Garvey RADIO STATION AUDIO ENGINEER Primary Care Provider [phone] Encounter Details Date Type Department Care Team (Late st Contact Info) Description 12/21/2019 Lab Requisition [facility] Pathology & Laboratory Medicine - [facility] [address] [place] [address] Hayley Young, RADIO STATION AUDIO ENGINEER [address] [place], [place] [address] Encounter for general adult medical examination without abnormal findings Social History Tobacco Use Types Packs/Day Years [...] Procedure Name Priority Date/Time Associated Diagnosis Comments HPV GENOTYPES 16 AND 18/45 Today 12/06/2019 15:00 EDT Encounter for general adult medical examination without abnormal findings documented in this encounter Results * HPV GENOTYPES 16 AND 18/45 (12/06/2019 15:00 EDT) HPV High Risk type 16, PCR Negative Negative 01/17/2020 15:09 EST [facility] HPV18/45 RNA (HPV18/45) Negative Negative 01/17/2020 15:09 EST [facility] Papanicolaou smear specimen (specimen) CERVIX UTERI STRUCTURE / Unknown 12/06/2019 15:00 EDT 12/21/2019 11:10 EDT Hayley Young NP MICROBIOLOGY - GENERAL ORDERA BLES Final Result [facility] [address] [place] [address] documented in this encounter Visit Diagnoses Diagnosis Encounter for general adult medical examination without abnormal findings Unspecified general medical examination documented in this encounter Care Teams Naprapath Relationship Specialty Start Date End Date Unknown, Provider, PCP - General 07/03/16 04/23/21 Hayley oYung, RADIO STATION AUDIO ENGINEER [address] [place] [address] PCP - General 04/24/21 documented as of this encounter
--- OUTSIDE RECORDS SUMMARY | 2024-03-22 18:03 | XMS_ITS | Encounter Summary ---
Author Organization [facility] Address [address] [place] [address] Care Team Providers Care Director Of Web Marketing Name Role Phone Sienna Pathak Primary Care Provider [phone] Reason for Visit * Reason Comments Back Pain Encounter Details Date Type Department Care Team (Late st Contact Info) Description 08/09/2009 13:00 EDT Office Visit [facility] Spine Program - [address] [place] [address] Kevin Joshi PA-C [address] [place] [address] [place] [address] Low back pain (Primary Dx) Discharge Disposition: Auto Discharge Social History Tobacco Use Types Packs/Day Years Used Date Smoking Tobacco: Never Assessed Comments No Sex and Gender Information Value Date Recorded Sex Assigned at Not on file Legal Sex Female 18:04 EST Gender Identity Female 03/19/2023 15:58 EST Sexual Orientation Not on file documented as of this encounter Discharge Disposition Disposition Code Departure Means Destination Auto Discharge documented in this encounter Progress Notes * Kevin Joshi PA - 08/09/2009 1541 EDT Twila Graves is being seen as a consultation from Dr. Pathak. Chief Complaint Patient presents with ??? Back Pain The encounter diagnosis was Low back pain. HPI Back Pain The history is provided by the patient. This is a chronic problem. Episode Onset: Long history worse since March. Awoke with horrific back pain with Left greate than Right leg pain through the hip anterior thigh lateral calf to the ankle. Improved by 50% with SI injections. The problem occurs constantly. The problem has been gradually improving. The pain is associated with no known injury. The pain is present in the lumbar spine. The pain quality is described as stabbing. Pain Scale: 5/9/1. Exacerbated by: standing, driving and sitting. Worse during: Improved with laying down and Si injections Rt and Left. Associated symptoms include headaches. Pertinent negatives include no chest pain. Patient Active Problem List Diagnoses Code ??? GERD (gastroesophageal reflux disease) 530.81S ??? OA (osteoarthritis) 715.90BA ??? Iron deficiency 275.0C ??? Hyperparathyroidism 252.00A No past medical history on file. No past surgical history on file. History Substance Use Topics ??? Tobacco Use: Not on file ??? Alcohol Use: Not on file No family history on file. Current outpatient prescriptions Medication Sig Dispense Refill ??? MULTIVITAMINS (MULTIVITAMIN ORAL) Take by mouth daily. ??? FERROUS FUMARATE (IRON ORAL) Take 65 mg by mouth daily. ??? Ergocalciferol, Vitamin D2, (VITAMIN D) 400 unit Cap Take 400 Units by mouth daily. ??? CA CARBONATE/VITAMIN D3/VIT K (CALCIUM CHEW ORAL) Take 750 mg by mouth daily. ??? cyanocobalamin 500 mcg tablet Take 500 mcg by mouth daily. ??? TRAZODONE HCL (TRAZODONE ORAL) Take by mouth at bedtime as needed. Take 1/2 No Known Allergies Review of Systems Constitutional: Negative for activity change. HENT: Negative for voice change. Eyes: Negative for visual disturbance. Respiratory: Negative for wheezing. Cardiovascular: Positive for palpitations. Negative for chest pain. Gastrointestinal: Negative for constipation. Genitourinary: Negative for difficulty urinating. Musculoskeletal: Positive for back pain. Skin: Negative for color change. Neurological: Positive for headaches. Psychiatric/Behavioral: The patient is nervous/anxious. Physical Exam Constitutional: She is oriented. She appears well-developed and well-nourished. No distress. Eyes: Extraocular motions are normal. Pupils are equal, round, and reactive to light. Cardiovascular: Normal rate. Pulmonary/Chest: Effort normal. Neurological: She is alert and oriented. Skin: Skin is warm and dry. Psychiatric: Her behavior is normal. Back Exam Comments: Gait is normal heel walking is normal No lesions rashes or hair scottie palp tenderness FROM Strength 5/5 soft touch intact Reflexes 2 DP2 babinski is down there is no clonus supine SLR right: neg Left: neg Hips have FROM Neurologic Exam Mental Status Oriented x 3. Cranial Nerves CN III, IV, Pupils are equal, round, and reactive to light. Extraocular motions are normal. The prior workup of the patient includes: MRI - abnormal Latosha disc degeneration L5-S1 Films today significant loss of height at L5-S1 with bilateral NFN Assessment Discogenic back pain with L5,S1 lumbar radiculopathy. We reviewed multiple options including expectant management, PT, and injection therapy . At this point she wants to remain conservative given herimprovement after her injections. It is my impression that she has a nerve root impingement. The SI injections likely bathed the root giving her relief. If her symptoms return I would suggest a TFESI. Orders Placed This Encounter Procedure ??? L spine 4 or more views Plan: Activity as tolerated without limitation Continue current pain management regime Follow up PRN documented in this encounter Plan of Treatment Not on file documented as of this encounter Procedures Procedure Name Priority Date/Time Associated Diagnosis Comments L SPINE 4 OR MORE VIEWS Routine 08/09/2009 13:36 EDT Low back pain documented in this encounter Results * L SPINE 4 OR MORE VIEWS (08/09/2009 13:36 EDT) Anatomical Region Laterality Modality Other 08/09/2009 13:3 6 EDT 08/09/2009 16:39 EDT Narrative 08/09/2009 16:39 EDT L SPINE 4 OR MORE VIEWS ??Aug 09, 2009 01:36:00 PM Signs and Symptoms/Comments: ??low back pain Findings: 4 views of the lumbar spine are submitted to include lateral flexion and extension images. There is no evidence of dynamic instability. There is preservation of vertebral height and disc spaces throughout. The paraspinal soft tissues are normal. SI joints have a normal appearance. Surgical kiana are noted in the left upper quadrant of the abdomen Procedure Note 08/09/2009 L SPINE 4 OR MORE VIEWS Aug 09, 2009 01:36:00 PM Signs and Symptoms/Comments: low back pain Findings: 4 views of the lumbar spine are submitted to include lateral flexion and extension images. There is no evidence of dynamic instability. There is preservation of vertebral height and disc spaces throughout. The paraspinal soft tissues are normal. SI joints have a normal appearance. Surgical kiana are noted in the left upper quadrant of the abdomen us Kevin Joshi PA-C IMG DIAGNOSTIC IMAGING ORDERA BLES Final Result documented in this encounter Visit Diagnoses Diagnosis Low back pain- Primary Lumbago documented in this encounter Care Teams Director Of Web Marketing Relationship Specialty Start Date End Date Sienna Pathak FNP [address] [place] [address] PCP - General 08/08/09 07/02/16 documented as of this encounter
--- OUTSIDE RECORDS SUMMARY | 2024-03-22 18:03 | XMS_ITS | Encounter Summary ---
Author Organization [facility] Address [address] [place] [address] Care Team Providers Care Collar Stay Fuser Tender Name Role Phone Unknown, Provider Primary Care Provider Hayley Garvey HEALTH AND SAFETY CONSULTANT Primary Care Provider [phone] Encounter Details Date Type Department Care Team (Late st Contact Info) Description 12/08/[address] [facility] Pathology & Laboratory Medicine - [facility] [address] [place] [address] Hayley Young, HEALTH AND SAFETY CONSULTANT [address] [place], [place] [address] Encounter for general adult medical examination without [...] Date/Time Associated Diagnosis Comments PAP TEST Today 12/06/2019 15:00 EDT Encounter for general adult medical examination without abnormal findings HPV DNA DETECTION WITH GENOTYPING, PCR Today 12/06/2019 15:00 EDT Encounter for general adult medical examination without abnormal findings documented in this encounter Results * (ABNORMAL) HUMAN PAPILLOMAVIRUS (HPV) DETECTION-HIGH RISK TYPES (12/06/2019 15:00 EDT) HPV other High Risk types, PCR Positive( A) Negative 12/15/2019 15:28 EDT [facility] Comment:E6 OR E7 mRNA from o ne or more types of HPV types 16,18,31,33,35,39,45,51,52,56,58,59,66, and 68 is detected by director of litigation mediated amplification. High and intermediate risk HPV types are associated with most squamous intraepithelial lesions and cervical cancers. Papanicolaou smear specimen (specimen) CERVIX UTERI STRUCTURE / Unknown 12/06/2019 15:00 EDT 12/14/2019 16:16 EDT us Hayley Young NP MICROBIOLOGY - GENERAL ORDERA BLES Final Result Performing Organization Address City/State/[facility] Co de Phone Number [facility] [address] [place] [phone] * PAP TEST (12/06/2019 15:00 EDT) Specimens A. Cervix and/or Endocervix , ThinPrep Imaging System with Manual Evaluation 12/15/2019 15:28 T [facility] Specimen Adequacy Satisfactory for Evaluation - transformation zone component present 12/15/2019 15:28 [facility] General Categorization Negative for intraepithelial lesion or malignancy 12/15/2019 15:28 [facility] Descriptive Diagnosis Shift in watson present suggestive of bacterial vaginosis. 12/15/2019 15:28 [facility] Attestation . 12/15/2019 15:28 [facility] at 1527 Clinical History See below 12/15/19 20 15:28 [facility] HPV The result for the Human Papillomavirus (HPV) Detection-High Risk Types is Positive . E6 OR E7 mRNA from one or more types of HPV types 16,18,31,33,35,39 ,45,51,52,56,58,5 9,66, and 68 is detected by director of litigation mediated amplification. High and intermediate risk HPV types are associated with most squamous intraepithelial lesions and cervical cancers. Testing was performed on specimen [id number] and was resulted on 12/15/2019 1508 EDT by [facility], LAB INSTRUMENT RESULTS IN 12/15/2019 15:28 EDT [facility] Performing Lab [facility] 12/15/2019 15:28 EDT [facility] Scanned Images 12/15/2019 15:28 EDT [facility] Papanicolaou smear specimen (specimen) CERVIX UTERI STRUCTURE / Unknown 12/06/2019 15:00 EDT 12/08/2019 15:47 EDT us Hayley Young NP PATHOLOGY ORDERABLES Final Re sult [facility] [address] [place] [address] documented in this encounter Visit Diagnoses Diagnosis Encounter for general adult medical examination without abnormal findings Unspecified general medical examination documented in this encounter Care Teams Collar Stay Fuser Tender Relationship Specialty Start Date End Date Unknown, Provider, PCP - General 07/03/16 04/23/21 Hayley Young, HEALTH AND SAFETY CONSULTANT [address] [place] [address] PCP - General 04/24/21 documented as of this encounter
--- OUTSIDE RECORDS SUMMARY | 2024-03-22 18:03 | XMS_ITS | Encounter Summary ---
Author Organization [facility] Address [address] [place] [address] Care Team Providers Care Digital Librarian Name Role Phone Zo Sienna Edd CREW MESS ATTENDANT Primary Care Provider [phone] Encounter Details Date Type Department Care Team (Late st Contact Info) Description 02/14/2014 Results Only [facility] Laboratory Services - [facility] ([facility]) [address] [place], [place] [phone] Oseas Lee, LONGWALL FOREMAN [address] [place], [place] [id number] Social History Tobacco Use Types Packs/Day Years Used Date Smoking Tobacco: Never Alcohol Use Standard Drinks/Week Comments No 0 (1 standard drink = 0.6 oz pur e alcohol) Comments No Sex and Gender Information Value Date Recorded Sex Assigned at Not on file Legal Sex Female 18:04 EST Gender Identity Female 03/19/2023 15:58 EST Sexual Orientation Not on file documented as of this encounter Plan of Treatment Not on file documented as of this encounter Procedures Procedure Name Priority Date/Time Associated Diagnosis Comments PAP TEST- RESULT ONLY Routine 02/14/2014 0:00 EST documented in this encounter Results * PAP TEST- RESULT ONLY (02/14/2014 0:00 EST) Pathology Report: CYTOPATHOLOGY REPORT Reports generated via electronic interface contain original data; however they are lacking the format of the original report. Caution should be taken when reading/interpreti ng unformatted reports. Name: ? TWILA GRAVES Javi ? Accession #: ? [id number] ? : ? 1965 (Age: 48) ??F ?Collect Date: ? 02/14/2014 ? Location: ? [facility] ? Receive Date: ? 02/18/2014 ? Provider: OSEAS LEE LONGWALL FOREMAN Copy to: ? Final Report SPECIMEN ADEQUACY ? Satisfactory for Evaluation - transformation zone component present GENERAL CATEGORIZATION ? Negative for Intraepithelial Lesion or Malignancy INTERPRETATION ? Reactive cellular changes associated with inflammation present (includes repair). Last Menstrual Period: 2008 Treatment History: Miscellaneous treatment: Endo curettage ablation Specimen/Source: ??Pap Test, Cervix/Endocervix, ThinPrep Imaging System with manual evaluation Document reviewed and electronically signed by: ? ARUL BOLANOS MD ? Report ??Date: 02/23/2014 11:00 HPV with Pap Test ? Date Ordered: ? 02/23/2014 ? Status: ?? Signed Out ?Date Complete: ? 02/25/2014 ? By: ??System Interface ? Date Reported: ? 02/25/2014 ? Interpretation RESULT: Negative for HPV. No E6 or E7 mRNA is detected from HPV types 16,18,31,33,35, 39,45,51,52,56,58, 59,66, and 68 by medical device sales mediated amplification. Comments Document reviewed and electronically signed by: ? System Interface ? Report date: 02/25/2014 By the signature above, the attending physician certifies that he/she has personally conducted a gross and/or microscopic examination of the described specimens and rendered or confirmed the above diagnosis. End of Report [facility] 02/14/2014 02/18/2014 us Oseas Lee NP PATHOLOGY ORDERABLES Final Re sult [facility] [address] [place] [address] documented in this encounter Visit Diagnoses Not on filedocumented in this encounter Care Teams Digital Librarian Relationship Specialty Start Date End Date Sienna Pathak FNP [address] [place] [address] PCP - General 08/08/09 07/02/16 documented as of this encounter
--- OUTSIDE RECORDS SUMMARY | 2024-03-22 18:03 | XMS_ITS | Encounter Summary ---
Author Organization [facility] Address [address] [place] [address] Care Team Providers Care Freight Weigher Name Role Phone Hayley Young SUPPLY CHAIN COORDINATOR Primary Care Provider [phone] Reason for Visit * Reason Onset Date Comments Medications Refill 10/30/2022 Encounter Details Date Type Department Care Team (Late st Contact Info) Description 10/30/2022 Telephone [facility] OBGYN Services - [address] [phone] Gardenia Ordonez NP [address] [facility], [address] [place] [address] Medications Refill Social History Tobacco Use Types Packs/Day Years [...] on file documented as of this encounter Ordered Prescriptions Prescription Sig Dispense Quantity Refills Last Filled Start Date End Date estradioL (ESTRACE) 0.01 % (0.1 mg/gram) vaginal cream Insert 1 gram vaginally 3 times weekly for 3 weeks. Stop using 3 days prior to colposcopy. 42.5 g 10/30/2022 4 documented in this encounter Miscellaneous Notes * Telephone Encounter - Koki Lind RN - 10/30/2022 1106 EDT Estrace vaginal cream reordered due to tube being lost by patient. Resent per colposcopy protocol. * Telephone Encounter - Miranda Bro - 10/30/2022 0830 EDT Reason for call as described by patient: Patient requests a refill of her medication-- reports thatit was lost. Rescheduled her colposcopy for 11/21. Medication(s) Requested: estradioL (ESTRACE) 0.01 % (0.1 mg/gram) vaginal cream [[id number]] Preferred Pharmacy: [facility][id number] [facility] [address] [facility] [address] [place] [facility] [address], [facility] [phone] ?? Is patient out of medication? Yes Is it ok to leave a detailed message? Yes Miranda Bro 10/30/2022 8:30 documented in this encounter Plan of Treatment Not on file documented as of this encounter Visit Diagnoses Not on filedocumented in this encounter Discontinued Medications Medication Sig Discontinue Reason Start Date End Da te estradioL (ESTRACE) 0.01 % (0.1 mg/gram) vaginal cream Insert 1 gram vaginally 3 times weekly for 3 weeks. Stop using 3 days prior to colposcopy. Reorder 09/12/2022 10/30/2022 documented as of this encounter Care Teams Freight Weigher Relationship Specialty Start Date End Date Hayley Young NP [address] [place] [address] PCP - General 04/24/21 documented as of this encounter
--- OUTSIDE RECORDS SUMMARY | 2024-03-22 18:03 | XMS_ITS | Encounter Summary ---
Author Organization [facility] Address [address] [place] [address] Care Team Providers Care Vineyardist Name Role Phone Sienna Pathak FERNANDO Primary Care Provider [phone] Encounter Details Date Type Department Care Team (Late st Contact Info) Description 11/21/2010 Results Only [facility] Services - [facility] ([facility] [address] [place], [place] [phone] Mary Chow MD [address] [place] [phone] Social History Tobacco Use Types Packs/Day Years [...] Diagnosis Comments PAP TEST- RESULT ONLY Routine 11/21/2010 0:00 EDT documented in this encounter Results * PAP TEST- RESULT ONLY (11/21/2010 0:00 EDT) Pathology Report: CYTOPATHOLOGY REPORT Reports generated via electronic interface contain original data; however they are lacking the format of the original report. Caution should be taken when reading/interpreti ng unformatted reports. Name: ? TWILA GRAVES ? Accession #: ? [id number] ? : ? 1965 (Age: 45) ??F ?Collect Date: ? 11/21/2010 ? Location: ? [facility] ? Receive Date: ? 11/23/2010 ? Provider: MARY CHOW MD Copy to: ? Final Report SPECIMEN ADEQUACY ? Satisfactory for Evaluation - transformation zone component present GENERAL CATEGORIZATION ? Negative for Intraepithelial Lesion or Malignancy ?? Last Menstural Period: 11/05/2010 Other: Additional clinical information: last pap 10/2010 insufficent due to blood, no hx of abn pap smears Specimen/Source: ??Pap Test, Cervix/Endocervix, ThinPrep Imaging System with manual evaluation Document reviewed and electronically signed by: ? MABEL Wang(ASCP) ? Report ??Date: 11/28/2010 15:20 HPV with Pap Test ? Date Ordered: ? 11/28/2010 ? Status: ?? Signed Out ?Date Complete: ? 12/03/2010 ? By: ??System Interface ? Date Reported: ? 12/03/2010 ? Interpretation RESULT: Negative for HPV types 16, 18, 31, 33, 35, 39, 45, 51, 52, 56, 58, 59, and 68. Comments Document reviewed and electronically signed by: ? System Interface ? Report date: 12/03/2010 By the signature above, the attending physician certifies that he/she has personally conducted a gross and/or microscopic examination of the described specimens and rendered or confirmed the above diagnosis. End of Report [facility] 11/21/2010 11/23/2010 us Mary Chow MD PATHOLOGY O RDERABLES Final Result [facility] [address] [place] [address] documented in this encounter Visit Diagnoses Not on filedocumented in this encounter Care Teams Vineyardist Relationship Specialty Start Date End Date Sienna Pathak FNP [address] [place] [address] PCP - General 08/08/09 07/02/16 documented as of this encounter
--- OUTSIDE RECORDS SUMMARY | 2024-03-22 18:03 | XMS_ITS | Encounter Summary ---
Author Organization [facility] Address [address] [place] [address] Care Team Providers Care Regulatory Specialist Name Role Phone Zo Sienna Edd KING Primary Care Provider [phone] Unknown, Provider Primary Care Provider Unava ilable Encounter Details Date Type Department Care Team (Late st Contact Info) Description 06/20/2016 Historical Results Only [facility] - [facility] Lab - Main [place] [address] [place] [address] Jayesh Knight MD [address] [place] [address] [place] [phone] Social History Tobacco Use Types Packs/Day Years [...] Procedure Name Priority Date/Time Associated Diagnosis Comments CREATININE Routine 06/20/2016 16:56 EDT documented in this encounter Results * CREATININE (06/20/2016 16:56 EDT) CREATININE 1.10 0.5 - 1.3 mg/dL 06/20/2016 18:10 EDT [facility] eGFR 52 06/20/2016 18:10 EDT [facility] Comment: Stage 3: Moderate renal impairment is defined as GFR 30-59 Multiply result by 1.210 for patients. eGFR calculated using the IDMS-traceable MDRD Study Equation. ??(effective 12/27/2013) 06/20/2016 16:5 6 EDT 06/20/2016 16:56 EDT Narrative [facility] - 06/20/2016 18:10 EDT Does PT Have a Latex Allergy? NO us Jayesh Knight MD CHEMISTRY & BLOOD GAS ORDERABLES Final Result [facility] documented in this encounter Visit Diagnoses Not on filedocumented in this encounter Care Teams Regulatory Specialist Relationship Specialty Start Date End Date Sienna Pathak FNP [address] [place], [place] [phone] PCP - General 08/08/09 07/02/16 Unknown, Provider, [address] [place] [address] PCP - General 07/03/16 04/23/21 documented as of this encounter
--- OUTSIDE RECORDS SUMMARY | 2024-03-22 18:03 | XMS_ITS | Encounter Summary ---
Author Organization [facility] Address [address] [place] [address] Care Team Providers Care Dye Range Operator Cloth Name Role Phone Sienna Pathak Primary Care Provider [phone] Encounter Details Date Type Department Care Team (Late st Contact Info) Description 08/21/2010 Abstract [facility] Bariatric Surgery - [place] [address] [place] [address] Angelina Van, PIPING MANAGER [address] [facility] 4 [facility] [address] [place], [place] [address] Social History Tobacco Use Types Packs/Day Years [...] on filedocumented in this encounter Care Teams Dye Range Operator Cloth Relationship Specialty Start Date End Date Sienna Pathak FNP [address] [place], [place] [phone] PCP - General 08/08/09 07/02/16 documented as of this encounter
--- OUTSIDE RECORDS SUMMARY | 2024-03-22 18:03 | XMS_ITS | Encounter Summary ---
Author Organization [facility] Address [address] [place] [address] Care Team Providers Care Pneumatic Tester Name Role Phone Hayley Young SPEECH PATHOLOGY ASSISTANT Primary Care Provider [phone] Reason for Visit * Reason Onset Date Comments Medication Questions 10/16/2022 Encounter Details Date Type Department Care Team (Late st Contact Info) Description 10/16/2022 Telephone [facility] OBGYN Services - [facility] [address], [place] [id number] Gardenia Ordonez NP [address] [facility], [address] [place] [address] Medication Questions Social History Tobacco Use Types Packs/Day Years [...] Telephone Encounter - Koki Lind RN - 10/18/2022 2003 EDT TC to patient to discuss colposcopy expectations and estrogen protocol cream. Questions answered tothe best of my ability and patient verbalized understanding. * Telephone Encounter - Josie Lamb RN - 10/17/2022 0912 EDT TC to patient to discuss colpo and Estrace instructions - No answer and VM full - unable to leave message, * Telephone Encounter - Miranda Bro - 10/16/2022 1619 EDT Reason for Call as described by patient: Discuss estrogen protocol for her 10/24 colpo with Gardenia Guillermosabrina. Reports she has only applied the cream 1 day so far. Rescheduled for 11/14/2022, afternoons work best for her. She would like to discuss additional details for this appointment/medications she could take to help with discomfort. What is the best phone number for us to reach you back at? [phone] Does this number have a voicemail, is it ok to leave a detailed message? Yes Patient is OK with detailed VM with estrogen instructions. Miranda Bro 10/16/2022 16:20 documented in this encounter Plan of Treatment Not on file documented as of this encounter Visit Diagnoses Not on filedocumented in this encounter Care Teams Pneumatic Tester Relationship Specialty Start Date End Date Hayley Young NP [address] [place] [address] PCP - General 04/24/21 documented as of this encounter
--- OUTSIDE RECORDS SUMMARY | 2024-03-22 18:03 | XMS_ITS | Encounter Summary ---
Author Organization [facility] Address [address] [place] [address] Care Team Providers Care Cobol Developer Name Role Phone Unavailable Primary Care Provider Unavailabl e Encounter Details Date Type Department Care Team (Latest Contact Info) Description 02/11/2006 11:54 EST - 02/11/2006 11:59 EST Hospital Encounter [facility] [address] [place] [address] Nirali Farrell MD [address] [place] [address] Angelina Van, TECHNOLOGY STRATEGIST [address] [address] Discharge Disposition: Auto Discharge Social History Tobacco Use Types Packs/Day Years Used Date Smoking Tobacco: Never Assessed Comments Unknown Sex and Gender Information Value Date Recorded Sex Assigned at Not on file Legal Sex Female 18:04 EST Gender Identity Female 03/19/2023 15:58 EST Sexual Orientation Not on file documented as of this encounter Medications at Time of Discharge MULTIVITAMINS (MULTIVITAMIN ORAL) Take by mouth daily. 02/08/2006 documented as of this encounter Discharge Disposition Disposition Code Departure Means Destination Auto Discharge documented in this encounter Plan of Treatment Not on file documented as of this encounter Procedures Procedure Name Priority Date/Time Associated Diagnosis Comments 25 [place] VITAMIN D2 D3 Routine 02/11/2006 1 3:45 EST GLUCOSE, PLASMA Routine 02/11/2006 13:45 EST PTH INTACT Routine 02/11/2006 13:45 EST COMPLETE BLOOD COUNT Routine 02/11/2006 13:45 EST PREALBUMIN Routine 02/11/2006 13:45 EST IRON Routine 02/11/2006 13:45 EST HEMOGLOBIN A1C Routine 02/11/2006 13:45 EST FERRITIN Routine 02/11/2006 13:45 EST VITAMIN B12 Routine 02/11/2006 13:45 EST CALCIUM Routine 02/11/2006 13:45 EST documented in this encounter Results * 25 [place] VITAMIN D2 D3 (02/11/2006 13:45 EST) Pathologist [facility] 25-Hydroxy D2 4.1 Unit: ng/mL [facility] 25-Hydroxy D3 23 Unit: ng/mL [facility] 25-Hydroxy D Total 27Unit: ng/mL(Note) -- EXPECTED VALUES -- ? (Ref Range) 25-HYDROXY D TOTAL (D2+D3) ? Optimum levels in the normal ? population are 25-80 ? Test Performed by: ? [facility] ? [address] [id number] ? X Ray Technician: Woody Bergman III, M.D. ? [facility] 02/11/2006 13:4 5 EST 02/11/2006 13:46 EST us Angelina Van APRN CHEMISTRY & BLOOD GAS ORD ERABLES Final Result [facility] [address] [place] [address] * (ABNORMAL) PTH INTACT (02/11/2006 13:45 EST) PTH 89(H) 10 - 69 pg/ml [facility] Comment:Reference range base d on normal calcium level. 02/11/2006 13:4 5 EST 02/11/2006 13:46 EST Angelina S Carlota TECHNOLOGY STRATEGIST CHEMISTRY & BLOOD GAS ORD ERABLES Final Result Performing Organization Address [facility] de Phone Number [facility] [address] [place] [address] * PREALBUMIN (02/11/2006 13:45 EST) Prealbumin 20 18 - 38 mg/dl [facility] 02/11/2006 13:4 5 EST 02/11/2006 13:46 EST Angelina S Carlota TECHNOLOGY STRATEGIST CHEMISTRY & BLOOD GAS ORD ERABLES Final Result Performing Organization Address [facility] Phone Number [facility] [address] [place] [address] * IRON (02/11/2006 13:45 EST) Iron 108 60 - 180 ug/dl [facility] 02/11/2006 13:4 5 EST 02/11/2006 13:46 EST Angelina S Carlota TECHNOLOGY STRATEGIST CHEMISTRY & BLOOD GAS ORD ERABLES Final Result Performing Organization Address [facility] de Phone Number [facility] [address] [place] [address] * GLUCOSE, PLASMA (02/11/2006 13:45 EST) Glucose, Plasma 97 70 - 100 mg/dl [facility] 02/11/2006 13:4 5 EST 02/11/2006 13:46 EST Angelina S Carlota TECHNOLOGY STRATEGIST CHEMISTRY & BLOOD GAS ORD ERABLES Final Result [facility] [address] [place] [address] * (ABNORMAL) FERRITIN (02/11/2006 13:45 EST) Pathologist [facility] Ferritin 9(L) 10 - 291 ng/mL [facility] 02/11/2006 13:4 5 EST 02/11/2006 13:46 EST Angelina Van APRN CHEMISTRY & BLOOD GAS ORD ERABLES Final Result Performing Organization Address [facility] Co de Phone Number [facility] [address] [place] [address] * HEMAGRAM (02/11/2006 13:45 EST) Pathologist [facility] WBC 4.83 4.0 - 12.4 K/cmm [facility] RBC 4.34 3.86 - 5.04 M/cmm [facility] Hemoglobin 12.9 11.6 - 15.2 gm/dl [facility] HCT 38.2 34.9 - 44.4 % [facility] MCV 88 81 - 98 fl [facility] MCH 29.8 26.7 - 33.3 pg [facility] MCHC 33.9 32.1 - 35.9 gm/dl [facility] PLT 298 141 - 320 K/cmm [facility] RDW-CV 13.0 11.7 - 14.6 % [facility] 02/11/2006 13:4 5 EST 02/11/2006 13:46 EST Angelina Van TECHNOLOGY STRATEGIST HEMATOLOGY & PF4 ORDERABL ES Final Result Performing Organization Address [facility] Co de Phone Number [facility] [address] [place] [address] * CALCIUM (02/11/2006 13:45 EST) Calcium 9.6 8.5 - 10.5 mg/dl [facility] Calculated Calcium 9.6 8.5 - 10.5 mg/dl [facility] 02/11/2006 13:4 5 EST 02/11/2006 13:46 EST us Angelina Van APRN CHEMISTRY & BLOOD GAS ORD ERABLES Final Result Performing Organization Address [facility] de Phone Number [facility] [address] [place] [address] * VITAMIN B12 (02/11/2006 13:45 EST) Vitamin B-12 541 250 - 1100 pg/ml [facility] 02/11/2006 13:4 5 EST 02/11/2006 13:46 EST us Angelina Van APRN CHEMISTRY & BLOOD GAS ORD ERABLES Final Result Performing Organization Address [facility] Phone Number [facility] [address] [place] [address] * HEMOGLOBIN A1C (02/11/2006 13:45 EST) Hemoglobin A1C 5.6 % [facility] Comment: Reference Range: <6% Normal Range <7% Recommended goal by ADA guidelines 7-8% Suboptimal by ADA guidelines >8% Further action suggested by ADA guidelines 02/11/2006 13:4 5 EST 02/11/2006 13:46 EST us Angelina Van APRN CHEMISTRY & BLOOD GAS ORD ERABLES Final Result Performing Organization Address [facility] de Phone Number [facility] [address] [place] [address] documented in this encounter Visit Diagnoses Not on filedocumented in this encounter
--- OUTSIDE RECORDS SUMMARY | 2024-03-22 18:03 | XMS_ITS | Encounter Summary ---
Author Organization 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 CYANOCOBALAMIN/FO LIC ACID (VITAMIN S15-QMFCI ACID ORAL) Take 1 Each by mouth daily. 11/29/2009 DICLOFENAC SODIUM/MISOPROSTO L (ARTHROTEC 75 ORAL) Take by mouth daily. 11/01/2009 MULTIVITAMINS (MULTIVITAMIN ORAL) Take by mouth daily. 02/08/2006 TRAZODONE HCL (TRAZODONE ORAL) Take by mouth at bedtime as needed. Take 1/2 CA CARBONATE/VITAMIN D3/VIT K (CALCIUM CHEW ORAL) Take 750 mg by mouth daily. 03/26/2023 Calcium 100 mg Cap Take by mouth daily. 11/01/2009 03/26/2023 Ergocalciferol, Vitamin D2, (VITAMIN D) 400 unit Cap Take 400 Units by mouth daily. 03/26/2023 FERROUS FUMARATE (IRON ORAL) Take 65 mg by mouth daily. 03/26/2023 meloxicam (MOBIC) 7.5 mg tablet Take 1 Tab by mouth daily. 30 Tab 2 12/27/2009 03/26/2023 OMEGA-3 ACID ETHYL ESTERS (LOVAZA ORAL) Take by mouth daily. 11/01/2009 03/26/2023 documented as of this encounter Discharge Disposition Disposition Code Departure Means Destination Home or Self Care documented in this encounter Plan of Treatment Not on file documented as of this encounter Visit Diagnoses Not on filedocumented in this encounter Care Teams Driver Starting Gate Relationship Specialty Start Date End Date Unknown, Provider, PCP - General 07/03/16 04/23/21 documented as of this encounter
--- OUTSIDE RECORDS SUMMARY | 2024-03-22 18:03 | XMS_ITS | Encounter Summary ---
Author Organization [facility] Address [address] [place] [id number] Care Team Providers Care Millstone Cleaner Name Role Phone Hayley Young ANAESTHETIC TECHNICIAN Primary Care Provider [phone] Reason for Visit * Reason Comments Pre-op Exam Here for pre-op exam for lower eyelids tomorrow with Dr. Still. Denies other complaints. Vaccinated for COVID x 3. Encounter Details Date Type Department Care Team (Latest Contact Info) Description 05/24/2021 13:13 EDT - 05/24/2021 14:42 EDT Hospital Encounter [facility] - [facility] [address] [place] [address] Angela Ceja NP [address] [place] [phone] Pre-op evaluation (Primary Dx) Discharge Disposition: Home or Self Care Social [...] Sign Reading Time Taken Comments Blood Pressure 132/86 05/24/2021 1252 EDT Pulse 72 05/24/2021 1252 EDT Temperature 35.9 ??C (96.7 ??F) 05/24/2021 1252 EDT Respiratory Rate 18 05/24/2021 1252 EDT Oxygen Saturation 97% 05/24/2021 1252 EDT Inhaled Oxygen Concentration - - Weight 90.7 kg (200 lb) 05/24/2021 1252 EDT Height 175.3 cm (5' 9) 05/24/2021 1252 EDT Body Mass Index 29.53 05/24/2021 1252 EDT documented in this encounter Discharge Instructions * Discharge Instructions* Angela Ceja NP - 05/24/2021 14:36 EDT Present for surgery as scheduled. * Attachments The following attachments cannot be sent through Care Everywhere. * Surgery Prep: General Info (Estonian) documented in this encounter Medications at Time of Discharge citalopram (CELEXA) 20 mg tablet Take 1 Tablet by mouth daily. CYANOCOBALAMIN/FO LIC ACID (VITAMIN R13-YQQDH ACID ORAL) Take 1 Each by mouth [...] Code Departure Means Destination Home or Self Long-Term documented in this encounter ED Notes * Angela CejaACOSTA - 05/24/2021 1437 EDT DOS: 05/24/2021 Chief Complaint: Chief Complaint Patient presents with ??? Pre-op Exam Here for pre-op exam for lower eyelids tomorrow with Dr. Still. Denies other complaints. Vaccinated for COVID x 3. Assessment and Plan Patient is a low risk candidate for the planned procedure. She does not require any further risk stratification prior to the planned procedure. Final diagnoses: Pre-op evaluation Procedures No results found for this visit on 05/24/21. Radiology orders: None Consult orders: None Imaging Results None No orders to display The patient is a 56 y.o. female who presents today with Pre-op Exam (Here for pre-op exam for lowereyelids tomorrow with Dr. Still. Denies other complaints. Vaccinated for COVID x 3. ) Otherwise healthy patient, presents for a pre-op physical. She is scheduled for bilateral lower eyelid surgery with on 05/25/21. She has had a gastric bypass, wrist surgery, low back surgery and a uterine ablation in the past without complication. She has no personal or family history of unusual reactions to anesthesia, bleeding or clotting disorders. She does not smoke or drink alcohol. 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 Review of Systems Constitutional: Negative for activity change, appetite change, chills, fatigue and fever. HENT: Negative for congestion, rhinorrhea and sore throat. Eyes: Negative for visual disturbance. Respiratory: Negative for cough and shortness of breath. Cardiovascular: Negative for chest pain, palpitations and leg swelling. Gastrointestinal: Negative for diarrhea, nausea and vomiting. Genitourinary: Negative for dysuria, frequency and hematuria. Musculoskeletal: Negative for myalgias. Skin: Negative for rash. Neurological: Negative for dizziness, syncope, weakness, light-headedness, numbness and headaches. No current facility-administered medications for this encounter. Current Outpatient Medications Medication Sig Dispense Refill ??? CA CARBONATE/VITAMIN D3/VIT K (CALCIUM CHEW ORAL) Take 750 mg by mouth daily. (Patient not taking: Reported on 05/24/2021) ??? Calcium 100 mg Cap Take by mouth daily. (Patient not taking: Reported on 05/24/2021) ??? citalopram (CELEXA) 20 mg tablet Take 20 mg by mouth daily. ??? CYANOCOBALAMIN/FOLIC ACID (VITAMIN I44-VYBBJ ACID ORAL) Take 1 Each by mouth daily. ??? DICLOFENAC SODIUM/MISOPROSTOL (ARTHROTEC 75 ORAL) Take by mouth daily. ??? Ergocalciferol, Vitamin D2, (VITAMIN D) 400 unit Cap Take 400 Units by mouth daily. (Patient not taking: Reported on 05/24/2021) ??? FERROUS FUMARATE (IRON ORAL) Take 65 mg by mouth daily. (Patient not taking: Reported on 05/24/2021) ??? meloxicam (MOBIC) 7.5 mg tablet Take 1 Tab by mouth daily. (Patient not taking: Reported on 05/24/2021) 30 Tab 2 ??? MULTIVITAMINS (MULTIVITAMIN ORAL) Take by mouth daily. ??? OMEGA-3 ACID ETHYL ESTERS (LOVAZA ORAL) Take by mouth daily. (Patient not taking: Reported on 05/24/2021) ??? TRAZODONE HCL (TRAZODONE ORAL) Take by mouth at bedtime as needed. Take 1/2 No Known Allergies Patient Active Problem List Diagnosis Date Noted ??? Cobalamin deficiency 08/21/2010 ??? Secondary hyperparathyroidism ([facility]) ([facility]) 08/21/2010 ??? Vitamin D deficiency 08/21/2010 ??? Gastroesophageal reflux disease 05/26/2009 ??? Osteoarthrosis 05/26/2009 Ankle, LBP ??? Iron deficiency 05/26/2009 ??? Hyperparathyroidism (HCC-CMS) ([facility]) 05/26/2009 Past Medical History: Diagnosis Date ??? Depression ??? GERD (gastroesophageal reflux disease) ??? LBP (low back pain) ??? Osteoarthritis of ankle Social History Tobacco Use ??? Smoking status: Never Smoker ??? Smokeless tobacco: Never Used Substance Use Topics ??? Alcohol use: No ??? Drug use: No Family History Problem Relation Age of Onset ??? Cancer Mother ??? Thyroid Disease Mother ??? Diabetes Father ??? Heart Disease Father BP 132/86 Pulse 72 Temp 96.7 ??F (35.9 ??C) (Temporal) Resp 18 Ht 175.3 cm (69) Wt 90.7 kg (200 lb) SpO2 97% BMI 29.53 kg/m?? Physical Exam Vitals and nursing note reviewed. Constitutional: General: She is not in acute distress. Appearance: Normal appearance. She is normal weight. She is not ill-appearing. HENT: Head: Atraumatic. Nose: Nose normal. No congestion. Mouth/Throat: Mouth: Mucous membranes are moist. Pharynx: Oropharynx is clear. No oropharyngeal exudate or posterior oropharyngeal erythema. Eyes: Extraocular Movements: Extraocular movements intact. Pupils: Pupils are equal, round, and reactive to light. Neck: Vascular: No carotid bruit. Cardiovascular: Rate and Rhythm: Normal rate and regular rhythm. Heart sounds: Normal heart sounds. No murmur heard. No friction rub. No gallop. Pulmonary: Effort: Pulmonary effort is normal. No respiratory distress. Breath sounds: Normal breath sounds. No stridor. No wheezing, rhonchi or rales. Chest: Chest wall: No tenderness. Abdominal: General: There is no distension. Palpations: Abdomen is soft. There is no mass. Tenderness: There is no abdominal tenderness. There is no guarding or rebound. Hernia: No hernia is present. Musculoskeletal: Cervical back: Normal range of motion and neck supple. Skin: General: Skin is warm and dry. Neurological: General: No focal deficit present. Mental Status: She is alert and oriented to person, place, and time. Psychiatric: Mood and Affect: Mood normal. Behavior: Behavior normal. PCP: Hayley Hale was available for consultation during my care of this patient. Urgent Care Course A medical screening exam was performed. DISPOSITION: Discharged The patient's pain was managed to an adequate level weighing risk vs. benefit of further medications. Upon departure from [facility], the patient's pain was 0 on a zero to ten scale. Any further pain treatment will be at the discretion of the provider following up with the patient based on their clinical assessment . Condition at departure from the [facility] : Stable MDM 05/24/2021 18:42 * Marti Sal RN - 05/24/2021 1315 EDT Twila is here for pre-op for lower eye lid surgery tomorrow. Denies s/s of not feeling well. * Bridgette Fields RN - 05/24/2021 1253 EDT Patient denies dyspnea, cough, fever, sore throat, headache, rhinorrhea, chills, rigors, muscle pain, fatigue and new onset loss of smell/taste. No exposure to a person with a known positive covid test. Are you or anyone in your household awaiting the results of a swab for COVID-19 infection? No Are you or anyone in your household currently quarantined? No Vaccinated for covid x 3. documented in this encounter Plan of Treatment Not on file documented as of this encounter Visit Diagnoses Diagnosis Pre-op evaluation- Primary Preoperative examination, unspecified documented in this encounter Care Teams Millstone Cleaner Relationship Specialty Start Date End Date Hayley Young NP [address] [place] [address] PCP - General 04/24/21 documented as of this encounter
--- OUTSIDE RECORDS SUMMARY | 2024-03-22 18:03 | XMS_ITS | Encounter Summary ---
Author Organization [facility] Address [address] [place] [address] Care Team Providers Care It Technician Name Role Phone Unavailable Primary Care Provider Unavailabl e Encounter Details Date Type Department Care Team (Late st Contact Info) Description 05/26/2009 Abstract [facility] Bariatric Surgery - [place] [address] [address] No Pcp, GERD (gastroesophageal reflux disease); OA (osteoarthritis); Iron deficiency; Hyperparathyroidism (CMS-HCC) (HCC-CMS) Social History Tobacco Use Types Packs/Day Years Used Date Smoking Tobacco: Never Assessed Comments Unknown Sex and Gender Information Value Date Recorded Sex Assigned at Not on file Legal Sex Female 18:04 EST Gender Identity Female 03/19/2023 15:58 EST Sexual Orientation Not on file documented as of this encounter Plan of Treatment Not on file documented as of this encounter Visit Diagnoses Diagnosis GERD (gastroesophageal reflux disease) Esophageal reflux OA (osteoarthritis) Osteoarthrosis, unspecified whether generalized or localized, unspecified site Iron deficiency Iron deficiency anemia, unspecified Hyperparathyroidism (HCC-CMS) Hyperparathyroidism, unspecified documented in this encounter
--- OUTSIDE RECORDS SUMMARY | 2024-03-22 18:03 | XMS_ITS | Encounter Summary ---
Author Organization [facility] Address [address] [place] [id number] Care Team Providers Care Cushion Mat Maker Name Role Phone Sienna Pathak FERNANDO Primary Care Provider [phone] Encounter Details Date Type Department Care Team (Late st Contact Info) Description 10/30/2010 Results Only [facility] Laboratory Services - [facility] ([facility]) [address] [place], [place] [id number] Mary Chow MD [address] [place] [phone] Social History Tobacco Use Types Packs/Day [...] Diagnosis Comments PAP TEST- RESULT ONLY Routine 10/30/2010 0:00 EDT SURGICAL PATHOLOGY Routine 10/30/2010 0:00 EDT documented in this encounter Results * PAP TEST- RESULT ONLY (10/30/2010 0:00 EDT) Pathology Report: CYTOPATHOLOGY REPORT ? Reports generated via electronic interface contain original data; ? however they are lacking the format of the original report. ? Caution should be taken when reading/interpreti ng unformatted reports. ? Name: ? TWILA GRAVES ? Accession #: ? [id number] ? : ? 1965 (Age: 45) ??F ?Collect Date: ? 10/30/2010 ? Location: ? [facility] ? Receive Date: ? 11/01/2010 ? Provider: KENDRICK SHAI CNM ? Copy to: ? Final Report ? SPECIMEN ADEQUACY ? Unsatisfactory for Evaluation, ? - insufficient numbers of squamous epithelial cells (less than 10% of expected ?? cellularity) ? - sample preparation compromised by excessive blood ? GENERAL CATEGORIZATION ? Specimen processed and examined, but unsatisfactory for evaluation of ? epithelial abnormality. ? Recommend repeat Pap test or further follow up, as clinically indicated. ? INTERPRETATION ? Despite being an UNSATISFACTORY specimen, endometrial cells are present in a woman equal to or greater than age 40. ? EDUCATIONAL NOTES/RECOMMENDATI ONS ? Benign appearing endometrial cells on Pap tests are usually a normal ? finding in women with regular menstrual cycles, especially if the Pap test was ?? collected during the first half of the menstrual cycle. ? There is data showing that endometrial cells on Pap tests may be associated with endometrial/uterin e abnormalities in post menopausal women or in perimenopausal women with abnormal bleeding. ? There is limited data on the significance of benign endometrial cells in post ?? menopausal women on HRT. ??Clinical correlation is recommended. ? Note: ??The Pap test is not an accurate test for the screening of endometrial ? lesions and should not be used as a follow up in patients with clinical ? suspicion of endometrial pathology. ? Last Menstural Period: 10/02/2010 ? Other: Additional clinical information: no hx of abn pap smears ? Specimen/Source: ??Pap Test, Cervix/Endocervix, ThinPrep Imaging System with ? manual evaluation ? Document reviewed and electronically signed by: ? Pavithra Caba, CT(ASCP) ? Report ??Date: 11/08/2010 08:07 ? HPV with Pap Test ? Date Ordered: ? 11/07/2010 ? Status: ?? Signed Out ?Date Complete: ? 11/12/2010 ? By: ??System Interface ? Date Reported: ? 11/12/2010 ? Interpretation ? RESULT: Negative for HPV types 16, 18, 31, 33, 35, 39, 45, 51, 52, ? 56, 58, 59, and 68. ? This specimen had inadequate cells for cytologic ? interpretation. Negative results of HPV testing should be ? interpreted with caution. If clinically indicated, please ? consider submission of an additional specimen. ? Comments ? Document reviewed and electronically signed by: ? System Interface ? Report date: 11/12/2010 ? By the signature above, the attending physician certifies that he/she has ? personally conducted a gross and/or microscopic examination of the described ? specimens and rendered or confirmed the above diagnosis. ? End of Report ? RENA SUN 10/30/2010 11/01/2010 us Kendrick Mendoza CNM PATHOLOGY ORDERABLES Final Re sult RENA SUN [address] [place] [address] * SURGICAL PATHOLOGY (10/30/2010 0:00 EDT) Pathology Report: SURGICAL PATHOLOGY REPORT ? Reports generated via electronic interface contain original data; ? however they are lacking the format of the original report. ? Caution should be taken when reading/interpreti ng unformatted reports. ? Name: ? TC, TWILA J ? Accession #: ? [id number] ? : ? 1965 (Age: 45) ??F ? Collect Date: ? 10/30/2010 ? Location: ? [facility] ? Receive Date: ? 11/01/2010 ? Provider: MARY CHOW MD ? Copy to: SWETA BAZZI MD ? Final Pathologic Diagnosis: ? Endometrium, biopsy: ? 1. ?Fragments of weakly proliferative endometrium with breakdown. ??See ?? comment. ? 2. ? Fragments of benign endocervical tissue is also identified. ? Comment: ? Central Station Operator sections of this case have been reviewed at ? intradepartmental consultation conference. ??(Dr. Ruiz)/[facility] ? Document reviewed and electronically signed by: ? JERMAINE RUIZ MD ? Report ??Date: 11/02/2010 16:02 ? By the signature above, the attending physician certifies that he/she has ? personally conducted a gross and/or microscopic examination of the described ? specimens and rendered or confirmed the above diagnosis. ? Specimen(s) Received: ? EMB ? Clinical History: ? Endometrial biopsy/menometrorr hagia; clinical diagnosis code: ??626.2 ? Gross Description: ? Received in formalin labelled Twila Graves and EMB is a 2.0 x 1.3 x 0.4 cm aggregate of hemorrhagic tissue. ??The specimen is submitted entirely in one ?? cassette. ??(Dr. Lau)/[facility] ? End of Report ? RENA SUN 10/30/2010 11/01/2010 9:2 4 EDT us Mary Chow MD PATHOLOGY O RDERABLES Final Result RE[facility] SUN [address] [place] [address] documented in this encounter Visit Diagnoses Not on filedocumented in this encounter Care Teams Cushion Mat Maker Relationship Specialty Start Date End Date Sienna Pathak FNP [address] [place] [address] PCP - General 08/08/09 07/02/16 documented as of this encounter
--- OUTSIDE RECORDS SUMMARY | 2024-03-22 18:03 | XMS_ITS | Encounter Summary ---
Author Organization [facility] Address [address] [place] [address] Care Team Providers Care Welder Fitter Name Role Phone Zo Sienna Edd RELEASE OF INFORMATION SPECIALIST Primary Care Provider [phone] Reason for Visit * Reason Comments Back Pain low back pain Encounter Details Date Type Department Care Team (Latest Contact Info) Description 11/29/2009 14:15 EDT Office Visit [facility] Interventional Pain [address] [place] [address] Saji Armstrong, DO [address] [facility] [address] [place] [address] Thoracic or lumbosacral neuritis or radiculitis, unspecified; DDD (degenerative disc disease), lumbosacral; OA (osteoarthritis of the spine) Social History Tobacco Use Types Packs/Day Years [...] Sign Reading Time Taken Comments Blood Pressure 127/84 11/29/2009 1506 EDT Pulse 64 11/29/2009 1506 EDT Temperature 37.3 ??C (99.1 ??F) 11/29/2009 1400 EDT Respiratory Rate 16 11/29/2009 1506 EDT Oxygen Saturation - - Inhaled Oxygen Concentration - - Weight 81.6 kg (180 lb) 11/29/2009 1400 EDT Height 177.8 cm (5' 10) 11/29/2009 1400 EDT Body Mass Index 25.83 11/29/2009 1400 EDT documented in this encounter Patient Instructions * Patient Instructions* Leta Moise - 11/29/2009 15:09 EDT [facility] [address] [address] Patient Instructions You have had your left lumbar Transforaminal Epidural Steroid Injection. The purpose of this procedure has been to place medication which may help relieve your pain. Steroid may be used to decrease the swelling and nerve irritation which may be causing your pain. The following information should help you over the next few days regarding what you may expect. Please take it easy for the rest of today. DO NOT drive a car for the remainder of the day. If you feel sore where the needle(s) entered for the block or develop a flare-up of pain over the next few days, please use ice on the area. You may leave the ice on for up to 20 minutes at a time. Do not use heat, as this may cause swelling. As long as your primary doctor has indicated no restrictions, you may take a mild pain medicine, such as acetaminophen (Tylenol), ibuprofen (Advil, Nuprin, Motrin IB, etc.) or aspirin, if needed. The steroid injection usually takes a few days to become effective. On average, you may notice somerelief in 3 -5 days. However, it may take up to 10 - 14 days to know whether the injection was helpful. If the block causes numbness/weakness, it should wear off within a few hours. If the area that the needle(s) were inserted becomes hot, red, swollen, or increasingly tender, or if you develop a fever (100.5 or greater) or chills along with these symptoms, please call our office immediately. If you develop increasingly severe neck/back pain, continued numbness or weakness of the arms/legs or changes in your bladder or bowel functions, please call our office at once. Instructions for follow-up If you have any questions about your block, please call Leta Moise Patient Education Topic:left transforaminal epidural steroid injectin Method: Handout and Verbal Taught to: Patient Barriers: None Outcomes: independent and verbalized understanding Signature: Leta Moies documented in this encounter Progress Notes * Saji Armstrong MD - 11/29/2009 1611 EDT [facility] OP PAIN CONSULT Patient Name: Twila Graves : 1965 Date of Service: 11/29/2009 Chief Complaint: Chief Complaint Patient presents with ??? Back Pain low back pain History of Present Illness: Mr. Graves presents at the request of Kevin Joshi for evaluation andtreatment of her chronic low back pain and leg pain. This pain is primarily localized to the unilateral low back and radiates to the unilateral leg. This pain has been present for 1 year(s) and is described as hot and burning, sharp and shooting in character. The average pain intensity is 7 / 10 and is aggravated by sitting and physical activities. Medications and Standing alleviates the pain. Associated symptoms include numbness of the foot, planter aspect. The patient???s chronic pain has negatively impacted level of function, resulting in a depressed mood, more difficulty walking and more difficulty performing normal work. Therapeutic measures that have helped include Physical Therapy with less than 50% relief for 0 months, Chiropractic manipulation, accupuncture with less than 50% relief for 0 months and SI joint injections X3 Medications that have been ineffective include Acetominophen and motrin. Diagnostic workup includes an MRI of the lumbar, x- rays of the lumbar spine Allergies: No Known Allergies Current Medications: Current outpatient prescriptions Medication Sig Dispense Refill ??? CYANOCOBALAMIN/FOLIC ACID (VITAMIN [id number] ACID ORAL) Take 1 Each by mouth daily. ??? OMEGA-3 ACID ETHYL ESTERS (LOVAZA ORAL) Take by mouth daily. ??? DICLOFENAC SODIUM/MISOPROSTOL (ARTHROTEC 75 ORAL) Take by mouth daily. ??? citalopram (CELEXA) 20 mg tablet Take 20 mg by mouth daily. ??? Calcium 100 mg Cap Take by mouth daily. ??? MULTIVITAMINS (MULTIVITAMIN ORAL) Take by mouth daily. ??? FERROUS FUMARATE (IRON ORAL) Take 65 mg by mouth daily. ??? Ergocalciferol, Vitamin D2, (VITAMIN D) 400 unit Cap Take 400 Units by mouth daily. ??? CA CARBONATE/VITAMIN D3/VIT K (CALCIUM CHEW ORAL) Take 750 mg by mouth daily. ??? TRAZODONE HCL (TRAZODONE ORAL) Take by mouth at bedtime as needed. Take 1/2 Past Medical HX: Past Medical History Diagnosis Date ??? Depression Past Surgical HX: Past Surgical History Procedure Date ??? Gastric bypass surgery 05/18/2003 ??? Cholecystectomy, open 05/18/2003 ??? Upper gastrointestinal endoscopy 06/15/2003 ??? Upper gastrointestinal endoscopy 11/04/2005 Past Social HX: History Social History ??? Marital Status: Spouse Name: N/A Number of Children: N/A ??? Years of Education: N/A Occupational History ??? Not on file. Social History Main Topics ??? Tobacco Use: Never ??? Alcohol Use: No ??? Drug Use: No ??? Sexually Active: Not on file Other Topics Concern ??? Not on file Social History Narrative ??? No narrative on file Family HX: Family History Problem Relation Age of Onset ??? Cancer Mother ??? Thyroid Disease Mother ??? Diabetes Father ??? Heart Disease Father Review of Systems: GENERAL: positive for sweats EYES: negative for cataracts color blindness double vision eye pain ENT: no complaints CARDIOVASCULAR: normal RESPIRATORY: no complaints and negative GASTROINTESTINAL: negative for abdominal pain constipation diarrhea dysphagia hematemesis PSYCHIATRIC: positive for depression ENDOCRINE: negative for diabetes goiter HEMATOLOGICAL: negative for easy bruising/bleeding bleeding disorder coumadin anti-platelet meds Physical Exam: Vitals: Patient Vitals in the past 24 hrs: BP Temp Temp src Pulse Resp Height Weight 11/29/09 1506 127/84 mmHg - - 64 16 - - 11/29/09 1400 123/79 mmHg 37.3 ??C (99.1 ??F) Tympanic 67 16 177.8 cm (70) 81.647 kg (180 lb) General:WNL and awake, alert, cooperative, no apparent distress HEAD: normocephalic EYES: EOMI Neck: supple and FROM Heart: regular rate and rhythm Lungs: clear to auscultation b/l Extremities: no clubbing, cyanosis, or edema Skin: WNL and clear, warm, dry and intact Neuro: Deep Tendon Reflexes: right Patella 1+ Left 3 Sensory Exam: Rt lower extremity intact and Lt lower extremity intact Gait WNL SLR Pos at 90 deg L, and R neg Assessment: 1. No diagnosis found. 2. Lower Ext Radic 3. Prior SI inj with client renewal specialist relief Plan: Follow up as needed for further evaluation Procedure: Transforaminal epidural steroid injection at the left L5-S1 foramen PROCEDURE: The patient gave informed written consent to proceed with this procedure following a detailed discussion of the risks and benefits associated with transforaminal epidural steroid injection in the lumbar spine. The patient was then placed in the prone position, the skin over the lumbosacral area wasprepped with chlorhexadine, and the site was draped with sterile towels. Strict sterile technique was maintained throughout the procedure. A gamble moment was performed with full staff present to identify the patient, verify the procedure being performed, and review allergies. Flouoroscopy was used to visualize the left L5-S1 neuroforamen. The skin and subcutaneous tissue over this level was anesthetized by infiltration of 2% lidocaine. A 22 guage 3.5 inch spinal needle was inserted under fluoroscopic guidance using coaxial technique. The needle was slowly advanced by pos terolateral approach to the superior aspect of the foramen. Fluoroscopic images in the AP and lateral views were taken to confirm final needle tip position in the distal foramen. No parasthesias occurred during needle insertion and aspiration was negative. Contrast dye was injected under live fluoroscopy and revealed good spread along the Lt S1 nerve root with no evidence of intravascular or intrathecal uptake. After negative aspiration, 80 mg Depo- Medrol and 1 ml 0.25% Bupivacaine was injected. The needle was then flushed and withdrawn. The patient tolerated the procedure well, there were noapparent complications, and she was discharged in stable condition. Written and verbal discharge instructions were reviewed with the patient prior to discharge. * Leta Moise - 11/29/2009 2402 EDT [facility] Rooming Note Does patient have a Sql Server Developer? yes Is patient NPO? (Solids since midnight & liquids for 4 hrs) no Blood Thinners: Is patient on Blood Thinners? no If yes, taking? If stopped, who authorized stopping? Related comments: Infections: Any recent infections, fever of illnesses? no If on antibiotics, is it 7-10 days past the date of completion of antibiotics? no : (for females of child-bearing age) no Is there a chance current ? no Other: [facility] Checklist Attention: This checklist should be reviewed with the patient, provider, nurse/MA and network technician in the room prior to local anesthetic administration. Patient Identifier #1: Full name: yes Patient Identifier #2: Date of : yes Allergy to Iodine, Local Anesthetics, Band-Aids? No Location of Pain: left lumbar Location of Injection: Left l5 s1 Safety devices in place : Grounding Pad: No Leta Moise 11/29/2009 , 14:53 documented in this encounter Miscellaneous Notes * Scanned Note-Null - Inpatient, Physician - 12/07/2009 1510 EDT documented in this encounter Plan of Treatment Not on file documented as of this encounter Visit Diagnoses Diagnosis Thoracic or lumbosacral neuritis or radiculitis, unspecified DDD (degenerative disc disease), lumbosacral Degeneration of lumbar or lumbosacral intervertebral disc OA (osteoarthritis of the spine) Spondylosis of unspecified site without mention of myelopathy documented in this encounter Discontinued Medications Medication Sig Discontinue Reason Start Date End Da te cyanocobalamin 500 mcg tablet Take 500 mcg by mouth daily. Patient Stopped Taking 11/29/2009 documented as of this encounter Historical Medications * This list may reflect changes made after this encounter. CYANOCOBALAMIN/FOL IC ACID (VITAMIN [id number] ACID ORAL) Take 1 Each by mouth daily. 11/29/2009 added in this encounter Care Teams Welder Fitter Relationship Specialty Start Date End Date Sienna Pathak FNP [address] [place] [id number] PCP - General 08/08/09 07/02/16 documented as of this encounter
--- OUTSIDE RECORDS SUMMARY | 2024-03-22 18:03 | XMS_ITS | Encounter Summary ---
Author Organization [facility] Address [address] [place] [address] Care Team Providers Care Market Relationship Manager Name Role Phone Zo, Sienna Edd KING Primary Care Provider [phone] [phone] Unknown, Provider Primary Care Provider Unava ilable Encounter Details Date Type Department Care Team (Late st Contact Info) Description 02/28/2016 Historical Results Only [facility] Lab - Main [place] [address] [place], [place] [address] Miranda Lara PA [address] [place], [place] Social History Tobacco Use Types Packs/Day Years [...] Procedure Name Priority Date/Time Associated Diagnosis Comments HIV 1/2 AB, P24 AG - [facility] Routine 02/28/2016 16:30 EST HEPATITIS C AB W REFLEX TO HCV RNA BY PCR Routine 02/28/2016 16:30 EST HEPATITIS A TOTAL ANTIBODY W REFLEX Routine 02/28/2016 16:30 EST HEPATITIS B CORE ANTIBODY (TOTAL) Routine 02/28/2016 16:30 EST HEPATITIS B SURFACE ANTIBODY Routine 02/28/2016 16:30 EST HEPATITIS B SURFACE ANTIGEN Routine 02/28/2016 16:30 EST documented in this encounter Results * HEPATITIS C AB W REFLEX TO HCV RNA BY PCR (02/28/2016 16:30 EST) HEPATITIS C AB W/REFLEX - [facility] Negative 02/28/2016 20:[address] [facility] Comment:Expected Values: Neg ative. 02/28/2016 16:3 0 EST 02/28/2016 18:34 EST us Miranda L Jane PA CHEMISTRY & BLOOD GAS ORDERAB LES Final Result Performing Organization Address [facility] Co de Phone Number [facility] * HEPATITIS B SURFACE ANTIGEN (02/28/2016 16:30 EST) Hep B Surface Ag Negative 02/28/2016 19:[address] [facility] Comment:Expected Values: Neg ative. 02/28/2016 16:3 0 EST 02/28/2016 18:34 EST us Miranda L Jane PA CHEMISTRY & BLOOD GAS ORDERAB LES Final Result Performing Organization Address [facility] Co de Phone Number [facility] * HEPATITIS B SURFACE ANTIBODY (02/28/2016 16:30 EST) HEPATITIS B ANTIBODY (SURF) - [facility] Positive 02/28/2016 19:[address] [facility] Comment:Expected Values: Neg ative. 02/28/2016 16:3 0 EST 02/28/2016 18:34 EST us Miranda L Jane PA CHEMISTRY & BLOOD GAS ORDERAB LES Final Result Performing Organization Address [facility] Co de Phone Number [facility] * HEPATITIS A TOTAL ANTIBODY W REFLEX (02/28/2016 16:30 EST) Hepatitis A Antibody, IgM Negative 02/28/2016 20:[address] [facility] Comment:Expected Values: Neg ative 02/28/2016 16:3 0 EST 02/28/2016 18:34 EST us Miarnda L Jane PA CHEMISTRY & BLOOD GAS ORDERAB LES Final Result [facility] * HIV 1/2 AB, P24 AG - [facility] (02/28/2016 16:30 EST) Pathologist [facility] HIV 1/2 AB, P24 AG - [facility] Non-Reacti ve Non-React 02/28/2016 20:[address] [facility] Comment: Assayed using Siemens 4th generation Advia Centaur HIV 1/2 Ab, p24 Ag combination assay. 02/28/2016 16:3 0 EST 02/28/2016 18:34 EST us Miranda L Jane PA CHEMISTRY & BLOOD GAS ORDERAB LES Final Result Performing Organization Address [facility] Co de Phone Number [facility] * HEPATITIS B CORE ANTIBODY (TOTAL) (02/28/2016 16:30 EST) Hepatitis B Core Ab, Total Negative () 02/29/2016 15:[address] [facility] Comment: Reference Range: ??Negative Interpretation depends on clinical setting. Test Performed by: [place] [address] Silk Blocker: Glenn Sinha MD , Ph D 02/28/2016 16:3 0 EST 02/28/2016 18:35 EST us Miranda L Jane PA CHEMISTRY & BLOOD GAS ORDERAB LES Final Result Performing Organization Address City/[facility]/ZIP Co de Phone Number [facility] documented in this encounter Visit Diagnoses Not on filedocumented in this encounter Care Teams Market Relationship Manager Relationship Specialty Start Date End Date Sienna Pathak FNP [address] [place], [place] [id number] PCP - General 08/08/09 07/02/16 Unknown, Provider, [address] [place] [address] PCP - General 07/03/16 04/23/21 documented as of this encounter
--- OUTSIDE RECORDS SUMMARY | 2024-03-22 18:03 | XMS_ITS | Encounter Summary ---
Author Organization [facility] Address [address] [place] [address] Care Team Providers Care Resource Program Teacher Name Role Phone Unavailable Primary Care Provider Unavailabl e Reason for Visit * Reason Onset Date Comments Other 05/30/2009 Encounter Details Date Type Department Care Team (Late st Contact Info) Description 05/30/2009 Telephone [facility] Bariatric Surgery - [address] [place] [address] Angelina Van, FIFTH HAND [address] [facility] [address] [id number] Other Social History Tobacco Use Types Packs/Day Years Used Date Smoking Tobacco: Never Assessed Comments Unknown Sex and Gender Information Value Date Recorded Sex Assigned at Not on file Legal Sex Female 18:04 EST Gender Identity Female 03/19/2023 15:58 EST Sexual Orientation Not on file documented as of this encounter Miscellaneous Notes * Telephone Encounter - Salena Oliver - 05/30/2009 1128 EDT Pt. Cancelled her appt via Caregivers system, called to [facility] spoke with patient she will call back to [facility] documented in this encounter Plan of Treatment Not on file documented as of this encounter Visit Diagnoses Not on filedocumented in this encounter
--- OUTSIDE RECORDS SUMMARY | 2024-03-22 18:03 | XMS_ITS | Encounter Summary ---
Author Organization [facility] Address [address] [place] [address] Care Team Providers Care Sheet Metal Pattern Cutter Name Role Phone Unavailable Primary Care Provider Unavailabl e Encounter Details Date Type Department Care Team (Late st Contact Info) Description 09/28/2007 8:40 EDT Hospital Encounter [facility] [place] - [place] [address] [place] [address] Nirali Farrell MD [address] [place] [id number] Social History Tobacco Use Types Packs/Day Years [...]
--- OUTSIDE RECORDS SUMMARY | 2024-03-22 18:03 | XMS_ITS | Encounter Summary ---
Author Organization [facility] Address [address] [place] [address] Care Team Providers Care Workers Compensation Attorney Name Role Phone Hayley Young CHAINSTITCH SEAT JOINER Primary Care Provider [phone] Reason for Visit * Reason Onset Date Comments Medication Management 09/12/2022 Encounter Details Date Type Department Care Team (Late st Contact Info) Description 09/12/2022 Telephone [facility] OBGYN Services - [address] [id number] Gardenia Ordonez NP [address] [facility], [address] [place] [address] Medication Management Social History Tobacco Use Types Packs/Day Years [...] 3 days prior to colposcopy. 42.5 g 09/12/2022 3 documented in this encounter Miscellaneous Notes * Telephone Encounter - Koki Lind RN - 09/12/2022 1327 EDT TC to patient to discuss estrogen protocol prior to colposcopy. Patient verbalized understanding and medication sent. * Telephone Encounter - Hortencia Greene - 09/12/2022 1205 EDT Got patient scheduled for a Colpo on 10/24. Per the review she will need the topical estrogen protocol. She wants it sent to [facility]ilah in [facility] Call her at [phone] with info about this. documented in this encounter Plan of Treatment Not on file documented as of this encounter Visit Diagnoses Not on filedocumented in this encounter Care Teams Workers Compensation Attorney Relationship Specialty Start Date End Date Hayley Young, ACOSTA [address] [place] [address] PCP - General 04/24/21 documented as of this encounter
--- OUTSIDE RECORDS SUMMARY | 2024-03-22 18:03 | XMS_ITS | Encounter Summary ---
Author Organization [facility] Address [address] [place] [address] Care Team Providers Care Shopping Centre Manager Name Role Phone Hayley Young NP Primary Care Provider [phone] Reason for Visit * Reason Onset Date Comments Biopsy Results 11/27/2022 Encounter Details Date Type Department Care Team (Late st Contact Info) Description 11/27/2022 Telephone [facility] OBGYN Services - [facility] [address] [place], [place] [id number] Gardenia Ordonez NP 111 [facility], [address] [place] [address] Biopsy Results Social History Tobacco Use Types Packs/Day Years [...] encounter Miscellaneous Notes * Telephone Encounter - Gardenia Ordonez NP - 11/27/2022 1116 EDT Telephone call to patient notifying her of [...] LEEP and was given the phone number. documented in this encounter Plan of Treatment Not on file documented as of this encounter Visit Diagnoses Not on filedocumented in this encounter Care Teams Shopping Centre Manager Relationship Specialty Start Date End Date Hayley Young NP [address] [place] [address] PCP - General 04/24/21 documented as of this encounter
--- OUTSIDE RECORDS SUMMARY | 2024-03-22 18:03 | XMS_ITS | Encounter Summary ---
Author Organization [facility] Address [address] [place] [address] Care Team Providers Care Invertebrate Paleontologist Name Role Phone Unknown, Provider Primary Care Provider Unava ilable Encounter Details Date Type Department Care Team (Late st Contact Info) Description 11/27/2018 Results Only [facility]- [facility] [phone] Brook Fernández MD [address] [place] [address] Social History Tobacco Use Types Packs/Day Years [...] Date/Time Associated Diagnosis Comments SURGICAL PATHOLOGY Routine 11/27/2018 19 :50 EDT documented in this encounter Results * SURGICAL PATHOLOGY (11/27/2018 19:50 EDT) Pathology Report: SURGICAL PATHOLOGY REPORT Reports generated via electronic interface contain original data; however they are lacking the format of the original report. Caution should be taken when reading/interpret ing unformatted reports. Name: ? TWILA GRAVES ? Accession #: ? [id number] ? : ? 1965 (Age: 53) ??F ? Collect Date: ? 11/27/2018 ? Location: ? [facility] ? Receive Date: ? 11/27/2018 ? Provider: BROOK FERNÁNDEZ MD Copy to: ? Final Pathologic Diagnosis: SKIN OF EYELID, RIGHT UPPER, SHAVE BIOPSY: - Molluscum contagiosum. Document reviewed and electronically signed by: PIERRE CISNEROS MD Report ??Date: 11/30/2018 14:16 By the signature above, the attending physician certifies that he/she has personally conducted a gross and/or microscopic examination of the described specimens and rendered or confirmed the above diagnosis. Specimen(s) Received: Right upper lid Clinical History: Suture at lateral aspect, inflamed infundibular cyst vs right upper lid BCC change; fax results to [phone] Gross Description: ? Received in labelled with proper patient identification (initials S, P) and bx RUL is a shave biopsy of wise-pink hairbearing skin with a central erythematous macule surrounding a hair follicle (0.6 x 0.5 x 0.3 cm). Bisected and submitted in 1. Dr. Short 11/28/2018 8:55 AM End of Report [facility] 11/27/2018 19:5 0 EDT 11/27/2018 19:50 EDT us Brook Fernández MD PATHOLOGY ORDERABLES Final Result [facility] [address] [place] [address] documented in this encounter Visit Diagnoses Not on filedocumented in this encounter Care Teams Invertebrate Paleontologist Relationship Specialty Start Date End Date Unknown, Provider, PCP - General 07/03/16 04/23/21 documented as of this encounter
--- OUTSIDE RECORDS SUMMARY | 2024-03-22 18:03 | XMS_ITS | Encounter Summary ---
Author Organization [facility] Address [address] [place] [address] Care Team Providers Care Humanities And Languages Professor Name Role Phone Hayley Young NP Primary Care Provider [phone] Encounter Details Date Type Department Care Team (Late st Contact Info) Description 07/26/2022 Lab Requisition [facility] Pathology & Laboratory Medicine - [facility] [address] [place] [address] Outr Resulting Lab, Provider Social History Tobacco Use Types Packs/Day Years [...] RNA BY PCR Routine 07/25/2022 12:30 EDT documented in this encounter Results * HEPATITIS C AB W REFLEX TO HCV RNA BY PCR (07/25/2022 12:30 EDT) Hep C Antibody Negative Negative 07/29/2022 10:21 EDT [facility] Blood VENOUS BLOOD / Unknown 07/25/2022 12:30 EDT 07/26/2022 17:21 EDT us Provider Outr Resulting Lab CHEMISTRY & BLOOD GA S ORDERABLES Final Result Performing Organization Address City/State/[facility] Co de Phone Number [facility] [address] [place] [address] documented in this encounter Visit Diagnoses Not on filedocumented in this encounter Care Teams Humanities And Languages Professor Relationship Specialty Start Date End Date Hayley Young, ACOSTA [address] [place] [address] PCP - General 04/24/21 documented as of this encounter
--- OUTSIDE RECORDS SUMMARY | 2024-03-22 18:03 | XMS_ITS | Encounter Summary ---
Author Organization [facility] Address [address] [place] [address] Care Team Providers Care Pack Out Operator Name Role Phone Patito Pathak FERNANDO Primary Care Provider [phone] Encounter Details Date Type Department Care Team ([facility] st Contact Info) Description 12/04/2012 Results Only [facility] Laboratory Services - [facility] ([facility] [address] [place] [address] Clifford Robles, [facility] [address] [place] [address] Social History Tobacco Use Types Packs/Day Years [...] Date/Time Associated Diagnosis Comments SURGICAL PATHOLOGY Routine 12/04/2012 21 :19 EDT documented in this encounter Results * SURGICAL PATHOLOGY (12/04/2012 21:19 EDT) Pathology Report: SURGICAL PATHOLOGY REPORT Reports generated via electronic interface contain original data; however they are lacking the format of the original report. Caution should be taken when reading/interpreti ng unformatted reports. Name: ? TWILA GRAVES ? Accession #: ? [id number] ? : ? 1965 (Age: 47) ??F ? Collect Date: ? 12/04/2012 ? Location: ? [facility] ? Receive Date: ? 12/04/2012 ? Provider: CLIFFORD KELLYM Copy to: PATITO GARCIABRYAN SUSTAINABILITY ANALYST ? Final Pathologic Diagnosis: Soft tissue of right 3rd intermetatarsal space, excision: - ??Evans's neuroma. ?? Document reviewed and electronically signed by: ADARSH TARIQ MD Report ??Date: 12/08/2012 16:11 By the signature above, the attending physician certifies that he/she has personally conducted a gross and/or microscopic examination of the described specimens and rendered or confirmed the above diagnosis. Specimen(s) Received: Neuroma right Clinical History: Right third intermetatarsal space neuroma Gross Description: ? Received in formalin labelled with proper patient identification (initials S, P) and right neuroma are two wise-yellow unoriented soft tissue fragments measuring 2.0 x 0.2 x 0.2 cm and 2.5 x 0.8 x 0.4 cm. The specimen is inked and entirely submitted as 1. Kay Parekh 12/07/2012 08:53 AM End of Report [facility] 12/04/2012 21:1 9 EDT 12/04/2012 21:19 EDT us Clifford Robles DPEmily PATHOLOGY ORDERABLES Fin al Result [facility] [address] [place] [address] documented in this encounter Visit Diagnoses Not on filedocumented in this encounter Care Teams Pack Out Operator Relationship Specialty Start Date End Date Patito Pathak FNP [address] [place] [address] PCP - General 08/08/09 07/02/16 documented as of this encounter
--- OUTSIDE RECORDS SUMMARY | 2024-03-22 18:03 | XMS_ITS | Encounter Summary ---
Author Organization [facility] Address [address] [place] [address] Care Team Providers Care Odd Bundle Worker Name Role Phone Sienna PathakP Primary Care Provider [phone] Reason for Referral * Consult (Routine) - Closed Specialty Diagnoses / Procedures Referred By Contrene t Referred To Contact Pain Medicine Diagnoses Low back pain Lumbar radiculopathy Kevin Joshi PA-C Phone: tel: fax: [facility] Interventional Pain [address] [place] [address] Phone: tel: fax: Referral ID Status Reason Start Date Expiration Date V isits Requested Visits Authorized [id number] Closed Specialty Services Required 11/01/2009 1 1 Question Answer Reason for Request: TFESI L5-S1 on the left Reason for Visit * Reason Comments Follow-up Back Pain Leg Pain left>right Encounter Details Date Type Department Care Team (Late st Contact Info) Description 11/01/2009 11:30 EDT Office Visit [facility] Spine Program - [address] [place] [address] Kevin Joshi PA-C [address] [place] [address] [place] [address] Low back pain; Lumbar radiculopathy Social History Tobacco Use Types Packs/Day Years [...] - - Weight 81.6 kg (180 lb) 11/01/2009 1113 EDT Height 177.8 cm (5' 10) 11/01/2009 1113 EDT Body Mass Index 25.83 11/01/2009 1113 EDT documented in this encounter Progress Notes * Kevin Joshi PA - 11/01/2009 1220 EDT 44 yo with persistent low back pain with left greater than right leg pain radiating through the lateral thigh knee posteriolateral calf to the heel and ball of the foot. Similar symptoms on the left to a much reduced degree. This is affecting her quality of life and she would like to consider alternative treatments to manage her pain. O: lumbar films reveal significant ddd L5-S1 with significant NFN at L5-S1 bilaterally Lumbar MRI [place] 06/03 reveals mild ddd L5-S1 without nerve root impingements 44 yo symptoms of L5/S1 radiculopathy Diagnostic and therapeutic tfesi L5-S1 on the left Follow up 2 weeks post Activity as tolerated If the injection is not helpful we will follow up with ortho for a knee evaluation * Chelo Leong - 11/01/2009 1213 EDT Set pt up with apt at [facility] for Nov.29 at 2:15 and check-in at 2pm. Pt was given information packetand instructions. Also pt is planning to make apt. At check- out two weeks after Nov.29 apt with [facility] for F/U from epidural. documented in this encounter Plan of Treatment Scheduled Referrals Name Type Priority Associated Diagnoses Orde r Schedule AMB CONSULT PAIN CLINIC Outpatient Referral Routine Low back pain Lumbar radiculopathy Ordered: 11/01/2009 documented as of this encounter Visit Diagnoses Diagnosis Low back pain Lumbago Lumbar radiculopathy Thoracic or lumbosacral neuritis or radiculitis, unspecified documented in this encounter Historical Medications * This list may reflect changes made after this encounter. citalopram (CELEXA) 20 mg tablet Take 1 Tablet by mouth daily. DICLOFENAC SODIUM/MISOPROSTO L (ARTHROTEC 75 ORAL) Take by mouth daily. 11/01/2009 Calcium 100 mg Cap Take by mouth daily. 11/01/2009 03/26/2023 OMEGA-3 ACID ETHYL ESTERS (LOVAZA ORAL) Take by mouth daily. 11/01/2009 03/26/2023 added in this encounter Care Teams Odd Bundle Worker Relationship Specialty Start Date End Date Sienna Pathak FNP [address] [place] [address] PCP - General 08/08/09 07/02/16 documented as of this encounter
--- OUTSIDE RECORDS SUMMARY | 2024-03-22 18:03 | XMS_ITS | Encounter Summary ---
Author Organization [facility] Address [address] [place] [address] Care Team Providers Care Research Animal Attendant Name Role Phone Sienna Pathak Primary Care Provider [phone] Reason for Referral * Consult (Routine) - Closed Specialty Diagnoses / Procedures Referred By Francisca brooks Referred To Contact Diagnoses Low back pain Kevin Joshi PA-C Phone: tel: fax: [facility] [address] [place] [address] Referral ID Status Reason Start Date Expiration Date V isits Requested Visits Authorized [id number] Closed Specialty Services Required 01/11/2010 1 1 Question Answer Reason for Request: Back Pain Comments MBB and RFA at L4-5 L5-S1 and sacral ala bilaterally Reason for Visit * Reason Onset Date Comments Follow-up 01/04/2010 request for RFA Encounter Details Date Type Department Care Team (Late st Contact Info) Description 01/04/2010 Telephone [facility] Spine Program - [facility] [address] [place] [address] Kevin Joshi PA-C [address] [facility] [place] [address] Follow-up (request for RFA) Social History Tobacco Use Types Packs/Day Years [...] encounter Miscellaneous Notes * Telephone Encounter - Chelo Leong - 01/12/2010 0911 EST Called and spoke to pt regarding apt at [facility]. Pt is scheduled to see Dr. Vieira on 02/06 at 11:15, check-in at 10:45. Pt was sent an information packet from [facility]. * Telephone Encounter - Chelo Leong - 01/04/2010 1147 EST Pt called today regarding decision to have RFA, because the Mobic is not working for her at all. She would like to have this order placed, because she is in a lot of pain. I explained that Derian Rushingdn't be back into the office until next Friday (01/10). She is willing to wait and would liketo go through with these injections per 's plan below. I have pended an order for these and I should be hearing back from her in regards to the details of where her pain is specifically. Please advise. Plan: Mobic QD Activity as tolerated Phone follow up in 10 days Consider RFA at [facility] documented in this encounter Plan of Treatment Scheduled Referrals Name Type Priority Associated Diagnoses Orde r Schedule AMB CONSULT PAIN CLINIC Outpatient Referral Routine Low back pain 01/04/2010 documented as of this encounter Visit Diagnoses Diagnosis Low back pain- Primary Lumbago documented in this encounter Care Teams Research Animal Attendant Relationship Specialty Start Date End Date Sienna Pathak FNP [address] [place] [address] PCP - General 08/08/09 07/02/16 documented as of this encounter
--- OUTSIDE RECORDS SUMMARY | 2024-03-22 18:03 | XMS_ITS | Encounter Summary ---
Author Organization [facility] Address [address] [place] [address] Care Team Providers Care Ankle Patch Molder Name Role Phone Unavailable Primary Care Provider Unavailabl e Encounter Details Date Type Department Care Team (Late st Contact Info) Description 04/18/2009 Abstract Used for ABSTRACTING Data [phone] Sienna Pathak, DIGITAL MARKETING MANAGER [address] [place], [place] [id number] Social History Tobacco Use Types Packs/Day Years [...] Diagnoses Not on filedocumented in this encounter Historical Medications * This list may reflect changes made after this encounter. TRAZODONE HCL (TRAZODONE ORAL) Take by mouth at bedtime as needed. Take 1/2 MULTIVITAMINS (MULTIVITAMIN ORAL) Take by mouth daily. 02/08/2006 cyanocobalamin 500 mcg tablet Take 500 mcg by mouth daily. 11/29/2009 CA CARBONATE/VITAMIN D3/VIT K (CALCIUM CHEW ORAL) Take 750 mg by mouth daily. 03/26/2023 Ergocalciferol, Vitamin D2, (VITAMIN D) 400 unit Cap Take 400 Units by mouth daily. 03/26/2023 FERROUS FUMARATE (IRON ORAL) Take 65 mg by mouth daily. 03/26/2023 added in this encounter
--- OUTSIDE RECORDS SUMMARY | 2024-03-22 18:03 | XMS_ITS | Encounter Summary ---
Author Organization [facility] Address [address] [place] [address] Care Team Providers Care Apprise Counselor Name Role Phone Hayley Young TENTMAKER Primary Care Provider [phone] Encounter Details Date Type Department Care Team (Late st Contact Info) Description 07/31/2022 Lab Requisition [facility] Pathology & Laboratory Medicine - [facility] [address] [place] [address] Hayley Young, TENTMAKER [address] [place], [place] [address] Encounter for general adult medical examination with abnormal findings; Encounter for screening for malignant neoplasm of [...] Date/Time Associated Diagnosis Comments PAP TEST Today 07/25/2022 11:45 EDT Encounter for general adult medical examination with abnormal findings Encounter for screening for malignant neoplasm of cervix HPV GENOTYPES 16 AND 18/45 Today 07/25/2022 11:45 EDT Encounter for general adult medical examination with abnormal findings Encounter for screening for malignant neoplasm of cervix HPV DNA DETECTION WITH GENOTYPING, PCR Today 07/25/2022 11:45 EDT Encounter for general adult medical examination with abnormal findings Encounter for screening for malignant neoplasm of cervix documented in this encounter Results * HPV GENOTYPES 16 AND 18/45 (07/25/2022 11:45 EDT) HPV High Risk type 16, PCR Negative Negative 08/20/2022 12:22 EDT [facility] HPV18/45 RNA (HPV18/45) Negative Negative 08/20/2022 12:22 EDT [facility] Papanicolaou smear specimen (specimen) CERVIX UTERI STRUCTURE / Unknown 07/25/2022 11:45 EDT 08/16/2022 13:36 EDT Hayley Young NP MICROBIOLOGY - GENERAL ORDERA BLES Final Result [facility] [address] [place] [id number] * (ABNORMAL) HUMAN PAPILLOMAVIRUS (HPV) DETECTION-HIGH RISK TYPES (07/25/2022 11:45 EDT) HPV other High Risk types, PCR Positive( A) Negative 08/20/2022 10:11 EDT [facility] Comment:E6 OR E7 mRNA from o ne or more types of HPV types 16,18,31,33,35,39,45,51,52,56,58,59,66, and 68 is detected by composition instructor mediated amplification. High and intermediate risk HPV types are associated with most squamous intraepithelial lesions and cervical cancers. Papanicolaou smear specimen (specimen) CERVIX UTERI STRUCTURE / Unknown 07/25/2022 11:45 EDT 08/16/2022 13:36 EDT Hayley Young NP MICROBIOLOGY - GENERAL ORDERA BLES Final Result [facility] [address] [place] [address] * PAP TEST (07/25/2022 11:45 EDT) Specimens A. Cervix and/or Endocervix , ThinPrep Imaging System with Manual Evaluation 08/20/2022 12:22 [facility] Specimen Adequacy Satisfactory for Evaluation - transformation zone component present 08/20/2022 12:22 [facility] General Categorization Negative for intraepithelial lesion or malignancy 08/20/2022 12:22 [facility] Descriptive Diagnosis Reactive cellular changes associated with inflammation present (includes repair). Shift in watson present suggestive of bacterial vaginosis. 08/20/2022 12:22 [facility] Attestation By the signature below, the attending physician certifies that they have personally conducted a gross and/or microscopic examination of the described specimens and rendered or confirmed the above diagnosis. 08/20/2022 12:22 [facility] at 1222 Clinical History See below 08/21/19 12:22 [facility] HPV The result for the Human Papillomavirus (HPV) Detection-High Risk Types is Positive . E6 OR E7 mRNA from one or more types of HPV types 16,18,31,33,35,39 ,45,51,52,56,58,5 9,66, and 68 is detected by composition instructor mediated amplification. High and intermediate risk HPV types are associated with most squamous intraepithelial lesions and cervical cancers. Testing was performed on specimen [id number] and was resulted on 08/19/2022 1520 EDT by [facility], LAB INSTRUMENT RESULTS IN 08/20/2022 12:22 [facility] Genotyping 16 & 18/45 The results for the HPV Genotypes 16 and 18/45 are Negative for the HPV16 RNA and Negative for the HPV18/45 RNA (HPV18/45). Testing was performed on specimen [id number] and was resulted on 08/20/2022 1222 EDT by [facility], LAB INSTRUMENT RESULTS IN 08/20/2022 12:22 EDT [facility] Performing Lab [facility] 08/20/2022 12:22 EDT [facility] Scanned Images 08/20/2022 12:22 EDT [facility] Papanicolaou smear specimen (specimen) CERVIX UTERI STRUCTURE / Unknown 07/25/2022 11:45 EDT 07/31/2022 13:47 EDT us Hayley Young NP PATHOLOGY ORDERABLES Final Re sult [facility] [address] [place] [address] documented in this encounter Visit Diagnoses Diagnosis Encounter for general adult medical examination with abnormal findings Unspecified general medical examination Encounter for screening for malignant neoplasm of cervix Screening for malignant neoplasm of the cervix documented in this encounter Care Teams Apprise Counselor Relationship Specialty Start Date End Date Hayley Young, TENTMAKER [address] [place] [address] PCP - General 04/24/21 documented as of this encounter
--- OUTSIDE RECORDS SUMMARY | 2024-03-22 18:03 | XMS_ITS | Encounter Summary ---
Author Organization [facility] Address [address] [place] [address] Care Team Providers Care Building Trades Teacher Name Role Phone Sienna Pathak Primary Care Provider [phone] Encounter Details Date Type Department Care Team (Late st Contact Info) Description 08/14/[address] [facility] Bariatric Surgery - [place] [address] [place] [address] Angelina Van, APPRENTICE/LINEMAN [address] [facility] [address] [address] Social History Tobacco Use Types Packs/Day Years [...] on filedocumented in this encounter Care Teams Building Trades Teacher Relationship Specialty Start Date End Date Sienna Pathak FNP [address] [place], [place] [address] PCP - General 08/08/09 07/02/16 documented as of this encounter
--- OUTSIDE RECORDS SUMMARY | 2024-03-22 18:03 | XMS_ITS | Encounter Summary ---
Author Organization [facility] Address [address] [place] [address] Care Team Providers Care Olive Knocker Name Role Phone Unknown, Provider Primary Care Provider Hayley Garvey DRIVER UTILITY WORKER Primary Care Provider [phone] Encounter Details Date Type Department Care Team (Late st Contact Info) Description 03/26/2021 Lab Requisition [facility] Pathology & Laboratory Medicine - [address] [address] Outr Resulting Lab, Provider Social History Tobacco [...] Procedure Name Priority Date/Time Associated Diagnosis Comments ZZCOVID-19 TEST [facility] PCR Today 03/26/2021 14:00 EST COVID-19 TESTING Routine 03/26/2021 14:0 0 EST documented in this encounter Results * COVID-19 TEST [facility] PCR (03/26/2021 14:00 EST) Swab 03/26/2021 14:0 0 EST 03/27/2021 16:11 EST us Provider Outr Resulting Lab MICROBIOLOGY - GENER AL ORDERABLES Final Result Performing Organization Address [facility] Co de Phone Number [facility] [address] [place] [address] * COVID-19 TESTING (03/26/2021 14:00 EST) COVID-19 rt-PCR Result Negative Negative 03/27/2021 20:05 EST [facility] Comment: This test has not been FDA cleared or approved. This test has been authorized by FDA under an EUA for use by authorized laboratories. This test has been authorized only for detection of nucleic acid from 2019-nCoV, not for any other viruses or pathogens. This test is only authorized for the duration of the declaration that circumstances exist justifying the authorization of emergency use of in vitro diagnostic tests for detection and/or diagnosis of 2019-nCoV under section 564(b)(1) of Act, 21 U.S.C ?? 360bbb-3(b) (1), unless the authorization is terminated or revoked sooner. Negative results do not preclude 2019-nCoV infection and should not be used as the sole basis for treatment or other patient management decisions. Negative results must be combined with clinical observations, patient history, and epidemiological information. Performed on the [employer] Fusion instrument Performing Lab [place] [facility] Lab 03/27/2021 20:05 EST [facility] Swab 03/26/2021 14:0 0 EST 03/27/2021 16:11 EST us Provider Outr Resulting Lab MICROBIOLOGY - GENER AL ORDERABLES Final Result Performing Organization Address City/[facility]/ZIP Co de Phone Number [facility] [address] [place] [address] documented in this encounter Visit Diagnoses Not on filedocumented in this encounter Care Teams Olive Knocker Relationship Specialty Start Date End Date Unknown, Provider, PCP - General 07/03/16 04/23/21 Hayley Young, DRIVER UTILITY WORKER [address] [place] [id number] PCP - General 04/24/21 documented as of this encounter
--- OUTSIDE RECORDS SUMMARY | 2024-03-22 18:03 | XMS_ITS | Encounter Summary ---
Author Organization [facility] Address [address] [place] [address] Care Team Providers Care Glass Production Machine Operator Name Role Phone Hayley Young DENTAL ASSISTING INSTRUCTOR Primary Care Provider [phone] Reason for Visit * Reason Comments Hypertension Pt arrives ambulator y to triage for evaluation of high blood pressure x1 week (166/107 at highest today, does not take any anti-HTN meds), headache, general malaise, and palpitations. Pt reports having a LEEP procedure with steward/stewardess second class last Fri, says symptoms started around the same time. Reports mild chest pressure radiating down left arm, dizziness, intermittently feeling like heart is racing. Denies SOB. Encounter Details Date Type Department Care Team (Late st Contact Info) Description 01/14/2023 8:20 EST - 01/14/2023 12:58 EST Emergency [facility] Emergency Department - [address] [address] Jesus Lin MD [address] [place] [address], [address] [place] [address] Pyelonephritis (Primary Dx) Discharge Disposition: Home or Self [...] Sign Reading Time Taken Comments Blood Pressure 147/80 01/14/2023 1200 EST Pulse 62 01/14/2023 0834 EST Temperature 36.3 ??C (97.3 ??F) 01/14/2023 0813 EST Respiratory Rate 13 01/14/2023 1200 EST Oxygen Saturation 98% 01/14/2023 1200 EST Inhaled Oxygen Concentration - - Weight 96.2 kg (212 lb) 01/14/2023 0813 EST Height 177.8 cm (5' 10) 01/14/2023 0813 EST Body Mass Index 30.42 01/14/2023 0813 EST documented in this encounter Functional Status * Are you deaf or do you have serious difficulty hearing? Answer Date of Assessment Author No 01/14/2023 8:09 EST Sherry Love RN documented as of this encounter Discharge Instructions * Discharge Instructions* Jesus Reece - 01/14/2023 12:34 EST Thank you for coming to the ED at [facility] [[email or web address]] for your medical care. Whenever we see you in the emergency department we are getting a snapshot of your medical condition. Things can change and even small changes might alter how we care for you. If your symptoms change in a way that concerns you or makes you unsure, please return for re-evaluation. We are here 24 hours a day, every day of the year, so donot hesitate to return. You were seen for fatigue and left-sided flank pain. We took a history, did physical exam, did an EKG, lab work, and an ultrasound. It appears that you have a urinary tract infection. Given the left-sided flank pain, this may represent pyelonephritis. It does not appear that you have an obstructingkidney stone. As such we have administered 1 dose of antibiotics in the emergency department, and prescribed a course of antibiotics for you to continue at home. As we discussed, you should follow-upwith your primary care doctor. Please set up an appointment with a primary care doctor to get re-evaluated and rechecked. Please return to the emergency department if you have symptoms that worsen, if you develop fevers, chills, chest pain, shortness of breath, or you have other concerns. documented in this encounter Medications at Time of Discharge buPROPion (WELLBUTRIN XL) 300 mg XL tablet Take 1 Tablet by mouth daily. 11/24/2022 busPIRone (BUSPAR) 5 mg tablet Take 2 Tablets by mouth 2 times daily. 01/04/2023 citalopram (CELEXA) 20 mg tablet Take 1 Tablet by mouth daily. CYANOCOBALAMIN/F OLIC ACID (VITAMIN Y67-MDACV ACID ORAL) Take 1 Each by mouth daily. 11/29/2009 DICLOFENAC SODIUM/MISOPROST OL (ARTHROTEC 75 ORAL) Take by mouth daily. 11/01/2009 gabapentin (NEURONTIN) 600 mg tablet Take 1 Tablet by mouth 3 times daily. 10/21/2022 MULTIVITAMINS (MULTIVITAMIN ORAL) Take by mouth daily. [...] mouth daily. 30 Tab 2 12/27/2009 4 nitrofurantoin, macrocrystal-mon ohydrate, (MACROBID) 100 mg capsule Take 1 Capsule by mouth 2 times daily for 10 days. 20 Capsule 01/14/2023 3 OMEGA-3 ACID ETHYL ESTERS (LOVAZA ORAL) Take by mouth daily. 11/01/2009 4 documented as of this encounter Ordered Prescriptions Prescription Sig Dispense Quantity Refills Last Filled Start Date End Date nitrofurantoin, macrocrystal-monoh ydrate, (MACROBID) 100 mg capsule Take 1 Capsule by mouth 2 times daily for 10 days. 20 Capsule 01/14/2023 3 documented in this encounter Discharge Disposition Disposition Code Departure Means Destination Comment s Home or Self Assisted documented in this encounter ED Notes * Angela Tang RN - 01/14/2023 1257 EST Pt is alert and oriented. Self ambulatory. Comprehension of D/C instructions validated. D/C home, self to drive. * Bhanu Thompson RN - 01/14/2023 1135 EST Blood drawn via saline lock per protocol, green tube(s) sent to lab per order. * Andry Love RN - 01/14/2023 0825 EST 12 Lead EKG Performed by ANDRY LOVE RN and shown to MD Lin. * Jesus Lni MD - 01/14/2023 0807 EST Emergency Department Visit This note was created and authored by Jesus Reece MD working under the supervision of Jesus Lin A, MD. This documentation is recorded by Moriah Perez acting as Scribe under the direction and presence of Jesus Reece MD and Jesus Lin A, MD. Jesus Reece MD and Jesus Lin A, MD: We personally performed the services recorded by the scribe in our presence. We confirm the scribe's documentation has been reviewed by us to accurately and completely record our work, treatment, procedures, and medical decision making. Medical Decision Making I, Jesus Lin MD, performed a history and exam of this patient and discussed the case with the resident. I have reviewed and edited this note, and the documentation is consistent with my findings, assessment and plan. I fully participated in the medical decision making. Agree with note, pyelonephritis and weakness secondary to that. HTN OK for DC. Relevant Data as of 01/14/231731 Tue Jan 14, 2023 0823 EKG independently interpreted notable for sinus rhythm with a rate of 58, without ST elevationor depression, T wave inversion in lead III [DB] 0842 In summary, patient is a 57-year-old female with a history of iron deficiency anemia, and hyperparathyroidism, here today with 1 week of feeling fatigued, with palpitations, intermittent headache and dizziness, and left flank pain. [DB] 0843 Differential diagnosis on arrival includes but is not limited to anemia, UTI/pyelonephritis, ACS, angina, metabolic derangement. [DB] 0901 Patient has been provided housing resources by [employer]. She confirms that she has stable housing available to her in [place]. [DB] 0943 Nitrite(!): Positive [DB] 0943 Leuk Esterase(!): 2+ [DB] 0943 Bacteria, UA(!): Many [DB] 0944 RBC, UA: 0 - 2 [DB] 1002 Bedside ultrasound completed by Dr. Ibrahim without evidence of hydronephrosis or evidence of UVJ stones. [DB] 1223 CT head without evidence of mass, infarct, or hemorrhage. [DB] 1223 Troponin I (ng/mL): <0.034 Serial troponins negative. [DB] 1223 BP(!): 145/81 BP 145/81. Mildly hypertensive. [DB] Relevant Data User Index [DB] Jesus Reece An EKG was obtained and independently interpreted. Medical Decision Making Pyelonephritis: acute illness or injury Amount and/or Complexity of Data Reviewed Labs: ordered. Decision-making details documented in ED Course. Radiology: ordered. Risk OTC drugs. Prescription drug management. Final diagnoses: None Disposition: No disposition on file Chief complaint: Hypertension HPI Twila Graves is a 57 y.o. female with a history of pyelonephritis, hyperparathyroidism, GERD, s/p LEEP, and s/p gastric bypass who presents to the ED for evaluation of an array of symptoms. Patient reports that over the past week, she has had fatigue and a headache as well as intermittent chest dis comfort, fluttering, dizziness, lightheadedness, and shakiness. She denies any head trauma or inciting event for the headache, and has been taking Advil to manage it (last dose yesterday). Regarding her dizziness, she describes feeling as if she needs to grab a wall if she turns her head too fast. She denies any focal weakness or numbness. Patient does report new left flank pain that was present when she woke up this morning. She denies fevers, chills, shortness of breath, abdominal pain, hematuria, or dysuria. Otherwise, she expresses concern because her blood pressure has been elevated frombaseline over the past week. Patient denies taking anticoagulants. She denies a personal history of heart disease, lung disease,or blood clots. She denies a prior diagnosis of irregular heart rhythms. Patient notes that when she previously had pyelonephritis, it presented as a headache and high fevers. History was provided by: Patient Patient's pertinent PMH, FH, SH were reviewed and edited as necessary. Nursing notes reviewed. A medical screening exam was performed. Physical Exam BP (!) 174/93 (BP Patient Position: Sitting) Pulse 63 Temp 36.3 ??C (97.3 ??F) (Temporal) Resp 15 Ht 177.8 cm (70) Wt 96.2 kg (212 lb) SpO2 100% BMI 30.42 kg/m?? Physical Exam Constitutional: Resting comfortably in no acute distress Heart: Regular rate and rhythm. Abdomen: Soft, non-tender, non-distended. Left CVA tenderness to palpation Neuro: CN II-XII evaluated and intact. No difficulty with finger to nose. No pronator drift. Normalstrength and sensation in bilateral upper and lower extremities. No gait ataxia. Procedures Procedures documented in this encounter Plan of Treatment Not on file documented as of this encounter Procedures Procedure Name Priority Date/Time Associated Diagnosis Comments ECG REPORT - SCANNED 01/15/2023 18:17 EST ECG REPORT - SCANNED 01/15/2023 18:15 EST TROPONIN I STAT 01/14/2023 11:[address] HEAD WO CONTRAST STAT 01/14/2023 1 0:09 EST POCT US ED RENAL 01/14/2023 9:47 EST URINE CHEMICAL (DIP) & SEDIMENT (MICRO) WITH REFLEX TO CULTURE Routine 01/14/2023 8:54 EST BACTERIAL CULTURE, URINE Today 01/14/2023 8:54 EST HOLD BLUE TOP STAT 01/14/2023 8:32 EST TROPONIN I STAT 01/14/2023 8:32 EST COMPLETE BLOOD COUNT AND DIFFERENTIAL STAT 01/14/2023 8:32 EST TSH STAT Add-on 01/14/2023 8:32 EST MAGNESIUM STAT 01/14/2023 8:32 EST BASIC METABOLIC PANEL (BMP) STAT 01/14/2023 8:32 EST EKG 12-LEAD STAT 01/14/2023 8:19 EST documented in this encounter Results * ECG REPORT - SCANNED (01/15/2023 18:17 EST) 01/15/2023 18:1 7 EST us Scan 2 Ruby On Rails Software Developer PROCEDURE/MINOR SURGICAL OR DERABLES Final Result * ECG REPORT - SCANNED (01/15/2023 18:15 EST) 01/15/2023 18:1 5 EST us Scan 2 Ruby On Rails Software Developer PROCEDURE/MINOR SURGICAL OR DERABLES Final Result * TROPONIN I (01/14/2023 11:25 EST) Troponin I (ng/mL) <0.034 <0.034 ng/mL 01/14/2023 12:11 EST [facility] Blood VENOUS BLOOD / Unknown Venipuncture / Unknown 01/14/2023 11:25 EST 01/14/2023 11:34 EST Narrative [facility] - 01/14/2023 12:11 EST The results of this assay can be falsely lowered due to the consumption of Biotin. us Jesus Reece MD CHEMISTRY & BLOOD GAS ORDERABLES Final Result [facility] [address] [place] [address] * CT HEAD WO CONTRAST (01/14/2023 10:09 EST) Anatomical Region Laterality Modality Head Computed Tomogra phy 01/14/2023 11:2 3 EST Impressions 01/14/2023 11:23 EST No evident acute intracranial hemorrhage, infarction, or mass I have personally reviewed the images and the above interpretation and agree with the findings. [id number] Narrative 01/14/2023 11:23 EST EXAM: CT HEAD WO CONTRAST HISTORY: headche; Headache, new onset (Age >= 51y); headche; ?? TECHNIQUE: CT head without contrast. Structured report code: NR.CT01 COMPARISON: None. FINDINGS: PARENCHYMA: No evidence of infarction. No parenchymal hemorrhage. No mass or midline shift. Mild diffuse parenchymal volume loss without a particular lobar predilection. EXTRA-AXIAL SPACES: No acute extra-axial hemorrhage. No extra-axial collection. No extra-axial mass. VENTRICULAR SYSTEM: No acute intraventricular hemorrhage. No obstructive hydrocephalus. VESSELS: Limited evaluation without IV contrast. Normal density in the dural venous sinuses. Calcifications are present in the carotid siphons. BONES: No concerning bone lesions. No evidence of fracture. Mild degenerative changes are present in the temporomandibular joints. ORBITS: No significant abnormality. PARANASAL SINUSES/MASTOID AIR CELLS: There is mural thickening in the bilateral maxillary sinuses and ethmoid air cells. Mucous retention cysts are present in the left maxillary sinus alveolar recess. EXTRACRANIAL SOFT TISSUES: Unremarkable. Procedure Note Petey Grullon MD - 01/14/2023 EXAM: CT HEAD WO CONTRAST HISTORY: headche; Headache, new onset (Age >= 51y); headche; TECHNIQUE: CT head without contrast. Structured report code: NR.CT01 COMPARISON: None. FINDINGS: PARENCHYMA: No evidence of infarction. No parenchymal hemorrhage. No mass or midlineshift. Mild diffuse parenchymal volume loss without a particular lobarpredilection. EXTRA-AXIAL SPACES: No acute extra-axial hemorrhage. No extra-axial collection. No extra-axialmass. VENTRICULAR SYSTEM: No acute intraventricular hemorrhage. No obstructive hydrocephalus. VESSELS: Limited evaluation without IV contrast. Normal density in the dural venoussinuses. Calcifications are present in the carotid siphons. BONES: No concerning bone lesions. No evidence of fracture. Mild degenerativechanges are present in the temporomandibular joints. ORBITS: No significant abnormality. PARANASAL SINUSES/MASTOID AIR CELLS: There is mural thickening in the bilateral maxillary sinuses and ethmoidair cells. Mucous retention cysts are present in the left maxillary sinusalveolar recess. EXTRACRANIAL SOFT TISSUES: Unremarkable. IMPRESSION No evident acute intracranial hemorrhage, infarction, or mass I have personally reviewed the images and the above interpretation andagree with the findings. [id number] us Jesus Lin MD IM CT ORDERABLES Final Res ult * POCT US ED RENAL (01/14/2023 9:47 EST) Anatomical Region Laterality Modality Other 01/14/2023 9:47 EST Narrative 01/14/2023 11:50 EST Study Date and Time: 2023-01-14 09:47 Study Author: Baljit Simmons ED Renal/Urinary Tract: Indication(s) for exam: ?Select all that apply: Flank pain ?Other Indications: N/A Views: ?Right Kidney Long Arthur: Adequate ?Right Kidney Short Arthur: Adequate ?Left Kidney Long Arthur: Adequate ?Left Kidney Short Arthur: Adequate ?Bladder Transverse: Adequate ?Bladder Sagittal: N/A ?Other: N/A Findings: ?RT Kidney Hydronephrosis: Absent ?RT Hydroureter: Absent ?RT Kidney Stones: Absent ?RT Renal cyst(s): N/A ?If RT Renal cyst(s) present, size (cm) and location: N/A ?Other renal or collecting system findings: N/A ?LT Kidney Hydronephrosis: Absent ?LT Hydroureter: Absent ?LT Kidney Stones: Absent ?LT Renal cyst(s): N/A ?If LT Renal cyst(s) present, size (cm) and location: N/A ?Other renal or collecting system findings: N/A ?R UVJ findings: Normal ?Size of stone if visualized (mm): N/A ?L UVJ Findings: Normal ?Size of stone if visualized (mm): N/A ?Bladder Volume Postvoid: N/A ?Other renal findings: N/A Interpretation: ?Select all that apply: No sonographic evidence of renal tract obstruction ?Other: N/A Confirmatory Study: ?What confirmatory study was performed during ED patient evaluation?: No additional imaging ordered ?Confirmatory study findings/comments:: N/A Signed by Baljit Simmons on 2023-01-14 10:17 Physician Attestation: ?I reviewed and independently interpreted these images. ??I was present for the hawkins and critical portions of the ultrasound imaging and agree with or have edited the findings as documented. Final Signature by Kraig CARNES on 2023-01-14 11:50 Procedure Note Kraig Ibrahim MD - 01/14/2023 Study Date and Time: 2023-01-14 09:47 Study Author: Baljit Simmons ED Renal/Urinary Tract: Indication(s) for exam: Select all that apply: Flank pain Other Indications: N/A Views: Right Kidney Long Arthur: Adequate Right Kidney Short Arthur: Adequate Left Kidney Long Arthur: Adequate Left Kidney Short Arthur: Adequate Bladder Transverse: Adequate Bladder Sagittal: N/A Other: N/A Findings: RT Kidney Hydronephrosis: Absent RT Hydroureter: Absent RT Kidney Stones: Absent RT Renal cyst(s): N/A If RT Renal cyst(s) present, size (cm) and location: N/A Other renal or collecting system findings: N/A LT Kidney Hydronephrosis: Absent LT Hydroureter: Absent LT Kidney Stones: Absent LT Renal cyst(s): N/A If LT Renal cyst(s) present, size (cm) and location: N/A Other renal or collecting system findings: N/A R UVJ findings: Normal Size of stone if visualized (mm): N/A L UVJ Findings: Normal Size of stone if visualized (mm): N/A Bladder Volume Postvoid: N/A Other renal findings: N/A Interpretation: Select all that apply: No sonographic evidence of renal tractobstruction Other: N/A Confirmatory Study: What confirmatory study was performed during ED patient evaluation?:No additional imaging ordered Confirmatory study findings/comments:: N/A Signed by Baljit Simmons on 2023-01-14 10:17 Physician Attestation: I reviewed and independently interpreted these images. I was presentfor the hawkins and critical portions of the ultrasound imaging and agree withor have edited the findings as documented. Final Signature by Kraig CARNES on 2023-01-14 11:50 us Baljit Simmons MD MPH IMG POCT US ORDERABLES Sofia l Result * (ABNORMAL) BACTERIAL CULTURE, URINE (01/14/2023 8:54 EST) Organism ID Greater than 100,000 CFU/ml Escherichia coli(A) VITEK SUSCEPTIBILITY 01/17/2023 9:59 EST [facility] Comment: Use of cefazolin is only indicated in cases of uncomplicated UTIs. Cefazolin susceptibility results can be used to predict susceptibility results for the following oral cephalosporins when used for therapy of uncomplicated UTIs due to E.coli, K.pneumoniae, and P.mirabilis: cefaclor, cefdinir, cefpodoxime, cefprozil, cefuroxime, cephalexin, loracarbef. Cefdinir, cefpodoxime, and cefuroxime may be tested individually because some isolates may be susceptibile to these agents while testing resistance to cefazolin. Please note that only cefpodoxime and cephalexin are on the [facility] inpatient formulary. ? Urine URINE SPECIMEN OBTAINED BY CLEAN CATCH PROCEDURE / Unknown Urine Collect / Unknown 01/14/2023 8:54 EST 01/14/2023 9:23 EST Narrative Organism Antibiotic Method Susceptibility Escherichia coli Ampicillin VITEK SUSCEPTIBILITY >=32 ug/mL: Resistant Escherichia coli Cefazolin VITEK SUSCEPTIBILITY <=4 ug/mL: Susceptible Escherichia coli Cefepime VITEK SUSCEPTIBILITY <=1 ug/mL: Susceptible Escherichia coli Ceftriaxone VITEK SUSCEPTIBILITY <=1 ug/mL: Susceptible Escherichia coli Ciprofloxacin VITEK SUSCEPTIBILITY <=0.25 ug/mL: Susceptible Escherichia coli Ertapenem VITEK SUSCEPTIBILITY <=0.5 ug/mL: Susceptible Escherichia coli Meropenem VITEK SUSCEPTIBILITY <=0.25 ug/mL: Susceptible Escherichia coli Nitrofurantoin VITEK SUSCEPTIBILITY <=16 ug/mL: Susceptible Escherichia coli Piperacillin Tazobactam VITEK SUSCEPT IBILITY <=4 ug/mL: Susceptible Escherichia coli Trimethoprim-Sulfame thox azole VITEK SUSCEPTIBILITY <=20 ug/mL: Susceptible us Jesus Reece MD MICROBIOLOGY - GENERAL ORDERABLE S Final Result [facility] [address] [place] [address] * (ABNORMAL) UA CHEMICAL & SEDIMENT + REFLEX TO CULTURE (01/14/2023 8:54 EST) Color UA Yellow Colorless, Yellow 01/14/2023 9:23 EST [facility] Clarity UA Cloudy(A) Clear 01/14/2023 9:23 EST [facility] Glucose UA Negative Negative mg/dL 01/14/2023 9:23 EST [facility] Bilirubin UA Negative Negative 01/14/2023 9:23 EST [facility] Ketones UA Negative Negative 01/14/2023 9:23 EST [facility] Specific [place], Urine 1.024 1.001 - 1.030 01/14/2023 9:23 [facility] Blood UA Negative Negative 01/14/2023 9:23 [facility] Urobilinogen UA 1.0 0.2-1.0 mg/dL mg/dL 01/14/2023 9:23 [facility] Nitrite UA Positive(A) Negative 01/14/2023 9:23 [facility] Leukocyte Esterase UA 2+(A) Negative 01/14/2023 9:23 [facility] Protein UA Trace(A) Negative mg/dL 01/14/2023 9:23 [facility] pH, UA 6.0 <8.5 01/14/2023 9:23 [facility] Urine RBC Count, Auto 0 - 2 0 - 2 Cells/HPF 01/14/2023 9:23 [facility] Urine WBC Count, Auto 10 - 50(A) 0 - 3 Cells/HPF 01/14/2023 9:23 [facility] Urine Squamous Count, Auto None Seen None Seen Cells/HPF 01/14/2023 9:23 [facility] Urine Hyaline Cast Count, Auto <=10 <=10 Casts/LPF 01/14/2023 9:23 [facility] Urine Bacteria Count, Auto Many(A) None Seen Bacteria/HP F 01/14/2023 9:23 [facility] Urine URINE SPECIMEN OBTAINED BY CLEAN CATCH PROCEDURE / Unknown Urine Collect / Unknown 01/14/2023 8:54 EST 01/14/2023 8:57 EST Narrative [facility] - 01/14/2023 9:23 EST A Urine Culture test has been reflexively ordered based on result criteria from the Urine Sediment Analysis. Urine Sediment Analysis results are unreliable on urines that are unrefrigerated for >2 hrs or refrigerated >8 hrs. us Jesus Reece MD URINALYSIS ORDERABLES Final Resu lt [facility] [address] [place] [address] * TSH (01/14/2023 8:32 EST) TSH 1.99 0.47 - 4.68 mIU/L 01/14/2023 9:29 EST [facility] Blood VENOUS BLOOD / Unknown Venipuncture / Unknown 01/14/2023 8:32 EST 01/14/2023 8:37 EST Narrative [facility] - 01/14/2023 9:29 EST The results of this assay can be falsely lowered due to the consumption of Biotin. us Jesus Reece MD CHEMISTRY & BLOOD GAS ORDERABLES Final Result [facility] [address] [place] [address] * HOLD BLUE TOP (01/14/2023 8:32 EST) Hold Hold 01/14/2023 9:46 EST [facility] Blood VENOUS BLOOD / Unknown Venipuncture / Unknown 01/14/2023 8:32 EST 01/14/2023 8:40 EST us Jesus Reece MD LAB INFO SERVICE AND SUPPORT & P SHANNAN RESULT Final Result Performing Organization Address City/[facility]/ZIP Co de Phone Number [facility] [address] [place] [address] * MAGNESIUM (01/14/2023 8:32 EST) Pathologist [facility] Magnesium 1.8 1.7 - 2.8 mg/dL 01/14/2023 8:54 EST [facility] Blood VENOUS BLOOD / Unknown Venipuncture / Unknown 01/14/2023 8:32 EST 01/14/2023 8:37 EST us Jesus Reece MD CHEMISTRY & BLOOD GAS ORDERABLES Final Result Performing Organization Address City/[facility]/ZIP Co de Phone Number [facility] [address] [place] [address] * TROPONIN I (01/14/2023 8:32 EST) Troponin I (ng/mL) <0.034 <0.034 ng/mL 01/14/2023 9:10 [facility] Blood VENOUS BLOOD / Unknown Venipuncture / Unknown 01/14/2023 8:32 EST 01/14/2023 8:37 EST Narrative [facility] - 01/14/2023 9:10 EST The results of this assay can be falsely lowered due to the consumption of Biotin. us Jesus Reece MD CHEMISTRY & BLOOD GAS ORDERABLES Final Result [facility] [address] [place] [address] * (ABNORMAL) BASIC METABOLIC PANEL (BMP) (01/14/2023 8:32 EST) Pathologist [facility] Sodium 139 136 - 145 mmol/L 01/14/2023 8:54 [facility] Potassium 4.2 3.5 - 5.0 mmol/L 01/14/2023 8:54 [facility] Chloride 104 96 - 110 mmol/L 01/14/2023 8:54 [facility] CO2 Total 25 22 - 32 mmol/L 01/14/2023 8:54 [facility] Anion Gap 10 5 - 14 mmol/L 01/14/2023 8:54 [facility] Glucose 104(H) 70 - 99 mg/dl 01/14/2023 8:54 [facility] Calcium 9.0 8.5 - 10.5 mg/dL 01/14/2023 8:54 [facility] BUN 15 10 - 26 mg/dL 01/14/2023 8:54 [facility] Creatinine 0.63 0.52 - 1.04 mg/dL 01/14/2023 8:54 [facility] eGFR 103 >60 mL/min/1.73 m2 01/14/2023 8:54 [facility] Blood VENOUS BLOOD / Unknown Venipuncture / Unknown 01/14/2023 8:32 EST 01/14/2023 8:37 EST us Jesus Reece MD CHEMISTRY & BLOOD GAS ORDERABLES Final Result [facility] [address] [place] [address] * (ABNORMAL) COMPLETE BLOOD COUNT AND DIFFERENTIAL (01/14/2023 8:32 EST) WBC 4.41 4.00 - 12.40 K/cmm 01/14/2023 8:57 [facility] RBC 4.01 3.86 - 5.04 M/cmm 01/14/2023 8:57 [facility] Hemoglobin 11.4(L) 11.6 - 15.2 g/dL 01/14/2023 8:57 [facility] HCT 34.3(L) 34.9 - 44.4 % 01/14/2023 8:57 [facility] MCV 86 81 - 98 fL 01/14/2023 8:57 [facility] MCH 28.4 26.7 - 33.3 pg 01/14/2023 8:57 [facility] MCHC 33.2 32.1 - 35.9 g/dL 01/14/2023 8:57 [facility] RDW-CV 14.4 <14.7 % 01/14/2023 8:57 [facility] RDW-SD 45.1 <50.4 fl 01/14/2023 8:57 [facility] PLT 283 141 - 377 K/cmm 01/14/2023 8:57 [facility] MPV 11.1 9.5 - 12.7 fL 01/14/2023 8:57 [facility] % Neutrophils 48.2 % 01/14/2023 8:57 [facility] % Lymphocytes 35.4 % 01/14/2023 8:57 [facility] % Monocytes 9.1 % 01/14/2023 8:57 [facility] % Eosinophils 5.9 % 01/14/2023 8:57 [facility] % Basophils 1.4 % 01/14/2023 8:57 [facility] % Immature Grans 0.0 % 01/15/20 8:57 [facility] Absolute Neutrophils 2.13(L) 2.20 - 8.85 K/cmm 01/14/2023 8:57 [facility] Absolute Lymphocytes 1.56 1.09 - 3.30 K/cmm 01/14/2023 8:57 [facility] Absolute Monocytes 0.40 0.10 - 0.80 K/cmm 01/14/2023 8:57 [facility] Absolute Eosinophils 0.26 0.03 - 0.61 K/cmm 01/14/2023 8:57 [facility] ABS Basophils 0.06 0.01 - 0.11 K/cmm 01/14/2023 8:57 [facility] Absolute Immature Grans 0.00 0.00 - 0.06 K/cmm 01/14/2023 8:57 [facility] Type of Differential: Auto 01/14/2023 8:57 [facility] Blood VENOUS BLOOD / Unknown Venipuncture / Unknown 01/14/2023 8:32 EST 01/14/2023 8:37 EST us Jesus Reece MD PACKAGES & DNA PROBE ORDERABLES Final Result Performing Organization Address City/State/[facility] Co de Phone Number [facility] [address] [place] [address] * EKG 12-LEAD (01/14/2023 8:19 EST) 01/14/2023 8:19 EST Narrative [facility] EKG - 01/15/2023 17:50 EST ?[facility] Emergency ? Test Date: ?2023-01-14 Pat Name: ? TWILA GRAVES ?Department: ?? ED ? Room: ? Gender: ? Female ? Video Rental Clerk: ?? [id number] : ?1965 ? Requested By: MIKHAIL English Order Number: [id number] ?Reading MD: ?? CHRIS DENKMANN MD ? Measurements Intervals ?Arthur ? Rate: ? 58 ? P: ?40 DE: ? 163 ?QRS: ?-27 QRSD: ? 112 ?T: ?20 QT: ? 427 ? QTc: ?421 ? Interpretive Statements SINUS BRADYCARDIA POSSIBLE ANTERIOR MYOCARDIAL INFARCTION , PROBABLY OLD Compared to ECG 04/25/2003 14:05:57 Myocardial infarct finding now present Sinus rhythm no longer present I reviewed the tracing and have either agreed or edited the findings in this report. Electronically Signed On 01-15-2023 17:50:42 EST by CHRIS HEAD MD. Procedure Note Chris Head MD - 01/15/2023 [facility] Emergency Test Date: 2023-01-14 Pat Name: TWILA GRAVES Department: ED Room: Gender: Female Video Rental Clerk: [id number] : 1965 Requested By: MIKHAIL English Order Number: [id number] Reading MD: CHRIS HEAD MD Measurements Intervals Arthur Rate: 58 P: 40 DE: 163 QRS: -27 QRSD: 112 T: 20 QT: 427 QTc: 421 Interpretive Statements SINUS BRADYCARDIA POSSIBLE ANTERIOR MYOCARDIAL INFARCTION , PROBABLY OLD Compared to ECG 04/25/2003 14:05:57 Myocardial infarct finding now present Sinus rhythm no longer present I reviewed the tracing and have either agreed or edited the findings inthis report. Electronically Signed On 01-15-2023 17:50:42 EST by CHRIS BLACK. us Jesus Lin MD CARDIAC ECG ORDERABLES Sofia jama Result [facility] EKG documented in this encounter Visit Diagnoses Diagnosis Pyelonephritis- Primary Pyelonephritis, unspecified documented in this encounter Administered Medications Inactive Administered Medications - up to 3 most recent administrations Medication Order MAR Action Action Date Dose Rate Site acetaminophen (TYLENOL) tablet 1,000 mg 1,000 mg, oral, NOW X1, 1 dose, On Fri01/14/23 at 0915, STAT Given 01/14/2023 9:14 EST 1,000 mg cefTRIAXone (ROCEPHIN) 1,000 mg in sodium chloride (NS MBP) 50 mL IVPB 1,000 mg, intravenous, Administer over 30 Minutes, NOW X1, 1 dose, On Fri01/14/23 at 1115, Type of Therapy: Empiric, Suspected Indication (Select all that apply): UTI or pyelonephritis, ID Consult: No, STAT New Bag 01/14/2023 11:31 EST 1,000 mg ibuprofen (MOTRIN) tablet 400 mg 400 mg, oral, NOW X1, 1 dose, On Fri01/14/23 at 0915, STAT Given 01/14/2023 9:14 EST 400 mg documented in this encounter Historical Medications * This list may reflect changes made after this encounter. gabapentin (NEURONTIN) 600 mg tablet Take 1 Tablet by mouth 3 times daily. 10/21/2022 busPIRone (BUSPAR) 5 mg tablet Take 2 Tablets by mouth 2 times daily. 01/04/2023 buPROPion (WELLBUTRIN XL) 300 mg XL tablet Take 1 Tablet by mouth daily. 11/24/2022 added in this encounter Active and Recently Administered Medications Times are shown in EST. Scheduled Medication Order 01/12/2023 01/13/2023 01/14/2023 acetaminophen (TYLENOL) tablet 1,000 mg (COMPLETED) 1,000 mg, oral, NOW X1, 1 dose, On Fri01/14/23 at 0915, STAT 0914 (Given - Provid er: Angela Tang RN) cefTRIAXone (ROCEPHIN) 1,000 mg in sodium chloride (NS MBP) 50 mL IVPB (COMPLETED) 1,000 mg, intravenous, Administer over 30 Minutes, NOW X1, 1 dose, On Fri01/14/23 at 1115, Type of Therapy: Empiric, Suspected Indication (Select all that apply): UTI or pyelonephritis, ID Consult: No, STAT 1131 (New Bag - Prov ider: Bhanu Thompson RN)1257 (Completed - Provider: Angela Tang RN) ibuprofen (MOTRIN) tablet 400 mg (COMPLETED) 400 mg, oral, NOW X1, 1 dose, On Fri01/14/23 at 0915, STAT 0914 (Given - Provid er: Angela Tang RN) documented in this encounter Care Teams Glass Production Machine Operator Relationship Specialty Start Date End Date Wohlberg, Hayley B, [address] [place] [address] PCP - General 04/24/21 documented as of this encounter
--- OUTSIDE RECORDS SUMMARY | 2024-03-22 18:03 | XMS_ITS | Encounter Summary ---
Author Organization [facility] Address [address] [place] [address] Care Team Providers Care Pershing Missile Crewmember Name Role Phone Hayley Young EQUIPMENT VALIDATION SPECIALIST Primary Care Provider [phone] Encounter Details Date Type Department Care Team (Latest Contact Info) Description 01/14/2023 Travel Social History Tobacco Use Types Packs/Day Years [...] on filedocumented in this encounter Care Teams Pershing Missile Crewmember Relationship Specialty Start Date End Date Hayley Young, EQUIPMENT VALIDATION SPECIALIST [address] [place] [address] PCP - General 04/24/21 documented as of this encounter
--- OUTSIDE RECORDS SUMMARY | 2024-03-22 18:03 | XMS_ITS | Encounter Summary ---
Author Organization [facility] Address [address] [place] [address] Care Team Providers Care Size Tester Name Role Phone Zo Sienna Edd KING Primary Care Provider [phone] Reason for Visit * Reason Comments Follow-up Injection Encounter Details Date Type Department Care Team (Late st Contact Info) Description 12/27/2009 8:30 EDT Office Visit [facility] Spine Program - [address] [place] [address] Kevin Joshi PA-C [facility] [place] [address] Low back pain; Lumbar radiculopathy [...] - Inhaled Oxygen Concentration - - Weight 83.9 kg (185 lb) 12/27/2009 0830 EDT Height 177.8 cm (5' 10) 12/27/2009 0830 EDT Body Mass Index 26.54 12/27/2009 0830 EDT documented in this encounter Ordered Prescriptions Prescription Sig Dispense Quantity Refills Last Filled Start Date End Date meloxicam (MOBIC) 7.5 mg tablet Take 1 Tab by mouth daily. 30 Tab 2 12/27/2009 03/26/2023 documented in this encounter Progress Notes * Kevin Joshi PA - 12/27/2009 0932 EDT Twila Graves is being seen as a consultation from Dr. Pathak. Chief Complaint Patient presents with ??? Follow-up Injection There were no encounter diagnoses. HPI Back Pain This is a chronic (Moderate improvement of her leg and back pain post injection. Her pain is now intermittent and focused in the low back. It is sharp and exacerbated by twisting while sitting which she does all day at work. She notes some left plantar foot discomfort.) problem. The quality of the pain is described as stabbing. The pain is mild. Pertinent negatives include no leg pain. Patient Active Problem List Diagnoses Code ??? GERD (gastroesophageal reflux disease) 530.81S ??? OA (osteoarthritis) 715.90BA ??? Iron deficiency 275.09B ??? Hyperparathyroidism 252.00A Past Medical History Diagnosis Date ??? Depression Past Surgical History Procedure Date ??? Gastric bypass surgery 05/18/2003 ??? Cholecystectomy, open 05/18/2003 ??? Upper gastrointestinal endoscopy 06/15/2003 ??? Upper gastrointestinal endoscopy 11/04/2005 History Substance Use Topics ??? Tobacco Use: Never ??? Alcohol Use: No Family History Problem Relation Age of Onset ??? Cancer Mother ??? Thyroid Disease Mother ??? Diabetes Father ??? Heart Disease Father Current outpatient prescriptions Medication Sig Dispense Refill ??? meloxicam (MOBIC) 7.5 mg tablet Take 1 Tab by mouth daily. 30 Tab 2 ??? CYANOCOBALAMIN/FOLIC ACID (VITAMIN C14-XESVM ACID ORAL) Take 1 Each by mouth [...] 1/2 No Known Allergies Review of Systems Musculoskeletal: Positive for back pain. Physical Exam Constitutional: She is oriented to person, place, and time. She appears well- developed and well-nourished. No distress. Eyes: Extraocular motions are normal. Pupils are equal, round, and reactive to light. Cardiovascular: Normal rate. Pulmonary/Chest: Effort normal. Neurological: She is alert and oriented to person, place, and time. Skin: Skin is warm. Psychiatric: Her behavior is normal. Back Exam Comments: Gait is normal Neurologic Exam Mental Status Oriented to person, place, and time. Cranial Nerves CN III, IV, Pupils are equal, round, and reactive to light. Extraocular motions are normal. The prior workup of the patient includes: Assessment Pt leg pain is much improved post injection. She now has moderate intermittent back pain that is multifactorial but less likely disc as it is so intermittent. I suggested starting an NSAID such as Mobic. If this is not helpful we will consider MBB and RFA. No orders of the defined types were placed in this encounter. Plan: Mobic QD Activity as tolerated Phone follow up in 10 days Consider RFA at [facility] I spent greater than 25 minutes with 25 minutes of our visit with face to face contact discussing their subjective complaints, their radiographs, the cause of their pain and a treatment plan. documented in this encounter Plan of Treatment Not on file documented as of this encounter Visit Diagnoses Diagnosis Low back pain Lumbago Lumbar radiculopathy Thoracic or lumbosacral neuritis or radiculitis, unspecified documented in this encounter Care Teams Size Tester Relationship Specialty Start Date End Date Sienna Pathak FNP [address] [place] [address] PCP - General 08/08/09 07/02/16 documented as of this encounter
--- OUTSIDE RECORDS SUMMARY | 2024-03-22 18:03 | XMS_ITS | Encounter Summary ---
Author Organization [facility] Address [address] [place] [address] Care Team Providers Care Ophthalmic Medical Technician Name Role Phone ZoSienna barnes Edd KING Primary Care Provider [phone] Encounter Details Date Type Department Care Team (Latest Contact Info) Description 06/28/2016 21:30 EDT - 06/28/2016 23:59 EDT Hospital Encounter [facility] [address] [place] [address] Unknown, Provider, MD Discharge Disposition: Home or Self Care Social [...] by mouth daily. CYANOCOBALAMIN/FO LIC ACID (VITAMIN N28-RGOTV ACID ORAL) Take 1 Each by mouth [...] Code Departure Means Destination Home or Self Senior Living documented in this encounter Plan of Treatment Not on file documented as of this encounter Visit Diagnoses Not on filedocumented in this encounter Care Teams Ophthalmic Medical Technician Relationship Specialty Start Date End Date Sienna Pathak FNP [address] [place] [address] PCP - General 08/08/09 07/02/16 documented as of this encounter
--- OUTSIDE RECORDS SUMMARY | 2024-03-22 18:03 | XMS_ITS | Encounter Summary ---
Author Organization [facility] Address [address] [place] [address] Care Team Providers Care Hop Farmer Name Role Phone Zo Sienna Edd KING Primary Care Provider [phone] Unknown, Provider Primary Care Provider Unava ilable Encounter Details Date Type Department Care Team (Late st Contact Info) Description 06/28/2016 Historical Results Only [facility] Radiology Results [address] [place], [place] [id number] Jayesh Knight MD [address] [facility] [address] [place] [phone] Social History Tobacco Use Types Packs/Day Years [...] Procedure Name Priority Date/Time Associated Diagnosis Comments CT ABDOMEN PELVIS W WO CONTRAST 06/28/2016 16:28 EDT documented in this encounter Results * CT ABDOMEN PELVIS W WO CONTRAST (06/28/2016 16:28 EDT) Anatomical Region Laterality Modality Other 06/28/2016 16:2 8 EDT Narrative 06/28/2016 16:51 EDT ? EXAM: CAT SCAN/ABDOMEN PELVIS W/WO CONTRA EX. D/ (1613) ? CLINICAL INFORMATION: ? N39.0 FEBRILE URINARY TRACT INFECTION ? R/O HYDRONEPHROSIS,STONE,FLUID COLLECTION ? INDICATION: RECURRENT FEBRILE UTI N39.0 FEBRILE URINARY TRACT ? INFECTION: R/O HYDRONEPHROSIS,STONE,FLUID COLLECTION ? TECHNIQUE: Axial enhanced and unenhanced imaging of the abdomen and ? pelvis was obtained. Multiplanar reconstruction was performed. ? COMPARISON: None. ? FINDINGS: ? Lower chest: Bases clear. No pleural or pericardial effusion. ? Hepatobiliary: Normal. ? Spleen, pancreas, adrenal glands: Normal ? Kidneys, ureters, bladder: Tiny bilateral nonobstructing renal ? calculi. No obstructing calculi identified. No hydronephrosis. ? Ureters normal in caliber. Bladder thin-walled. No urothelial ? abnormality. No renal cyst or solid mass detected. ? Uterus, ovaries: Uterus anteverted. No adnexal mass. ? Bowel: Gastric bypass noted. No bowel obstruction or bowel wall ? thickening. The appendix is visualized and is normal. There is no ? diverticular disease. ? Peritoneal cavity / Subperitoneal space: No free fluid or free ? intraperitoneal air. ? Lymphovascular: Aorta normal in caliber. No lymphadenopathy detected. ? Abdominal wall: Intact. ? Musculoskeletal: Degenerative spondylosis at L5-S1. No acute osseous ? abnormality. No aggressive lytic or blastic osseous lesion. ? IMPRESSION: ? Tiny bilateral nonobstructing renal calculi. No obstructing urinary ? tract calculi identified. No hydronephrosis. ? REPORT SIGNED IN OTHER VENDOR SYSTEM 06/28/2016 ?Reported By: Jay Berg MD ? CC: ? Transcribed Date/Time: 06/28/2016 (1651) ? News Librarian: ? Printed Date/Time: 08/10/2018 (1058) ? PAGE 1 ? Signed Report ? Procedure Note Jay Berg E - 12/30/2018 EXAM: CAT SCAN/ABDOMEN PELVIS W/WO CONTRA EX. D/ (1613) CLINICAL INFORMATION: N39.0 FEBRILE URINARY TRACT INFECTION R/O HYDRONEPHROSIS,STONE,FLUID COLLECTION INDICATION: RECURRENT FEBRILE UTI N39.0 FEBRILE URINARY TRACT INFECTION: R/O HYDRONEPHROSIS,STONE,FLUID COLLECTION TECHNIQUE: Axial enhanced and unenhanced imaging of the abdomen and pelvis was obtained. Multiplanar reconstruction was performed. COMPARISON: None. FINDINGS: Lower chest: Bases clear. No pleural or pericardial effusion. Hepatobiliary: Normal. Spleen, pancreas, adrenal glands: Normal Kidneys, ureters, bladder: Tiny bilateral nonobstructing renal calculi. No obstructing calculi identified. No hydronephrosis. Ureters normal in caliber. Bladder thin-walled. No urothelial abnormality. No renal cyst or solid mass detected. Uterus, ovaries: Uterus anteverted. No adnexal mass. Bowel: Gastric bypass noted. No bowel obstruction or bowel wall thickening. The appendix is visualized and is normal. There is no diverticular disease. Peritoneal cavity / Subperitoneal space: No free fluid or free intraperitoneal air. Lymphovascular: Aorta normal in caliber. No lymphadenopathydetected. Abdominal wall: Intact. Musculoskeletal: Degenerative spondylosis at L5-S1. No acuteosseous abnormality. No aggressive lytic or blastic osseous lesion. IMPRESSION: Tiny bilateral nonobstructing renal calculi. No obstructing urinary tract calculi identified. No hydronephrosis. REPORT SIGNED IN OTHER VENDOR SYSTEM 06/28/2016 Reported By: Jay Berg MD CC: Transcribed Date/Time: 06/28/2016 (2195) News Librarian: Printed Date/Time: 08/10/2018 (0012) PAGE 1 Signed Report Jayesh Knight MD IMG CT ORDERABLES Final Result documented in this encounter Visit Diagnoses Not on filedocumented in this encounter Care Teams Hop Farmer Relationship Specialty Start Date End Date Sienna Pathak FNP [address] [place] [address] PCP - General 08/08/09 07/02/16 Unknown, Provider, [address] [place] [address] PCP - General 07/03/16 04/23/21 documented as of this encounter
--- OUTSIDE RECORDS SUMMARY | 2024-03-22 18:03 | XMS_ITS | Encounter Summary ---
Author Organization [facility] Address [address] [place] [address] Care Team Providers Care Talent Development Director Name Role Phone Unavailable Primary Care Provider Unavailabl e Encounter Details Date Type Department Care Team (Late st Contact Info) Description 05/01/2009 Abstract Used for ABSTRACTING Data [phone] Sienna Pathak, CHIEF TECHNICAL OFFICER [address] [place], [place] [id number] Social History Tobacco Use Types Packs/Day Years [...]
--- OUTSIDE RECORDS SUMMARY | 2024-03-22 18:03 | XMS_ITS | Encounter Summary ---
Author Organization [facility] Address [address] [place] [address] Care Team Providers Care Net Mender Name Role Phone Sienna Pathak Primary Care Provider [phone] Reason for Visit * Reason Onset Date Comments Follow-up 11/02/2009 Encounter Details Date Type Department Care Team (Late st Contact Info) Description 11/02/2009 Telephone [facility] Spine Program - [address] [place] [address] Kevin Joshi PA-C [facility] [place] [address] Follow-up Social History Tobacco Use Types Packs/Day Years Used Date Smoking Tobacco: Never Assessed Comments No Sex and Gender Information Value Date Recorded Sex Assigned at Not on file Legal Sex Female 18:04 EST Gender Identity Female 03/19/2023 15:58 EST Sexual Orientation Not on file documented as of this encounter Miscellaneous Notes * Telephone Encounter - Chelo Leong - 11/02/2009 1514 EDT Rec'd MRI from [facility]. Sent report to be scanned, and keeping disc at [facility] for next apt with RH that is TBD at this time. documented in this encounter Plan of Treatment Not on file documented as of this encounter Visit Diagnoses Not on filedocumented in this encounter Care Teams Net Mender Relationship Specialty Start Date End Date Sienna Pathak, FERNANDO [address] [place] [address] PCP - General 08/08/09 07/02/16 documented as of this encounter
--- OUTSIDE RECORDS SUMMARY | 2024-03-22 18:04 | XMS_ITS | Encounter Summary ---
Author Organization [facility] Address [address] [place] [address] Care Team Providers Care Mineralogy Teacher Name Role Phone Unavailable Primary Care Provider Unavailabl e Encounter Details Date Type Department Care Team (Latest Contact Info) Description 05/18/2003 8:53 EST - 05/21/2003 11:59 EST Hospital Encounter [facility] [address] [place], [place] [id number] Nirali Farrell MD [address] [place] [phone] Discharge Disposition: Home or Self Care Social [...] Procedure Name Priority Date/Time Associated Diagnosis Comments GLUCOSE, GLUCOMETER Routine 05/21/2003 1 2:14 EST SURGICAL PATHOLOGY Routine 05/18/2003 0: 00 EST documented in this encounter Results * GLUCOSE, GLUCOMETER (05/21/2003 12:14 EST) Glucose, Fingerstick 89 70 - 110 mg/dl [facility] Property Maintenance Technician ID [id number] Test Performed by Nursing Services [facility] 05/21/2003 12:1 4 EST 05/21/2003 22:33 EST us Nirali Farrell MD CHEMISTRY & BLOOD GAS ORDERAmador LAWLER Final Result [facility] [address] [place] [address] * SURGICAL PATHOLOGY (05/18/2003 0:00 EST) Pathology Report: SURGICAL PATHOLOGY REPORT Reports generated via electronic interface contain original data; however they are lacking the format of the original report. Caution should be taken when reading/interpreti ng unformatted reports. Name: ? TWILA GRAVES ? Accession #: ? [id number] ? : ? 1965 (Age: 38) ??F ? Collect Date: ? 05/18/2003 ? Location: ? B006 ? Receive Date: ? 05/18/2003 ? Provider: NIRALI FARRELL MD Copy to: [facility] ? Final Pathologic Diagnosis: ? Gallbladder, cholecystectomy: - Chronic cholecystitis. Document reviewed and electronically signed by: CHARANJIT CONTRERAS MD Report ??Date: 05/20/2003 16:36 By the signature above, the attending physician certifies that he/she has personally conducted a gross and/or microscopic examination of the described specimens and rendered or confirmed the above diagnosis. Specimen(s) Received: ? Gallbladder Clinical History: ? Morbid obesity Gross Description: ? Received in normal saline labeled Graves and gallbladder is a 7.0 x 2.5 x 1.2 cm, opened gallbladder with a small portion of attached cystic duct. ??No cystic duct lymph node is identified. ??The serosa is smooth, pink, and focally congested. ??The wall is up to 0.3 cm thick. ??The lumen contains a small amount of green-yellow mucoid bile. ??The mucosa is wise and trabeculated with focal congestion. ??No gallstones are identified. ??C Engineer sections are submitted in one block. ??(Eduardo Miller)/hilary End of Report [facility] 05/18/2003 05/18/2003 13: 32 EST us Nirali Farrell MD PATHOLOGY ORDERABLES Final R esult [facility] [address] [place] [address] documented in this encounter Visit Diagnoses Not on filedocumented in this encounter
--- OUTSIDE RECORDS SUMMARY | 2024-03-22 18:04 | XMS_ITS | Encounter Summary ---
Author Organization [facility] Address [address] [place] [address] Care Team Providers Care Machine Silk Screen Printer Name Role Phone Unavailable Primary Care Provider Unavailabl e Encounter Details Date Type Department Care Team (Late st Contact Info) Description 10/15/2005 13:53 EDT Hospital Encounter [facility] [address] [place] [address] Nirali Farrell MD [address] [place] [phone] Social History Tobacco Use Types Packs/Day [...]
--- OUTSIDE RECORDS SUMMARY | 2024-03-22 18:04 | XMS_ITS | Encounter Summary ---
Author Organization [facility] Address [address] [place] [address] Care Team Providers Care Vice President Risk Management Name Role Phone Sienna Pathak Primary Care Provider [phone] Encounter Details Date Type Department Care Team (Late st Contact Info) Description 05/23/2003 Before PRISM Converted Visit (Maple) [facility] conversion [address] [place] [address] Nirali Farrell MD [address] [place] [phone] Social History Tobacco Use Types Packs/Day [...] on filedocumented in this encounter Care Teams Vice President Risk Management Relationship Specialty Start Date End Date Sienna Pathak FNP [address] [place], [place] [phone] PCP - General 08/08/09 07/02/16 documented as of this encounter
--- OUTSIDE RECORDS SUMMARY | 2024-03-22 18:04 | XMS_ITS ---
Author Organization Unknown Address [address] [place] [phone] Phone Care Team Providers Care Employee Benefits Specialist Name Role Phone GENARO CARRILLO MD Attending Unavailable ROSA FAROOQ Primary Unavailable Results MO FOREARM LEFT 2V - Complet ed: 08/24/2020 12:14 LOINC: Two views were obtained and show previously described fracture of distal ulnar diaphysis. The alignment appears grossly unchanged in comparison with previous examination of August 13. Dictated by: DEBORAH LEE M.D. RADIOLOGIST Transcribed by: LIONEL 08/25/20/08:28 D 08/24/2020 11:05:40 [id number] Electronically Reviewed and Signed By: AMRIT LEE M.D. RADIOLOGIST 08/25/20 21:32 Social History Type Status Start Date End Date Code Code Syst em Smoking History Never smoker (Never Smoked) 828095130 SNOMED CT Smoking History Unknown if ever smoked [address] Sex Female Medications Medication Start Date End Date Route Frequency Dose Code Code System Medication Instructions Home Meds Mapap 325MG Oral Tablet 11/30/2015 05/28/2021 BY MOUTH NEEDED EVERY 4 HOURS 650 MILLIGRAMS 979228 RxNorm TAKE 650 MILLIGRAMS BY MOUTH NEEDED EVERY 4 HOURS Ibuprofen 200MG Oral Tablet 11/30/2015 05/28/2021 ORAL NEEDED THREE TIMES A DAY 4 TABLET 774775 RxNorm TAKE 4 TABLET ORAL NEEDED THREE TIMES A DAY Citalopram 40MG Oral Tablet 05/29/2021 Unknown ORAL BEDTIME 40 MILLIGRAMS 511066 RxNorm TAKE 40 MILLIGRAMS ORAL BEDTIME Cyclobenza cristóbal HCl 10MG Oral Tablet 05/29/2021 Unknown ORAL NEEDED 10 MILLIGRAMS 602380 RxNorm TAKE 10 MILLIGRAMS ORAL NEEDED Erythromyc in 5MG/1GM Ophthalmic Ointment 05/29/2021 Unknown OPHTHALMI C NEEDED FOUR TIMES A DAY 1 unit(s) 167122 RxNorm PLACE 1 EACH OPHTHALMIC NEEDED FOUR TIMES A DAY Gabapentin 600MG Oral Tablet 05/29/2021 Unknown ORAL NEEDED TWICE DAILY 600 MILLIGRAMS 079260 RxNorm TAKE 600 MILLIGRAMS ORAL NEEDED TWICE DAILY Vitamin B12 1000 MCG Sublingual Tablet 05/29/2021 Unknown SUBLINGUA L DAILY 1000 MCG 201569 RxNorm DISSOLVE 1000 MCG SUBLINGUAL DAILY buPROPion HCl 150MG Oral Tablet, Extended Release 05/29/2021 Unknown ORAL DAILY 150 MILLIGRAMS 773827 RxNorm TAKE 150 MILLIGRAMS ORAL DAILY busPIRone 10MG Oral Tablet 05/29/2021 Unknown ORAL TWICE A DAY 10 MILLIGRAMS 564076 RxNorm TAKE 10 MILLIGRAMS ORAL TWICE A DAY traZODone hydrochlor shailesh 50MG Oral Tablet 05/29/2021 Unknown ORAL BEDTIME 50 MILLIGRAMS 836772 RxNorm TAKE 50 MILLIGRAMS ORAL BEDTIME valACYclov ir HCl 1GM Oral Tablet 05/29/2021 Unknown ORAL NEEDED 1 GM 605668 RxNorm TAKE 1 GM ORAL NEEDED Azithromyc in 250MG Oral Tablet 05/29/2021 Unknown ORAL DAILY 1 TABLET 921513 RxNorm TAKE 1 TABLET ORAL DAILY Cefpodoxim e Proxetil 200MG Oral Tablet 05/29/2021 Unknown ORAL TWICE A DAY 1 TABLET 986335 RxNorm TAKE 1 TABLET ORAL TWICE A DAY Mucinex 1200MG Oral Tablet, Extended Release 05/29/2021 Unknown ORAL TWICE A DAY 1 TABLET 589129 RxNorm TAKE 1 TABLET ORAL TWICE A [...] Date Status Code Code System FEVER active 476098881 SNOMED-CT DIABETES active 67304977 SNOMED-CT TYPE 2 DIABETES 05/28/2021 resolved 01646756 SNO MED-CT ANXIETY 05/28/2021 resolved 21475075 SNOMED-CT DEPRESSION 05/28/2021 resolved 21202223 SNOMED-C T CHRONIC BACK PAIN 05/28/2021 resolved 767279629 S NOMED-CT Allergies and Adverse Reactions Allergy Substance Reaction Severity Start Date Concern Status Co de Code System No Known Allergies Moderate Active 116889214 SN OMED-CT Plan of Treatment PRE-OP COVID-19 TESTING 02/20/2021 BONE DENSITY DEXA SPINE & HIP Encounters Encounter Diagnosis Start Date Code Code Sys tem 08/24/2020 [id number] SNOMED-CT Personal Care Team Section Performer Name Performer Role Active Date Inactive Da te
--- OUTSIDE RECORDS SUMMARY | 2024-03-22 18:04 | XMS_ITS | Encounter Summary ---
Author Organization [facility] Address [address] [place] [address] Care Team Providers Care Kitchen Stewardess Name Role Phone Unavailable Primary Care Provider Unavailabl e Encounter Details Date Type Department Care Team (Latest Contact Info) Description 06/15/2003 11:02 EDT - 06/15/2003 11:59 EDT Hospital Encounter [facility] [address] [place] [address] Nirali Farrell MD [address] [place] [phone] Discharge Disposition: Auto Discharge Social History Tobacco [...]
--- OUTSIDE RECORDS SUMMARY | 2024-03-22 18:04 | XMS_ITS | Encounter Summary ---
Author Organization [facility] Address [address] [place] [address] Care Team Providers Care Client Technical Professional Name Role Phone Unavailable Primary Care Provider Unavailabl e Encounter Details Date Type Department Care Team (Late st Contact Info) Description 05/30/2005 14:20 EDT Hospital Encounter [facility] [address] [place] [address] Angelina Van, MONITOR CAR OPERATOR [address] [address] Social History Tobacco Use Types Packs/Day Years [...]
--- OUTSIDE RECORDS SUMMARY | 2024-03-22 18:04 | XMS_ITS | Encounter Summary ---
Author Organization [facility] Address [address] [place] [address] Care Team Providers Care Hopper Operator Name Role Phone Unavailable Primary Care Provider Unavailabl e Encounter Details Date Type Department Care Team (Latest Contact Info) Description 11/04/2005 10:12 EDT - 11/04/2005 11:59 EDT Hospital Encounter [facility] [address] [place] [address] Nirali Farrell MD [address] [place] [phone] Discharge Disposition: Auto Discharge Social History [...]
--- OUTSIDE RECORDS SUMMARY | 2024-03-22 18:04 | XMS_ITS ---
Author Organization Unknown Address [address] [place] [phone] Phone Care Team Providers Care Warehouse Distribution Associate Name Role Phone GENARO CARRILLO MD Attending Unavailable ORSA FAROOQ Primary Unavailable Results MO FOREARM LEFT 2V - Complet ed: 09/05/2020 13:32 LOINC: Comparison is made with intr aoperative images dated September 13. A fixation plate is again noted along the distal ulna for fracture fixation. There has been no change in fracture or hardware alignment. No new abnormalities are seen. Dictated by: CEO FIDE MCMAHAN M.D. RADIOLOGIST Transcribed by: SHANIKA 09/08/20/14:54 D August 11:50:37 AM [id number] Electronically Reviewed and Signed By: FIDE MCMAHAN M.D. RADIOLOGIST 09/09/20 10:01 Social History Type Status Start Date End Date Code Code Syst em Smoking History Never smoker (Never Smoked) 953260542 SNOMED CT Smoking History Unknown if ever smoked [address] Sex Female Medications Medication Start Date End Date Route Frequency Dose Code Code System Medication Instructions Home Meds Mapap 325MG Oral Tablet 11/30/2015 05/28/2021 BY MOUTH NEEDED EVERY 4 HOURS 650 MILLIGRAMS 527545 RxNorm TAKE 650 MILLIGRAMS BY MOUTH NEEDED EVERY 4 HOURS Ibuprofen 200MG Oral Tablet 11/30/2015 05/28/2021 ORAL NEEDED THREE TIMES A DAY 4 TABLET 387076 RxNorm TAKE 4 TABLET ORAL NEEDED THREE TIMES A DAY Citalopram 40MG Oral Tablet 05/29/2021 Unknown ORAL BEDTIME 40 MILLIGRAMS 320546 RxNorm TAKE 40 MILLIGRAMS ORAL BEDTIME Cyclobenza cristóbal HCl 10MG Oral Tablet 05/29/2021 Unknown ORAL NEEDED 10 MILLIGRAMS 790602 RxNorm TAKE 10 MILLIGRAMS ORAL NEEDED Erythromyc in 5MG/1GM Ophthalmic Ointment 05/29/2021 Unknown OPHTHALMI C NEEDED FOUR TIMES A DAY 1 unit(s) 688616 RxNorm PLACE 1 EACH OPHTHALMIC NEEDED FOUR TIMES A DAY Gabapentin 600MG Oral Tablet 05/29/2021 Unknown ORAL NEEDED TWICE DAILY 600 MILLIGRAMS 014959 RxNorm TAKE 600 MILLIGRAMS ORAL NEEDED TWICE DAILY Vitamin B12 1000 MCG Sublingual Tablet 05/29/2021 Unknown SUBLINGUA L DAILY 1000 MCG 241250 RxNorm DISSOLVE 1000 MCG SUBLINGUAL DAILY buPROPion HCl 150MG Oral Tablet, Extended Release 05/29/2021 Unknown ORAL DAILY 150 MILLIGRAMS 565730 RxNorm TAKE 150 MILLIGRAMS ORAL DAILY busPIRone 10MG Oral Tablet 05/29/2021 Unknown ORAL TWICE A DAY 10 MILLIGRAMS 246898 RxNorm TAKE 10 MILLIGRAMS ORAL TWICE A DAY traZODone hydrochlor shailesh 50MG Oral Tablet 05/29/2021 Unknown ORAL BEDTIME 50 MILLIGRAMS 851731 RxNorm TAKE 50 MILLIGRAMS ORAL BEDTIME valACYclov ir HCl 1GM Oral Tablet 05/29/2021 Unknown ORAL NEEDED 1 GM 814508 RxNorm TAKE 1 GM ORAL NEEDED Azithromyc in 250MG Oral Tablet 05/29/2021 Unknown ORAL DAILY 1 TABLET 419535 RxNorm TAKE 1 TABLET ORAL DAILY Cefpodoxim e Proxetil 200MG Oral Tablet 05/29/2021 Unknown ORAL TWICE A DAY 1 TABLET 040468 RxNorm TAKE 1 TABLET ORAL TWICE A DAY Mucinex 1200MG Oral Tablet, Extended Release 05/29/2021 Unknown ORAL TWICE A DAY 1 TABLET 120381 RxNorm TAKE 1 TABLET ORAL TWICE A [...] Date Status Code Code System FEVER active 289178162 SNOMED-CT DIABETES active 83585287 SNOMED-CT TYPE 2 DIABETES 05/28/2021 resolved 06498080 SNO MED-CT ANXIETY 05/28/2021 resolved 99040807 SNOMED-CT DEPRESSION 05/28/2021 resolved 82433613 SNOMED-C T CHRONIC BACK PAIN 05/28/2021 resolved 057222817 S NOMED-CT Allergies and Adverse Reactions Allergy Substance Reaction Severity Start Date Concern Status Co de Code System No Known Allergies Moderate Active 383229407 SN OMED-CT Plan of Treatment PRE-OP COVID-19 TESTING 02/20/2021 BONE DENSITY DEXA SPINE & HIP Encounters Encounter Diagnosis Start Date Code Code Sys tem 09/07/2020 [id number] SNOMED-CT Personal Care Team Section Performer Name Performer Role Active Date Inactive Da ibeth
--- OUTSIDE RECORDS SUMMARY | 2024-03-22 18:04 | XMS_ITS | Encounter Summary ---
Author Organization [facility] Address [address] [place] [address] Care Team Providers Care Library Services Assistant Name Role Phone Unavailable Primary Care Provider Unavailabl e Encounter Details Date Type Department Care Team (Latest Contact Info) Description 04/25/2003 11:56 EST - 04/25/2003 11:59 EST Hospital Encounter [address] [address] Nirali Farrell MD [address] [place] [phone] Discharge Disposition: Auto Discharge Social History [...]
--- OUTSIDE RECORDS SUMMARY | 2024-03-22 18:04 | XMS_ITS ---
Author Organization Unknown Address [address] [place] [phone] Phone Care Team Providers Care Telecom Specialist Name Role Phone JEROME HENDRIX MD Attending Unavailable [facility] Primary Unavailable Results FOREARM LEFT 2V - Completed: 08/13/2020 19:12 LOINC: There is transverse fracture in the distal half of the ulna with mild displacement. No fractures of the radius. No radiopaque foreign body. No osseous lesions. IMPRESSION:Left ulna fracture as described above. Dictated by: LAURENCE ALTMAN M.D. RADIOLOGIST Transcribed by: SHANIKA 08/13/2020:17 D Thursday, August 13, 2020 4:02:25 PM [id number] Electronically Reviewed and Signed By: IVANNA ALTMAN M.D. RADIOLOGIST 08/14/20 17:06 Copy for: JEROME HENDRIX MD via modem DISCHARGED WRIST LEFT 4V WITH NAVICULAR - Completed: 08/13/2020 16:49 LOINC: LEFT WRIST Four views were obtained. The previously described ulnar diaphyseal fracture again noted. No additional fractures seen involving the distal forearm or wrist. There is widening of the navicular-lunate joint which could represent acute or chronic ligamentous injury. Otherwise alignment within normal limits. Dictated by: DEBORAH LEE M.D. RADIOLOGIST Transcribed by: TYRONE 08/14/2014:08 D 08/14/2020 07:09:59 [id number] Electronically Reviewed and Signed By: AMRIT LEE M.D. RADIOLOGIST 08/14/20 14:35 Copy for: JEROME HENDRIX MD via modem DISCHARGED Social History Type Status Start Date End Date Code Code Syst em Smoking History Never smoker (Never Smoked) 355138535 SNOMED CT Smoking History Unknown if ever smoked 2 40449053 [facility] Sex Female Medications Medication Start Date End Date Route Frequency Dose Code Code System Medication Instructions Home Meds Mapap 325MG Oral Tablet 11/30/2015 05/28/2021 BY MOUTH NEEDED EVERY 4 HOURS 650 MILLIGRAMS 520479 RxNorm TAKE 650 MILLIGRAMS BY MOUTH NEEDED EVERY 4 HOURS Ibuprofen 200MG Oral Tablet 11/30/2015 05/28/2021 ORAL NEEDED THREE TIMES A DAY 4 TABLET 106410 RxNorm TAKE 4 TABLET ORAL NEEDED THREE TIMES A DAY Citalopram 40MG Oral Tablet 05/29/2021 Unknown ORAL BEDTIME 40 MILLIGRAMS 932306 RxNorm TAKE 40 MILLIGRAMS ORAL BEDTIME Cyclobenza cristóbal HCl 10MG Oral Tablet 05/29/2021 Unknown ORAL NEEDED 10 MILLIGRAMS 195478 RxNorm TAKE 10 MILLIGRAMS ORAL NEEDED Erythromyc in 5MG/1GM Ophthalmic Ointment 05/29/2021 Unknown OPHTHALMI C NEEDED FOUR TIMES A DAY 1 unit(s) 045526 RxNorm PLACE 1 EACH OPHTHALMIC NEEDED FOUR TIMES A DAY Gabapentin 600MG Oral Tablet 05/29/2021 Unknown ORAL NEEDED TWICE DAILY 600 MILLIGRAMS 027452 RxNorm TAKE 600 MILLIGRAMS ORAL NEEDED TWICE DAILY Vitamin B12 1000 MCG Sublingual Tablet 05/29/2021 Unknown SUBLINGUA L DAILY 1000 MCG 880915 RxNorm DISSOLVE 1000 MCG SUBLINGUAL DAILY buPROPion HCl 150MG Oral Tablet, Extended Release 05/29/2021 Unknown ORAL DAILY 150 MILLIGRAMS 445884 RxNorm TAKE 150 MILLIGRAMS ORAL DAILY busPIRone 10MG Oral Tablet 05/29/2021 Unknown ORAL TWICE A DAY 10 MILLIGRAMS 018535 RxNorm TAKE 10 MILLIGRAMS ORAL TWICE A DAY traZODone hydrochlor shailesh 50MG Oral Tablet 05/29/2021 Unknown ORAL BEDTIME 50 MILLIGRAMS 385493 RxNorm TAKE 50 MILLIGRAMS ORAL BEDTIME valACYclov ir HCl 1GM Oral Tablet 05/29/2021 Unknown ORAL NEEDED 1 GM 336338 RxNorm TAKE 1 GM ORAL NEEDED Azithromyc in 250MG Oral Tablet 05/29/2021 Unknown ORAL DAILY 1 TABLET 355782 RxNorm TAKE 1 TABLET ORAL DAILY Cefpodoxim e Proxetil 200MG Oral Tablet 05/29/2021 Unknown ORAL TWICE A DAY 1 TABLET 858308 RxNorm TAKE 1 TABLET ORAL TWICE A DAY Mucinex 1200MG Oral Tablet, Extended Release 05/29/2021 Unknown ORAL TWICE A DAY 1 TABLET 202647 RxNorm TAKE 1 TABLET ORAL TWICE A [...] Date Status Code Code System FEVER active 606457749 SNOMED-CT DIABETES active 35285878 SNOMED-CT TYPE 2 DIABETES 05/28/2021 resolved 23225441 SNO MED-CT ANXIETY 05/28/2021 resolved 23950675 SNOMED-CT DEPRESSION 05/28/2021 resolved 38956201 SNOMED-C T CHRONIC BACK PAIN 05/28/2021 resolved 824922745 S NOMED-CT Allergies and Adverse Reactions Allergy Substance Reaction Severity Start Date Concern Status Co de Code System No Known Allergies Moderate Active 304521244 SN OMED-CT Plan of Treatment PRE-OP COVID-19 TESTING 02/20/2021 BONE DENSITY DEXA SPINE & HIP Encounters Encounter Diagnosis Start Date Code Code Sys tem Unspecified fracture of shaf t of left ulna, initial encounter for closed fracture 08/13/2020 SNOMED-CT Personal Care Team Section Performer Name Performer Role Active Date Inactive Da ibeth
--- OUTSIDE RECORDS SUMMARY | 2024-03-22 18:04 | XMS_ITS ---
Author Organization Unknown Address [address] [place] [phone] Phone Care Team Providers Care Manufacturing Director Name Role Phone GENARO CARRILLO MD Attending Unavailable LANDEN AVALOS CRNA WATERSHED PROGRAM MANAGER Unavailable JESS CARTER NP Nurse Practitioner [place] FAROOQ Primary Unavailable Results C-ARM WRIST 2V LEFT NO CHARG E - Completed: 08/30/2020 03:08 LOINC: C-ARM FLUOROSCOPY OF THE LEF T WRIST Fluoroscopy was provided in the OR for Dr. Horn. Hard copy images show placement of a fixation plate along the distal ulna for fracture fixation. The alignment appears anatomic. Fluoro time 28.61 seconds. Ka,r = 0.6688 mGy. Dictated by: CEO FIDE MCMAHAN M.D. RADIOLOGIST Transcribed by: [facility] 09/04/20/08:56 D 09/04/2020 08:37:07 [id number] Electronically Reviewed and Signed By: FIDE MCMAHAN M.D. RADIOLOGIST 09/04/20 09:30 DISCHARGED Social History Type Status Start Date End Date Code Code Syst em Smoking History Never smoker (Never Smoked) 565473388 SNOMED CT Smoking History Unknown if ever smoked [address] Sex Female Vital Signs Vital Sign Value Unit Carson Value Carson Unit Date/Time Recent/Initial? Code Code System Systolic Blood Pressure 100 mm[Hg] 08/29/2020 19:00 Initial 8480-6 LOINC Diastolic Blood Pressure 77 mm[Hg] 08/29/2020 19:00 Initial 8462-4 LOINC O2 Saturation 94 % 2020 19:00 Initial 62714- 5 LOINC Pulse 67.0 /min 08/29/2020 19:00 Initial 8867-4 LOINC Respiration 15 /min 08/30/19 21 19:00 Initial 9279-1 [facility] Temperature 36.1 Reina 97.0 F 08/30/19 21 19:00 Initial 8310-5 [facility] Medications Medication Start Date End Date Route Frequency Dose Code Code System Medication Instructions Home Meds Mapap 325MG Oral Tablet 11/30/2015 05/28/2021 BY MOUTH NEEDED EVERY 4 HOURS 650 MILLIGRAMS 533955 RxNorm TAKE 650 MILLIGRAMS BY MOUTH NEEDED EVERY 4 HOURS Ibuprofen 200MG Oral Tablet 11/30/2015 05/28/2021 ORAL NEEDED THREE TIMES A DAY 4 TABLET 961876 RxNorm TAKE 4 TABLET ORAL NEEDED THREE TIMES A DAY Citalopram 40MG Oral Tablet 05/29/2021 Unknown ORAL BEDTIME 40 MILLIGRAMS 403550 RxNorm TAKE 40 MILLIGRAMS ORAL BEDTIME Cyclobenza cristóbal HCl 10MG Oral Tablet 05/29/2021 Unknown ORAL NEEDED 10 MILLIGRAMS 788194 RxNorm TAKE 10 MILLIGRAMS ORAL NEEDED Erythromyc in 5MG/1GM Ophthalmic Ointment 05/29/2021 Unknown OPHTHALMI C NEEDED FOUR TIMES A DAY 1 unit(s) 441659 RxNorm PLACE 1 EACH OPHTHALMIC NEEDED FOUR TIMES A DAY Gabapentin 600MG Oral Tablet 05/29/2021 Unknown ORAL NEEDED TWICE DAILY 600 MILLIGRAMS 948355 RxNorm TAKE 600 MILLIGRAMS ORAL NEEDED TWICE DAILY Vitamin B12 1000 MCG Sublingual Tablet 05/29/2021 Unknown SUBLINGUA L DAILY 1000 MCG 624302 RxNorm DISSOLVE 1000 MCG SUBLINGUAL DAILY buPROPion HCl 150MG Oral Tablet, Extended Release 05/29/2021 Unknown ORAL DAILY 150 MILLIGRAMS 610830 RxNorm TAKE 150 MILLIGRAMS ORAL DAILY busPIRone 10MG Oral Tablet 05/29/2021 Unknown ORAL TWICE A DAY 10 MILLIGRAMS 536065 RxNorm TAKE 10 MILLIGRAMS ORAL TWICE A DAY traZODone hydrochlor shailesh 50MG Oral Tablet 05/29/2021 Unknown ORAL BEDTIME 50 MILLIGRAMS 973973 RxNorm TAKE 50 MILLIGRAMS ORAL BEDTIME valACYclov ir HCl 1GM Oral Tablet 05/29/2021 Unknown ORAL NEEDED 1 GM 464837 RxNorm TAKE 1 GM ORAL NEEDED Azithromyc in 250MG Oral Tablet 05/29/2021 Unknown ORAL DAILY 1 TABLET 571442 RxNorm TAKE 1 TABLET ORAL DAILY Cefpodoxim e Proxetil 200MG Oral Tablet 05/29/2021 Unknown ORAL TWICE A DAY 1 TABLET 852326 RxNorm TAKE 1 TABLET ORAL TWICE A DAY Mucinex 1200MG Oral Tablet, Extended Release 05/29/2021 Unknown ORAL TWICE A DAY 1 TABLET 730595 RxNorm TAKE 1 TABLET ORAL TWICE A [...] Name Date Status Code Code Syste m Open Treatment, Ulnar Shaft FX, w/wo Int Fixation 08/29/2020 completed 81090 CPT Anesthesia, Open/Surg Arthro scopic/Endoscopic Proc, Distal Radius/Distal Ulna/Wrist/Hand; NOS 08/29/2020 completed 79087 CPT Problems Problem Start Date Resolved Date Status Code Code System FEVER active 389306572 SNOMED-CT DIABETES active 43216262 SNOMED-CT TYPE 2 DIABETES 05/28/2021 resolved 77177001 SNO MED-CT ANXIETY 05/28/2021 resolved 27386762 SNOMED-CT DEPRESSION 05/28/2021 resolved 93129610 SNOMED-C T CHRONIC BACK PAIN 05/28/2021 resolved 025721617 S NOMED-CT Allergies and Adverse Reactions Allergy Substance Reaction Severity Start Date Concern Status Co de Code System No Known Allergies Moderate Active 129410335 SN OMED-CT Plan of Treatment PRE-OP COVID-19 TESTING 02/20/2021 BONE DENSITY DEXA SPINE & HIP Encounters Encounter Diagnosis Start Date Code Code Sys tem Displaced transverse fractur e of shaft of left ulna, initial encounter for closed fracture 08/29/2020 SN OMED-CT Personal Care Team Section Performer Name Performer Role Active Date Inactive Da ibeth
--- OUTSIDE RECORDS SUMMARY | 2024-03-22 18:05 | XMS_ITS ---
Author Organization Unknown Address [address] [place] [address] [phone] Phone Care Team Providers Care Sales And Service Representative Name Role Phone ROSA FAROOQ Attending Unavailable Results MM DIGITAL SCR W CHRISTOPHER BILATE RAL - Completed: 11/03/2020 09:20 LOINC: Digital mammograms were inte rpreted according to the usual protocol including computer analysis with Storone system including tomosynthesis. Both CC and MLO views of both breasts were performed and compared to prior mammograms dating back to 2012, the most recent being May 2016. There has been no significant change in the appearance and distribution of the fibroglandular tissue. There are no masses nor malignant appearing microcalcification groups.?? No new architectural distortion nor skin thickening/retraction. IMPRESSION: No radiographic evidence of malignancy. BI-RADS Assessment:?? Category 1 - Negative BREAST DENSITY: b.?? There are scattered areas of fibroglandular density. Dictated by: LAURENCE ALTMAN M.D. RADIOLOGIST Transcribed by: SHANIKA 11/03/20/11:30 D Tuesday, November 03, 2020 8:18:00 AM/#[id number] Electronically Reviewed and Signed By: IVANNA ALTMAN M.D. RADIOLOGIST 11/03/20 19:00 TECHNOLOGIST: RT Mayda Kuhn) (M) Copy for: ROSA FAROOQ via link Social History Type Status Start Date End Date Code Code Syst em Smoking History Never smoker (Never Smoked) 263906516 SNOMED CT Smoking History Unknown if ever smoked [address] Sex Female Medications Medication Start Date End Date Route Frequency Dose Code Code System Medication Instructions Home Meds Mapap 325MG Oral Tablet 11/30/2015 05/28/2021 BY MOUTH NEEDED EVERY 4 HOURS 650 MILLIGRAMS 630423 RxNorm TAKE 650 MILLIGRAMS BY MOUTH NEEDED EVERY 4 HOURS Ibuprofen 200MG Oral Tablet 11/30/2015 05/28/2021 ORAL NEEDED THREE TIMES A DAY 4 TABLET 434752 RxNorm TAKE 4 TABLET ORAL NEEDED THREE TIMES A DAY Citalopram 40MG Oral Tablet 05/29/2021 Unknown ORAL BEDTIME 40 MILLIGRAMS 221962 RxNorm TAKE 40 MILLIGRAMS ORAL BEDTIME Cyclobenza cristóbal HCl 10MG Oral Tablet 05/29/2021 Unknown ORAL NEEDED 10 MILLIGRAMS 483782 RxNorm TAKE 10 MILLIGRAMS ORAL NEEDED Erythromyc in 5MG/1GM Ophthalmic Ointment 05/29/2021 Unknown OPHTHALMI C NEEDED FOUR TIMES A DAY 1 unit(s) 292277 RxNorm PLACE 1 EACH OPHTHALMIC NEEDED FOUR TIMES A DAY Gabapentin 600MG Oral Tablet 05/29/2021 Unknown ORAL NEEDED TWICE DAILY 600 MILLIGRAMS 487884 RxNorm TAKE 600 MILLIGRAMS ORAL NEEDED TWICE DAILY Vitamin B12 1000 MCG Sublingual Tablet 05/29/2021 Unknown SUBLINGUA L DAILY 1000 MCG 674174 RxNorm DISSOLVE 1000 MCG SUBLINGUAL DAILY buPROPion HCl 150MG Oral Tablet, Extended Release 05/29/2021 Unknown ORAL DAILY 150 MILLIGRAMS 229525 RxNorm TAKE 150 MILLIGRAMS ORAL DAILY busPIRone 10MG Oral Tablet 05/29/2021 Unknown ORAL TWICE A DAY 10 MILLIGRAMS 834962 RxNorm TAKE 10 MILLIGRAMS ORAL TWICE A DAY traZODone hydrochlor shailesh 50MG Oral Tablet 05/29/2021 Unknown ORAL BEDTIME 50 MILLIGRAMS 653999 RxNorm TAKE 50 MILLIGRAMS ORAL BEDTIME valACYclov ir HCl 1GM Oral Tablet 05/29/2021 Unknown ORAL NEEDED 1 GM 420474 RxNorm TAKE 1 GM ORAL NEEDED Azithromyc in 250MG Oral Tablet 05/29/2021 Unknown ORAL DAILY 1 TABLET 921895 RxNorm TAKE 1 TABLET ORAL DAILY Cefpodoxim e Proxetil 200MG Oral Tablet 05/29/2021 Unknown ORAL TWICE A DAY 1 TABLET 123272 RxNorm TAKE 1 TABLET ORAL TWICE A DAY Mucinex 1200MG Oral Tablet, Extended Release 05/29/2021 Unknown ORAL TWICE A DAY 1 TABLET 211300 RxNorm TAKE 1 TABLET ORAL TWICE A [...] Date Status Code Code System FEVER active 436244120 SNOMED-CT DIABETES active 98382419 SNOMED-CT TYPE 2 DIABETES 05/28/2021 resolved 79513343 SNO MED-CT ANXIETY 05/28/2021 resolved 91853448 SNOMED-CT DEPRESSION 05/28/2021 resolved 93042516 SNOMED-C T CHRONIC BACK PAIN 05/28/2021 resolved 942154051 S NOMED-CT Allergies and Adverse Reactions Allergy Substance Reaction Severity Start Date Concern Status Co de Code System No Known Allergies Moderate Active 342663006 SN OMED-CT Plan of Treatment PRE-OP COVID-19 TESTING 02/20/2021 BONE DENSITY DEXA SPINE & HIP Encounters Encounter Diagnosis Start Date Code Code Sys tem Encounter for screening mamm ogram for malignant neoplasm of breast 11/03/2020 SNOMED-CT Personal Care Team Section Performer Name Performer Role Active Date Inactive Da te
--- OUTSIDE RECORDS SUMMARY | 2024-03-22 18:05 | XMS_ITS ---
Author Organization Unknown Address [address] [place] [address] [phone] Phone Care Team Providers Care Research Manufacturing Operator Name Role Phone RENAN SIU Attending Unavailable ROSA FAROOQ Primary Unavailable Results MO FOREARM LEFT 2V - Complet ed: 11/02/2020 16:07 LOINC: LEFT FOREARM: Comparison 10/05/2020. There has been continued healing of the distal ulnar fracture. The fixation plate is unchanged in position. Dictated by: CEO FIDE MCMAHAN M.D. RADIOLOGIST Transcribed by: DOE 11/02/20/15:28 [id number] Electronically Reviewed and Signed By: FIDE MCMAHAN M.D. RADIOLOGIST 11/02/20 15:40 Social History Type Status Start Date End Date Code Code Syst em Smoking History Never smoker (Never Smoked) 177275445 SNOMED CT Smoking History Unknown if ever smoked [address] Sex Female Medications Medication Start Date End Date Route Frequency Dose Code Code System Medication Instructions Home Meds Mapap 325MG Oral Tablet 11/30/2015 05/28/2021 BY MOUTH NEEDED EVERY 4 HOURS 650 MILLIGRAMS 911533 RxNorm TAKE 650 MILLIGRAMS BY MOUTH NEEDED EVERY 4 HOURS Ibuprofen 200MG Oral Tablet 11/30/2015 05/28/2021 ORAL NEEDED THREE TIMES A DAY 4 TABLET 477015 RxNorm TAKE 4 TABLET ORAL NEEDED THREE TIMES A DAY Citalopram 40MG Oral Tablet 05/29/2021 Unknown ORAL BEDTIME 40 MILLIGRAMS 922031 RxNorm TAKE 40 MILLIGRAMS ORAL BEDTIME Cyclobenza cristóbal HCl 10MG Oral Tablet 05/29/2021 Unknown ORAL NEEDED 10 MILLIGRAMS 544631 RxNorm TAKE 10 MILLIGRAMS ORAL NEEDED Erythromyc in 5MG/1GM Ophthalmic Ointment 05/29/2021 Unknown OPHTHALMI C NEEDED FOUR TIMES A DAY 1 unit(s) 936738 RxNorm PLACE 1 EACH OPHTHALMIC NEEDED FOUR TIMES A DAY Gabapentin 600MG Oral Tablet 05/29/2021 Unknown ORAL NEEDED TWICE DAILY 600 MILLIGRAMS 547015 RxNorm TAKE 600 MILLIGRAMS ORAL NEEDED TWICE DAILY Vitamin B12 1000 MCG Sublingual Tablet 05/29/2021 Unknown SUBLINGUA L DAILY 1000 MCG 175682 RxNorm DISSOLVE 1000 MCG SUBLINGUAL DAILY buPROPion HCl 150MG Oral Tablet, Extended Release 05/29/2021 Unknown ORAL DAILY 150 MILLIGRAMS 446530 RxNorm TAKE 150 MILLIGRAMS ORAL DAILY busPIRone 10MG Oral Tablet 05/29/2021 Unknown ORAL TWICE A DAY 10 MILLIGRAMS 552090 RxNorm TAKE 10 MILLIGRAMS ORAL TWICE A DAY traZODone hydrochlor shailesh 50MG Oral Tablet 05/29/2021 Unknown ORAL BEDTIME 50 MILLIGRAMS 307937 RxNorm TAKE 50 MILLIGRAMS ORAL BEDTIME valACYclov ir HCl 1GM Oral Tablet 05/29/2021 Unknown ORAL NEEDED 1 GM 768956 RxNorm TAKE 1 GM ORAL NEEDED Azithromyc in 250MG Oral Tablet 05/29/2021 Unknown ORAL DAILY 1 TABLET 539291 RxNorm TAKE 1 TABLET ORAL DAILY Cefpodoxim e Proxetil 200MG Oral Tablet 05/29/2021 Unknown ORAL TWICE A DAY 1 TABLET 161798 RxNorm TAKE 1 TABLET ORAL TWICE A DAY Mucinex 1200MG Oral Tablet, Extended Release 05/29/2021 Unknown ORAL TWICE A DAY 1 TABLET 868588 RxNorm TAKE 1 TABLET ORAL TWICE A [...] Date Status Code Code System FEVER active 396357018 SNOMED-CT DIABETES active 44117801 SNOMED-CT TYPE 2 DIABETES 05/28/2021 resolved 67182767 SNO MED-CT ANXIETY 05/28/2021 resolved 15315980 SNOMED-CT DEPRESSION 05/28/2021 resolved 52560274 SNOMED-C T CHRONIC BACK PAIN 05/28/2021 resolved 806075145 S NOMED-CT Allergies and Adverse Reactions Allergy Substance Reaction Severity Start Date Concern Status Co de Code System No Known Allergies Moderate Active 521844371 SN OMED-CT Plan of Treatment PRE-OP COVID-19 TESTING 02/20/2021 BONE DENSITY DEXA SPINE & HIP Encounters Encounter Diagnosis Start Date Code Code Sys tem Presence of other bone and tendon implants 11/02/2020 SNOMED-CT Personal Care Team Section Performer Name Performer Role Active Date Inactive Da te
--- OUTSIDE RECORDS SUMMARY | 2024-03-22 18:05 | XMS_ITS ---
Author Organization Unknown Address [address] [place] [address] [phone] Phone Care Team Providers Care Printing Plate Maker Name Role Phone GENARO CARRILLO MD Attending Unavailable ROSA FAROOQ Primary Unavailable Social History Type Status Start Date End Date Code Code Syst em Smoking History Never smoker (Never Smoked) 991689981 SNOMED CT Smoking History Unknown if ever smoked [address] Sex Female Medications Medication Start Date End Date Route Frequency Dose Code Code System Medication Instructions Home Meds Mapap 325MG Oral Tablet 11/30/2015 05/28/2021 BY MOUTH NEEDED EVERY 4 HOURS 650 MILLIGRAMS 026093 RxNorm TAKE 650 MILLIGRAMS BY MOUTH NEEDED EVERY 4 HOURS Ibuprofen 200MG Oral Tablet 11/30/2015 05/28/2021 ORAL NEEDED THREE TIMES A DAY 4 TABLET 650545 RxNorm TAKE 4 TABLET ORAL NEEDED THREE TIMES A DAY Citalopram 40MG Oral Tablet 05/29/2021 Unknown ORAL BEDTIME 40 MILLIGRAMS 824874 RxNorm TAKE 40 MILLIGRAMS ORAL BEDTIME Cyclobenza cristóbal HCl 10MG Oral Tablet 05/29/2021 Unknown ORAL NEEDED 10 MILLIGRAMS 579446 RxNorm TAKE 10 MILLIGRAMS ORAL NEEDED Erythromyc in 5MG/1GM Ophthalmic Ointment 05/29/2021 Unknown OPHTHALMI C NEEDED FOUR TIMES A DAY 1 unit(s) 411511 RxNorm PLACE 1 EACH OPHTHALMIC NEEDED FOUR TIMES A DAY Gabapentin 600MG Oral Tablet 05/29/2021 Unknown ORAL NEEDED TWICE DAILY 600 MILLIGRAMS 823358 RxNorm TAKE 600 MILLIGRAMS ORAL NEEDED TWICE DAILY Vitamin B12 1000 MCG Sublingual Tablet 05/29/2021 Unknown SUBLINGUA L DAILY 1000 MCG 530217 RxNorm DISSOLVE 1000 MCG SUBLINGUAL DAILY buPROPion HCl 150MG Oral Tablet, Extended Release 05/29/2021 Unknown ORAL DAILY 150 MILLIGRAMS 249087 RxNorm TAKE 150 MILLIGRAMS ORAL DAILY busPIRone 10MG Oral Tablet 05/29/2021 Unknown ORAL TWICE A DAY 10 MILLIGRAMS 480506 RxNorm TAKE 10 MILLIGRAMS ORAL TWICE A DAY traZODone hydrochlor shailesh 50MG Oral Tablet 05/29/2021 Unknown ORAL BEDTIME 50 MILLIGRAMS 860139 RxNorm TAKE 50 MILLIGRAMS ORAL BEDTIME valACYclov ir HCl 1GM Oral Tablet 05/29/2021 Unknown ORAL NEEDED 1 GM 512831 RxNorm TAKE 1 GM ORAL NEEDED Azithromyc in 250MG Oral Tablet 05/29/2021 Unknown ORAL DAILY 1 TABLET 567949 RxNorm TAKE 1 TABLET ORAL DAILY Cefpodoxim e Proxetil 200MG Oral Tablet 05/29/2021 Unknown ORAL TWICE A DAY 1 TABLET 642249 RxNorm TAKE 1 TABLET ORAL TWICE A DAY Mucinex 1200MG Oral Tablet, Extended Release 05/29/2021 Unknown ORAL TWICE A DAY 1 TABLET 201944 RxNorm TAKE 1 TABLET ORAL TWICE A [...] Date Status Code Code System FEVER active 075434436 SNOMED-CT DIABETES active 87413720 SNOMED-CT TYPE 2 DIABETES 05/28/2021 resolved 27431886 SNO MED-CT ANXIETY 05/28/2021 resolved 07413130 SNOMED-CT DEPRESSION 05/28/2021 resolved 09102181 SNOMED-C T CHRONIC BACK PAIN 05/28/2021 resolved 666853790 S NOMED-CT Allergies and Adverse Reactions Allergy Substance Reaction Severity Start Date Concern Status Co de Code System No Known Allergies Moderate Active 363967200 SN OMED-CT Plan of Treatment PRE-OP COVID-19 TESTING 02/20/2021 BONE DENSITY DEXA SPINE & HIP Encounters Encounter Diagnosis Start Date Code Code Sys tem Unspecified fracture of shaf t of left ulna, subsequent encounter for closed fracture with routine healing 09/05/2020 SNOMED-CT Personal Care Team Section Performer Name Performer Role Active Date Inactive Da te
--- OUTSIDE RECORDS SUMMARY | 2024-03-22 18:05 | XMS_ITS ---
Author Organization Unknown Address [address] [place] [address] [phone] Phone Care Team Providers Care Tester [employer] Name Role Phone RENAN SIU Attending Unavailable ROSA FAROOQ Primary Unavailable Results MO FOREARM LEFT 2V - Complet ed: 10/05/2020 13:01 LOINC: LEFT FOREARM Comparison 07 September 2020. There has been no change in the alignment of the distal ulnar fracture or alignment of the fixation plate. No new abnormalities. Dictated by: CEO FIDE MCMAHAN M.D. RADIOLOGIST Transcribed by: [facility] 10/05/2012:38 D 10/05/2020 11:12:15 [id number] Electronically Reviewed and Signed By: FIDE MCMAHAN M.D. RADIOLOGIST 10/05/20 12:43 Social History Type Status Start Date End Date Code Code Syst em Smoking History Never smoker (Never Smoked) 773813549 SNOMED CT Smoking History Unknown if ever smoked [address] Sex Female Medications Medication Start Date End Date Route Frequency Dose Code Code System Medication Instructions Home Meds Mapap 325MG Oral Tablet 11/30/2015 05/28/2021 BY MOUTH NEEDED EVERY 4 HOURS 650 MILLIGRAMS 119544 RxNorm TAKE 650 MILLIGRAMS BY MOUTH NEEDED EVERY 4 HOURS Ibuprofen 200MG Oral Tablet 11/30/2015 05/28/2021 ORAL NEEDED THREE TIMES A DAY 4 TABLET 276973 RxNorm TAKE 4 TABLET ORAL NEEDED THREE TIMES A DAY Citalopram 40MG Oral Tablet 05/29/2021 Unknown ORAL BEDTIME 40 MILLIGRAMS 341405 RxNorm TAKE 40 MILLIGRAMS ORAL BEDTIME Cyclobenza cristóbal HCl 10MG Oral Tablet 05/29/2021 Unknown ORAL NEEDED 10 MILLIGRAMS 039588 RxNorm TAKE 10 MILLIGRAMS ORAL NEEDED Erythromyc in 5MG/1GM Ophthalmic Ointment 05/29/2021 Unknown OPHTHALMI C NEEDED FOUR TIMES A DAY 1 unit(s) 065923 RxNorm PLACE 1 EACH OPHTHALMIC NEEDED FOUR TIMES A DAY Gabapentin 600MG Oral Tablet 05/29/2021 Unknown ORAL NEEDED TWICE DAILY 600 MILLIGRAMS 140459 RxNorm TAKE 600 MILLIGRAMS ORAL NEEDED TWICE DAILY Vitamin B12 1000 MCG Sublingual Tablet 05/29/2021 Unknown SUBLINGUA L DAILY 1000 MCG 331913 RxNorm DISSOLVE 1000 MCG SUBLINGUAL DAILY buPROPion HCl 150MG Oral Tablet, Extended Release 05/29/2021 Unknown ORAL DAILY 150 MILLIGRAMS 228219 RxNorm TAKE 150 MILLIGRAMS ORAL DAILY busPIRone 10MG Oral Tablet 05/29/2021 Unknown ORAL TWICE A DAY 10 MILLIGRAMS 342299 RxNorm TAKE 10 MILLIGRAMS ORAL TWICE A DAY traZODone hydrochlor shailesh 50MG Oral Tablet 05/29/2021 Unknown ORAL BEDTIME 50 MILLIGRAMS 891160 RxNorm TAKE 50 MILLIGRAMS ORAL BEDTIME valACYclov ir HCl 1GM Oral Tablet 05/29/2021 Unknown ORAL NEEDED 1 GM 111637 RxNorm TAKE 1 GM ORAL NEEDED Azithromyc in 250MG Oral Tablet 05/29/2021 Unknown ORAL DAILY 1 TABLET 641457 RxNorm TAKE 1 TABLET ORAL DAILY Cefpodoxim e Proxetil 200MG Oral Tablet 05/29/2021 Unknown ORAL TWICE A DAY 1 TABLET 749247 RxNorm TAKE 1 TABLET ORAL TWICE A DAY Mucinex 1200MG Oral Tablet, Extended Release 05/29/2021 Unknown ORAL TWICE A DAY 1 TABLET 602664 RxNorm TAKE 1 TABLET ORAL TWICE A [...] Date Status Code Code System FEVER active 593476403 SNOMED-CT DIABETES active 60006107 SNOMED-CT TYPE 2 DIABETES 05/28/2021 resolved 24477751 SNO MED-CT ANXIETY 05/28/2021 resolved 24898899 SNOMED-CT DEPRESSION 05/28/2021 resolved 32704175 SNOMED-C T CHRONIC BACK PAIN 05/28/2021 resolved 214960596 S NOMED-CT Allergies and Adverse Reactions Allergy Substance Reaction Severity Start Date Concern Status Co de Code System No Known Allergies Moderate Active 669464982 SN OMED-CT Plan of Treatment PRE-OP COVID-19 TESTING 02/20/2021 BONE DENSITY DEXA SPINE & HIP Encounters Encounter Diagnosis Start Date Code Code Sys tem 10/05/2020 [id number] SNOMED-CT Personal Care Team Section Performer Name Performer Role Active Date Inactive Da te
[2024-03-22 21:30] LABS: HCT 41.1 % (36.0-46.0); HGB 13.5 g/dL (11.2-15.7); MCH 31.1 pg (27.0-33.0); MCHC 32.8 % (32.0-36.0); MCV 95 fL (80-95); Platelet Count 240 10^3/uL (130-400); RBC 4.34 10^6/uL (3.93-5.22); RDW 13.6 % (11.7-14.6); RDW-SD 47.7 fL; WBC 4.66 10^3/uL (4.4-10.8)
[2024-03-22 21:44] LABS: Hemoglobin A1C 5.8 % (<5.7)
[2024-03-22 22:11] LABS: ALT 22 U/L (14-59); AST 21 U/L (15-37); Albumin 3.6 g/dL (3.4-5.0); Alkaline Phosphatase 79 U/L (46-116); Anion Gap 6.3 mmol/L (3-11); BUN 20 mg/dL (7-18); Bilirubin, Total 0.47 mg/dL (0.2-1.0); CO2 29.7 mmol/L (21.0-32.0); CREATININE 0.8 mg/dL (0.55-1.02); Calcium 9.2 mg/dL (8.5-10.1); Calculated LDL 94 mg/dL (<100); Chloride 105 mmol/L (98-107); Cholesterol 232 mg/dL (<200); Estimated GFR 85.35 (mL/min/1.73m2); Glucose 88 mg/dL (74-106); HDL Cholesterol 121 mg/dL (40-60); Potassium 4.2 mmol/L (3.5-5.1); Sodium 141 mmol/L (136-145); TSH 2.93 uIU/mL (0.36-3.74); Total Protein 6.7 g/dL (6.4-8.2); Triglyceride 85 mg/dL (<150); Vitamin B12 188 pg/mL (193-986); Vitamin D 25 Total 24.9 ng/mL (30-100)
[2024-03-22 22:22] LABS: Iron 154 ug/dL (50-170); Total Iron Binding Capacity 522 ug/dL (250-450); Transferrin Sat 30 % (15-50)
== END 2024-03-22 17:49 | disposition home or self-care (01) ==
LOC: NCHCN 17:48
PROVIDERS: PCP Nurse Practitioner Family; Visit Provider Nurse Practitioner Family
DX: K90.9 Intestinal malabsorption, unspecified (principal); E66.9 Obesity, unspecified; R73.03 Prediabetes
CPT/HCPCS: 80053; 80061; 82306; 85027; 82607; 82746; 83036; 83540; 83550; 84443